=== PATIENT | male | born 1935 ===

== ENCOUNTER 2017-09-03 05:44 | Day surgery (SDC) | payer MEDICARE ==
[2017-09-03 06:53] LABS: CALCIUM 8.3 mg/dl (8.6-10.4)
[2017-09-03 06:55] LABS: POTASSIUM 4.2 mmol/L (3.6-5.2)
[2017-09-03] MEDS ORDERED: ceFAZolin IV 2 gm in Dextrose 0 GM/0 ML BAG IVPB ONE (07:32)
[2017-09-03] MEDS ORDERED: HEPARIN-NS 5,000 UNITS/500 ML 5,000 UNIT/500 ML BAG IV ONE (07:32)
[2017-09-03] MEDS ORDERED: Lidocaine 1% Inj (20ml) ONE (07:46)
[2017-09-03] MEDS ORDERED: Etomidate 20 mg/10ml Inj IV ONE (07:54)
[2017-09-03] MEDS ORDERED: Propofol 10 mg/ml Inj (20 ML) ONE (07:57)
[2017-09-03 08:11] LABS: INR 1.1
[2017-09-03] MEDS ORDERED: ceFAZolin IV 1 gm in Dextrose 1 GM/50 ML BAG IVPB ONE (08:12)
[2017-09-03] MEDS ORDERED: Sodium Chloride 0.9% 500 ML IV ONE ×2 (08:15)
[2017-09-03] MEDS ORDERED: Morphine 4 MG/ML VIAL ONE (09:22)
[2017-09-03] MEDS ORDERED: Sodium Chloride 0.9% 250 ML IV ONE ×2 (10:10→10:21)
--- NOTE | 2017-09-03 10:25 | PCM.SURG1 ---
Surgeon's Initial Post Op Note - Surgeon's Notes Surgeon: Dr. Aleman Management Consulting: Dr. Turner PGY-3, Mary S-III Type of Anesthesia: General LMA Pre-Operative Diagnosis: Renal failure requiring dialysis Operative Findings: see operative report Post-Operative Diagnosis: Renal failure requiring dialysis Operation Performed: Right AV Fistula Specimen/Specimens Removed: none Estimated Blood Loss: EBL {In ML}: 25 Blood Products Given: N/A Drains Used: No Drains Post-Op Condition: Good Date of Surgery/Procedure: 09/03/17 Time of Surgery/Procedure: 08:00
[2017-09-03 13:29] VITALS: PULSE 18; O2SAT 100
[2017-09-03 15:33] VITALS: BP 120/60; RESP 80; TEMP 98.1
--- NOTE | 2017-09-03 20:35 | OP ---
PROCEDURE DATE: 09/03/2017 PREOPERATIVE DIAGNOSIS: Renal failure. POSTOPERATIVE DIAGNOSIS: Renal failure. PROCEDURE CARRIED OUT: Brachiocephalic fistula, elbow. SURGEON: Reji Aleman Jr., MD LACQUERER: Dr. Turner. ANESTHESIA ADMINISTERED BY: Farrah Navarro CRNA. INDICATIONS: The patient is an 82-year-old man with renal insufficiency, who soon will requiring dialysis. OPERATIVE FINDINGS: At the end of the procedure, we had a diminution of the pulse at the wrist, but we had excellent Doppler signals and we had good pulse wave tracings on pulse oximeter. We have probed both of the ulnar and radial arteries. Other findings, of note, were that the vein was relatively small measuring approximately 2 mm, but there was excellent flow through it. The artery was also small. DESCRIPTION OF PROCEDURE: The patient was given general anesthesia and intravenous antibiotics. Using ultrasound, we marked the vein and the adjacent artery on the skin. An end-to-side fistula was then created using a spatulated anastomosis using loupe magnification and heparin anticoagulation. At the end of the procedure, there was excellent flow through the fistula, but there was a diminution of the pulse at the wrist. This appeared to improve as we had good pulse wave tracings and we had good Doppler signals of the wrist. The wounds were then closed with Monocryl and Vicryl sutures. The skin was closed with 5 nylon sutures. Blood loss for the procedure was 25 mL. Operation carried out was brachiocephalic fistula, elbow. Reji Aleman Jr., MD cc: Dr. Park, Aaron Orellana MD
== END 2017-09-03 14:20 | disposition home or self-care (01) ==
LOC: C.SDS 05:44
PROVIDERS: ATTEND Surgery Vascular Surgery
DX: N18.9 Chronic kidney disease, unspecified (principal); Z99.2 Dependence on renal dialysis
CPT/HCPCS: 36415; 36821; 80048; 85610; 85730; J0690; J1644; J2270; J2704; J3010; J7040

== ENCOUNTER 2017-12-11 09:47 | Day surgery (SDC) | payer MEDICARE ==
[2017-12-03 11:22] VITALS: BMI 19.1
[2017-12-11 11:08] LABS: CALCIUM 9.7 mg/dl (8.6-10.4)
[2017-12-11 11:18] LABS: INR 1.1; PROTHROMBIN TIME 12.8 SECONDS (9.7-12.2)
[2017-12-11] MEDS ORDERED: Propofol 10 mg/ml Inj (20 ML) ONE (11:43)
[2017-12-11] MEDS ORDERED: ceFAZolin 1 gm in NS 1 GM/100 ML BAG IVPB ONE (11:47)
[2017-12-11] MEDS ORDERED: HYDROmorphone 0.5 mg/0.5 ml ISec IVP PRN (13:10)
--- NOTE | 2017-12-11 13:11 | PCM.SURG1 ---
Surgeon's Initial Post Op Note - Surgeon's Notes Surgeon: Dr. Aleman Row Boss Hoeing: Dr. Major, PGY-I, Ever Cleveland, OMS-III Type of Anesthesia: General Endo Pre-Operative Diagnosis: End-stage renal disease requiring dialysis Operative Findings: See op report Post-Operative Diagnosis: End-stage renal disease requiring dialysis Operation Performed: Laparoscopic placement of Tenckhoff peritoneal dialysis catheter Specimen/Specimens Removed: none Estimated Blood Loss: EBL {In ML}: 10 Blood Products Given: N/A Drains Used: No Drains Post-Op Condition: Good Date of Surgery/Procedure: 12/11/17 Time of Surgery/Procedure: 13:11
[2017-12-11] MEDS ORDERED: Oxycodone/Acetaminophen 5/325 mg Tab PO PRN (13:12)
[2017-12-11 15:13] VITALS: BP 121/67; PULSE 54; RESP 15; TEMP 97.3; O2SAT 98
--- NOTE | 2017-12-11 19:05 | OP ---
PROCEDURE DATE: 12/11/2017 PREOPERATIVE DIAGNOSIS: Renal failure. POSTOPERATIVE DIAGNOSIS: Renal failure. PROCEDURE CARRIED OUT: Laparoscopic placement of Tenckhoff peritoneal dialysis catheter. SURGEON: Reji Aleman Jr., M.D. MARINE [employer]GO SURVEYOR: Dr. Major. ANESTHESIA ADMINISTERED BY: Mr. Cleveland. INDICATIONS: An 82-year-old man with renal insufficiency, has fistula in his right arm and now opted for placement of Tenckhoff catheter. OPERATIVE FINDINGS: The catheter was inserted uneventfully via the left paramedian area. PROCEDURE: The patient was given general anesthesia and intravenous antibiotics. A pneumoperitoneum was created with a Veress needle in the right upper quadrant. Subsequently, a 5 mm trocar was placed. The abdomen was visualized. There were no hernias. There was a small amount of existing ascites and there were no other significant adhesions. We then made a small incision just at the left of the midline and went in with an 8 mm Trocar through the rectus sheath down into the pelvis. After this was in the proper location, we then released the catheter and then checked this for flow in and out, which was excellent. We then completed the tunnel and secured it to the skin. Blood loss for procedure was 5 mL to 10 mL. Operation carried out was laparoscopic placement of Tenckhoff peritoneal dialysis catheter. Reji Aleman Jr., MD
== END 2017-12-11 15:21 | disposition home or self-care (01) ==
LOC: C.SDS 09:47
PROVIDERS: ATTEND Surgery Vascular Surgery
DX: N18.6 End stage renal disease (principal)
CPT/HCPCS: 36415; 49324; 80048; 85610; J0690; J2704; J3010; J7030

== ENCOUNTER 2017-12-11 22:20 | Emergency (ER) | payer MEDICARE ==
[2017-12-11 22:20] VITALS: BMI 19.1
[2017-12-11] MEDS ORDERED: Potassium Chloride 10 mEq ER Tab PO SCH (23:45)
[2017-12-11] MEDS ORDERED: Multivitamin Vitamin B Complex (Nephro-Vite) Tab PO SCH (23:45)
[2017-12-12] MEDS ORDERED: Potassium Chloride 10 mEq ER Tab PO ONE (00:06)
--- NOTE | 2017-12-12 01:13 | C.PDOC ---
History Of Present Illness <Kailey Alford - Last Filed: 12/12/17 01:37> <Prince Lara - Last Filed: 12/12/17 08:41> 82 year old male has 6-month PMHx of chronic renal failure and underwent AV fistula placement in August 2017. This morning, patient had a peritoneal catheter placed by Dr. Aleman. Patient now presents to the ED with c/o bleeding at exertion site of peritoneal dialysis catheter. Patient reports difficulty passing urine earlier today due to the effects of anesthesia but is now urinating without difficulty. Patient denies fever, chills, and has no other complaints at this time. (Kailey Alford) History Per: Patient History/Exam Limitations: no limitations Onset/Duration Of Symptoms: Hrs Current Symptoms Are (Timing): Still Present Additional History Per: Patient <Kailey Alford - Last Filed: 12/12/17 01:37> <Prince Lara - Last Filed: 12/12/17 08:41> Chief Complaint (Nursing): Abnormal Skin Integrity Past Medical History Reviewed: Historical Data, Nursing Documentation, Vital Signs - Medical History PMH: Cardia Arrhythmia (HX: [id number] DONE ~[id number]), COPD, HTN , Hypercholesterolemia, Peripheral Edema, Chronic Kidney Disease Surgical History: CABG (QUAD-CORNARY BYPASS 2007) Family History: States: Unknown Family Hx - Social History Hx Alcohol Use: No Hx Substance Use: No <AlfordKailey Alex - Last Filed: 12/12/17 01:37> Vital Signs: Last Vital Signs Temp 98.3 F 12/12/17 08:18 Pulse 75 12/12/17 08:18 Resp 16 12/12/17 08:18 BP 121/76 12/12/17 08:18 Pulse Ox 99 12/12/17 08:18 - [facility] Procedures ENDOSCOPIC BRONCHIAL BX (06/12/13) Review Of Systems Constitutional: Negative for: Fever, Chills Skin: Positive for: Other (bleeding at insertion site of peritoneal catheter ) <PrashanthKailey Alex - Last Filed: 12/12/17 01:37> Physical Exam - Physical Exam Appears: Non-toxic, No Acute Distress, Other (frail) Skin: Normal Color, Warm, Dry Head: Atraumatic, Normacephalic Eye(s): bilateral: Normal Inspection Oral Mucosa: Moist Neck: Supple Chest: Symmetrical, No Deformity, No Tenderness Cardiovascular: Rhythm Regular, No Murmur Respiratory: Normal Breath Sounds, No Rales, No Rhonchi, No Wheezing Gastrointestinal/Abdominal: Soft, No Tenderness, No Guarding, No Rebound, Other (peritoneal dialysis catheter to left lower quadrant with serosanguineous draiange at insertion site ) Extremity: Normal ROM, Capillary Refill (less than 2 seconds ), Other (AV fistula to left upper arm with positive thrill ) Neurological/Psych: Oriented x3, Normal Speech, Normal Cognition <Kailey Alford - Last Filed: 12/12/17 01:37> ED Course And Treatment O2 Sat by Pulse Oximetry: 96 (on RA) Pulse Ox Interpretation: Normal <Kailey Alford - Last Filed: 12/12/17 01:37> Medical Decision Making <Kailey Alford - Last Filed: 12/12/17 01:37> <Prince Lara - Last Filed: 12/12/17 08:41> Medical Decision Making: Progress: Patient was evaluated in the ED by Dr. Aleman, who injected Lidocaine with Epinephrine to insertion site and placed some surgiseal skin glue. He then dressed the insertion site and asked to leave the patient for overnight ED observation. He will re-evaluate the patient in the morning. (Kailey Alford) 0730: Dr. Aleman @ bedside, ED 6, bladder scan 770cc, straight cath to empty bladder and Flomax 0.4 mg PO given s/p abd surgery recently but no mccullough manipulation Consider post-op stress urinary retention d/w pt and Dr. Aleman- defer indwelling Mccullough and leg bag and carefully monitor urinary output @ home and opt f/u with Dr. Aleman in 2 days. (Prince Lara) Disposition <Kailey Alford - Last Filed: 12/12/17 01:37> Doctor Will See Patient In The: Office Counseled Patient/Family Regarding: Studies Performed, Diagnosis - Disposition Disposition Time: 08:41 <Prince Lara - Last Filed: 12/12/17 08:41> - Disposition Disposition: HOME/ ROUTINE Condition: GOOD Forms: [facility] (Citizen Of [place]) - Clinical Impression Clinical Impression: Peritoneal dialysis catheter in situ, Urinary retention - Scribe Statement The provider has reviewed the documentation as recorded by the Scribe (Bessy Claudio) <Kailey Alford - Last Filed: 12/12/17 01:37> <Prince Lara - Last Filed: 12/12/17 08:41> - Scribe Statement Provider Attestation: All medical record entries made by the Scribe were at my direction and personally dictated by me. I have reviewed the chart and agree that the record accurately reflects my personal performance of the history, physical exam, medical decision making, and the department course for this patient. I have also personally directed, reviewed, and agree with the discharge instructions and disposition. (Kailey Alford)
[2017-12-12 08:19] VITALS: BP 121/76; PULSE 75; RESP 16; TEMP 98.3; O2SAT 99
== END 2017-12-12 08:51 | disposition home or self-care (01) ==
LOC: C.ER 22:20 → SUPCPDRO 22:20 → C.ER 12-12 08:51
DX: Z49.02 Encounter for fitting and adjustment of peritoneal dialysis catheter (principal); R33.9 Retention of urine, unspecified; N18.6 End stage renal disease

== ENCOUNTER 2017-12-26 23:45 | Inpatient (IN) | payer MEDICARE ==
[2017-12-26 23:45] VITALS: BMI 19.1
--- NOTE | 2017-12-27 00:07 | C.PDOC ---
History Of Present Illness Pt presents with worsening dyspnea on exertion. No chest or palpitations. Pt is due next week to start peritoneal dialysis. Speaking in complete sentences. Time Seen by Provider: 12/27/17 00:06 Chief Complaint (Nursing): Shortness Of Breath History Per: Patient History/Exam Limitations: no limitations Onset/Duration Of Symptoms: Days Current Symptoms Are (Timing): Worse Initiating Event: Other Exacerbating Factor(s): Exertion Current Respiratory Medications: See Home Med List Severity: Severe Pain Scale Rating Of: 6 Associated Symptoms: denies: Fever, Chills, Anxiety Reports Recently: Treated By A Physician, Hospitalized Recent travel outside of the [place]: No Additional History Per: Family Past Medical History Reviewed: Historical Data, Nursing Documentation, Vital Signs Vital Signs: Last Vital Signs Temp 97.4 F L 12/26/17 23:56 Pulse 98 H 12/26/17 23:56 Resp 28 H 12/27/17 00:12 BP 122/65 12/26/17 23:56 Pulse Ox 94 L 12/27/17 00:30 - Medical History PMH: Cardia Arrhythmia (HX: [id number] DONE ~[id number]), COPD, HTN , Hypercholesterolemia, Peripheral Edema, End Stage Renal Disease, Chronic Kidney Disease Surgical History: CABG (QUAD-CORNARY BYPASS 2007) - [facility] Procedures ENDOSCOPIC BRONCHIAL BX (06/12/13) Family History: States: No Known Family Hx - Social History Hx Alcohol Use: No Hx Substance Use: No - Immunization History Hx Tetanus Toxoid Vaccination: Yes Hx Influenza Vaccination: Yes Hx Pneumococcal Vaccination: Yes Review Of Systems Constitutional: Negative for: Fever, Chills Eyes: Negative for: Redness ENT: Negative for: Throat Pain Cardiovascular: Positive for: Paroxysmal Noc. Dyspnea. Negative for: Chest Pain Respiratory: Positive for: Shortness of Breath, SOB with Excertion Gastrointestinal: Negative for: Nausea, Vomiting, Abdominal Pain Genitourinary: Negative for: Hematuria Musculoskeletal: Negative for: Back Pain Skin: Negative for: Rash Neurological: Negative for: Weakness Psych: Negative for: Anxiety Physical Exam - Physical Exam Appears: Non-toxic Skin: Warm, Dry Head: Normacephalic Eye(s): bilateral: Normal Inspection Nose: No Flaring Oral Mucosa: Dry Neck: Trachea Midline, Supple, Other (+JVD) Chest: Symmetrical Cardiovascular: Rhythm Irregular Respiratory: Decreased Breath Sounds, Rales, No Rhonchi, No Wheezing Gastrointestinal/Abdominal: Soft, No Tenderness, No Distention, Other (PD shunt LLQ) Back: No CVA Tenderness Extremity: Normal ROM, Other (Right HD shunt with good thrill and bruit) Pulses: Left Dorsalis Pedis: Normal, Right Dorsalis Pedis: Normal Neurological/Psych: Oriented x3, Normal Speech, Normal Cognition Gait: With Assistance ED Course And Treatment - Laboratory Results Result Diagrams: 12/27/17 00:12 12/27/17 00:12 ECG: Interpreted By Me, Viewed By Me ECG Rhythm: Atrial Flutter (93), Nonspecific Changes O2 Sat by Pulse Oximetry: 94 Pulse Ox Interpretation: Normal - Radiology CXR: Interpreted by Me, Viewed By Me CXR Interpretation: Yes: Cardiomegaly, Other (cabg, b/l pleural effusions.mild chf). No: Infiltrates, Fracture Disposition Discussed With Dr.: Tk Park Comment: accepted the pt on his service and took over the care at 1:30 AM Doctor Will See Patient In The: Hospital Counseled Patient/Family Regarding: Studies Performed, Diagnosis - Disposition Disposition: HOSPITALIZED Disposition Time: 00:06 Condition: GUARDED Forms: [employer] [facility] ([place]) - POA Present On Arrival: Poor Glycemic Control - Clinical Impression Clinical Impression: Chronic congestive heart failure, Peritoneal dialysis catheter in situ, Dyspnea , ESRD needing dialysis Decision To Admit - Pt Status Changed To: Hospital Disposition Of: Inpatient - Admit Certification Admit to Inpatient:: After my assessment, the patient will require hospitalization for at least two midnights. This is because of the severity of symptoms shown, intensity of services needed, and/or the medical risk in this patient being treated as an outpatient. - InPatient: Physician Admission Certification: I certify that this patient requires 2 or more midnights of care for the following reason:: After my assessment, the patient will require hospitalization for at least two midnights. This is because of the severity of symptoms shown, intensity of services needed, and/or the medical risk in this patient being treated as an outpatient. - . Bed Request Type: Telemetry Admitting Physician: Tk Park Patient Diagnosis: Chronic congestive heart failure, Peritoneal dialysis catheter in situ, Dyspnea , ESRD needing dialysis
[2017-12-27 00:18] LABS: BASO # 0.1 K/uL (0.0-0.2); BASO % 0.9 % (0.0-2.0); EOS # 0.2 K/uL (0.0-0.7); EOS % 1.9 % (0.0-4.0); HEMOGLOBIN 9.4 g/dL (12.0-18.0); LYMPH # 0.6 K/uL (1.0-4.3); LYMPH % 6.7 % (20.0-40.0); MEAN CELL VOLUME 100.3 fL (80.0-94.0); MEAN CORPUSCULAR HEMOGLOBIN 33.9 pg (27.0-31.0); MEAN CORPUSCULAR HGB CONC 33.8 g/dL (33.0-37.0); MEAN PLATELET VOLUME 9.3 fL (7.2-11.7); MONO # 0.7 K/uL (0.0-0.8); MONO % 7.6 % (0.0-10.0); NEUT # 7.8 K/uL (1.8-7.0); NEUT % 82.9 % (50.0-75.0); NRBC % 0.1 % (0.0-2.0); PLATELET COUNT 156 K/uL (130-400); RBC 2.77 Mil/uL (4.40-5.90); WHITE BLOOD COUNT 9.5 K/uL (4.8-10.8)
[2017-12-27 00:31] LABS: INR 1.8; PROTHROMBIN TIME 20.5 SECONDS (9.7-12.2)
[2017-12-27 00:43] LABS: ALB/GLOB RATIO 1.1 (1.0-2.1); ALBUMIN 4.4 g/dL (3.5-5.0); ALT/SGPT 18 U/L (21-72); AST/SGOT 21 U/L (17-59); BLOOD UREA NITROGEN 96 mg/dL (9-20); CALCIUM 9.8 mg/dl (8.6-10.4); GFR AFRICAN-AMERICAN 14; GFR NON-AFRICAN AMERICAN 12
[2017-12-27 02:03] LABS: URINE BILIRUBIN NEGATIVE (NEGATIVE); URINE BLOOD NEGATIVE (NEGATIVE); URINE CLARITY Clear (Clear); URINE COLOR Yellow (YELLOW); URINE GLUCOSE (UA) NORMAL (Normal); URINE LEUKOCYTE ESTERASE NEG Leu/uL (Negative); URINE PROTEIN NEGATIVE (NEGATIVE); URINE UROBILINOGEN NORMAL mg/dL (0.2-1.0)
[2017-12-27 02:13] LABS: BANDS 1 % (0-2); EOSINOPHIL 1 % (0-4); LYMPHOCYTE 7 % (20-40); MONOCYTE 6 % (0-10); NEUTROPHIL 85 % (50-75); PLATELET ESTIMATE NORMAL (NORMAL); TOTAL CELLS COUNTED 100
[2017-12-27 07:27] LABS: ALBUMIN 3.5 g/dL (3.5-5.0); CALCIUM 9.2 mg/dl (8.6-10.4)
--- NOTE | 2017-12-27 07:48 | RAD ---
Chest x-ray single frontal view History: Shortness of breath. Comparison: 12/03/2017 Findings: Moderate left pleural effusion. Confluent airspace consolidative changes seen within the left mid to lower lung zone. Addition nodular areas of consolidative changes seen within right midlung zone. Cardiomegaly. Enlarged ectatic aorta. Calcification at the aortic knob and within the aorta. Status post median sternotomy. Degenerative changes in the spine and shoulders. Surgical clips in the upper abdomen. Impression: Moderate left pleural effusion. Confluent airspace consolidative changes seen within the left mid to lower lung zone. Addition nodular areas of consolidative changes seen within right midlung zone. Cardiomegaly. Enlarged ectatic aorta. Calcification at the aortic knob and within the aorta. Status post median sternotomy. Degenerative changes in the spine and shoulders.
--- NOTE | 2017-12-27 12:05 | CP.PCM.CON ---
History of Present Illness - History of Present Illness History of Present Illness: 82 yo male with HTN, CKD stage 5, CAD s/p CABG, DL, COPD and A flutter s/p cardioversion presents to ER with complaints of worsening SOB. As per patient , he was suppose to start PD next week at out pt dialysis unit, but for the past 2 days experiencing more exertional dyspnea No chest pain , no palpitations no fevers no change in UOP occasionally hesitancy PMHX- HTN, CKD stage 5, DL, CAD, BPH, A flutter PSHx- CABG, AV fistula creaiton, PD catheter placement social - no smoking, alcohol or drug use family- no family history of kidney disease Review of Systems - Constitutional Constitutional: Weakness. absent: Chills, Fever - EENT Eyes: absent: Blurred Vision, Diplopia Nose/Mouth/Throat: absent: Nasal Congestion, Bleeding Gums - Cardiovascular Cardiovascular: Dyspnea on Exertion, Edema. absent: Chest Pain, Syncope - Respiratory Respiratory: Dyspnea on Exertion. absent: Cough, Hemoptysis - Gastrointestinal Gastrointestinal: absent: Abdominal Pain, Diarrhea, Vomiting - Genitourinary Genitourinary: Urinary Hesitance. absent: Change in Urinary Stream, Hematuria, Urinary Frequency - Musculoskeletal Musculoskeletal: absent: Arthralgias, Joint Swelling - Integumentary Integumentary: absent: Pruritus, Rash, Unusual Bruising - Neurological Neurological: Convulsions. absent: Dizziness, Numbness, Frequent Falls - Psychiatric Psychiatric: As Per HPI - Endocrine Endocrine: As Per HPI Past Patient History - Infectious Disease Hx of Infectious Diseases: None - Past Medical History & Family History Past Medical History?: Yes - Past Social History Smoking Status: Never Smoked - CARDIAC Hx Cardiac Disorders: Yes Hx Cardia Arrhythmia: Yes (HX: [id number] DONE ~[id number]) Hx Hypercholesterolemia: Yes Hx Hypertension: Yes Hx Peripheral Edema: Yes - PULMONARY Hx Respiratory Disorders: Yes Hx Chronic Obstructive Pulmonary Disease (COPD): Yes - NEUROLOGICAL Hx Neurological Disorder: No - HEENT Hx HEENT Problems: No - RENAL Hx Chronic Kidney Disease: Yes Type of Dialysis Access: AV Fistula; PD cath. Hx Renal Failure: Yes Other/Comment: ESRD needs Dialisys - ENDOCRINE/METABOLIC Hx Endocrine Disorders: No - HEMATOLOGICAL/ONCOLOGICAL Hx Blood Disorders: No - INTEGUMENTARY Hx Dermatological Problems: No - MUSCULOSKELETAL/RHEUMATOLOGICAL Hx Musculoskeletal Disorders: No Hx Falls: No - GASTROINTESTINAL Hx Gastrointestinal Disorders: No - GENITOURINARY/GYNECOLOGICAL Hx Genitourinary Disorders: No - PSYCHIATRIC Hx Psychophysiologic Disorder: No Hx Substance Use: No - SURGICAL HISTORY Hx Surgeries: Yes Hx Arteriovenous Shunt: Yes (AV fistula R arm) 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QUAD-CORNARY BYPASS 2007) - ANESTHESIA Hx Anesthesia: Yes Hx Anesthesia Reactions: No Hx Malignant Hyperthermia: No Meds Allergies/Adverse Reactions: Allergies Allergy/AdvReac Type Severity Reaction Status Date / Time Gadolinium-Containing Allergy Severe "HIVES" Verified 12/26/17 23:59 Contrast Medi Iodinated Contrast- Oral and Allergy Severe URTICARIA Verified 12/26/17 23:59 IV Dye Thiazides Allergy Severe "HIVES" Verified 12/26/17 23:59 - Medications Medications: Current Medications Allopurinol (Zyloprim) 100 mg PO HS EMILY Amlodipine Besylate (Norvasc) 2.5 mg PO HS EMILY Apixaban (Eliquis) 2.5 mg PO BID [facility] Last Admin: 12/27/17 10:20 Dose: 2.5 mg Calcitriol (Rocaltrol) 0.25 mcg PO HS EMILY Clonidine HCl (Catapres) 0.1 mg PO HS EMILY Ferrous Sulfate (Feosol) 325 mg PO HS EMILY Folic Acid (Folic Acid) 1 mg PO HS EMILY Furosemide (Lasix) 40 mg PO HS [facility] Home Med (Atorvastatin [Lipitor]) 10 mg PO HS EMILY Nebivolol (Bystolic) 10 mg PO HS EMILY Vitamin B Complex/Vit C/Folic Acid (Nephro-Miguel Ángel) 1 tab PO HS [facility] Physical Exam - Constitutional Appears: Non-toxic, No Acute Distress - Head Exam Head Exam: ATRAUMATIC, NORMOCEPHALIC - Eye Exam Eye Exam: EOMI, PERRL - ENT Exam ENT Exam: Mucous Membranes Moist, Normal Exam - Neck Exam Neck exam: Negative for: Thyromegaly - Respiratory Exam Respiratory Exam: Clear to Auscultation Bilateral Additional comments: decreased BS at bases L >> R - Cardiovascular Exam Cardiovascular Exam: REGULAR RHYTHM, +S1, +S2 - GI/Abdominal Exam GI & Abdominal Exam: Normal Bowel Sounds, Soft. absent: Tenderness - Extremities Exam Extremities exam: Positive for: pedal edema. Negative for: joint swelling - Neurological Exam Neurological exam: Alert, Oriented x3 - Psychiatric Exam Psychiatric exam: Normal Affect, Normal Mood - Skin Skin Exam: Dry, Normal Color Results - Vital Signs Recent Vital Signs: Last Vital Signs Temp 97.4 F L 12/27/17 10:45 Pulse 72 12/27/17 10:45 Resp 18 12/27/17 10:45 BP 115/58 L 12/27/17 10:45 Pulse Ox 99 12/27/17 10:45 - Labs Result Diagrams: 12/27/17 00:12 12/27/17 06:47 Labs: Laboratory Results - last 24 hr 12/27/17 12/27/17 12/27/17 00:12 00:12 00:12 WBC 9.5 RBC 2.77 L Hgb 9.4 L Hct 27.8 L MCV 100.3 H MCH 33.9 H MCHC 33.8 RDW 18.0 H Plt Count 156 MPV 9.3 Neut % (Auto) 82.9 H Lymph % (Auto) 6.7 L [place] % (Auto) 7.6 Eos % (Auto) 1.9 Baso % (Auto) 0.9 Neut # (Auto) 7.8 H Lymph # (Auto) 0.6 L [place] # (Auto) 0.7 Eos # (Auto) 0.2 Baso # (Auto) 0.1 Neutrophils % (Manual) 85 H Band Neutrophils % 1 Lymphocytes % (Manual) 7 L Monocytes % (Manual) 6 Eosinophils % (Manual) 1 Platelet Estimate Normal PT 20.5 H INR 1.8 APTT 37 H Sodium 144 Potassium 4.8 Chloride 104 Carbon Dioxide 20 L Anion Gap 25 H BUN 96 H Creatinine 4.8 H Est GFR ( Amer) 14 Est GFR (Non-Af Amer) 12 Random Glucose 111 H Calcium 9.8 Magnesium Cancelled Total Bilirubin 1.6 H AST 21 ALT 18 L Alkaline Phosphatase 111 Troponin I < 0.0120 NT-Pro-B Natriuret Pep Cancelled Total Protein 8.5 H Albumin 4.4 Globulin 4.1 H Albumin/Globulin Ratio 1.1 Urine Color Urine Clarity Urine pH Ur Specific [place] Urine Protein Urine Glucose (UA) Urine Ketones Urine Blood Urine Nitrate Urine Bilirubin Urine Urobilinogen Ur Leukocyte Esterase Urine RBC (Auto) 12/27/17 12/27/17 12/27/17 01:13 01:17 01:57 WBC RBC Hgb Hct MCV MCH MCHC RDW Plt Count MPV Neut % (Auto) Lymph % (Auto) [place] % (Auto) Eos % (Auto) Baso % (Auto) Neut # (Auto) Lymph # (Auto) [place] # (Auto) Eos # (Auto) Baso # (Auto) Neutrophils % (Manual) Band Neutrophils % Lymphocytes % (Manual) Monocytes % (Manual) Eosinophils % (Manual) Platelet Estimate PT INR APTT Sodium Potassium Chloride Carbon Dioxide Anion Gap BUN Creatinine Est GFR ( Amer) Est GFR (Non-Af Amer) Random Glucose Calcium Magnesium 2.8 H Total Bilirubin AST ALT Alkaline Phosphatase Troponin I NT-Pro-B Natriuret Pep 82677 H Total Protein Albumin Globulin Albumin/Globulin Ratio Urine Color Yellow Urine Clarity Clear Urine pH 5.0 Ur Specific [place] 1.009 Urine Protein Negative Urine Glucose (UA) Normal Urine Ketones Negative Urine Blood Negative Urine Nitrate Negative Urine Bilirubin Negative Urine Urobilinogen Normal Ur Leukocyte Esterase Neg Urine RBC (Auto) < 1 12/27/17 06:47 WBC RBC Hgb Hct MCV MCH MCHC RDW Plt Count MPV Neut % (Auto) Lymph % (Auto) [place] % (Auto) Eos % (Auto) Baso % (Auto) Neut # (Auto) Lymph # (Auto) [place] # (Auto) Eos # (Auto) Baso # (Auto) Neutrophils % (Manual) Band Neutrophils % Lymphocytes % (Manual) Monocytes % (Manual) Eosinophils % (Manual) Platelet Estimate PT INR APTT Sodium 142 Potassium 4.7 Chloride 105 Carbon Dioxide 21 L Anion Gap 21 H BUN 96 H Creatinine 4.6 H Est GFR ( Amer) 15 Est GFR (Non-Af Amer) 12 Random Glucose 132 H Calcium 9.2 Magnesium Total Bilirubin 1.2 AST 20 ALT 20 L Alkaline Phosphatase 88 Troponin I NT-Pro-B Natriuret Pep Total Protein 6.9 Albumin 3.5 D Globulin 3.5 Albumin/Globulin Ratio 1.0 Urine Color Urine Clarity Urine pH Ur Specific [place] Urine Protein Urine Glucose (UA) Urine Ketones Urine Blood Urine Nitrate Urine Bilirubin Urine Urobilinogen Ur Leukocyte Esterase Urine RBC (Auto) Assessment & Plan (1) Pleural effusion on left Status: Acute (2) Chronic congestive heart failure Status: Acute (3) Dyspnea Status: Acute (4) Peritoneal dialysis catheter in situ Status: Acute (5) Chronic kidney disease, stage 5 Status: Acute (6) Dyslipidemia Status: Acute (7) CAD (coronary artery disease) Status: Acute - Assessment and Plan (Free Text) Plan: no anika uremic symptoms dyspnea likely secondary to worsening effusions pulmonary eval for ? thoracentesis continue iv lasix bladder scan r/o obstruction daily labs
[2017-12-27] MEDS: Multivitamin Vitamin B Complex (Nephro-Vite) Tab PO SCH (21:57)
[2017-12-27] MEDS ORDERED: Home Med 1 UNIT (Atorvastatin [Lipitor] 10 MG) PO SCH (22:00)
--- NOTE | 2017-12-27 23:26 | CP.PCM.HP ---
History of Present Illness - History of Present Illness History of Present Illness: 82 years old male was brought to the ED at [facility] complaining of increasing SOB for the past few days and mild swelling of the ankles. He denies any chest pain, any fever. A CXR revealed cardiomegaly and moderate left pleural effusion. Hgb: 9.4. BUN: 96 creatinine: 4.6 Mg++: 2.8 TNI: normal Pro-BNP: 23,4000. He is known to have a hypertension, a hyperlipidemia, a chronic atrial flutter an ESRD with failed placement of AV shunt in 08/2017 and recent insertion of a PD catheter, a CAD with CAGB x 4 in 2007. He was given Bumex IV in the ED with improvement of symptoms. He also had a normal Persantine MPI in 06/2015 and an echo which showed a normal LV systolic function and abnormal diastolic relaxation. Present on Admission - Present on Admission Any Indicators Present on Admission: No Review of Systems - Cardiovascular Cardiovascular: Dyspnea on Exertion, Edema - Respiratory Respiratory: Dyspnea on Exertion Past Patient History - Infectious Disease Hx of Infectious Diseases: None - Tetanus Immunizations Tetanus Immunization: Unknown - Past Medical History & Family History Past Medical History?: Yes - Past Social History Smoking Status: Never Smoked Alcohol: None Home Situation {Lives}: With Family Domestic Violence: Negative - CARDIAC Hx Cardiac Disorders: Yes Hx Cardia Arrhythmia: Yes (HX: [id number] [id number] ~[id number]) Hx Hypercholesterolemia: Yes Hx Hypertension: Yes Hx Peripheral Edema: Yes - PULMONARY Hx Respiratory Disorders: Yes Hx Chronic Obstructive Pulmonary Disease (COPD): Yes - NEUROLOGICAL Hx Neurological Disorder: No - HEENT Hx HEENT Problems: No - RENAL Hx Chronic Kidney Disease: Yes Type of Dialysis Access: AV Fistula; PD cath. Hx Renal Failure: Yes Other/Comment: ESRD needs Dialisys - ENDOCRINE/METABOLIC Hx Endocrine Disorders: No - HEMATOLOGICAL/ONCOLOGICAL Hx Blood Disorders: No - INTEGUMENTARY Hx Dermatological Problems: No - MUSCULOSKELETAL/RHEUMATOLOGICAL Hx Musculoskeletal Disorders: No Hx Falls: No - GASTROINTESTINAL Hx Gastrointestinal Disorders: No - GENITOURINARY/GYNECOLOGICAL Hx Genitourinary Disorders: No - PSYCHIATRIC Hx Psychophysiologic Disorder: No Hx Substance Use: No - SURGICAL HISTORY Hx Surgeries: Yes Hx Arteriovenous Shunt: Yes (AV fistula R arm) 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[facility] BYPASS 2007) - ANESTHESIA Hx Anesthesia: Yes Hx Anesthesia Reactions: No Hx Malignant Hyperthermia: No Meds Allergies/Adverse Reactions: Allergies Allergy/AdvReac Type Severity Reaction Status Date / Time Gadolinium-Containing Allergy Severe "HIVES" Verified 12/26/17 23:59 Contrast Medi Iodinated Contrast- Oral and Allergy Severe URTICARIA Verified 12/26/17 23:59 IV Dye Thiazides Allergy Severe "HIVES" Verified 12/26/17 23:59 Physical Exam - Constitutional Appears: No Acute Distress, Chronically Ill - Head Exam Head Exam: NORMAL INSPECTION - Eye Exam Eye Exam: Normal appearance - ENT Exam ENT Exam: Normal Exam - Neck Exam Neck exam: Positive for: Normal Inspection - Respiratory Exam Respiratory Exam: Decreased Breath Sounds Additional comments: Decreased breathing sounds at the left base. - Cardiovascular Exam Cardiovascular Exam: Irregular Rhythm - GI/Abdominal Exam GI & Abdominal Exam: Normal Bowel Sounds, Soft - Rectal Exam Rectal Exam: Deferred - Extremities Exam Extremities exam: Positive for: pedal edema Additional comments: Trace pedal edema. - Back Exam Back exam: NORMAL INSPECTION - Neurological Exam Neurological exam: Alert, Normal Gait, Oriented x3 - Psychiatric Exam Psychiatric exam: Anxious - Skin Skin Exam: Dry, Intact, Normal Color Results - Vital Signs Recent Vital Signs: Last Vital Signs Temp 97.8 F 12/27/17 15:30 Pulse 64 12/27/17 15:57 Resp 20 12/27/17 15:30 BP 106/63 12/27/17 15:30 Pulse Ox 98 12/27/17 15:30 - Labs Result Diagrams: 12/27/17 00:12 12/27/17 06:47 Labs: Laboratory Results - last 24 hr 12/27/17 12/27/17 12/27/17 00:12 00:12 00:12 WBC 9.5 RBC 2.77 L Hgb 9.4 L Hct 27.8 L MCV 100.3 H MCH 33.9 H MCHC 33.8 RDW 18.0 H Plt Count 156 MPV 9.3 Neut % (Auto) 82.9 H Lymph % (Auto) 6.7 L [place] % (Auto) 7.6 Eos % (Auto) 1.9 Baso % (Auto) 0.9 Neut # (Auto) 7.8 H Lymph # (Auto) 0.6 L [place] # (Auto) 0.7 Eos # (Auto) 0.2 Baso # (Auto) 0.1 Neutrophils % (Manual) 85 H Band Neutrophils % 1 Lymphocytes % (Manual) 7 L Monocytes % (Manual) 6 Eosinophils % (Manual) 1 Platelet Estimate Normal PT 20.5 H INR 1.8 APTT 37 H Sodium 144 Potassium 4.8 Chloride 104 Carbon Dioxide 20 L Anion Gap 25 H BUN 96 H Creatinine 4.8 H Est GFR ( Amer) 14 Est GFR (Non-Af Amer) 12 Random Glucose 111 H Calcium 9.8 Magnesium Cancelled Total Bilirubin 1.6 H AST 21 ALT 18 L Alkaline Phosphatase 111 Troponin I < 0.0120 NT-Pro-B Natriuret Pep Cancelled Total Protein 8.5 H Albumin 4.4 Globulin 4.1 H Albumin/Globulin Ratio 1.1 Urine Color Urine Clarity Urine pH Ur Specific [place] Urine Protein Urine Glucose (UA) Urine Ketones Urine Blood Urine Nitrate Urine Bilirubin Urine Urobilinogen Ur Leukocyte Esterase Urine RBC (Auto) 12/27/17 12/27/17 12/27/17 01:13 01:17 01:57 WBC RBC Hgb Hct MCV MCH MCHC RDW Plt Count MPV Neut % (Auto) Lymph % (Auto) [place] % (Auto) Eos % (Auto) Baso % (Auto) Neut # (Auto) Lymph # (Auto) [place] # (Auto) Eos # (Auto) Baso # (Auto) Neutrophils % (Manual) Band Neutrophils % Lymphocytes % (Manual) Monocytes % (Manual) Eosinophils % (Manual) Platelet Estimate PT INR APTT Sodium Potassium Chloride Carbon Dioxide Anion Gap BUN Creatinine Est GFR ( Amer) Est GFR (Non-Af Amer) Random Glucose Calcium Magnesium 2.8 H Total Bilirubin AST ALT Alkaline Phosphatase Troponin I NT-Pro-B Natriuret Pep 26231 H Total Protein Albumin Globulin Albumin/Globulin Ratio Urine Color Yellow Urine Clarity Clear Urine pH 5.0 Ur Specific [place] 1.009 Urine Protein Negative Urine Glucose (UA) Normal Urine Ketones Negative Urine Blood Negative Urine Nitrate Negative Urine Bilirubin Negative Urine Urobilinogen Normal Ur Leukocyte Esterase Neg Urine RBC (Auto) < 1 12/27/17 06:47 WBC RBC Hgb Hct MCV MCH MCHC RDW Plt Count MPV Neut % (Auto) Lymph % (Auto) [place] % (Auto) Eos % (Auto) Baso % (Auto) Neut # (Auto) Lymph # (Auto) [place] # (Auto) Eos # (Auto) Baso # (Auto) Neutrophils % (Manual) Band Neutrophils % Lymphocytes % (Manual) Monocytes % (Manual) Eosinophils % (Manual) Platelet Estimate PT INR APTT Sodium 142 Potassium 4.7 Chloride 105 Carbon Dioxide 21 L Anion Gap 21 H BUN 96 H Creatinine 4.6 H Est GFR ( Amer) 15 Est GFR (Non-Af Amer) 12 Random Glucose 132 H Calcium 9.2 Magnesium Total Bilirubin 1.2 AST 20 ALT 20 L Alkaline Phosphatase 88 Troponin I NT-Pro-B Natriuret Pep Total Protein 6.9 Albumin 3.5 D Globulin 3.5 Albumin/Globulin Ratio 1.0 Urine Color Urine Clarity Urine pH Ur Specific [place] Urine Protein Urine Glucose (UA) Urine Ketones Urine Blood Urine Nitrate Urine Bilirubin Urine Urobilinogen Ur Leukocyte Esterase Urine RBC (Auto) Assessment & Plan (1) Acute on chronic diastolic (congestive) heart failure Assessment and Plan: Due to fluid overload secondary to ESRD. To continue IV lasix, but also need PD. Status: Acute (2) Acute on chronic diastolic (congestive) heart failure Status: Acute (3) ESRD needing dialysis Status: Chronic (4) Chronic atrial flutter Assessment and Plan: To continue Eliquis Status: Chronic (5) CAD (coronary artery disease) Assessment and Plan: S/p CABG x 4 in 2007 with normal Persantine MPI in 06/2015. Status: Chronic Decision To Admit - Pt Status Changed To: Hospital Disposition Of: Inpatient - Admit Certification Admit to Inpatient:: After my assessment, the patient will require hospitalization for at least two midnights. This is because of the severity of symptoms shown, intensity of services needed, and/or the medical risk in this patient being treated as an outpatient. - InPatient: Physician Admission Certification:: After my assessments, the patient requires hospitalization for at least 2 midnights. - . Bed Request Type: Telemetry Admitting Physician: Tk Park
[2017-12-28 06:49] LABS: CALCIUM 9.1 mg/dl (8.6-10.4)
--- NOTE | 2017-12-28 14:34 | CP.PCM.PN ---
Subjective - Date & Time of Evaluation Date of Evaluation: 12/28/17 Time of Evaluation: 14:31 - Subjective Subjective: Still moderately SOB, CXR consistent with CHF AV fistula right arm patent, though small. Due for PD training next week Discussed with Vivian Kasper. best to initiate dialysis now Seen by vascular- access should be amenable for cannulation Will send hep studies, start dialysis today and tomorrow Objective - Vital Signs/Intake and Output Vital Signs (last 24 hours): Temp Pulse Resp BP Pulse Ox 97.9 F 74 20 130/59 L 96 12/28/17 08:30 12/28/17 12:48 12/28/17 08:30 12/28/17 09:06 12/28/17 08:30 Intake and Output: 12/28/17 12/28/17 06:59 18:59 Intake Total 0 300 Output Total 350 Balance -350 300 - Medications Medications: Current Medications Allopurinol (Zyloprim) 100 mg PO [facility] Last Admin: 12/27/17 21:58 Dose: 100 mg Apixaban (Eliquis) 2.5 mg PO BID [facility] Last Admin: 12/28/17 09:06 Dose: 2.5 mg Calcitriol (Rocaltrol) 0.25 mcg PO [facility] Last Admin: 12/27/17 21:58 Dose: 0.25 mcg Clonidine HCl (Catapres) 0.1 mg PO [facility] Last Admin: 12/27/17 21:59 Dose: Not Given Ferrous Sulfate (Feosol) 325 mg PO [facility] Last Admin: 12/27/17 21:57 Dose: 325 mg Folic Acid (Folic Acid) 1 mg PO [facility] Last Admin: 12/27/17 21:58 Dose: 1 mg Furosemide (Lasix) 40 mg IVP DAILY [facility] Last Admin: 12/28/17 09:06 Dose: 40 mg Nebivolol (Bystolic) 10 mg PO [facility] Last Admin: 12/27/17 21:59 Dose: 10 mg Rosuvastatin Calcium (Crestor) 5 mg PO [facility] Last Admin: 12/27/17 21:57 Dose: 5 mg Vitamin B Complex/Vit C/Folic Acid (Nephro-Miguel Ángel) 1 tab PO [facility] Last Admin: 12/27/17 21:57 Dose: 1 tab - Labs Labs: 12/27/17 00:12 12/28/17 06:21 PT 20.5 SECONDS (9.7-12.2) H 12/27/17 00:12 INR 1.8 12/27/17 00:12 APTT 37 SECONDS (21-34) H 12/27/17 00:12 - Constitutional Appears: No Acute Distress, Chronically Ill - Head Exam Head Exam: ATRAUMATIC, NORMAL INSPECTION - Eye Exam Eye Exam: EOMI, Normal appearance - Neck Exam Neck Exam: Normal Inspection. absent: Tenderness - Respiratory Exam Respiratory Exam: Decreased Breath Sounds, Rales, NORMAL BREATHING PATTERN - GI/Abdominal Exam GI & Abdominal Exam: Soft. absent: Tenderness - Extremities Exam Extremities Exam: Pedal Edema. absent: Tenderness - Neurological Exam Neurological Exam: Alert, CN II-XII Intact - Skin Skin Exam: Dry, Warm Assessment and Plan (1) Uremia due to inadequate renal perfusion Status: Acute (2) Acute on chronic diastolic (congestive) heart failure Status: Acute (3) Chronic kidney disease, stage 5 Status: Acute (4) Peritoneal dialysis catheter in situ Status: Acute - Assessment and Plan (Free Text) Plan: Dialysis today and in AM' send hep panel
--- NOTE | 2017-12-28 16:05 | CP.PCM.PCO ---
Physician Communication Note - Physician Communication Note Physician Communication Note: Cont Dialysis via AVF tonight. Will place Permacath tomorrow if not optimal
[2017-12-28 16:14] LABS: HEPATITIS B SURFACE AG Negative (NEGATIVE)
[2017-12-28 16:31] LABS: HEPATITIS C ANTIBODY NEGATIVE (NEGATIVE)
--- NOTE | 2017-12-28 20:21 | CP.PCM.PN ---
Subjective - Date & Time of Evaluation Date of Evaluation: 12/28/17 Time of Evaluation: 20:18 - Subjective Subjective: Patient a little less SOB. HD tried unsuccessfully today with the AV shunt. For a permacath placement in AM. Objective - Vital Signs/Intake and Output Vital Signs (last 24 hours): Temp Pulse Resp BP Pulse Ox 97.9 F 85 20 126/49 L 100 12/28/17 16:00 12/28/17 17:15 12/28/17 16:00 12/28/17 16:00 12/28/17 16:00 Intake and Output: 12/28/17 12/29/17 18:59 06:59 Intake Total 300 Balance 300 - Medications Medications: Current Medications Allopurinol (Zyloprim) 100 mg PO [facility] Last Admin: 12/27/17 21:58 Dose: 100 mg Apixaban (Eliquis) 2.5 mg PO BID [facility] Last Admin: 12/28/17 17:59 Dose: 2.5 mg Calcitriol (Rocaltrol) 0.25 mcg PO [facility] Last Admin: 12/27/17 21:58 Dose: 0.25 mcg Clonidine HCl (Catapres) 0.1 mg PO [facility] Last Admin: 12/27/17 21:59 Dose: Not Given Ferrous Sulfate (Feosol) 325 mg PO [facility] Last Admin: 12/27/17 21:57 Dose: 325 mg Folic Acid (Folic Acid) 1 mg PO [facility] Last Admin: 12/27/17 21:58 Dose: 1 mg Furosemide (Lasix) 40 mg IVP DAILY [facility] Last Admin: 12/28/17 09:06 Dose: 40 mg Nebivolol (Bystolic) 10 mg PO [facility] Rosuvastatin Calcium (Crestor) 5 mg PO [facility] Last Admin: 12/27/17 21:57 Dose: 5 mg Vitamin B Complex/Vit C/Folic Acid (Nephro-Miguel Ángel) 1 tab PO [facility] Last Admin: 12/27/17 21:57 Dose: 1 tab - Labs Labs: 12/27/17 00:12 12/28/17 06:21 PT 20.5 SECONDS (9.7-12.2) H 12/27/17 00:12 INR 1.8 12/27/17 00:12 APTT 37 SECONDS (21-34) H 12/27/17 00:12 - Constitutional Appears: No Acute Distress, Chronically Ill - Head Exam Head Exam: NORMAL INSPECTION - Eye Exam Eye Exam: Normal appearance - ENT Exam ENT Exam: Normal Exam - Neck Exam Neck Exam: Normal Inspection - Respiratory Exam Additional comments: Decreased breathing sounds at the left base. - Cardiovascular Exam Cardiovascular Exam: REGULAR RHYTHM, Murmur - GI/Abdominal Exam GI & Abdominal Exam: Soft, Normal Bowel Sounds - Rectal Exam Rectal Exam: Deferred - Extremities Exam Extremities Exam: Pedal Edema Additional comments: Malachi edema of the ankles. - Back Exam Back Exam: NORMAL INSPECTION - Neurological Exam Neurological Exam: Alert, Awake, Normal Gait, Oriented x3 - Psychiatric Exam Psychiatric exam: Anxious - Skin Skin Exam: Dry, Intact, Normal Color, Warm Assessment and Plan (1) Acute on chronic diastolic (congestive) heart failure Assessment & Plan: For HD. To continue IV Lasix. Status: Acute (2) Acute on chronic diastolic (congestive) heart failure Status: Acute (3) ESRD needing dialysis Status: Chronic (4) Chronic atrial flutter Status: Chronic (5) CAD (coronary artery disease) Status: Chronic
[2017-12-28] MEDS: Multivitamin Vitamin B Complex (Nephro-Vite) Tab PO SCH (21:24)
[2017-12-29] MEDS ORDERED: Lidocaine 2% Inj (20ml) ONE (08:16)
[2017-12-29] MEDS ORDERED: Iohexol 240 (50 ml) ONE (08:16)
[2017-12-29] MEDS ORDERED: HEPARIN-NS 5,000 UNITS/500 ML 5,000 UNIT/500 ML BAG IV ONE (08:16)
[2017-12-29] MEDS ORDERED: Vancomycin 1 gm/D5W 200 ml 1 GM/200 ML BAG IVPB ONE (08:19)
[2017-12-29] MEDS ORDERED: Vancomycin 1 gm/D5W 200 ml 0 GM/0 ML BAG IVPB ONE (08:19)
[2017-12-29] MEDS ORDERED: Midazolam 2 MG/2 ML VIAL ONE ×2 (08:23→08:25)
[2017-12-29] MEDS ORDERED: Phenylephrine 10 mg/ml Inj ONE (08:26)
[2017-12-29] MEDS ORDERED: Lidocaine/Epinephrine 1% 1:100000 10 ML IJ ONE ×2 (08:30→08:44)
--- NOTE | 2017-12-29 09:03 | PCM.SURG1 ---
Surgeon's Initial Post Op Note - Surgeon's Notes Surgeon: Dr. Aleman Piano Regulator Inspector: Amber PGY1 Type of Anesthesia: Moderate Sedation{RN}, Local Anesthesia Administered By: Dr. Lockett Pre-Operative Diagnosis: End Stage Renal Disease Operative Findings: see operative report Post-Operative Diagnosis: Same Operation Performed: Right IJ Permacath placement Specimen/Specimens Removed: none Estimated Blood Loss: EBL {In ML}: 10 Blood Products Given: N/A Drains Used: No Drains Post-Op Condition: Good Date of Surgery/Procedure: 12/29/17 Time of Surgery/Procedure: 09:03
[2017-12-29] MEDS ORDERED: HYDROmorphone 0.5 mg/0.5 ml ISec IVP PRN (09:04)
--- NOTE | 2017-12-29 09:15 | CP.PCM.PN ---
Subjective - Date & Time of Evaluation Date of Evaluation: 12/29/17 Time of Evaluation: 09:12 - Subjective Subjective: unable to get HD yesterday due to access to get Permacath today and HD later SOB unchanged no chest pain afebrile ROS- as per HPI, other than that 10 point ROS negative Objective - Vital Signs/Intake and Output Vital Signs (last 24 hours): Temp Pulse Resp BP Pulse Ox 98.1 F 70 20 123/66 100 12/29/17 07:00 12/29/17 07:00 12/29/17 07:00 12/29/17 07:00 12/29/17 07:00 Intake and Output: 12/29/17 12/29/17 06:59 18:59 Intake Total 500 300 Balance 500 300 - Medications Medications: Current Medications Allopurinol (Zyloprim) [address] [facility] Last Admin: 12/28/17 21:24 Dose: 100 mg Apixaban (Eliquis) 2.5 mg PO BID [facility] Last Admin: 12/28/17 17:59 Dose: 2.5 mg Calcitriol (Rocaltrol) 0.[address] [facility] Last Admin: 12/28/17 21:25 Dose: 0.25 mcg Clonidine HCl (Catapres) 0.[address] [facility] Last Admin: 12/28/17 21:25 Dose: Not Given Ferrous Sulfate (Feosol) [address] [facility] Last Admin: 12/28/17 21:25 Dose: 325 mg Folic Acid (Folic Acid) [address] [facility] Last Admin: 12/28/17 21:25 Dose: 1 mg Furosemide (Lasix) 40 mg IVP DAILY [facility] Last Admin: 12/28/17 09:06 Dose: 40 mg Hydromorphone HCl (Dilaudid) 0.5 mg IVP Q15M PRN PRN Reason: Pain, moderate (4-7) Stop: 12/29/17 11:05 Nebivolol (Bystolic) [address] [facility] Last Admin: 12/28/17 21:25 Dose: 10 mg Ondansetron HCl (Zofran Inj) 4 mg IVP ONCE PRN PRN Reason: Nausea/Vomiting Stop: 12/29/17 11:05 Rosuvastatin Calcium (Crestor) [address] [facility] Last Admin: 03/09/18 21:24 Dose: 5 mg Vitamin B Complex/Vit C/Folic Acid (Nephro-Miguel Ángel) 1 tab PO [facility] Last Admin: 12/28/17 21:24 Dose: 1 tab - Labs Labs: 12/27/17 00:12 12/28/17 06:21 PT 20.5 SECONDS (9.7-12.2) H 12/27/17 00:12 INR 1.8 12/27/17 00:12 APTT 37 SECONDS (21-34) H 12/27/17 00:12 - Constitutional Appears: Well, Non-toxic, No Acute Distress - Head Exam Head Exam: ATRAUMATIC, NORMOCEPHALIC - Eye Exam Eye Exam: EOMI, PERRL - ENT Exam ENT Exam: Mucous Membranes Moist - Neck Exam Neck Exam: Full ROM - Respiratory Exam Respiratory Exam: Decreased Breath Sounds, Clear to Ausculation Bilateral. absent: Rhonchi, Wheezes - Cardiovascular Exam Cardiovascular Exam: REGULAR RHYTHM, +S1, +S2 - GI/Abdominal Exam GI & Abdominal Exam: Soft. absent: Distended, Tenderness - Extremities Exam Extremities Exam: Pedal Edema. absent: Tenderness - Neurological Exam Neurological Exam: Alert, Awake, Oriented x3 - Psychiatric Exam Psychiatric exam: Normal Affect, Normal Mood - Skin Skin Exam: Intact, Warm Assessment and Plan (1) Pleural effusion on left Status: Acute (2) Chronic congestive heart failure Status: Acute (3) Dyspnea Status: Acute (4) Peritoneal dialysis catheter in situ Status: Acute (5) Chronic kidney disease, stage 5 Status: Acute (6) Dyslipidemia Status: Acute (7) CAD (coronary artery disease) Status: Chronic - Assessment and Plan (Free Text) Plan: permacath placement today HD later today continue with lasix fluid restriction
--- NOTE | 2017-12-29 09:52 | RAD ---
HISTORY: s/p Right IJ Permacath COMPARISON: Chest x-ray performed 12/27/17 TECHNIQUE: Chest, one view. FINDINGS: Right-sided IJ approach dialysis catheter with distal tips at the cavoatrial junction/ right atrium. LUNGS: Interval improvement in consolidative airspace changes within the right midlung zone. Small left pleural effusion and associated atelectasis/infiltrate. No definite pneumothorax. CARDIOVASCULAR: Median sternotomy wires with evidence of CABG. Cardiomegaly. Atherosclerotic calcifications of an ectatic aorta. OSSEOUS STRUCTURES: Osseous demineralization. Degenerative changes. Acromioclavicular arthropathy. VISUALIZED UPPER ABDOMEN: Unremarkable. OTHER FINDINGS: None. IMPRESSION: Right-sided IJ approach dialysis catheter with distal tips at the cavoatrial junction/ right atrium. Interval improvement in consolidative airspace changes within the right midlung zone. Small left pleural effusion and associated atelectasis/infiltrate. Median sternotomy wires with evidence of CABG. Cardiomegaly. Atherosclerotic calcifications of an ectatic aorta.
--- NOTE | 2017-12-29 11:32 | CARD ---
APPROVED REPORT EKG Measurement Heart [id number] <Conclusion> Atrial flutter with variable AV block Nonspecific ST/T abnormality Abnormal ECG
--- NOTE | 2017-12-29 19:45 | CP.PCM.PN ---
Subjective - Date & Time of Evaluation Date of Evaluation: 12/29/17 Time of Evaluation: 19:42 - Subjective Subjective: Patient had HD this AM. Has no complaint now. CXR: improved CHF and less left pleural effusion. Objective - Vital Signs/Intake and Output Vital Signs (last 24 hours): Temp Pulse Resp BP Pulse Ox 97.4 F L 87 18 110/67 96 12/29/17 16:44 12/29/17 16:44 12/29/17 16:44 12/29/17 16:44 12/29/17 16:44 Intake and Output: 12/29/17 12/30/17 18:59 07:59 Intake Total 750 Balance 750 - Medications Medications: Current Medications Allopurinol (Zyloprim) 100 mg PO [facility] Last Admin: 12/28/17 21:24 Dose: 100 mg Apixaban (Eliquis) 2.5 mg PO BID [facility] Last Admin: 12/28/17 17:59 Dose: 2.5 mg Calcitriol (Rocaltrol) 0.25 mcg PO [facility] Last Admin: 12/28/17 21:25 Dose: 0.25 mcg Clonidine HCl (Catapres) 0.1 mg PO [facility] Last Admin: 12/28/17 21:25 Dose: Not Given Ferrous Sulfate (Feosol) 325 mg PO [facility] Last Admin: 12/28/17 21:25 Dose: 325 mg Folic Acid (Folic Acid) 1 mg PO [facility] Last Admin: 12/28/17 21:25 Dose: 1 mg Furosemide (Lasix) 40 mg IVP DAILY [facility] Last Admin: 12/29/17 13:43 Dose: 40 mg Nebivolol (Bystolic) 10 mg PO [facility] Last Admin: 12/28/17 21:25 Dose: 10 mg Rosuvastatin Calcium (Crestor) 5 mg PO [facility] Last Admin: 12/28/17 21:24 Dose: 5 mg Vitamin B Complex/Vit C/Folic Acid (Nephro-Miguel Ángel) 1 tab PO [facility] Last Admin: 12/28/17 21:24 Dose: 1 tab - Labs Labs: 12/27/17 00:12 12/28/17 06:21 PT 20.5 SECONDS (9.7-12.2) H 12/27/17 00:12 INR 1.8 12/27/17 00:12 APTT 37 SECONDS (21-34) H 12/27/17 00:12 - Constitutional Appears: No Acute Distress, Chronically Ill - Head Exam Head Exam: NORMAL INSPECTION - Eye Exam Eye Exam: Normal appearance - ENT Exam ENT Exam: Normal Exam - Neck Exam Neck Exam: Normal Inspection - Respiratory Exam Additional comments: Rales at the left bases. - Cardiovascular Exam Cardiovascular Exam: REGULAR RHYTHM, Murmur - GI/Abdominal Exam GI & Abdominal Exam: Soft, Normal Bowel Sounds - Rectal Exam Rectal Exam: Deferred - Extremities Exam Additional comments: Decreased ankle edema bilaterally. - Back Exam Back Exam: NORMAL INSPECTION - Neurological Exam Neurological Exam: Alert, Awake, Normal Gait, Oriented x3 - Psychiatric Exam Psychiatric exam: Anxious - Skin Skin Exam: Dry, Intact, Normal Color, Warm Assessment and Plan (1) Acute on chronic diastolic (congestive) heart failure Assessment & Plan: Improving with Lasix IV and HD. Status: Acute (2) Acute on chronic diastolic (congestive) heart failure Status: Acute (3) ESRD needing dialysis Assessment & Plan: To continue HD or PD as per nephrologists. Status: Chronic (4) Chronic atrial flutter Assessment & Plan: To continue Eliquis PO. Status: Chronic (5) CAD (coronary artery disease) Status: Chronic
--- NOTE | 2017-12-29 19:51 | OP ---
PROCEDURE DATE: 12/29/2017 PREOPERATIVE DIAGNOSIS: Renal failure. POSTOPERATIVE DIAGNOSIS: Renal failure. PROCEDURE CARRIED OUT: Placement of Perm-A-Cath in right jugular vein with C-arm fluoroscopy and ultrasound-guided puncture. SURGEON: Reji Aleman MD LICENSED MENTAL HEALTH PROFESSIONAL: Amber ANESTHESIA ADMINISTERED BY: Dr. Lockett An 82-year-old man being planned for peritoneal dialysis. He was admitted to the hospital with shortness of breath. The patient had a fistula in his right arm. Access was attempted, but it is not mature yet. OPERATIVE FINDINGS: Catheter insertion. The procedure was done on [facility]. PROCEDURE: The patient was given local anesthesia using ultrasound guidance. Intravenous antibiotics were also administered and using ultrasound guidance, we were able to puncture the right jugular vein. Under fluoroscopic control, the guidewire was advanced centrally. This was exchanged for an 0.035 wire and then subsequently a catheter in position was then delivered into the appropriate location. After this had been done, the catheter was brought down on the chest wall, so it originated on the right chest wall, went through the jugular vein and terminated in the superior vena cava. There was excellent return in flow. It was flushed with heparinized saline with good flow. It was then secured to the skin. Blood loss for the procedure was 15 mL. Operation carried out is Perm-A-Cath in right jugular vein with C-arm fluoroscopy and ultrasound-guided puncture. Ultrasound images of the neck showed the vein was approximately 13 mm in diameter with normal compressibility and no evidence of intraluminal thrombosis. Images also denote needle entering the vein. Reji Aleman Jr., MD
[2017-12-29] MEDS: Multivitamin Vitamin B Complex (Nephro-Vite) Tab PO SCH (21:23)
[2017-12-30 08:07] LABS: BASO # 0.1 K/uL (0.0-0.2); BASO % 0.9 % (0.0-2.0); EOS # 0.5 K/uL (0.0-0.7); EOS % 6.8 % (0.0-4.0); HEMOGLOBIN 8.6 g/dL (12.0-18.0); LYMPH # 0.7 K/uL (1.0-4.3); LYMPH % 9.5 % (20.0-40.0); MEAN CELL VOLUME 100.8 fL (80.0-94.0); MEAN CORPUSCULAR HEMOGLOBIN 33.1 pg (27.0-31.0); MEAN CORPUSCULAR HGB CONC 32.9 g/dL (33.0-37.0); MEAN PLATELET VOLUME 9.7 fL (7.2-11.7); MONO # 0.6 K/uL (0.0-0.8); MONO % 7.6 % (0.0-10.0); NEUT # 5.9 K/uL (1.8-7.0); NEUT % 75.2 % (50.0-75.0); NRBC % 0.1 % (0.0-2.0); RBC 2.58 Mil/uL (4.40-5.90); RED CELL DISTRIBUTION WIDTH 17.8 % (11.5-14.5); WHITE BLOOD COUNT 7.9 K/uL (4.8-10.8)
[2017-12-30 08:11] LABS: PLATELET COUNT 129 K/uL (130-400)
[2017-12-30 08:18] LABS: ALBUMIN 3.4 g/dL (3.5-5.0); CALCIUM 8.4 mg/dl (8.6-10.4)
--- NOTE | 2017-12-30 08:40 | CP.PCM.PN ---
Subjective - Date & Time of Evaluation Date of Evaluation: 12/30/17 Time of Evaluation: 06:45 - Subjective Subjective: Surgery Progress note. Dr. Aleman Pt seen and examined at bedside. No acute events overnight. Denies any new complaints. Had HD through Permacath yesterday Objective - Vital Signs/Intake and Output Vital Signs (last 24 hours): Temp Pulse Resp BP Pulse Ox 98 F 61 20 108/63 97 12/29/17 23:15 12/30/17 07:45 12/29/17 23:15 12/29/17 23:15 12/29/17 23:15 Intake and Output: 12/30/17 12/30/17 06:59 18:59 Intake Total Balance - Medications Medications: Current Medications Allopurinol (Zyloprim) 100 mg PO [facility] Last Admin: 12/29/17 21:23 Dose: 100 mg Apixaban (Eliquis) 2.5 mg PO BID [facility] Last Admin: 12/28/17 17:59 Dose: 2.5 mg Calcitriol (Rocaltrol) 0.25 mcg PO [facility] Last Admin: 12/29/17 21:23 Dose: 0.25 mcg Clonidine HCl (Catapres) 0.1 mg PO [facility] Last Admin: 12/29/17 21:23 Dose: Not Given Ferrous Sulfate (Feosol) 325 mg PO [facility] Last Admin: 12/29/17 21:23 Dose: 325 mg Folic Acid (Folic Acid) 1 mg PO [facility] Last Admin: 12/29/17 21:23 Dose: 1 mg Furosemide (Lasix) 40 mg IVP DAILY [facility] Last Admin: 12/29/17 13:43 Dose: 40 mg Nebivolol (Bystolic) 10 mg PO [facility] Last Admin: 12/29/17 21:23 Dose: 10 mg Rosuvastatin Calcium (Crestor) 5 mg PO [facility] Last Admin: 12/29/17 21:23 Dose: 5 mg Vitamin B Complex/Vit C/Folic Acid (Nephro-Miguel Ángel) 1 tab PO [facility] Last Admin: 12/29/17 21:23 Dose: 1 tab - Labs Labs: 12/30/17 07:25 12/30/17 07:25 PT 20.5 SECONDS (9.7-12.2) H 12/27/17 00:12 INR 1.8 12/27/17 00:12 APTT 37 SECONDS (21-34) H 12/27/17 00:12 - Constitutional Appears: Non-toxic, No Acute Distress - Head Exam Head Exam: ATRAUMATIC, NORMAL INSPECTION, NORMOCEPHALIC - Eye Exam Eye Exam: EOMI, Normal appearance - ENT Exam ENT Exam: Mucous Membranes Moist - Respiratory Exam Respiratory Exam: NORMAL BREATHING PATTERN. absent: Accessory Muscle Use, Respiratory Distress - Cardiovascular Exam Cardiovascular Exam: absent: JVD Additional comments: Right IJ permacath in place. No signs of bleeding. Dressing clean dry and intact. No tenderness - GI/Abdominal Exam GI & Abdominal Exam: Soft. absent: Distended, Firm, Guarding, Tenderness - Extremities Exam Extremities Exam: Normal Inspection. absent: Calf Tenderness - Neurological Exam Neurological Exam: Alert, Awake, Oriented x3 - Psychiatric Exam Psychiatric exam: Normal Affect, Normal Mood - Skin Skin Exam: Dry, Intact, Normal Color, Warm Assessment and Plan - Assessment and Plan (Free Text) Assessment: 82yo M s/p R IJ permacath. POD1 Plan: - Continue HD via permacath as needed per nephrology - Cleared from surgical standpoint. - f/u with Dr. Aleman in office. Call for appointment Further recs as per Dr. Ash Clark PGY1 surgery pager: [phone]
[2017-12-30 09:07] LABS: BASOPHIL 1 % (0-2); EOSINOPHIL 6 % (0-4); LYMPHOCYTE 8 % (20-40); MONOCYTE 4 % (0-10); NEUTROPHIL 81 % (50-75); PLATELET ESTIMATE NORMAL (NORMAL); TOTAL CELLS COUNTED 100
[2017-12-30 09:08] LABS: ANISOCYTOSIS MODERATE; HYPOCHROMIC SLIGHT; POLYCHROMIC SLIGHT
[2017-12-30 09:09] LABS: TOXIC GRANULATION PRESENT
[2017-12-30] MEDS: Multivitamin Vitamin B Complex (Nephro-Vite) Tab PO SCH (21:19)
--- NOTE | 2017-12-31 09:05 | RAD ---
PROCEDURE: Intraoperative Fluoroscopy. HISTORY: RENAL FAILURE FINDINGS: Fluoroscopic assistance was provided for right-sided PermCath placement. Please refer to the operative report from RUSSELL Sparks.
--- NOTE | 2017-12-31 12:11 | CP.PCM.PN ---
Subjective - Date & Time of Evaluation Date of Evaluation: 12/31/17 Time of Evaluation: 12:09 - Subjective Subjective: Seen on dialysis- tolerating well and feeling better alert and no new complaints CHF controlled now PD cath would need flush Objective - Vital Signs/Intake and Output Vital Signs (last 24 hours): Temp Pulse Resp BP Pulse Ox 97.8 F 66 16 125/66 99 12/31/17 09:40 12/31/17 09:40 12/31/17 09:40 12/31/17 10:40 12/31/17 09:40 Intake and Output: 12/31/17 12/31/17 06:59 18:59 Intake Total 240 Balance 240 - Medications Medications: Current Medications Allopurinol (Zyloprim) 100 mg PO [facility] Last Admin: 12/30/17 21:18 Dose: 100 mg Apixaban (Eliquis) 2.5 mg PO BID [facility] Last Admin: 12/28/17 17:59 Dose: 2.5 mg Calcitriol (Rocaltrol) 0.25 mcg PO [facility] Last Admin: 12/30/17 21:18 Dose: 0.25 mcg Clonidine HCl (Catapres) 0.1 mg PO [facility] Last Admin: 12/30/17 21:20 Dose: Not Given Ferrous Sulfate (Feosol) 325 mg PO [facility] Last Admin: 12/30/17 21:19 Dose: 325 mg Folic Acid (Folic Acid) 1 mg PO [facility] Last Admin: 12/30/17 21:19 Dose: 1 mg Furosemide (Lasix) 40 mg IVP DAILY [facility] Last Admin: 12/30/17 09:35 Dose: 40 mg Lactulose (Enulose) 20 gm PO BID [facility] Last Admin: 12/30/17 17:19 Dose: Not Given Nebivolol (Bystolic) 10 mg PO [facility] Rosuvastatin Calcium (Crestor) 5 mg PO [facility] Last Admin: 12/30/17 21:18 Dose: 5 mg Vitamin B Complex/Vit C/Folic Acid (Nephro-Miguel Ángel) 1 tab PO [facility] Last Admin: 12/30/17 21:19 Dose: 1 tab - Labs Labs: 12/30/17 07:25 12/30/17 07:25 PT 20.5 SECONDS (9.7-12.2) H 12/27/17 00:12 INR 1.8 12/27/17 00:12 APTT 37 SECONDS (21-34) H 12/27/17 00:12 - Constitutional Appears: No Acute Distress, Chronically Ill - Head Exam Head Exam: ATRAUMATIC, NORMAL INSPECTION - Eye Exam Eye Exam: EOMI, Normal appearance - Neck Exam Neck Exam: Normal Inspection. absent: Tenderness - Respiratory Exam Respiratory Exam: Clear to Ausculation Bilateral, NORMAL BREATHING PATTERN - Cardiovascular Exam Cardiovascular Exam: Irregular Rhythm, +S1 - GI/Abdominal Exam GI & Abdominal Exam: Soft. absent: Tenderness - Extremities Exam Extremities Exam: Normal Inspection. absent: Tenderness - Neurological Exam Neurological Exam: Awake, CN II-XII Intact - Skin Skin Exam: Dry, Warm Assessment and Plan (1) Uremia due to inadequate renal perfusion Status: Acute (2) Acute on chronic diastolic (congestive) heart failure Status: Acute (3) Chronic kidney disease, stage 5 Status: Acute (4) Peritoneal dialysis catheter in situ Status: Acute - Assessment and Plan (Free Text) Plan: HD now PD cath flush can change to po lasix upon discharge can remove shiley on discharge
[2017-12-31 15:47] VITALS: BP 138/64; PULSE 70; RESP 20; TEMP 98.2; O2SAT 98
--- NOTE | 2017-12-31 18:22 | PCM.HF ---
Heart Failure Core Measure JUVE Inhibitor Prescribed: No Contraindication/Reason for not providing: esrd Beta-John Prescribed: None Contraindication/Reason for not providing: copd Angiotensin II Receptor John Prescribed: No Contraindication/Reason for not providing: esrd AnticoagulationTherapy for Atrial Fibrillation/Atrialflutter: Yes Aldosterone Antagonist Prescribed: No Hydralazine Nitrate Prescribed: No Implantable Cardioverter Defibrillator Therapy: No Cardiac Resynchronization Therapy Prescribed: No - Follow up Will be discharged to: Home Follow Up Date (must be within 7 days from discharge): 01/03/18 Follow Up Time: 09:00
== END 2017-12-31 16:53 | disposition home or self-care (01) | DRG 291 ==
LOC: C.ER 23:45 → C.9E 12-27 01:34 → C.6T 12-27 01:43
PROVIDERS: ADMIT Internal Medicine Cardiovascular Disease; ATTEND Internal Medicine Cardiovascular Disease
PROC: 02HV33Z Insertion of Infusion Device into Superior Vena Cava, Percutaneous Approach (ICD-10-PCS; principal; 2017-12-29 08:00)
PROC: 5A1D70Z Performance of Urinary Filtration, Intermittent, Less than 6 Hours Per Day (ICD-10-PCS; 2017-12-31)
DX: I13.2 Hypertensive heart and chronic kidney disease with heart failure and with stage 5 chronic kidney disease, or end stage renal disease (principal); N18.6 End stage renal disease; I50.33 Acute on chronic diastolic (congestive) heart failure; I48.92 Unspecified atrial flutter; J44.9 Chronic obstructive pulmonary disease, unspecified; Z99.2 Dependence on renal dialysis; E78.00 Pure hypercholesterolemia, unspecified; Z95.1 Presence of aortocoronary bypass graft; I25.10 Atherosclerotic heart disease of native coronary artery without angina pectoris; Z79.01 Long term (current) use of anticoagulants; N40.0 Benign prostatic hyperplasia without lower urinary tract symptoms

== ENCOUNTER 2018-01-01 04:49 | Observation (INO) | payer MEDICARE ==
[~2018-01-01 04:49] MED LIST: Tranexamic Acid 1,000 MG in Sodium Chloride 0.9% 50 ML IV STA
[2018-01-01 04:50] VITALS: BMI 19.1
--- NOTE | 2018-01-01 05:12 | C.PDOC ---
History Of Present Illness Patient presents to the ER with a complaint of bleeding from his right chest permacath. Patient had the permacath placed [address] Maravilla. Denies any pain at this time. Time Seen by Provider: 01/01/18 05:08 Chief Complaint (Nursing): Medical Clearance History Per: Patient History/Exam Limitations: no limitations Onset/Duration Of Symptoms: Hrs Current Symptoms Are (Timing): Still Present Severity: Mild Pain Scale Rating Of: 3 Recent travel outside of the [place]: No Past Medical History Reviewed: Historical Data, Nursing Documentation, Vital Signs Vital Signs: Last Vital Signs Temp 97.6 F 01/01/18 05:02 Pulse 59 L 01/01/18 06:50 Resp 18 01/01/18 06:50 BP 114/62 01/01/18 06:50 Pulse Ox 100 01/01/18 06:50 - Medical History PMH: Cardia Arrhythmia (HX: [id number] DONE ~[id number]), CHF, COPD , HTN, Hypercholesterolemia, Peripheral Edema, End Stage Renal Disease, Chronic Kidney Disease Surgical History: CABG (QUAD-CORNARY BYPASS 2007) - Apmetrix Procedures ENDOSCOPIC BRONCHIAL BX (06/12/13) Family History: States: No Known Family Hx - Social History Hx Alcohol Use: No Hx Substance Use: No - Immunization History Hx Tetanus Toxoid Vaccination: Yes Hx Influenza Vaccination: Yes Hx Pneumococcal Vaccination: Yes Review Of Systems Constitutional: Negative for: Fever, Chills Cardiovascular: Negative for: Chest Pain Skin: Positive for: Other (Bleeding right chest permacath) Physical Exam - Physical Exam Appears: Non-toxic Skin: Warm, Dry Head: Normacephalic Oral Mucosa: Moist Chest: No Tenderness, Other (Bleeding right chest permacath) Cardiovascular: Rhythm Regular Respiratory: No Rales, No Rhonchi, No Wheezing Gastrointestinal/Abdominal: Soft, No Tenderness, Other (RUQ peritoneal catheter) Neurological/Psych: Oriented x3 ED Course And Treatment O2 Sat by Pulse Oximetry: 97 (Room air) Pulse Ox Interpretation: Normal Disposition Counseled Patient/Family Regarding: Studies Performed, Diagnosis - Disposition Disposition Time: 05:12 Condition: UNKNOWN Forms: [employer] (Finnish) - Clinical Impression Clinical Impression: Bleeding from dialysis shunt - Scribe Statement The provider has reviewed the documentation as recorded by the Scribyane Finch All medical record entries made by the Scribe were at my direction and personally dictated by me. I have reviewed the chart and agree that the record accurately reflects my personal performance of the history, physical exam, medical decision making, and the department course for this patient. I have also personally directed, reviewed, and agree with the discharge instructions and disposition. Physician Patient Turnover Patient Signed Over To: Derrick Lockett Handoff Comments: re-eval and disposition
[2018-01-01] MEDS ORDERED: Absorbable Gelatin Sponge Size 12-7 ONE ×2 (05:21→07:21)
[2018-01-01 07:02] LABS: BASO # 0.1 K/uL (0.0-0.2); EOS # 0.3 K/uL (0.0-0.7); EOS % 4.7 % (0.0-4.0); HEMOGLOBIN 7.8 g/dL (12.0-18.0); LYMPH # 0.6 K/uL (1.0-4.3); LYMPH % 7.8 % (20.0-40.0); MEAN CORPUSCULAR HEMOGLOBIN 33.5 pg (27.0-31.0); MEAN CORPUSCULAR HGB CONC 33.5 g/dL (33.0-37.0); MEAN PLATELET VOLUME 9.2 fL (7.2-11.7); MONO # 0.6 K/uL (0.0-0.8); MONO % 8.1 % (0.0-10.0); NEUT # 5.8 K/uL (1.8-7.0); NEUT % 78.4 % (50.0-75.0); PLATELET COUNT 97 K/uL (130-400); RBC 2.34 Mil/uL (4.40-5.90); RED CELL DISTRIBUTION WIDTH 17.3 % (11.5-14.5); WHITE BLOOD COUNT 7.4 K/uL (4.8-10.8)
[2018-01-01 07:10] LABS: INR 1.5; PROTHROMBIN TIME 17.5 SECONDS (9.7-12.2)
[2018-01-01 07:36] LABS: CALCIUM 8.2 mg/dl (8.6-10.4)
[2018-01-01] MEDS ORDERED: Lidocaine 1%/Epinephrine 1:100000 30 ml vial IJ ONE (08:30)
[2018-01-01 08:51] LABS: EOSINOPHIL 3 % (0-4); LYMPHOCYTE 4 % (20-40); MONOCYTE 4 % (0-10); NEUTROPHIL 89 % (50-75); TOTAL CELLS COUNTED 100
[2018-01-01 08:52] LABS: ANISOCYTOSIS SLIGHT; HYPOCHROMIC SLIGHT; PLATELET ESTIMATE DECREASED (NORMAL); POLYCHROMIC SLIGHT
[2018-01-01 08:53] LABS: OVALOCYTES SLIGHT
--- NOTE | 2018-01-01 10:49 | CP.PCM.HP ---
History of Present Illness - History of Present Illness History of Present Illness: Surgery H&P. Dr. Aleman 82yo M with ESRD on HD, came into ER for Right IJ permacath bleeding. The permacath was placed by Dr. Aleman on 12/29/17. He reports that it was doing fine however, it started oozing from the insertion site last night and has continued. He does report some fatigue and attributes it to not being able to sleep last night. He denies any Fevers or chills. No N/V/D. last meal was 10PM last night. He states that similar episodes of bleeding after procedures have happened in the past. PMHx: HTN, ESRD on HD, COPD, A. Flutter on eliquis PSHx: CABG, AV Fistula, PD catheter, Right IJ permacath 12/29/18 Social Hx: Denies Tobacco, Denies ETOH, Denies illicit drugs Allergy: Gadolinium contrast Present on Admission - Present on Admission Any Indicators Present on Admission: No Review of Systems - Review of Systems All systems: reviewed and no additional remarkable complaints except - Constitutional Constitutional: Fatigue. absent: Chills, Fever - Cardiovascular Cardiovascular: absent: Chest Pain, Dyspnea - Respiratory Respiratory: absent: Cough, Dyspnea - Gastrointestinal Gastrointestinal: absent: Abdominal Pain, Diarrhea, Nausea, Vomiting - Genitourinary Genitourinary: absent: Dysuria - Musculoskeletal Musculoskeletal: absent: Back Pain - Integumentary Integumentary: Bleeding Lesions Additional comments: Right permacath site bleeding Past Patient History - Infectious Disease Hx of Infectious Diseases: None - Tetanus Immunizations Tetanus Immunization: Unknown - Past Medical History & Family History Past Medical History?: Yes - Past Social History Smoking Status: Never Smoked Alcohol: None Drugs: Denies Home Situation {Lives}: With Family - CARDIAC Hx Cardia Arrhythmia: Yes (HX: [id number] DONE ~[id number]) Hx Congestive Heart Failure: Yes Hx Hypercholesterolemia: Yes Hx Hypertension: Yes Hx Peripheral Edema: Yes - PULMONARY Hx Chronic Obstructive Pulmonary Disease (COPD): Yes - NEUROLOGICAL Hx Neurological Disorder: No - HEENT Hx HEENT Problems: No - RENAL Hx Chronic Kidney Disease: Yes - ENDOCRINE/METABOLIC Hx Endocrine Disorders: No - HEMATOLOGICAL/ONCOLOGICAL Hx Blood Disorders: No - INTEGUMENTARY Hx Dermatological Problems: No - MUSCULOSKELETAL/RHEUMATOLOGICAL Hx Musculoskeletal Disorders: No Hx Falls: No - GASTROINTESTINAL Hx Gastrointestinal Disorders: No - GENITOURINARY/GYNECOLOGICAL Hx Genitourinary Disorders: No - PSYCHIATRIC Hx Substance Use: No - SURGICAL HISTORY 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QUAD-CORNARY BYPASS 2007) - ANESTHESIA Hx Anesthesia: Yes Hx Anesthesia Reactions: No Hx Malignant Hyperthermia: No Meds Allergies/Adverse Reactions: Allergies Allergy/AdvReac Type Severity Reaction Status Date / Time Gadolinium-Containing Allergy Severe "HIVES" Verified 12/26/17 23:59 Contrast Medi Iodinated Contrast- Oral and Allergy Severe URTICARIA Verified 12/26/17 23:59 IV Dye Thiazides Allergy Severe "HIVES" Verified 12/26/17 23:59 Physical Exam - Constitutional Appears: Well, Non-toxic, No Acute Distress - Head Exam Head Exam: ATRAUMATIC, NORMAL INSPECTION, NORMOCEPHALIC - Eye Exam Eye Exam: EOMI, Normal appearance - ENT Exam ENT Exam: Mucous Membranes Moist - Respiratory Exam Respiratory Exam: NORMAL BREATHING PATTERN. absent: Accessory Muscle Use, Respiratory Distress - Cardiovascular Exam Cardiovascular Exam: RRR. absent: JVD Additional comments: Right IJ Permacath chest wall insertion site with continuous oozing of bloody drainage noted. - GI/Abdominal Exam GI & Abdominal Exam: Soft. absent: Distended, Firm, Guarding, Rebound, Rigid, Tenderness - Extremities Exam Extremities exam: Positive for: normal inspection. Negative for: calf tenderness - Neurological Exam Neurological exam: Alert, Oriented x3 - Psychiatric Exam Psychiatric exam: Normal Affect, Normal Mood - Skin Skin Exam: Intact, Warm Results - Vital Signs Recent Vital Signs: Last Vital Signs Temp 97.6 F 01/01/18 05:02 Pulse 74 01/01/18 10:20 Resp 16 01/01/18 10:20 BP 106/51 L 01/01/18 10:20 Pulse Ox 100 01/01/18 10:20 - Labs Result Diagrams: 01/01/18 06:59 01/01/18 06:59 Labs: Laboratory Results - last 24 hr 01/01/18 01/01/18 01/01/18 06:59 06:59 06:59 WBC 7.4 RBC 2.34 L Hgb 7.8 L Hct 23.4 L MCV 100.0 H MCH 33.5 H MCHC 33.5 RDW 17.3 H Plt Count 97 L D MPV 9.2 Neut % (Auto) 78.4 H Lymph % (Auto) 7.8 L Sebastian % (Auto) 8.1 Eos % (Auto) 4.7 H Baso % (Auto) 1.0 Neut # (Auto) 5.8 Lymph # (Auto) 0.6 L Sebastian # (Auto) 0.6 Eos # (Auto) 0.3 Baso # (Auto) 0.1 Neutrophils % (Manual) 89 H Lymphocytes % (Manual) 4 L Monocytes % (Manual) 4 Eosinophils % (Manual) 3 Platelet Estimate Decreased L Polychromasia Slight Hypochromasia (manual) Slight Anisocytosis (manual) Slight Macrocytosis (manual) Slight Ovalocytes Slight PT 17.5 H INR 1.5 APTT 34 Sodium 137 Potassium 4.1 Chloride 95 L Carbon Dioxide 29 Anion Gap 17 BUN 24 H Creatinine 2.7 H Est GFR ( Amer) 28 Est GFR (Non-Af Amer) 23 Random Glucose 88 Calcium 8.2 L Blood Type Antibody Screen 01/01/18 06:59 WBC RBC Hgb Hct MCV MCH MCHC RDW Plt Count MPV Neut % (Auto) Lymph % (Auto) Sebastian % (Auto) Eos % (Auto) Baso % (Auto) Neut # (Auto) Lymph # (Auto) Sebastian # (Auto) Eos # (Auto) Baso # (Auto) Neutrophils % (Manual) Lymphocytes % (Manual) Monocytes % (Manual) Eosinophils % (Manual) Platelet Estimate Polychromasia Hypochromasia (manual) Anisocytosis (manual) Macrocytosis (manual) Ovalocytes PT INR APTT Sodium Potassium Chloride Carbon Dioxide Anion Gap BUN Creatinine Est GFR ( Amer) Est GFR (Non-Af Amer) Random Glucose Calcium Blood Type B POSITIVE Antibody Screen Negative Assessment & Plan - Assessment and Plan (Free Text) Assessment: 82yo M with R IJ bleeding permacath Plan: - Attempted to control bleeding with 10cc of lidocaine with epi, unsuccessful - To OR today for control - NPO - Type and screen Further recs as per Dr. Ash Clark PGY1 surgery pager: [phone]
[2018-01-01] MEDS ORDERED: ceFAZolin 1 gm in NS 0 GM/0 ML BAG IVPB ONE (12:10)
[2018-01-01] MEDS ORDERED: Lidocaine 2% Inj (20ml) ONE (12:11)
[2018-01-01] MEDS ORDERED: HEPARIN-NS 5,000 UNITS/500 ML 0 UNIT/0 ML BAG IV ONE (12:11)
[2018-01-01] MEDS ORDERED: Sodium Chloride 0.9% 500 ML IV ONE ×2 (12:40→15:07)
[2018-01-01] MEDS ORDERED: Lidocaine/Epinephrine 1% 1:100000 10 ML IJ ONE (12:51)
--- NOTE | 2018-01-01 13:12 | PCM.SURG1 ---
Surgeon's Initial Post Op Note - Surgeon's Notes Surgeon: Dr. Aleman Teaching Manager: Amber PGY1, Kristian MS3 Type of Anesthesia: None Pre-Operative Diagnosis: Chronic Kidney Disease Operative Findings: Bleeding from permacath tunnelled tract site. Hemostasis acheived with pressure dressing once catheter was removed. See operative report Post-Operative Diagnosis: same Operation Performed: Removal of Right IJ permacath. Specimen/Specimens Removed: Permacath Estimated Blood Loss: EBL {In ML}: 5 Blood Products Given: N/A Drains Used: No Drains Post-Op Condition: Good Date of Surgery/Procedure: 01/01/18 Time of Surgery/Procedure: 13:11
[2018-01-01 18:36] LABS: HEMOGLOBIN 6.7 g/dL (12.0-18.0); MEAN CELL VOLUME 100.8 fL (80.0-94.0); MEAN CORPUSCULAR HEMOGLOBIN 32.8 pg (27.0-31.0); MEAN CORPUSCULAR HGB CONC 32.6 g/dL (33.0-37.0); MEAN PLATELET VOLUME 8.8 fL (7.2-11.7); RBC 2.04 Mil/uL (4.40-5.90); RED CELL DISTRIBUTION WIDTH 17.1 % (11.5-14.5); WHITE BLOOD COUNT 7.5 K/uL (4.8-10.8)
[2018-01-01] MEDS ORDERED: Multivitamin Vitamin B Complex (Nephro-Vite) Tab PO SCH (22:00)
--- NOTE | 2018-01-01 23:20 | OP ---
PROCEDURE DATE: 01/01/2018 PREOPERATIVE DIAGNOSIS: Renal failure, bleeding dialysis catheter. POSTOPERATIVE DIAGNOSIS: Renal failure, bleeding dialysis catheter. PROCEDURE CARRIED OUT: Removal of Perm-A-Cath in jugular vein. SURGEON: Reji Aleman Jr., MD ASSISTANTS: None. ANESTHESIOLOGIST: . INDICATIONS: The patient is an 82-year-old man who three days ago had a dialysis catheter placed. There was no bleeding for the first three days. Today, he began to bleed on the catheter site. He is on Eliquis. We attempted control using local injection of epinephrine, placed in a pressure dressings it continued to bleed. Because of this, the patient's catheter was removed. It appeared to me that the tissue could not be compressed around. After this have been done, we applied pressure. The bleeding appeared to stop. The patient has a peritoneal dialysis catheter that will be used for dialysis. Reji Aleman Jr., MD
[2018-01-02 11:21] LABS: MEAN CORPUSCULAR HEMOGLOBIN 31.5 pg (27.0-31.0); MEAN PLATELET VOLUME 8.4 fL (7.2-11.7); RBC 3.02 Mil/uL (4.40-5.90); RED CELL DISTRIBUTION WIDTH 19.5 % (11.5-14.5); WHITE BLOOD COUNT 9.7 K/uL (4.8-10.8)
[2018-01-02 11:23] LABS: HEMOGLOBIN 9.5 g/dL (12.0-18.0); MEAN CELL VOLUME 92.7 fL (80.0-94.0)
[2018-01-02 11:39] LABS: CALCIUM 8.2 mg/dl (8.6-10.4)
--- NOTE | 2018-01-02 12:09 | CARD ---
APPROVED REPORT EKG Measurement Heart [id number] <Conclusion> Atrial flutter with variable AV block Nonspecific ST and T wave abnormality Abnormal ECG
--- NOTE | 2018-01-02 14:15 | CP.PCM.CON ---
History of Present Illness - History of Present Illness History of Present Illness: 82yo M with ESRD on HD, came into ER for Right IJ permacath bleeding. The permacath was placed by Dr. Aleman on 12/29/17. He reports that it was doing fine however, it started oozing from the insertion site last night and has continued. He does report some fatigue and attributes it to not being able to sleep last night. He denies any Fevers or chills. No N/V/D. last meal was 10PM last night. He states that similar episodes of bleeding after procedures have happened in the past. PMHx: HTN, ESRD on HD, COPD, A. Flutter on eliquis PSHx: CABG, AV Fistula, PD catheter, Right IJ permacath 12/29/18 Social Hx: Denies Tobacco, Denies ETOH, Denies illicit drugs Allergy: Gadolinium contrast pt required 2 units prbcs blood transfusions 01/01 and removal of permcath to stop bleeding no active bleeding now Hg incraesed post transfusion no overt CHF Review of Systems - Constitutional Constitutional: Fatigue, Weakness - EENT Eyes: absent: As Per HPI, Blind Spots, Blurred Vision, Change in Vision, Decreased Night Vision, Diplopia, Discharge, Dry Eye, Exophthalmos, Floaters, Irritation, Itchy Eyes, Loss of Peripheral Vision, Pain, Photophobia, Requires Corrective Lenses, Sees Flashes, Spots in Vision, Tunnel Vision, Other Visual Disturbances, Loss of Vision, Other Ears: absent: As Per HPI, Decreased Hearing, Ear Discharge, Ear Pain, Tinnitus, Abnormal Hearing, Disequilibrium, Dizziness, Other Nose/Mouth/Throat: absent: As Per HPI, Epistaxis, Nasal Congestion, Nasal Discharge, Nasal Obstruction, Nasal Trauma, Nose Pain, Post Nasal Drip, Sinus Pain, Sinus Pressure, Bleeding Gums, Change in Voice, Dental Pain, Dry Mouth, Dysphagia, Halitosis, Hoarsness, Lip Swelling, Mouth Lesions, Mouth Pain, Odynophagia, Sore Throat, Throat Swelling, Tongue Swelling, Facial Pain, Neck Pain, Neck Mass, Other - Cardiovascular Cardiovascular: Dyspnea on Exertion, Pedal Edema - Respiratory Respiratory: Dyspnea on Exertion - Gastrointestinal Gastrointestinal: absent: As Per HPI, Abdominal Pain, Belching, Bloating, Change in Bowel Habits, Change in Stool Character, Coffee Ground Emesis, Constipation, Cramping, Diarrhea, Dyspepsia, Dysphagia, Early Satiety, Excessive Flatus, Fecal Incontinence, Heartburn, Hematemesis, Hematochezia, Loose Stools, Melena, Nausea, Odynophagia, Temesmus, Vomiting, Other - Genitourinary Genitourinary: As Per HPI - Musculoskeletal Musculoskeletal: Muscle Cramps, Myalgias - Integumentary Integumentary: absent: As Per HPI, Acne, Alopecia, Bleeding Lesions, Change in Hair, Change in Nails, Change in Pigmentation, Changing Lesions, Dry Skin, Erythema, Furuncle, Hirsutism, Lesions, New Lesions, Non-Healing Lesions, Photosensitivity, Pruritus, Rash, Skin Pain, Skin Ulcer, Sores, Striae, Swelling , Unusual Bruising, Wounds, Jaundice, Other - Neurological Neurological: Memory Loss, Weakness Past Patient History - Infectious Disease Hx of Infectious Diseases: None - Tetanus Immunizations Tetanus Immunization: Unknown - Past Medical History & Family History Past Medical History?: Yes Past Family History: Reviewed and not pertinent - Past Social History Smoking Status: Never Smoked Chewing Tobacco Use: No Cigar Use: No Alcohol: None Drugs: Denies Home Situation {Lives}: With Family - CARDIAC Hx Cardia Arrhythmia: Yes (HX: [id number] DONE ~[id number]) Hx Congestive Heart Failure: Yes Hx Hypercholesterolemia: Yes Hx Hypertension: Yes Hx Peripheral Edema: Yes - PULMONARY Hx Chronic Obstructive Pulmonary Disease (COPD): Yes - NEUROLOGICAL Hx Neurological Disorder: No - HEENT Hx HEENT Problems: No - RENAL Hx Chronic Kidney Disease: Yes - ENDOCRINE/METABOLIC Hx Endocrine Disorders: No - HEMATOLOGICAL/ONCOLOGICAL Hx Blood Disorders: No - INTEGUMENTARY Hx Dermatological Problems: No - MUSCULOSKELETAL/RHEUMATOLOGICAL Hx Musculoskeletal Disorders: No Hx Falls: No - GASTROINTESTINAL Hx Gastrointestinal Disorders: No - GENITOURINARY/GYNECOLOGICAL Hx Genitourinary Disorders: No - PSYCHIATRIC Hx Substance Use: No - SURGICAL HISTORY 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QUAD-CORNARY BYPASS 2007) - ANESTHESIA Hx Anesthesia: Yes Hx Anesthesia Reactions: No Hx Malignant Hyperthermia: No Meds Allergies/Adverse Reactions: Allergies Allergy/AdvReac Type Severity Reaction Status Date / Time Gadolinium-Containing Allergy Severe "HIVES" Verified 12/26/17 23:59 Contrast Medi Iodinated Contrast- Oral and Allergy Severe URTICARIA Verified 12/26/17 23:59 IV Dye Thiazides Allergy Severe "HIVES" Verified 12/26/17 23:59 - Medications Medications: Current Medications Allopurinol (Zyloprim) 100 mg PO [facility] Last Admin: 01/01/18 22:25 Dose: 100 mg Amlodipine Besylate (Norvasc) 2.5 mg PO [facility] Last Admin: 01/01/18 22:27 Dose: Not Given Calcitriol (Rocaltrol) 0.25 mcg PO [facility] Last Admin: 01/01/18 22:25 Dose: 0.25 mcg Clonidine HCl (Catapres) 0.1 mg PO [facility] Last Admin: 01/01/18 22:28 Dose: Not Given Ferrous Sulfate (Feosol) 325 mg PO [facility] Last Admin: 01/01/18 22:25 Dose: 325 mg Folic Acid (Folic Acid) 1 mg PO [facility] Last Admin: 01/01/18 22:28 Dose: 1 mg Furosemide (Lasix) 40 mg PO [facility] Last Admin: 01/01/18 22:27 Dose: Not Given Nebivolol (Bystolic) 10 mg PO [facility] Last Admin: 01/01/18 22:28 Dose: Not Given Rosuvastatin Calcium (Crestor) 5 mg PO [facility] Last Admin: 01/01/18 22:24 Dose: 5 mg Vitamin B Complex/Vit C/Folic Acid (Nephro-Miguel Ángel) 1 tab PO [facility] Last Admin: 01/01/18 22:25 Dose: 1 tab Physical Exam - Constitutional Appears: No Acute Distress, Chronically Ill - Head Exam Head Exam: ATRAUMATIC, NORMAL INSPECTION - Eye Exam Eye Exam: EOMI, Normal appearance - Neck Exam Neck exam: Positive for: Normal Inspection. Negative for: Tenderness - Respiratory Exam Respiratory Exam: Clear to Auscultation Bilateral, NORMAL BREATHING PATTERN - Cardiovascular Exam Cardiovascular Exam: REGULAR RHYTHM, +S1 - GI/Abdominal Exam GI & Abdominal Exam: Soft. absent: Tenderness - Extremities Exam Extremities exam: Positive for: normal inspection, pedal edema - Neurological Exam Neurological exam: Alert, CN II-XII Intact - Skin Skin Exam: Dry, Warm Results - Vital Signs Recent Vital Signs: Last Vital Signs Temp 97.8 F 01/02/18 08:20 Pulse 64 01/02/18 08:20 Resp 20 01/02/18 08:20 BP 111/65 01/02/18 08:20 Pulse Ox 99 01/02/18 07:00 - Labs Result Diagrams: 01/02/18 11:11 01/02/18 11:11 Labs: Laboratory Results - last 24 hr 01/01/18 01/01/18 01/02/18 18:29 21:04 11:11 WBC 7.5 9.7 RBC 2.04 L 3.02 L Hgb 6.7 L 9.5 L D Hct 20.6 L 28.0 L MCV 100.8 H 92.7 D MCH 32.8 H 31.5 H MCHC 32.6 L 34.0 RDW 17.1 H 19.5 H Plt Count 106 L 101 L MPV 8.8 8.4 Sodium Potassium Chloride Carbon Dioxide Anion Gap BUN Creatinine Est GFR ( Amer) Est GFR (Non-Af Amer) Random Glucose Calcium Blood Type B POSITIVE Antibody Screen Negative 01/02/18 11:11 WBC RBC Hgb Hct MCV MCH MCHC RDW Plt Count MPV Sodium 136 Potassium 3.9 Chloride 100 Carbon Dioxide 28 Anion Gap 13 BUN 37 H Creatinine 3.5 H Est GFR ( Amer) 20 Est GFR (Non-Af Amer) 17 Random Glucose 116 H Calcium 8.2 L Blood Type Antibody Screen Assessment & Plan (1) 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
--- NOTE | 2018-01-02 16:05 | CP.PCM.DIS ---
Provider - Provider Date of Admission: 01/01/18 10:56 Attending physician: Reji Aleman Jr, MD Consults: Nephrology: Dr. Orellana Cardiology: Dr. Park Time Spent in preparation of Discharge (in minutes): 45 Hospital Course - Lab Results Lab Results: Most Recent Lab Values WBC 9.7 K/uL (4.8-10.8) 01/02/18 11:11 RBC 3.02 Mil/uL (4.40-5.90) L 01/02/18 11:11 Hgb 9.5 g/dL (12.0-18.0) L D 01/02/18 11:11 Hct 28.0 % (35.0-51.0) L 01/02/18 11:11 MCV 92.7 fL (80.0-94.0) D 01/02/18 11:11 MCH 31.5 pg (27.0-31.0) H 01/02/18 11:11 MCHC 34.0 g/dL (33.0-37.0) 01/02/18 11:11 RDW 19.5 % (11.5-14.5) H 01/02/18 11:11 Plt Count 101 K/uL (130-400) L 01/02/18 11:11 MPV 8.4 fL (7.2-11.7) 01/02/18 11:11 Neut % (Auto) 78.4 % (50.0-75.0) H 01/01/18 06:59 Lymph % (Auto) 7.8 % (20.0-40.0) L 01/01/18 06:59 [place] % (Auto) 8.1 % (0.0-10.0) 01/01/18 06:59 Eos % (Auto) 4.7 % (0.0-4.0) H 01/01/18 06:59 Baso % (Auto) 1.0 % (0.0-2.0) 01/01/18 06:59 Neut # (Auto) 5.8 K/uL (1.8-7.0) 01/01/18 06:59 Lymph # (Auto) 0.6 K/uL (1.0-4.3) L 01/01/18 06:59 [place] # (Auto) 0.6 K/uL (0.0-0.8) 01/01/18 06:59 Eos # (Auto) 0.3 K/uL (0.0-0.7) 01/01/18 06:59 Baso # (Auto) 0.1 K/uL (0.0-0.2) 01/01/18 06:59 Neutrophils % (Manual) 89 % (50-75) H 01/01/18 06:59 Lymphocytes % (Manual) 4 % (20-40) L 01/01/18 06:59 Monocytes % (Manual) 4 % (0-10) 01/01/18 06:59 Eosinophils % (Manual) 3 % (0-4) 01/01/18 06:59 Platelet Estimate Decreased (NORMAL) L 01/01/18 06:59 Polychromasia Slight 01/01/18 06:59 Hypochromasia (manual) Slight 01/01/18 06:59 Anisocytosis (manual) Slight 01/01/18 06:59 Macrocytosis (manual) Slight 01/01/18 06:59 Ovalocytes Slight 01/01/18 06:59 PT 17.5 SECONDS (9.7-12.2) H 01/01/18 06:59 INR 1.5 01/01/18 06:59 APTT 34 SECONDS (21-34) 01/01/18 06:59 Sodium 136 mmol/L (132-148) 01/02/18 11:11 Potassium 3.9 mmol/L (3.6-5.2) 01/02/18 11:11 Chloride 100 mmol/L (98-107) 01/02/18 11:11 Carbon Dioxide 28 mmol/L (22-30) 01/02/18 11:11 Anion Gap 13 (10-20) 01/02/18 11:11 BUN 37 mg/dL (9-20) H 01/02/18 11:11 Creatinine 3.5 mg/dL (0.8-1.5) H 01/02/18 11:11 Est GFR ( Amer) 20 01/02/18 11:11 Est GFR (Non-Af Amer) 17 01/02/18 11:11 POC Glucose (mg/dL) 96 mg/dL (65-110) 01/01/18 11:42 Random Glucose 116 mg/dL (75-110) H 01/02/18 11:11 Calcium 8.2 mg/dl (8.6-10.4) L 01/02/18 11:11 Blood Type B POSITIVE 01/01/18 21:04 Antibody Screen Negative 01/01/18 21:04 - Hospital Course Hospital Course: 82yo M came into ER for evaluation of Right IJ permacath site bleeding. Bedside lidocaine with epinepherine was injected with no improvement in bleeding. Patient was taken to the OR urgently and Right IJ permacath was removed. Hemostasis was achieved with sutures and digital pressure. Hb low and patient was transfused 2U PRBCs with appropriate response. Nephrology and Cardiology consults were obtained. Out-patient peritoneal dialysis initiation was set up by nephrology. Patient was stable and cleared for discharge home. Discharge Exam - Head Exam Head Exam: ATRAUMATIC, NORMAL INSPECTION, NORMOCEPHALIC - Eye Exam Eye Exam: EOMI, Normal appearance - ENT Exam ENT Exam: Mucous Membranes Moist - Respiratory Exam Respiratory Exam: NORMAL BREATHING PATTERN, UNREMARKABLE. absent: Accessory Muscle Use - Cardiovascular Exam Cardiovascular Exam: RRR. absent: JVD Additional comments: RIght IJ permacath site with dressing clean, dry and intact. No further signs of hemorrhage or bleeding. - GI/Abdominal Exam GI & Abdominal Exam: Soft. absent: Distended, Guarding, Rebound, Rigid, Tenderness Additional comments: PD catheter in place - Extremities Exam Extremities exam: normal inspection - Neurological Exam Neurological exam: Alert, Oriented x3 - Psychiatric Exam Psychiatric exam: Normal Affect, Normal Mood - Skin Skin Exam: Dry, Intact, Normal Color, Warm Discharge Plan - Follow Up Plan Condition: UNKNOWN Disposition: HOME/ ROUTINE Instructions: Dialysis Diet , Heart Failure, Adult (DC), Peritoneal Dialysis ( DC), End Stage Kidney Disease (DC) Additional Instructions: Ok to discharge home. - For Peritoneal Dialysis and Peritoneal Dialysis training tomorrow as set up by Dr. Orellana. - You may resume all your home meds. Eliquis may be resumed starting tomorrow morning (01/03/18) - Keep Right chest dressing in place for 24 hours. You may shower, no bathing or soaking. Replace as needed. - Follow up with Dr. Aleman in office in 10-14 days. Call for appointment Referrals: Aaron Orellana MD [Staff Provider] - Reji Aleman Jr., MD [Staff Provider] - Tk Park MD [Staff Provider] -
[2018-01-02 16:56] VITALS: BP 93/47; PULSE 57; RESP 18; TEMP 98.3; O2SAT 94
== END 2018-01-02 19:00 | disposition home or self-care (01) ==
LOC: C.ER 04:49 → INTOOBSV 10:56 → C.9E 10:56 → C.9S 12:16 → C.6T 14:05
PROVIDERS: ADMIT Surgery Vascular Surgery; ATTEND Surgery Vascular Surgery
DX: T82.838A Hemorrhage due to vascular prosthetic devices, implants and grafts, initial encounter (principal); J44.9 Chronic obstructive pulmonary disease, unspecified; I50.9 Heart failure, unspecified; I48.92 Unspecified atrial flutter; N18.6 End stage renal disease; Z95.1 Presence of aortocoronary bypass graft; Z99.2 Dependence on renal dialysis; I13.2 Hypertensive heart and chronic kidney disease with heart failure and with stage 5 chronic kidney disease, or end stage renal disease
CPT/HCPCS: 36415; 36430; 36590; 80048; 82948; 85025; 85027; 85610; 85730; 86850; 86900; 86920; 88300; 93005; 97116; 97162; 99285; G0378; G8978; G8979; J7040; P9051

== ENCOUNTER 2018-02-23 00:01 | Emergency (ER) | payer MEDICARE ==
[2018-02-23 00:03] VITALS: BMI 19.1
[2018-02-23 01:19] LABS: INR 1.5; PROTHROMBIN TIME 16.2 SECONDS (9.7-12.2)
[2018-02-23 01:21] LABS: VENOUS BLOOD GAS BASE EXCESS -4.9 mmol/L (0.0-2.0); VENOUS BLOOD GAS PCO2 28 mmHg (40-60); VENOUS BLOOD GAS PO2 46 mm/Hg (30-55); VENOUS BLOOD PH 7.42 (7.32-7.43)
[2018-02-23 01:23] LABS: BASO % 0.6 % (0.0-2.0); EOS % 0.3 % (0.0-4.0); HEMOGLOBIN 13.3 g/dL (12.0-18.0); LYMPH # 0.4 K/uL (1.0-4.3); LYMPH % 6.5 % (20.0-40.0); MEAN CORPUSCULAR HGB CONC 34.7 g/dL (33.0-37.0); MEAN PLATELET VOLUME 7.9 fL (7.2-11.7); MONO # 0.6 K/uL (0.0-0.8); MONO % 9.7 % (0.0-10.0); NEUT # 5.1 K/uL (1.8-7.0); NEUT % 82.9 % (50.0-75.0); NRBC % 0.1 % (0.0-2.0); PLATELET COUNT 135 K/uL (130-400); RBC 4.04 Mil/uL (4.40-5.90); RED CELL DISTRIBUTION WIDTH 16.7 % (11.5-14.5); WHITE BLOOD COUNT 6.2 K/uL (4.8-10.8)
[2018-02-23 01:26] LABS: ALB/GLOB RATIO 0.8 (1.0-2.1); ALBUMIN 3.8 g/dL (3.5-5.0); CALCIUM 8.6 mg/dl (8.6-10.4)
--- NOTE | 2018-02-23 01:55 | C.PDOC ---
History Of Present Illness Patient presents to ED c/o fever (T=101) at home with productive cough today ( previously a dry cough for the past 2 days). He admits to exertional dyspnea, states this has been present chronically. Patient denies chest pain, vomiting/ diarrhea, abdominal pain, ear pain, sore throat, body aches. He has a PMhx of ESRD on PD, HTN, CAD s/p CABG, CHF, COPD, A flutter s/p cardioversion. Patient recently had permacath in right upper chest which was removed, currently on PO Keflex for cellulitis at site (Dr. Aleman). Time Seen by Provider: 02/23/18 00:22 Chief Complaint (Nursing): Fever History Per: Patient, Family History/Exam Limitations: no limitations Onset/Duration Of Symptoms: Days Current Symptoms Are (Timing): Still Present Associated Symptoms: Fever, Cough, Sputum. denies: Vomiting, Diarrhea Severity: Mild Past Medical History Reviewed: Historical Data, Nursing Documentation, Vital Signs Vital Signs: Last Vital Signs Temp 99.9 F H 02/23/18 00:09 Pulse 90 02/23/18 00:09 Resp 16 02/23/18 00:09 BP 154/81 H 02/23/18 00:09 Pulse Ox 96 02/23/18 02:05 - Medical History PMH: Cardia Arrhythmia (HX: [id number] DONE ~[id number]), CHF, COPD , HTN, Hypercholesterolemia, Peripheral Edema, End Stage Renal Disease, Chronic Kidney Disease Surgical History: CABG (QUAD-CORNARY BYPASS 2007) - [facility] Procedures (12/27/17) ENDOSCOPIC BRONCHIAL BX (06/12/13) INSERTION OF INFUSION DEV INTO SUP VENA CAVA, PERC APPROACH (12/27/17) Family History: States: No Known Family Hx - Social History Hx Alcohol Use: No Hx Substance Use: No - Immunization History Hx Tetanus Toxoid Vaccination: Yes Hx Influenza Vaccination: Yes Hx Pneumococcal Vaccination: Yes Review Of Systems Constitutional: Positive for: Fever, Chills Cardiovascular: Negative for: Chest Pain, Palpitations Respiratory: Positive for: Cough, SOB with Excertion, Sputum. Negative for: Wheezing Gastrointestinal: Negative for: Vomiting, Abdominal Pain, Diarrhea Skin: Negative for: Rash Physical Exam - Physical Exam Appears: Well, Non-toxic, No Acute Distress Skin: Normal Color, Warm, Dry, No Rash Oral Mucosa: Moist Cardiovascular: Rhythm Regular, Murmur (3/6 holosystolic ) Respiratory: Normal Breath Sounds, No Rales, No Rhonchi, No Wheezing Gastrointestinal/Abdominal: Normal Exam, Bowel Sounds, Soft, No Tenderness, Other (LLQ PD catheter, no surrounding erythema ) Extremity: Normal ROM, No Pedal Edema, No Calf Tenderness Pulses: Left Dorsalis Pedis: Normal, Right Dorsalis Pedis: Normal Neurological/Psych: Oriented x3 ED Course And Treatment - Laboratory Results Result Diagrams: 02/23/18 01:09 02/23/18 01:09 O2 Sat by Pulse Oximetry: 96 Disposition Counseled Patient/Family Regarding: Studies Performed, Diagnosis, Need For Followup, Rx Given - Disposition Referrals: Aaron Orellana MD [Staff Provider] - Reji Aleman Jr., MD [Staff Provider] - Tk Park MD [Staff Provider] - Disposition: HOME/ ROUTINE Disposition Time: 03:00 Condition: STABLE Additional Instructions: CONTINUE YOUR ANTIBIOTICS FOR THE WOUND ON YOUR CHEST USE MOTRIN OR TYLENOL IF YOU HAVE FEVER USE COUGH MEDICATION NEEDED RETURN TO ER IF YOUR SYMPTOMS WORSEN Prescriptions: Benzonatate [Tessalon Perles] 100 mg PO BID PRN #[id number] PRN Reason: Cough Instructions: Viral Upper Respiratory Infection, Adult (DC) Forms: [employer] ([place] African) Print Language: URDU - Clinical Impression Clinical Impression: Upper respiratory infection, Viral URI
[2018-02-23 02:48] LABS: LYMPHOCYTE 6 % (20-40); MONOCYTE 10 % (0-10); NEUTROPHIL 84 % (50-75); TOTAL CELLS COUNTED 100
[2018-02-23 02:49] LABS: PLATELET ESTIMATE NORMAL (NORMAL)
[2018-02-23 03:21] VITALS: BP 115/79; PULSE 89; RESP 20; TEMP 98.8; O2SAT 98
[2018-02-23 03:28] LABS: SQUAMOUS EPITHIAL < 1 /hpf (0-5); URINE BILIRUBIN NEGATIVE (NEGATIVE); URINE BLOOD 1+ (NEGATIVE); URINE CLARITY Hazy (Clear); URINE COLOR Yellow (YELLOW); URINE GLUCOSE (UA) NORMAL (Normal); URINE LEUKOCYTE ESTERASE NEG Leu/uL (Negative); URINE PROTEIN 1+ mg/dL (NEGATIVE); URINE UROBILINOGEN NORMAL mg/dL (0.2-1.0)
--- NOTE | 2018-02-23 12:44 | RAD ---
PROCEDURE: CHEST RADIOGRAPH, 1 VIEW HISTORY: cough, fever COMPARISON: Comparison made with prior chest 01/28/2018 FINDINGS: LUNGS: Re- demonstrated is an opacification in the left lung base that may represent some combination of chronic pleural thickening and small loculated effusion suspect minor right basilar atelectasis PLEURA: As above. No pneumothorax. CARDIOVASCULAR: Sternotomy wires and CABG clips again noted. Heart appears enlarged OSSEOUS STRUCTURES: No significant abnormalities. VISUALIZED UPPER ABDOMEN: Normal. OTHER FINDINGS: None. IMPRESSION: Re- demonstrated is an opacification in the left lung base that may represent some combination of chronic pleural thickening and small effusion. Rule out loculated component.
== END 2018-02-23 03:21 | disposition home or self-care (01) ==
LOC: C.ER 00:01
DX: J06.9 Acute upper respiratory infection, unspecified (principal)

== ENCOUNTER 2018-03-11 18:57 | Inpatient (IN) | payer MEDICARE ==
[2018-03-11 18:57] VITALS: BMI 19.1
[2018-03-11] MEDS ORDERED: Sodium Chloride 0.9% 500 ML IV ONE (19:48)
--- NOTE | 2018-03-11 19:54 | C.PDOC ---
Chief Complaint (Nursing): Fever Past Medical History Vital Signs: Last Vital Signs Temp 98.5 F 03/11/18 19:28 Pulse 120 H 03/11/18 19:28 Resp 16 03/11/18 19:28 BP 91/48 L 03/11/18 19:28 Pulse Ox 95 03/11/18 19:28 - Medical History PMH: Cardia Arrhythmia (HX: [id number] DONE ~[id number]), CHF, COPD , HTN, Hypercholesterolemia, Peripheral Edema, End Stage Renal Disease, Chronic Kidney Disease Surgical History: CABG (QUAD-CORNARY BYPASS 2007) - [facility] Procedures (12/27/17) ENDOSCOPIC BRONCHIAL BX (06/12/13) INSERTION OF INFUSION DEV INTO SUP VENA CAVA, PERC APPROACH (12/27/17) Family History: States: Unknown Family Hx - Social History Hx Alcohol Use: No Hx Substance Use: No - Immunization History Hx Tetanus Toxoid Vaccination: Yes Hx Influenza Vaccination: Yes Hx Pneumococcal Vaccination: Yes ED Course And Treatment O2 Sat by Pulse Oximetry: 95 Disposition - Disposition
[2018-03-11] MEDS ORDERED: Albuterol-Ipratrop 3 mg / 0.5 (3 ml) UD INH STA (19:56)
--- NOTE | 2018-03-11 19:57 | C.PDOC ---
History Of Present Illness 82 year old male with chronic renal failure, currently on peritoneal dialysis, presents to the emergency department with complaints of fever with associated nonproductive cough for the last three days. Patient also reports experiencing a diminished appetite as well as shortness of breath on exertion. Patient reports he is treated with peritoneal dialysis on a daily basis but denies abdominal discomfort or pain, chest pain, or sore throat. Chief Complaint (Nursing): Fever History Per: Patient History/Exam Limitations: no limitations Onset/Duration Of Symptoms: Days (3) Current Symptoms Are (Timing): Still Present Associated Symptoms: Fever, Cough (non-productive), Other (diminished appetite, shortness of breath on exertion) Past Medical History Reviewed: Historical Data, Nursing Documentation, Vital Signs Vital Signs: Last Vital Signs Temp 98.1 F 03/12/18 02:13 Pulse 99 H 03/12/18 02:13 Resp 20 03/12/18 02:13 BP 134/84 03/12/18 02:13 Pulse Ox 100 03/12/18 02:13 - Medical History PMH: CAD, Cardia Arrhythmia (HX: [id number] DONE ~[id number]), CHF, COPD, HTN, Hypercholesterolemia, Peripheral Edema, End Stage Renal Disease, Chronic Kidney Disease Other PMH: Left Pleural Effusion Surgical History: CABG (QUAD-CORNARY BYPASS 2007) - [facility] Procedures (12/27/17) ENDOSCOPIC BRONCHIAL BX (06/12/13) INSERTION OF INFUSION DEV INTO SUP VENA CAVA, PERC APPROACH (12/27/17) Family History: States: No Known Family Hx - Social History Hx Alcohol Use: No Hx Substance Use: No - Immunization History Hx Tetanus Toxoid Vaccination: Yes Hx Influenza Vaccination: Yes Hx Pneumococcal Vaccination: Yes Review Of Systems Constitutional: Positive for: Fever ENT: Negative for: Throat Pain Cardiovascular: Negative for: Chest Pain Respiratory: Positive for: Cough (non-productive), SOB with Excertion Gastrointestinal: Positive for: Other (diminished appetite). Negative for: Abdominal Pain Physical Exam - Physical Exam Appears: Non-toxic, No Acute Distress Skin: Normal Color, Warm, Dry, Other (no irritation or infection near catheter insertion site) Head: Atraumatic, Normacephalic Oral Mucosa: Dry Chest: Symmetrical, No Tenderness Cardiovascular: Rhythm Regular (accelerated rhythm within normal limits) Respiratory: Rhonchi (coarse, bilaterally but worse on right side anteriorly), No Stridor, Other (speaking full sentences) Gastrointestinal/Abdominal: Bowel Sounds (active), Soft, No Tenderness, Other ( peritoneal dialysis catheter in place) Pulses: Left Dorsalis Pedis: Normal, Right Dorsalis Pedis: Normal Neurological/Psych: Oriented x3, Normal Speech, Normal Cognition, Normal Cranial Nerves, Normal Motor, Normal Sensation, Normal Reflexes, Other (GCS at 15) ED Course And Treatment - Laboratory Results Result Diagrams: 03/11/18 20:23 03/11/18 20:23 Lab Interpretation: Abnormal O2 Sat by Pulse Oximetry: 95 (RA) Pulse Ox Interpretation: Normal Medical Decision Making Medical Decision Making: Plan: EKG CMP Lactic Acid Plasma CBC CXR Two Views Duoneb 3ml INH NaCl IV Fluids Blood CUlture O2 via Nasal Cannula Peak Flow Send routine labs and blood culture. Patient was administered a food bolus. Impression: URI vs. Pneumonia Workup is essentially negative.No pneumonia .Will release to home Disposition - Disposition Disposition: HOSPITALIZED Disposition Time: 05:23 Condition: GOOD - Clinical Impression Clinical Impression: Influenza-like illness - Scribe Statement The provider has reviewed the documentation as recorded by the Scribe (Cruz Hernandez) Provider Attestation: All medical record entries made by the Scribe were at my direction and personally dictated by me. I have reviewed the chart and agree that the record accurately reflects my personal performance of the history, physical exam, medical decision making, and the department course for this patient. I have also personally directed, reviewed, and agree with the discharge instructions and disposition.
[2018-03-11 20:36] LABS: BASO % 0.2 % (0.0-2.0); HEMOGLOBIN 12.9 g/dL (12.0-18.0); LYMPH # 0.2 K/uL (1.0-4.3); LYMPH % 1.6 % (20.0-40.0); MEAN CELL VOLUME 94.9 fL (80.0-94.0); MEAN CORPUSCULAR HEMOGLOBIN 32.7 pg (27.0-31.0); MEAN CORPUSCULAR HGB CONC 34.4 g/dL (33.0-37.0); MEAN PLATELET VOLUME 7.5 fL (7.2-11.7); MONO # 0.6 K/uL (0.0-0.8); NEUT # 14.2 K/uL (1.8-7.0); NEUT % 94.2 % (50.0-75.0); PLATELET COUNT 189 K/uL (130-400); RBC 3.94 Mil/uL (4.40-5.90); RED CELL DISTRIBUTION WIDTH 16.9 % (11.5-14.5); WHITE BLOOD COUNT 15.1 K/uL (4.8-10.8)
[2018-03-11 20:36] LABS: VENOUS BLOOD GAS BASE EXCESS -0.6 mmol/L (0.0-2.0); VENOUS BLOOD GAS PCO2 43 mmHg (40-60); VENOUS BLOOD GAS PO2 29 mm/Hg (30-55); VENOUS BLOOD PH 7.37 (7.32-7.43)
[2018-03-11 20:52] LABS: ALB/GLOB RATIO 0.7 (1.0-2.1); ALBUMIN 3.5 g/dL (3.5-5.0); CALCIUM 9.5 mg/dl (8.6-10.4)
[2018-03-11] MEDS ORDERED: Azithromycin 500 MG in Sodium Chloride 0.9% 250 ML IVPB STA (21:41)
[2018-03-11 22:04] LABS: BANDS 4 % (0-2); LYMPHOCYTE 3 % (20-40); MONOCYTE 3 % (0-10); NEUTROPHIL 90 % (50-75); PLATELET ESTIMATE NORMAL (NORMAL); TOTAL CELLS COUNTED 100
[2018-03-11] MEDS: Sodium Chloride 0.9% 1,000 ML IV SCH (22:46)
[2018-03-11] MEDS: Azithromycin 500 MG in Sodium Chloride 0.9% 250 ML IVPB SCH (22:53)
[2018-03-12] MEDS: Albuterol-Ipratrop 3 mg / 0.5 (3 ml) UD INH SCH ×4 (01:13→19:42)
--- NOTE | 2018-03-12 09:13 | CP.PCM.HP ---
History of Present Illness - History of Present Illness History of Present Illness: CC: FEVER History Of Present Illness 82 year old male with chronic renal failure, currently on peritoneal dialysis, presents to the emergency department with complaints of fever with associated nonproductive cough for the last three days. Patient also reports experiencing a diminished appetite as well as shortness of breath on exertion. Patient reports he is treated with peritoneal dialysis on a daily basis but denies abdominal discomfort or pain, chest pain, or sore throat. Present on Admission - Present on Admission Any Indicators Present on Admission: No Past Patient History - Infectious Disease Hx of Infectious Diseases: None - Tetanus Immunizations Tetanus Immunization: Unknown - Past Medical History & Family History Past Medical History?: Yes - Past Social History Smoking Status: Never Smoked - CARDIAC Hx Cardia Arrhythmia: Yes (HX: [id number] DONE ~[id number]) Hx Congestive Heart Failure: Yes Hx Hypercholesterolemia: Yes Hx Hypertension: Yes Hx Peripheral Edema: Yes - PULMONARY Hx Chronic Obstructive Pulmonary Disease (COPD): Yes - NEUROLOGICAL Hx Neurological Disorder: No - HEENT Hx HEENT Problems: No - RENAL Type of Dialysis Access: LLQ, PD - ENDOCRINE/METABOLIC Hx Endocrine Disorders: No - HEMATOLOGICAL/ONCOLOGICAL Hx Blood Disorders: No Hx Blood Transfusions: Yes (12/2017) - INTEGUMENTARY Hx Dermatological Problems: No - MUSCULOSKELETAL/RHEUMATOLOGICAL Hx Falls: No - GASTROINTESTINAL Hx Gastrointestinal Disorders: No - GENITOURINARY/GYNECOLOGICAL Hx Genitourinary Disorders: No - PSYCHIATRIC Hx Substance Use: No - SURGICAL HISTORY 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QUAD-CORNARY BYPASS 2007) - ANESTHESIA Hx Anesthesia: Yes Hx Anesthesia Reactions: No Hx Malignant Hyperthermia: No Has any member of the family had a problem w/ anesthesia?: No Meds Allergies/Adverse Reactions: Allergies Allergy/AdvReac Type Severity Reaction Status Date / Time Gadolinium-Containing Allergy Severe "HIVES" Verified 03/11/18 19:30 Contrast Medi Iodinated Contrast- Oral and Allergy Severe URTICARIA Verified 03/11/18 19:30 IV Dye Thiazides Allergy Severe "HIVES" Verified 03/11/18 19:30 Results - Vital Signs Recent Vital Signs: Last Vital Signs Temp 99.1 F 03/12/18 08:48 Pulse 116 H 03/12/18 08:27 Resp 20 03/12/18 08:27 BP 130/63 03/12/18 08:27 Pulse Ox 93 L 03/12/18 08:27 - Labs Result Diagrams: 03/11/18 20:23 03/11/18 20:23 Labs: Laboratory Results - last 24 hr 03/11/18 03/11/18 03/11/18 20:23 20:23 20:32 WBC 15.1 H D RBC 3.94 L Hgb 12.9 Hct 37.4 MCV 94.9 H MCH 32.7 H MCHC 34.4 RDW 16.9 H Plt Count 189 MPV 7.5 Neut % (Auto) 94.2 H Lymph % (Auto) 1.6 L [place] % (Auto) 4.0 Eos % (Auto) 0.0 Baso % (Auto) 0.2 Neut # (Auto) 14.2 H Lymph # (Auto) 0.2 L [place] # (Auto) 0.6 Eos # (Auto) 0.0 Baso # (Auto) 0.0 Neutrophils % (Manual) 90 H Band Neutrophils % 4 H Lymphocytes % (Manual) 3 L Monocytes % (Manual) 3 Platelet Estimate Normal pO2 29 L VBG pH 7.37 VBG pCO2 43 VBG HCO3 23.2 VBG Total CO2 26.2 VBG O2 Sat (Calc) 58.2 VBG Base Excess -0.6 L VBG Potassium 3.9 Glucose 117 H Lactate 1.9 Sodium 136 135.0 Potassium 4.1 Chloride 97 L 100.0 Carbon Dioxide 24 Anion Gap 19 BUN 55 H Creatinine 3.7 H Est GFR ( Amer) 19 Est GFR (Non-Af Amer) 16 Random Glucose 123 H Lactic Acid Calcium 9.5 Total Bilirubin 1.4 H AST 45 ALT 42 Alkaline Phosphatase 217 H D Total Protein 8.3 Albumin 3.5 Globulin 4.8 H Albumin/Globulin Ratio 0.7 L Venous Blood Potassium 3.9 03/11/18 20:33 WBC RBC Hgb Hct MCV MCH MCHC RDW Plt Count MPV Neut % (Auto) Lymph % (Auto) [place] % (Auto) Eos % (Auto) Baso % (Auto) Neut # (Auto) Lymph # (Auto) [place] # (Auto) Eos # (Auto) Baso # (Auto) Neutrophils % (Manual) Band Neutrophils % Lymphocytes % (Manual) Monocytes % (Manual) Platelet Estimate pO2 VBG pH VBG pCO2 VBG HCO3 VBG Total CO2 VBG O2 Sat (Calc) VBG Base Excess VBG Potassium Glucose Lactate Sodium Potassium Chloride Carbon Dioxide Anion Gap BUN Creatinine Est GFR ( Amer) Est GFR (Non-Af Amer) Random Glucose Lactic Acid 1.7 Calcium Total Bilirubin AST ALT Alkaline Phosphatase Total Protein Albumin Globulin Albumin/Globulin Ratio Venous Blood Potassium
[2018-03-12] MEDS ORDERED: Azithromycin 500 MG in Sodium Chloride 0.9% 250 ML IVPB SCH (10:00)
--- NOTE | 2018-03-12 11:09 | RAD ---
HISTORY: fever,cough COMPARISON: 02/23/2018. FINDINGS: LUNGS: The right lung is well inflated. There is subsegmental atelectasis in the right mid lung and lung base. PLEURA: There is a persistent moderate left pleural effusion, no pneumothorax apparent. CARDIOVASCULAR: The heart remains enlarged. Status post CABG. OSSEOUS STRUCTURES: No significant abnormalities. VISUALIZED UPPER ABDOMEN: Normal. OTHER FINDINGS: None. IMPRESSION: Persistent moderate left pleural effusion, underlying airspace disease cannot be excluded. Follow-up to resolution is advised.
[2018-03-12 11:36] LABS: BASO # 0.1 K/uL (0.0-0.2); BASO % 0.3 % (0.0-2.0); EOS % 0.1 % (0.0-4.0); HEMOGLOBIN 11.2 g/dL (12.0-18.0); LYMPH # 0.3 K/uL (1.0-4.3); LYMPH % 1.9 % (20.0-40.0); MEAN CELL VOLUME 95.5 fL (80.0-94.0); MEAN CORPUSCULAR HEMOGLOBIN 32.8 pg (27.0-31.0); MEAN CORPUSCULAR HGB CONC 34.4 g/dL (33.0-37.0); MEAN PLATELET VOLUME 7.6 fL (7.2-11.7); MONO # 0.7 K/uL (0.0-0.8); MONO % 4.9 % (0.0-10.0); NEUT # 14.2 K/uL (1.8-7.0); NEUT % 92.8 % (50.0-75.0); PLATELET COUNT 174 K/uL (130-400); RBC 3.42 Mil/uL (4.40-5.90); RED CELL DISTRIBUTION WIDTH 16.5 % (11.5-14.5); WHITE BLOOD COUNT 15.3 K/uL (4.8-10.8)
[2018-03-12 11:59] LABS: CALCIUM 8.1 mg/dl (8.6-10.4)
[2018-03-12 12:06] LABS: ANISOCYTOSIS SLIGHT; LYMPHOCYTE 1 % (20-40); MONOCYTE 4 % (0-10); NEUTROPHIL 95 % (50-75); PLATELET ESTIMATE NORMAL (NORMAL); TOTAL CELLS COUNTED 100
[2018-03-12] MEDS: Sodium Chloride 0.9% 1,000 ML IV SCH (13:00)
[2018-03-12] MEDS ORDERED: Potassium Chloride 20 mEq ER Tab PO ONE (13:45)
--- NOTE | 2018-03-12 15:26 | CP.PCM.CON ---
History of Present Illness - History of Present Illness History of Present Illness: Patient is an 82 year old male with a past medical history of HTN, HLD, CAD, CHF , COPD, and ESRD with daily peritoneal dialysis who presented 03/11/2018 with the chief complaint of dry, non-productive cough of 3 days' duration. Patient states he felt subjectively febrile and when his temperature reached 101.1F, his primary care doctor suggested he come to hospital. Patient seen and examined at bedside today and was coughing with mild respiratory distress. Patient saturating at 93% on nasal cannula and was alert, awake and oriented x3. History partially supplemented by , who is very involved in patient's care. Patient has had one episode of non-bloody emesis, which he attributes to coughing. Patient also complaining of cramping of the bilateral feet. Patient denies chest pain, palpitations and shortness of breath. Assessment/Plan 1.pneumonia WBC = 15.1 with positive bandemia CXR on 01/09 shows moderate left pleural effusion Start IV antibiotics and repeat CXR in 1-2 days to assess resolution 2. ESRD Labs from 03/12 show BUN = 47 and Cre = 3.0 with low K+ of 3.1. Continue peritoneal dialysis per Medicine's recommendations. Consider potassium replacement, given bilateral foot cramps. Monitor for signs/symptoms of pulmonary congestion secondary to fluid overload. Past Patient History - Infectious Disease Hx of Infectious Diseases: None - Tetanus Immunizations Tetanus Immunization: Unknown - Past Medical History & Family History Past Medical History?: Yes - Past Social History Smoking Status: Never Smoked - CARDIAC Hx Cardia Arrhythmia: Yes (HX: [id number] DONE ~[id number]) Hx Congestive Heart Failure: Yes Hx Hypercholesterolemia: Yes Hx Hypertension: Yes Hx Peripheral Edema: Yes - PULMONARY Hx Chronic Obstructive Pulmonary Disease (COPD): Yes - NEUROLOGICAL Hx Neurological Disorder: No - HEENT Hx HEENT Problems: No - RENAL Type of Dialysis Access: LLQ, PD - ENDOCRINE/METABOLIC Hx Endocrine Disorders: No - HEMATOLOGICAL/ONCOLOGICAL Hx Blood Disorders: No Hx Blood Transfusions: Yes (12/2017) - INTEGUMENTARY Hx Dermatological Problems: No - MUSCULOSKELETAL/RHEUMATOLOGICAL Hx Falls: No - GASTROINTESTINAL Hx Gastrointestinal Disorders: No - GENITOURINARY/GYNECOLOGICAL Hx Genitourinary Disorders: No - PSYCHIATRIC Hx Substance Use: No - SURGICAL HISTORY 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[facility]ORN[facility] BYPASS 2007) - ANESTHESIA Hx Anesthesia: Yes Hx Anesthesia Reactions: No Hx Malignant Hyperthermia: No Has any member of the family had a problem w/ anesthesia?: No Meds Allergies/Adverse Reactions: Allergies Allergy/AdvReac Type Severity Reaction Status Date / Time Gadolinium-Containing Allergy Severe "HIVES" Verified 03/11/18 19:30 Contrast Medi Iodinated Contrast- Oral and Allergy Severe URTICARIA Verified 03/11/18 19:30 IV Dye Thiazides Allergy Severe "HIVES" Verified 03/11/18 19:30 - Medications Medications: Current Medications Albuterol/Ipratropium (Duoneb 3 Mg/0.5 Mg (3 Ml) Ud) 3 ml INH RQ6 [facility] Last Admin: 03/12/18 13:39 Dose: 3 ml Allopurinol (Zyloprim) 100 mg PO HS [facility] Amlodipine Besylate (Norvasc) 2.5 mg PO DAILY [facility] Apixaban (Eliquis) 2.5 mg PO BID [facility] Last Admin: 03/12/18 09:16 Dose: 2.5 mg Benzonatate (Tessalon Perles) 100 mg PO BID PRN PRN Reason: Cough Ferrous Sulfate (Feosol) 325 mg PO HS EMILY Folic Acid (Folic Acid) 1 mg PO HS [facility] Sodium Chloride (Sodium Chloride 0.9%) 1,000 mls @ 70 mls/hr IV .[id number] [facility] Last Admin: 03/12/18 13:00 Dose: Not Given Ceftriaxone Sodium 1 gm/ (Sodium Chloride) 100 mls @ 100 mls/hr IVPB Q24H [facility] PRN Reason: Protocol Azithromycin 500 mg/ Sodium (Chloride) 250 mls @ 250 mls/hr IVPB Q24H [facility] PRN Reason: Protocol Last Admin: 03/11/18 22:53 Dose: Not Given Nebivolol (Bystolic) 5 mg PO DAILY [facility] Last Admin: 03/12/18 09:21 Dose: Not Given Rosuvastatin Calcium (Crestor) 5 mg PO HS [facility] Vitamin B Complex/Vit C/Folic Acid (Nephro-Miguel Ángel) 1 tab PO HS [facility] Results - Vital Signs Recent Vital Signs: Last Vital Signs Temp 98.5 F 03/12/18 11:33 Pulse 66 03/12/18 09:16 Resp 20 03/12/18 08:27 BP 112/68 03/12/18 09:16 Pulse Ox 93 L 03/12/18 08:27 - Labs Result Diagrams: 03/12/18 11:27 03/12/18 11:27 Labs: Laboratory Results - last 24 hr 03/11/18 03/11/18 03/11/18 20:23 20:23 20:32 WBC 15.1 H D RBC 3.94 L Hgb 12.9 Hct 37.4 MCV 94.9 H MCH 32.7 H MCHC 34.4 RDW 16.9 H Plt Count 189 MPV 7.5 Neut % (Auto) 94.2 H Lymph % (Auto) 1.6 L [place] % (Auto) 4.0 Eos % (Auto) 0.0 Baso % (Auto) 0.2 Neut # (Auto) 14.2 H Lymph # (Auto) 0.2 L [place] # (Auto) 0.6 Eos # (Auto) 0.0 Baso # (Auto) 0.0 Neutrophils % (Manual) 90 H Band Neutrophils % 4 H Lymphocytes % (Manual) 3 L Monocytes % (Manual) 3 Platelet Estimate Normal Anisocytosis (manual) pO2 29 L VBG pH 7.37 VBG pCO2 43 VBG HCO3 23.2 VBG Total CO2 26.2 VBG O2 Sat (Calc) 58.2 VBG Base Excess -0.6 L VBG Potassium 3.9 Glucose 117 H Lactate 1.9 Sodium 136 135.0 Potassium 4.1 Chloride 97 L 100.0 Carbon Dioxide 24 Anion Gap 19 BUN 55 H Creatinine 3.7 H Est GFR ( Amer) 19 Est GFR (Non-Af Amer) 16 Random Glucose 123 H Lactic Acid Calcium 9.5 Total Bilirubin 1.4 H AST 45 ALT 42 Alkaline Phosphatase 217 H D Total Protein 8.3 Albumin 3.5 Globulin 4.8 H Albumin/Globulin Ratio 0.7 L Venous Blood Potassium 3.9 03/11/18 03/12/18 03/12/18 20:33 11:27 11:27 WBC 15.3 H RBC 3.42 L Hgb 11.2 L Hct 32.7 L MCV 95.5 H MCH 32.8 H MCHC 34.4 RDW 16.5 H Plt Count 174 MPV 7.6 Neut % (Auto) 92.8 H Lymph % (Auto) 1.9 L [place] % (Auto) 4.9 Eos % (Auto) 0.1 Baso % (Auto) 0.3 Neut # (Auto) 14.2 H Lymph # (Auto) 0.3 L [place] # (Auto) 0.7 Eos # (Auto) 0.0 Baso # (Auto) 0.1 Neutrophils % (Manual) 95 H Band Neutrophils % Lymphocytes % (Manual) 1 L Monocytes % (Manual) 4 Platelet Estimate Normal Anisocytosis (manual) Slight pO2 VBG pH VBG pCO2 VBG HCO3 VBG Total CO2 VBG O2 Sat (Calc) VBG Base Excess VBG Potassium Glucose Lactate Sodium 142 Potassium 3.1 L Chloride 107 Carbon Dioxide 23 Anion Gap 15 BUN 47 H Creatinine 3.0 H Est GFR ( Amer) 24 Est GFR (Non-Af Amer) 20 Random Glucose 127 H Lactic Acid 1.7 Calcium 8.1 L Total Bilirubin AST ALT Alkaline Phosphatase Total Protein Albumin Globulin Albumin/Globulin Ratio Venous Blood Potassium
[2018-03-12] MEDS ORDERED: Potassium Chloride 20 mEq/15 ml LIQ UD PO ONE (15:45)
[2018-03-12] MEDS: Azithromycin 500 MG in Sodium Chloride 0.9% 250 ML IVPB SCH (21:22)
[2018-03-12] MEDS: Multivitamin Vitamin B Complex (Nephro-Vite) Tab PO SCH (21:23)
--- NOTE | 2018-03-12 23:56 | CP.PCM.PN ---
Subjective - Date & Time of Evaluation Date of Evaluation: 03/12/18 Time of Evaluation: 08:30 - Subjective Subjective: Patient feels better, with no fever, but still with a dry cough. On Rocephin and Zithromax IV. Denies any abdominal pain, any nausea, any diarrhea. Objective - Vital Signs/Intake and Output Vital Signs (last 24 hours): Temp Pulse Resp BP Pulse Ox 98.0 F 106 H 18 131/75 96 03/12/18 22:06 03/12/18 22:06 03/12/18 22:06 03/12/18 22:06 03/12/18 15:13 Intake and Output: 03/12/18 03/13/18 18:59 06:59 Intake Total 860 720 Balance 860 720 - Medications Medications: Current Medications Albuterol/Ipratropium (Duoneb 3 Mg/0.5 Mg (3 Ml) Ud) 3 ml INH RQ6 [facility] Last Admin: 03/12/18 19:42 Dose: 3 ml Allopurinol (Zyloprim) 100 mg PO [facility] Last Admin: 03/12/18 21:23 Dose: 100 mg Amlodipine Besylate (Norvasc) 2.5 mg PO DAILY [facility] Apixaban (Eliquis) 2.5 mg PO BID [facility] Last Admin: 03/12/18 17:00 Dose: 2.5 mg Benzonatate (Tessalon Perles) 100 mg PO BID PRN PRN Reason: Cough Carvedilol (Coreg) 3.125 mg PO BID [facility] Ferrous Sulfate (Feosol) 325 mg PO [facility] Last Admin: 03/12/18 21:23 Dose: 325 mg Folic Acid (Folic Acid) 1 mg PO [facility] Last Admin: 03/12/18 21:23 Dose: 1 mg Furosemide (Lasix) 40 mg PO DAILY [facility] Sodium Chloride (Sodium Chloride 0.9%) 1,000 mls @ 70 mls/hr IV .[id number] [facility] Last Admin: 03/12/18 13:00 Dose: Not Given Ceftriaxone Sodium 1 gm/ (Sodium Chloride) 100 mls @ 100 mls/hr IVPB Q24H [facility] PRN Reason: Protocol Last Admin: 03/12/18 21:21 Dose: 100 mls/hr Azithromycin 500 mg/ Sodium (Chloride) 250 mls @ 250 mls/hr IVPB Q24H [facility] PRN Reason: Protocol Last Admin: 03/12/18 21:22 Dose: 250 mls/hr Rosuvastatin Calcium (Crestor) 5 mg PO [facility] Last Admin: 03/12/18 21:23 Dose: 5 mg Vitamin B Complex/Vit C/Folic Acid (Nephro-Miguel Ángel) 1 tab PO HS [facility] Last Admin: 03/12/18 21:23 Dose: 1 tab - Labs Labs: 03/12/18 11:27 03/12/18 11:27 - Constitutional Appears: No Acute Distress, Chronically Ill - Head Exam Head Exam: NORMAL INSPECTION - Eye Exam Eye Exam: Normal appearance - ENT Exam ENT Exam: Normal Exam - Neck Exam Neck Exam: Normal Inspection - Respiratory Exam Respiratory Exam: Rhonchi, Wheezes Additional comments: Rhonchi heard at both bases. - Cardiovascular Exam Cardiovascular Exam: Irregular Rhythm, Murmur - GI/Abdominal Exam GI & Abdominal Exam: Soft, Normal Bowel Sounds - Rectal Exam Rectal Exam: Deferred - Exam Exam: NORMAL INSPECTION - Extremities Exam Extremities Exam: Normal Inspection - Back Exam Back Exam: NORMAL INSPECTION - Neurological Exam Neurological Exam: Alert, Awake, Oriented x3 - Psychiatric Exam Psychiatric exam: Anxious - Skin Skin Exam: Dry, Intact, Normal Color, Warm Assessment and Plan (1) Pneumonia Assessment & Plan: To continue IV Rocephin and IV Zithromax. Sputum, blood and peritoneal fluid culture. ID evaluation. Status: Acute (2) End-stage renal disease on peritoneal dialysis Status: Chronic (3) Atrial flutter Status: Chronic (4) Coronary artery disease Status: Acute
[2018-03-13] MEDS: Albuterol-Ipratrop 3 mg / 0.5 (3 ml) UD INH SCH ×4 (01:24→20:11)
[2018-03-13] MEDS: Sodium Chloride 0.9% 1,000 ML IV SCH ×3 (04:06→22:02)
[2018-03-13 09:11] VITALS: RESP 20
--- NOTE | 2018-03-13 10:16 | CT ---
PROCEDURE: CT Chest without contrast HISTORY: non resolving pneumonia/effusion COMPARISON: Prior CT scan chest without contrast from 05/29/2013 and 01/04/2015 TECHNIQUE: Contiguous axial images were obtained through the chest without intravenous contrast enhancement. Sagittal and coronal reconstructions were performed. Radiation dose (DLP): 171.51 mGy-cm. This CT exam was performed using one or more of the following dose reduction techniques: Automated exposure control, adjustment of the mA and/or kV according to patient size, and/or use of iterative reconstruction technique. FINDINGS: LUNGS: There is multifocal patchy ground-glass attenuation in the left upper lobe. There is linear atelectasis/scarring in the lingula and subsegmental atelectasis in the right lower lobe. There is nodular airspace disease in the lateral segment of the right middle lobe. MEDIASTINUM: There is aneurysmal dilatation of the ascending aorta measuring 4.1 cm there is also decreased density in the aorta and pulmonary arteries suggestive of anemia. There are advanced coronary artery calcifications. The heart is enlarged. . Normal sized heart. Main pulmonary artery unremarkable. No vascular congestion. No lymphadenopathy. PLEURA: There is redemonstration of loculated left pleural effusion with interval development of pleural thickening with pleural calcification and increased density in the loculated fluid. No pneumothorax. BONES: No fracture. No destructive lesion. Multilevel degenerative changes in the spine. UPPER ABDOMEN: There is small abdominal ascites. There are stable cysts in the hepatic dome. There are also stable bilateral renal cysts. OTHER FINDINGS: None. IMPRESSION: 1. Persistent loculated left pleural effusion with interval development of pleural thickening and calcifications and increased density of the pleural fluid which may represent complex/proteinaceous content. 2. Patchy multifocal ground-glass attenuation in the left upper lobe and nodule or airspace disease in the lateral segment of the right middle lobe may represent nonspecific infection/inflammation. Follow-up after medical management is recommended to ensure resolution. 3. Aneurysmal dilatation of the ascending aorta and anemia. 4. Abdominal ascites.
[2018-03-13 11:54] LABS: ALB/GLOB RATIO 0.7 (1.0-2.1); ALBUMIN 2.7 g/dL (3.5-5.0); CALCIUM 8.7 mg/dl (8.6-10.4)
--- NOTE | 2018-03-13 12:43 | CP.PCM.CON ---
History of Present Illness - History of Present Illness History of Present Illness: 82 yo [place] male, history of ESRD on PD, HTN, DL, CAD, CHF, COPD, pesents with fever and cough. Cxray with left pleural effusion. S/p chest CT today. No recent travel. No cloudy PD fluid. On dialysis since 01/06. Continues to urinate. Noted to have wbc of 15. No cloudy fluid. Review of Systems - Constitutional Constitutional: Fatigue, Fever - EENT Eyes: absent: Blurred Vision, Change in Vision Nose/Mouth/Throat: absent: Nasal Congestion, Nasal Discharge - Cardiovascular Cardiovascular: absent: Chest Pain, Leg Ulcers - Respiratory Respiratory: Cough. absent: Dyspnea - Gastrointestinal Gastrointestinal: absent: Abdominal Pain, Belching - Genitourinary Genitourinary: absent: Change in Urinary Stream, Difficulty Urinating - Neurological Neurological: absent: Abnormal Gait, Tingling Past Patient History - Infectious Disease Hx of Infectious Diseases: None - Tetanus Immunizations Tetanus Immunization: Unknown - Past Medical History & Family History Past Medical History?: Yes - Past Social History Smoking Status: Never Smoked - CARDIAC Hx Cardia Arrhythmia: Yes (HX: [id number] DONE ~[id number]) Hx Congestive Heart Failure: Yes Hx Hypercholesterolemia: Yes Hx Hypertension: Yes Hx Peripheral Edema: Yes - PULMONARY Hx Chronic Obstructive Pulmonary Disease (COPD): Yes - NEUROLOGICAL Hx Neurological Disorder: No - HEENT Hx HEENT Problems: No - RENAL Type of Dialysis Access: LLQ,PD - ENDOCRINE/METABOLIC Hx Endocrine Disorders: No - HEMATOLOGICAL/ONCOLOGICAL Hx Blood Disorders: No Hx Blood Transfusions: Yes (12/2017) - INTEGUMENTARY Hx Dermatological Problems: No - MUSCULOSKELETAL/RHEUMATOLOGICAL Hx Falls: No - GASTROINTESTINAL Hx Gastrointestinal Disorders: No - GENITOURINARY/GYNECOLOGICAL Hx Genitourinary Disorders: No - PSYCHIATRIC Hx Substance Use: No - SURGICAL HISTORY 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QUAD-CORNARY BYPASS 2007) - ANESTHESIA Hx Anesthesia: Yes Hx Anesthesia Reactions: No Hx Malignant Hyperthermia: No Has any member of the family had a problem w/ anesthesia?: No Meds Allergies/Adverse Reactions: Allergies Allergy/AdvReac Type Severity Reaction Status Date / Time Gadolinium-Containing Allergy Severe "HIVES" Verified 03/11/18 19:30 Contrast Medi Iodinated Contrast- Oral and Allergy Severe URTICARIA Verified 03/11/18 19:30 IV Dye Thiazides Allergy Severe "HIVES" Verified 03/11/18 19:30 - Medications Medications: Current Medications Albuterol/Ipratropium (Duoneb 3 Mg/0.5 Mg (3 Ml) Ud) 3 ml INH RQ6 [facility] Last Admin: 03/13/18 07:24 Dose: 3 ml Allopurinol (Zyloprim) 100 mg PO [facility] Last Admin: 03/12/18 21:23 Dose: 100 mg Amlodipine Besylate (Norvasc) 2.5 mg PO DAILY [facility] Last Admin: 03/13/18 09:39 Dose: 2.5 mg Apixaban (Eliquis) 2.5 mg PO BID [facility] Last Admin: 03/13/18 09:39 Dose: 2.5 mg Benzonatate (Tessalon Perles) 100 mg PO BID PRN PRN Reason: Cough Last Admin: 03/13/18 11:20 Dose: 100 mg Carvedilol (Coreg) 3.125 mg PO BID [facility] Last Admin: 03/13/18 09:40 Dose: 3.125 mg Ferrous Sulfate (Feosol) 325 mg PO [facility] Last Admin: 03/12/18 21:23 Dose: 325 mg Folic Acid (Folic Acid) 1 mg PO [facility] Last Admin: 03/12/18 21:23 Dose: 1 mg Furosemide (Lasix) 40 mg PO DAILY [facility] Last Admin: 03/13/18 09:39 Dose: 40 mg Sodium Chloride (Sodium Chloride 0.9%) 1,000 mls @ 70 mls/hr IV .[id number] [facility] Last Admin: 03/13/18 04:06 Dose: 70 mls/hr Ceftriaxone Sodium 1 gm/ (Sodium Chloride) 100 mls @ 100 mls/hr IVPB Q24H [facility] PRN Reason: Protocol Last Admin: 03/12/18 21:21 Dose: 100 mls/hr Azithromycin 500 mg/ Sodium (Chloride) 250 mls @ 250 mls/hr IVPB Q24H [facility] PRN Reason: Protocol Last Admin: 03/12/18 21:22 Dose: 250 mls/hr Rosuvastatin Calcium (Crestor) 5 mg PO [facility] Last Admin: 03/12/18 21:23 Dose: 5 mg Vitamin B Complex/Vit C/Folic Acid (Nephro-Miguel Ángel) 1 tab PO [facility] Last Admin: 03/12/18 21:23 Dose: 1 tab Physical Exam - Constitutional Appears: Non-toxic, Chronically Ill - Head Exam Head Exam: ATRAUMATIC, NORMAL INSPECTION - Eye Exam Eye Exam: EOMI, Normal appearance - ENT Exam ENT Exam: Mucous Membranes Moist - Neck Exam Neck exam: Positive for: Full Rom. Negative for: Lymphadenopathy - Respiratory Exam Respiratory Exam: Decreased Breath Sounds, Wheezes. absent: Accessory Muscle Use - Cardiovascular Exam Cardiovascular Exam: REGULAR RHYTHM. absent: Rubs - GI/Abdominal Exam GI & Abdominal Exam: Distended, Soft. absent: Tenderness - Extremities Exam Extremities exam: Negative for: pedal edema - Neurological Exam Neurological exam: Alert, Oriented x3 - Psychiatric Exam Psychiatric exam: Normal Affect, Normal Mood Results - Vital Signs Recent Vital Signs: Last Vital Signs Temp 98.2 F 03/13/18 09:10 Pulse 99 H 03/13/18 09:10 Resp 20 03/13/18 09:10 BP 118/67 03/13/18 09:39 Pulse Ox 96 03/13/18 09:10 - Labs Result Diagrams: 03/12/18 11:27 03/13/18 11:30 Labs: Laboratory Results - last 24 hr 03/13/18 11:30 Sodium 143 Potassium 3.9 Chloride 107 Carbon Dioxide 25 Anion Gap 14 BUN 33 H Creatinine 2.5 H Est GFR ( Amer) 30 Est GFR (Non-Af Amer) 25 Random Glucose 133 H Calcium 8.7 Total Bilirubin 0.4 AST 45 ALT 40 Alkaline Phosphatase 153 H D Total Protein 6.8 Albumin 2.7 L D Globulin 4.1 H Albumin/Globulin Ratio 0.7 L Assessment & Plan - Assessment and Plan (Free Text) Assessment: esrd with fever, leukocytosis, pleural effusion f/u chest ct consider diagnostic thoracentesis, assess if dialysate involved in effusion monitor K pt may use his cycler and home prescription
--- NOTE | 2018-03-13 14:34 | CARD ---
APPROVED REPORT EKG Measurement Heart [id number] <Conclusion> Sinus tachycardia Nonspecific ST and T wave abnormality [id number] Abnormal ECG
--- NOTE | 2018-03-13 16:06 | CP.PCM.CON ---
History of Present Illness - History of Present Illness History of Present Illness: 82 year old male with presented 03/11/2018 with the chief complaint of dry, non- productive cough of 3 days' duration. Patient states he felt subjectively febrile and when his temperature reached 101.1F, his primary care doctor suggested he come to hospital. past medical history of HTN, HLD, CAD, CHF, COPD, and ESRD with daily peritoneal dialysis Review of Systems - Review of Systems All systems: reviewed and no additional remarkable complaints except - Constitutional Constitutional: absent: As Per HPI, Anorexia, Chills, Daytime Sleepiness, Excessive Sweating, Fatigue, Fever, Frequent Falls, Headache, Increased Appetite , Lethargy, Malaise, Night Sweats, Snoring, Sleep Apnea, Weight Gain, Weight Loss, Weakness, Other - EENT Eyes: absent: As Per HPI, Blind Spots, Blurred Vision, Change in Vision, Decreased Night Vision, Diplopia, Discharge, Dry Eye, Exophthalmos, Floaters, Irritation, Itchy Eyes, Loss of Peripheral Vision, Pain, Photophobia, Requires Corrective Lenses, Sees Flashes, Spots in Vision, Tunnel Vision, Other Visual Disturbances, Loss of Vision, Other Ears: absent: As Per HPI, Decreased Hearing, Ear Discharge, Ear Pain, Tinnitus, Abnormal Hearing, Disequilibrium, Dizziness, Other Nose/Mouth/Throat: absent: As Per HPI, Epistaxis, Nasal Congestion, Nasal Discharge, Nasal Obstruction, Nasal Trauma, Nose Pain, Post Nasal Drip, Sinus Pain, Sinus Pressure, Bleeding Gums, Change in Voice, Dental Pain, Dry Mouth, Dysphagia, Halitosis, Hoarsness, Lip Swelling, Mouth Lesions, Mouth Pain, Odynophagia, Sore Throat, Throat Swelling, Tongue Swelling, Facial Pain, Neck Pain, Neck Mass, Other - Cardiovascular Cardiovascular: As Per HPI - Respiratory Respiratory: As Per HPI, Cough, Dyspnea. absent: Hemoptysis - Gastrointestinal Gastrointestinal: absent: As Per HPI, Abdominal Pain, Belching, Bloating, Change in Bowel Habits, Change in Stool Character, Coffee Ground Emesis, Constipation, Cramping, Diarrhea, Dyspepsia, Dysphagia, Early Satiety, Excessive Flatus, Fecal Incontinence, Heartburn, Hematemesis, Hematochezia, Loose Stools, Melena, Nausea, Odynophagia, Temesmus, Vomiting, Other - Genitourinary Genitourinary: absent: As Per HPI, Change in Urinary Stream, Difficulty Urinating, Dysuria, Flank Pain, Hematuria, Pyuria, Nocturia, Urinary Incontinence, Urinary Frequency, Urinary Hesitance, Urinary Urgency, Voiding Freq/Small Amts, Freq UTI, Hx Renal/Bladder Calculi, Hx /Renal Surgery, Bladder Distension, Other - Musculoskeletal Musculoskeletal: absent: As Per HPI, Abnormal Gait, Arthralgias, Atrophy, Back Pain, Deformity, Joint Swelling, Limited Range of Motion, Loss of Height, Muscle Cramps, Muscle Weakness, Myalgias, Neck Pain, Numbness, Radiating Pain into Limb, Stiffness, Tingling, Other - Integumentary Integumentary: absent: As Per HPI, Acne, Alopecia, Bleeding Lesions, Change in Hair, Change in Nails, Change in Pigmentation, Changing Lesions, Dry Skin, Erythema, Furuncle, Hirsutism, Lesions, New Lesions, Non-Healing Lesions, Photosensitivity, Pruritus, Rash, Skin Pain, Skin Ulcer, Sores, Striae, Swelling , Unusual Bruising, Wounds, Jaundice, Other - Neurological Neurological: absent: As Per HPI, Abnormal Gait, Abnormal Hearing, Abnormal Movements, Abnormal Speech, Behavioral Changes, Burning Sensations, Confusion, Convulsions, Disequilibrium, Dizziness, Numbness, Focal Weakness, Frequent Falls , Headaches, Lack of Coordination, Loss of Vision, Memory Loss, Paresthesias, Radicular Pain, Restless Legs, Sensory Deficit, Syncope, Tingling, Tremor, Vertigo, Weakness, Other Visual Disturbances, Other - Psychiatric Psychiatric: absent: As Per HPI, Abnormal Sleep Pattern, Anhedonia, Anxiety, Auditory Hallucinations, Behavioral Changes, Change in Appetite, Change in Libido, Confusion, Depression, Difficulty Concentrating, Hallucinations, Homicidal Ideation, Hopelessness, Irritability, Memory Loss, Mood Swings, Panic Attacks, Paranoia, Suicidal Ideation, Visual Hallucinations, Tactile Hallucinations, Other - Endocrine Endocrine: absent: As Per HPI, Change in Body Appearance, Change in Libido, Cold Intolorance, Deepening of Voice, Excessive Sweating, Fatigue, Flushing, Heat Intolorance, Increase in Ring/Shoe/Hat Size, Palpitations, Polydipsia, Polyphagia, Polyuria, Other - Hematologic/Lymphatic Hematologic: absent: As Per HPI, Easy Bleeding, Easy Bruising, Lymphadenopathy, Other Past Patient History - Infectious Disease Hx of Infectious Diseases: None - Tetanus Immunizations Tetanus Immunization: Unknown - Past Medical History & Family History Past Medical History?: Yes - Past Social History Smoking Status: Never Smoked - CARDIAC Hx Congestive Heart Failure: Yes Hx Hypercholesterolemia: Yes Hx Hypertension: Yes - PULMONARY Hx Chronic Obstructive Pulmonary Disease (COPD): Yes - NEUROLOGICAL Hx Neurological Disorder: No - HEENT Hx HEENT Problems: No - RENAL Type of Dialysis Access: LLQ,PD - ENDOCRINE/METABOLIC Hx Endocrine Disorders: No - HEMATOLOGICAL/ONCOLOGICAL Hx Blood Disorders: No Hx Blood Transfusions: Yes (12/2017) - INTEGUMENTARY Hx Dermatological Problems: No - MUSCULOSKELETAL/RHEUMATOLOGICAL Hx Falls: No - GASTROINTESTINAL Hx Gastrointestinal Disorders: No - GENITOURINARY/GYNECOLOGICAL Hx Genitourinary Disorders: No - PSYCHIATRIC Hx Substance Use: No - SURGICAL HISTORY 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[facility] BYPASS 2007) - ANESTHESIA Hx Anesthesia: Yes Hx Anesthesia Reactions: No Hx Malignant Hyperthermia: No Has any member of the family had a problem w/ anesthesia?: No Meds Allergies/Adverse Reactions: Allergies Allergy/AdvReac Type Severity Reaction Status Date / Time Gadolinium-Containing Allergy Severe "HIVES" Verified 03/11/18 19:30 Contrast Medi Iodinated Contrast- Oral and Allergy Severe URTICARIA Verified 03/11/18 19:30 IV Dye Thiazides Allergy Severe "HIVES" Verified 03/11/18 19:30 - Medications Medications: Current Medications Albuterol/Ipratropium (Duoneb 3 Mg/0.5 Mg (3 Ml) Ud) 3 ml INH RQ6 [facility] Last Admin: 03/13/18 13:22 Dose: 3 ml Allopurinol (Zyloprim) 100 mg PO HS [facility] Last Admin: 03/12/18 21:23 Dose: 100 mg Amlodipine Besylate (Norvasc) 2.5 mg PO DAILY [facility] Last Admin: 03/13/18 09:39 Dose: 2.5 mg Apixaban (Eliquis) 2.5 mg PO BID [facility] Last Admin: 03/13/18 09:39 Dose: 2.5 mg Benzonatate (Tessalon Perles) 100 mg PO BID PRN PRN Reason: Cough Last Admin: 03/13/18 11:20 Dose: 100 mg Carvedilol (Coreg) 3.125 mg PO BID [facility] Last Admin: 03/13/18 09:40 Dose: 3.125 mg Ferrous Sulfate (Feosol) 325 mg PO [facility] Last Admin: 03/12/18 21:23 Dose: 325 mg Folic Acid (Folic Acid) 1 mg PO [facility] Last Admin: 03/12/18 21:23 Dose: 1 mg Furosemide (Lasix) 40 mg PO DAILY [facility] Last Admin: 03/13/18 09:39 Dose: 40 mg Sodium Chloride (Sodium Chloride 0.9%) 1,000 mls @ 70 mls/hr IV .[id number] [facility] Last Admin: 03/13/18 04:06 Dose: 70 mls/hr Ceftriaxone Sodium 1 gm/ (Sodium Chloride) 100 mls @ 100 mls/hr IVPB Q24H [facility] PRN Reason: Protocol Last Admin: 03/12/18 21:21 Dose: 100 mls/hr Azithromycin 500 mg/ Sodium (Chloride) 250 mls @ 250 mls/hr IVPB Q24H [facility] PRN Reason: Protocol Last Admin: 03/12/18 21:22 Dose: 250 mls/hr Rosuvastatin Calcium (Crestor) 5 mg PO [facility] Last Admin: 03/12/18 21:23 Dose: 5 mg Vitamin B Complex/Vit C/Folic Acid (Nephro-Miguel Ángel) 1 tab PO [facility] Last Admin: 03/12/18 21:23 Dose: 1 tab Physical Exam - Constitutional Appears: Non-toxic, Chronically Ill - Head Exam Head Exam: NORMOCEPHALIC - Eye Exam Eye Exam: PERRL. absent: Scleral icterus - ENT Exam ENT Exam: Mucous Membranes Dry, Normal External Ear Exam - Neck Exam Neck exam: Negative for: Lymphadenopathy - Respiratory Exam Respiratory Exam: Decreased Breath Sounds - Cardiovascular Exam Cardiovascular Exam: REGULAR RHYTHM, +S1, +S2 - GI/Abdominal Exam GI & Abdominal Exam: Diminished Bowel Sounds, Soft. absent: Tenderness - Rectal Exam Rectal Exam: Deferred - Exam Exam: NORMAL INSPECTION - Extremities Exam Extremities exam: Positive for: pedal pulses present. Negative for: calf tenderness, pedal edema, tenderness - Back Exam Back exam: absent: CVA tenderness (L), CVA tenderness (R) - Neurological Exam Neurological exam: Alert, CN II-XII Intact, Oriented x3, Reflexes Normal - Psychiatric Exam Psychiatric exam: Depressed - Skin Skin Exam: Dry, Intact Results - Vital Signs Recent Vital Signs: Last Vital Signs Temp 97.7 F 03/13/18 15:01 Pulse 84 03/13/18 15:01 Resp 20 03/13/18 15:01 BP 114/66 03/13/18 15:01 Pulse Ox 98 03/13/18 15:01 - Labs Result Diagrams: 03/12/18 11:27 03/13/18 11:30 Labs: Laboratory Results - last 24 hr 03/13/18 11:30 Sodium 143 Potassium 3.9 Chloride 107 Carbon Dioxide 25 Anion Gap 14 BUN 33 H Creatinine 2.5 H Est GFR ( Amer) 30 Est GFR (Non-Af Amer) 25 Random Glucose 133 H Calcium 8.7 Total Bilirubin 0.4 AST 45 ALT 40 Alkaline Phosphatase 153 H D Total Protein 6.8 Albumin 2.7 L D Globulin 4.1 H Albumin/Globulin Ratio 0.7 L Assessment & Plan (1) Coronary artery disease Status: Acute (2) Influenza-like illness Status: Acute (3) Pneumonia Status: Acute (4) Atrial flutter Status: Chronic (5) End-stage renal disease on peritoneal dialysis Status: Chronic (6) Acute on chronic diastolic (congestive) heart failure Status: Acute - Assessment and Plan (Free Text) Assessment: cont rx for CAP await pulm eval consider thoracentesis await cultures no evidence of peritonitis
--- NOTE | 2018-03-13 16:48 | CP.PCM.PN ---
Subjective - Date & Time of Evaluation Date of Evaluation: 03/13/18 Time of Evaluation: 10:45 - Subjective Subjective: Reason for consult: Pneumonia Patient seen today and appears ill, yet improved. Patient states his cough has become productive of yellow-tinged sputum. Chest CT reveals loculated left pleural effusion and nodule vs. airspace disease in the right middle lobe. Patient denies fevers, chest pain and palpitations. Assessment/Plan 1. Pneumonia Patient afebrile, but leukocytosis persists today with WBC = 15.3. Continue Azithromycin IV/Rocephin And follow up culture and sensitivity, 2. Pleural Effusion Chest CT shows loculated left pleural effusion, likely amenable to drainage; Obtain IR consult for possible thoracentesis. 3. ESRD Continue peritoneal dialysis, daily as scheduled. Objective - Vital Signs/Intake and Output Vital Signs (last 24 hours): Temp Pulse Resp BP Pulse Ox 97.7 F 84 20 114/66 98 03/13/18 15:01 03/13/18 15:01 03/13/18 15:01 03/13/18 15:01 03/13/18 15:01 Intake and Output: 03/13/18 03/13/18 06:59 18:59 Intake Total 720 Balance 720 - Medications Medications: Current Medications Albuterol/Ipratropium (Duoneb 3 Mg/0.5 Mg (3 Ml) Ud) 3 ml INH RQ6 [facility] Last Admin: 03/13/18 13:22 Dose: 3 ml Allopurinol (Zyloprim) 100 mg PO HS [facility] Last Admin: 03/12/18 21:23 Dose: 100 mg Amlodipine Besylate (Norvasc) 2.5 mg PO DAILY [facility] Last Admin: 03/13/18 09:39 Dose: 2.5 mg Apixaban (Eliquis) 2.5 mg PO BID [facility] Last Admin: 03/13/18 09:39 Dose: 2.5 mg Benzonatate (Tessalon Perles) 100 mg PO BID PRN PRN Reason: Cough Last Admin: 03/13/18 11:20 Dose: 100 mg Carvedilol (Coreg) 3.125 mg PO BID [facility] Last Admin: 03/13/18 09:40 Dose: 3.125 mg Ferrous Sulfate (Feosol) 325 mg PO HS [facility] Last Admin: 03/12/18 21:23 Dose: 325 mg Folic Acid (Folic Acid) 1 mg PO [facility] Last Admin: 03/12/18 21:23 Dose: 1 mg Furosemide (Lasix) 40 mg PO DAILY [facility] Last Admin: 03/13/18 09:39 Dose: 40 mg Sodium Chloride (Sodium Chloride 0.9%) 1,000 mls @ 70 mls/hr IV .[id number] [facility] Last Admin: 03/13/18 04:06 Dose: 70 mls/hr Ceftriaxone Sodium 1 gm/ (Sodium Chloride) 100 mls @ 100 mls/hr IVPB Q24H [facility] PRN Reason: Protocol Last Admin: 03/12/18 21:21 Dose: 100 mls/hr Azithromycin 500 mg/ Sodium (Chloride) 250 mls @ 250 mls/hr IVPB Q24H [facility] PRN Reason: Protocol Last Admin: 03/12/18 21:22 Dose: 250 mls/hr Rosuvastatin Calcium (Crestor) 5 mg PO [facility] Last Admin: 03/12/18 21:23 Dose: 5 mg Vitamin B Complex/Vit C/Folic Acid (Nephro-Miguel Ángel) 1 tab PO [facility] Last Admin: 03/12/18 21:23 Dose: 1 tab - Labs Labs: 03/12/18 11:27 03/13/18 11:30
[2018-03-13 17:27] LABS: INR 1.4; PROTHROMBIN TIME 15.4 SECONDS (9.7-12.2)
[2018-03-13] MEDS: Multivitamin Vitamin B Complex (Nephro-Vite) Tab PO SCH (22:19)
[2018-03-13] MEDS: Azithromycin 500 MG in Sodium Chloride 0.9% 250 ML IVPB SCH (22:20)
--- NOTE | 2018-03-13 22:42 | CP.PCM.PN ---
Subjective - Date & Time of Evaluation Date of Evaluation: 03/13/18 Time of Evaluation: 20:45 - Subjective Subjective: Patient feels better, with less cough, and afebrile. CT scan of the lungs: loculated left pleural effusion, and bilateral infiltrates. Objective - Vital Signs/Intake and Output Vital Signs (last 24 hours): Temp Pulse Resp BP Pulse Ox 97.7 F 84 20 114/66 98 03/13/18 15:01 03/13/18 15:01 03/13/18 15:01 03/13/18 15:01 03/13/18 15:01 - Medications Medications: Current Medications Albuterol/Ipratropium (Duoneb 3 Mg/0.5 Mg (3 Ml) Ud) 3 ml INH RQ6 [facility] Last Admin: 03/13/18 20:11 Dose: Not Given Allopurinol (Zyloprim) 100 mg PO [facility] Last Admin: 03/13/18 22:04 Dose: 100 mg Amlodipine Besylate (Norvasc) 2.5 mg PO DAILY [facility] Last Admin: 03/13/18 09:39 Dose: 2.5 mg Apixaban (Eliquis) 2.5 mg PO BID [facility] Last Admin: 03/13/18 09:39 Dose: 2.5 mg Benzonatate (Tessalon Perles) 100 mg PO BID PRN PRN Reason: Cough Last Admin: 03/13/18 22:04 Dose: 100 mg Carvedilol (Coreg) 3.125 mg PO BID [facility] Last Admin: 03/13/18 21:56 Dose: 3.125 mg Ferrous Sulfate (Feosol) 325 mg PO [facility] Last Admin: 03/13/18 21:57 Dose: 325 mg Folic Acid (Folic Acid) 1 mg PO [facility] Last Admin: 03/13/18 22:00 Dose: 1 mg Sodium Chloride (Sodium Chloride 0.9%) 1,000 mls @ 70 mls/hr IV .[id number] [facility] Last Admin: 03/13/18 22:02 Dose: 70 mls/hr Ceftriaxone Sodium 1 gm/ (Sodium Chloride) 100 mls @ 100 mls/hr IVPB Q24H [facility] PRN Reason: Protocol Last Admin: 03/13/18 22:01 Dose: 100 mls/hr Azithromycin 500 mg/ Sodium (Chloride) 250 mls @ 250 mls/hr IVPB Q24H [facility] PRN Reason: Protocol Last Admin: 03/13/18 22:20 Dose: 250 mls/hr Rosuvastatin Calcium (Crestor) 5 mg PO [facility] Last Admin: 03/13/18 21:57 Dose: 5 mg Vitamin B Complex/Vit C/Folic Acid (Nephro-Miguel Ángel) 1 tab PO HS [facility] Last Admin: 03/13/18 22:19 Dose: 1 tab - Labs Labs: 03/12/18 11:27 03/13/18 11:30 PT 15.4 SECONDS (9.7-12.2) H 03/13/18 17:12 INR 1.4 03/13/18 17:12 APTT 35 SECONDS (21-34) H 03/13/18 17:12 - Constitutional Appears: No Acute Distress, Chronically Ill - Head Exam Head Exam: NORMAL INSPECTION - Eye Exam Eye Exam: Normal appearance - ENT Exam ENT Exam: Normal Exam - Neck Exam Neck Exam: Normal Inspection - Respiratory Exam Respiratory Exam: Rales, Rhonchi Additional comments: Rales and rhonchi at both bases. - Cardiovascular Exam Cardiovascular Exam: Irregular Rhythm, Murmur - GI/Abdominal Exam GI & Abdominal Exam: Soft - Rectal Exam Rectal Exam: Deferred - Exam Exam: NORMAL INSPECTION - Extremities Exam Extremities Exam: Normal Inspection - Back Exam Back Exam: NORMAL INSPECTION - Neurological Exam Neurological Exam: Alert, Awake, Oriented x3 - Psychiatric Exam Psychiatric exam: Anxious - Skin Skin Exam: Dry, Intact, Normal Color, Warm Assessment and Plan (1) Pneumonia Assessment & Plan: To continue IV antibiotics. Status: Acute (2) End-stage renal disease on peritoneal dialysis Status: Chronic (3) Atrial flutter Status: Chronic (4) Coronary artery disease Status: Acute
[2018-03-14] MEDS: Albuterol-Ipratrop 3 mg / 0.5 (3 ml) UD INH SCH ×3 (07:47→20:41)
[2018-03-14] MEDS: Sodium Chloride 0.9% 1,000 ML IV SCH ×2 (08:05→22:26)
--- NOTE | 2018-03-14 10:09 | CP.PCM.PN ---
Subjective - Date & Time of Evaluation Date of Evaluation: 03/14/18 Time of Evaluation: 10:07 - Subjective Subjective: Feels better Being treated for pneumonia PD being done On IV ABs Eating better No n, v, fevers, chills now. Less dyspneic Objective - Vital Signs/Intake and Output Vital Signs (last 24 hours): Temp Pulse Resp BP Pulse Ox 98.1 F 89 20 124/65 99 03/14/18 08:32 03/14/18 08:32 03/14/18 08:32 03/14/18 08:32 03/14/18 08:32 Intake and Output: 03/14/18 03/14/18 06:59 18:59 Intake Total 700 Output Total 300 Balance 400 - Medications Medications: Current Medications Albuterol/Ipratropium (Duoneb 3 Mg/0.5 Mg (3 Ml) Ud) 3 ml INH RQ6 [facility] Last Admin: 03/14/18 07:47 Dose: 3 ml Allopurinol (Zyloprim) 100 mg PO [facility] Last Admin: 03/13/18 22:04 Dose: 100 mg Amlodipine Besylate (Norvasc) 2.5 mg PO DAILY [facility] Last Admin: 03/13/18 09:39 Dose: 2.5 mg Apixaban (Eliquis) 2.5 mg PO BID [facility] Last Admin: 03/13/18 09:39 Dose: 2.5 mg Benzonatate (Tessalon Perles) 100 mg PO BID PRN PRN Reason: Cough Last Admin: 03/13/18 22:04 Dose: 100 mg Carvedilol (Coreg) 3.125 mg PO BID [facility] Last Admin: 03/13/18 21:56 Dose: 3.125 mg Ferrous Sulfate (Feosol) 325 mg PO [facility] Last Admin: 03/13/18 21:57 Dose: 325 mg Folic Acid (Folic Acid) 1 mg PO [facility] Last Admin: 03/13/18 22:00 Dose: 1 mg Sodium Chloride (Sodium Chloride 0.9%) 1,000 mls @ 70 mls/hr IV .[id number] [facility] Last Admin: 03/13/18 22:02 Dose: 70 mls/hr Ceftriaxone Sodium 1 gm/ (Sodium Chloride) 100 mls @ 100 mls/hr IVPB Q24H [facility] PRN Reason: Protocol Last Admin: 03/13/18 22:01 Dose: 100 mls/hr Azithromycin 500 mg/ Sodium (Chloride) 250 mls @ 250 mls/hr IVPB Q24H [facility] PRN Reason: Protocol Last Admin: 03/13/18 22:20 Dose: 250 mls/hr Rosuvastatin Calcium (Crestor) 5 mg PO HS [facility] Last Admin: 03/13/18 21:57 Dose: 5 mg Vitamin B Complex/Vit C/Folic Acid (Nephro-Miguel Ángel) 1 tab PO HS [facility] Last Admin: 03/13/18 22:19 Dose: 1 tab - Labs Labs: 03/12/18 11:27 03/13/18 11:30 PT 15.4 SECONDS (9.7-12.2) H 03/13/18 17:12 INR 1.4 03/13/18 17:12 APTT 35 SECONDS (21-34) H 03/13/18 17:12 - Constitutional Appears: No Acute Distress, Chronically Ill - Head Exam Head Exam: ATRAUMATIC, NORMAL INSPECTION - Eye Exam Eye Exam: EOMI, Normal appearance - Neck Exam Neck Exam: Normal Inspection. absent: Tenderness - Respiratory Exam Respiratory Exam: Rhonchi, NORMAL BREATHING PATTERN - Cardiovascular Exam Cardiovascular Exam: Irregular Rhythm, +S1 - GI/Abdominal Exam GI & Abdominal Exam: Soft. absent: Tenderness - Extremities Exam Extremities Exam: Normal Inspection. absent: Tenderness - Neurological Exam Neurological Exam: Alert, CN II-XII Intact - Skin Skin Exam: Dry, Warm Assessment and Plan (1) Coronary artery disease Status: Acute (2) Influenza-like illness Status: Acute (3) Pneumonia Status: Acute (4) Atrial flutter Status: Chronic (5) End-stage renal disease on peritoneal dialysis Status: Chronic (6) Acute on chronic diastolic (congestive) heart failure Status: Acute (7) Pleural effusion on left Status: Acute - Assessment and Plan (Free Text) Plan: Same PD IV ABs monitor labs pulmonary follow up
--- NOTE | 2018-03-14 13:25 | CP.PCM.PN ---
Subjective - Date & Time of Evaluation Date of Evaluation: 03/14/18 Time of Evaluation: 11:00 - Subjective Subjective: Patient still with a cough. No fever, on PD. Objective - Vital Signs/Intake and Output Vital Signs (last 24 hours): Temp Pulse Resp BP Pulse Ox 98.1 F 89 20 124/65 99 03/14/18 08:32 03/14/18 08:32 03/14/18 08:32 03/14/18 08:32 03/14/18 08:32 Intake and Output: 03/14/18 03/14/18 06:59 18:59 Intake Total 700 Output Total 300 Balance 400 - Medications Medications: Current Medications Albuterol/Ipratropium (Duoneb 3 Mg/0.5 Mg (3 Ml) Ud) 3 ml INH RQ6 [facility] Last Admin: 03/14/18 07:47 Dose: 3 ml Allopurinol (Zyloprim) 100 mg PO [facility] Last Admin: 03/13/18 22:04 Dose: 100 mg Amlodipine Besylate (Norvasc) 2.5 mg PO DAILY [facility] Last Admin: 03/14/18 10:07 Dose: 2.5 mg Apixaban (Eliquis) 2.5 mg PO BID [facility] Last Admin: 03/13/18 09:39 Dose: 2.5 mg Benzonatate (Tessalon Perles) 100 mg PO BID PRN PRN Reason: Cough Last Admin: 03/13/18 22:04 Dose: 100 mg Carvedilol (Coreg) 3.125 mg PO BID [facility] Last Admin: 03/14/18 10:07 Dose: 3.125 mg Ferrous Sulfate (Feosol) 325 mg PO [facility] Last Admin: 03/13/18 21:57 Dose: 325 mg Folic Acid (Folic Acid) 1 mg PO [facility] Last Admin: 03/13/18 22:00 Dose: 1 mg Sodium Chloride (Sodium Chloride 0.9%) 1,000 mls @ 70 mls/hr IV .[id number] [facility] Last Admin: 03/14/18 08:05 Dose: 70 mls/hr Ceftriaxone Sodium 1 gm/ (Sodium Chloride) 100 mls @ 100 mls/hr IVPB Q24H [facility] PRN Reason: Protocol Last Admin: 03/13/18 22:01 Dose: 100 mls/hr Azithromycin 500 mg/ Sodium (Chloride) 250 mls @ 250 mls/hr IVPB Q24H [facility] PRN Reason: Protocol Last Admin: 03/13/18 22:20 Dose: 250 mls/hr Rosuvastatin Calcium (Crestor) 5 mg PO HS [facility] Last Admin: 03/13/18 21:57 Dose: 5 mg Vitamin B Complex/Vit C/Folic Acid (Nephro-Miguel Ángel) 1 tab PO HS [facility] Last Admin: 03/13/18 22:19 Dose: 1 tab - Labs Labs: 03/12/18 11:27 03/13/18 11:30 PT 15.4 SECONDS (9.7-12.2) H 03/13/18 17:12 INR 1.4 03/13/18 17:12 APTT 35 SECONDS (21-34) H 03/13/18 17:12 - Constitutional Appears: No Acute Distress, Chronically Ill - Head Exam Head Exam: NORMAL INSPECTION - Eye Exam Eye Exam: Normal appearance - ENT Exam ENT Exam: Normal Exam - Neck Exam Neck Exam: Normal Inspection - Respiratory Exam Respiratory Exam: Rhonchi Additional comments: Rhonchi heard at both bases. - Cardiovascular Exam Cardiovascular Exam: Irregular Rhythm, Murmur - GI/Abdominal Exam GI & Abdominal Exam: Soft, Normal Bowel Sounds - Rectal Exam Rectal Exam: Deferred - Extremities Exam Extremities Exam: Normal Inspection - Back Exam Back Exam: NORMAL INSPECTION - Neurological Exam Neurological Exam: Alert, Awake, Oriented x3 - Psychiatric Exam Psychiatric exam: Anxious - Skin Skin Exam: Dry, Intact, Normal Color, Warm Assessment and Plan (1) Pneumonia Assessment & Plan: To continue IV antibiotics. Status: Acute (2) End-stage renal disease on peritoneal dialysis Assessment & Plan: To continue PD. Status: Chronic (3) Atrial flutter Assessment & Plan: To continue Eliquis. Status: Chronic (4) Coronary artery disease Status: Acute
--- NOTE | 2018-03-14 17:26 | CP.PCM.PN ---
Subjective - Date & Time of Evaluation Date of Evaluation: 03/14/18 Time of Evaluation: 10:00 - Subjective Subjective: Reason for Consult: Pleural effusion Patient seen and examined today. Patient pleasant, conversational and sitting up in bed. Patient is still complaining of a moderate, dry cough. Patient advised that loculated left lung effusion is amenable to IR drainage, which will likely happen tomorrow. Labs still show leukocytosis, but patient is afebrile. 1. Pneumonia Leukocytosis with WBC = 15.3, but patient is afebrile and appears clinically improved. Continue antibiotics. Order new CXR tomorrow, to monitor for improvement. 2. Pleural effusion Chest CT done 03/13 shows loculated pleural effusion of the left lung. for thoracentesis, anticoagulation on hold Objective - Vital Signs/Intake and Output Vital Signs (last 24 hours): Temp Pulse Resp BP Pulse Ox 97.5 F L 85 20 124/71 96 03/14/18 17:14 03/14/18 17:14 03/14/18 17:14 03/14/18 17:14 03/14/18 17:14 Intake and Output: 03/14/18 03/14/18 06:59 18:59 Intake Total 700 Output Total 300 Balance 400 - Medications Medications: Current Medications Albuterol/Ipratropium (Duoneb 3 Mg/0.5 Mg (3 Ml) Ud) 3 ml INH RQ6 [facility] Last Admin: 03/14/18 07:47 Dose: 3 ml Allopurinol (Zyloprim) 100 mg PO [facility] Last Admin: 03/13/18 22:04 Dose: 100 mg Amlodipine Besylate (Norvasc) 2.5 mg PO DAILY [facility] Last Admin: 03/14/18 10:07 Dose: 2.5 mg Apixaban (Eliquis) 2.5 mg PO BID [facility] Last Admin: 03/13/18 09:39 Dose: 2.5 mg Benzonatate (Tessalon Perles) 100 mg PO BID PRN PRN Reason: Cough Last Admin: 03/13/18 22:04 Dose: 100 mg Carvedilol (Coreg) 3.125 mg PO BID [facility] Last Admin: 03/14/18 10:07 Dose: 3.125 mg Ferrous Sulfate (Feosol) 325 mg PO [facility] Last Admin: 03/13/18 21:57 Dose: 325 mg Folic Acid (Folic Acid) 1 mg PO [facility] Last Admin: 03/13/18 22:00 Dose: 1 mg Sodium Chloride (Sodium Chloride 0.9%) 1,000 mls @ 70 mls/hr IV .[id number] [facility] Last Admin: 03/14/18 08:05 Dose: 70 mls/hr Ceftriaxone Sodium 1 gm/ (Sodium Chloride) 100 mls @ 100 mls/hr IVPB Q24H [facility] PRN Reason: Protocol Last Admin: 03/13/18 22:01 Dose: 100 mls/hr Azithromycin 500 mg/ Sodium (Chloride) 250 mls @ 250 mls/hr IVPB Q24H [facility] PRN Reason: Protocol Last Admin: 03/13/18 22:20 Dose: 250 mls/hr Rosuvastatin Calcium (Crestor) 5 mg PO [facility] Last Admin: 03/13/18 21:57 Dose: 5 mg Vitamin B Complex/Vit C/Folic Acid (Nephro-Miguel Ángel) 1 tab PO [facility] Last Admin: 03/13/18 22:19 Dose: 1 tab - Labs Labs: 03/12/18 11:27 03/13/18 11:30 PT 15.4 SECONDS (9.7-12.2) H 03/13/18 17:12 INR 1.4 03/13/18 17:12 APTT 35 SECONDS (21-34) H 03/13/18 17:12
--- NOTE | 2018-03-14 19:30 | CP.PCM.PN ---
Subjective - Date & Time of Evaluation Date of Evaluation: 03/14/18 Time of Evaluation: 08:00 - Subjective Subjective: seen on rounds appears well denies fever or SOB Has loculated effusion- for IR drainage Objective - Vital Signs/Intake and Output Vital Signs (last 24 hours): Temp Pulse Resp BP Pulse Ox 97.5 F L 85 20 124/71 96 03/14/18 17:14 03/14/18 17:14 03/14/18 17:14 03/14/18 17:14 03/14/18 17:14 - Medications Medications: Current Medications Albuterol/Ipratropium (Duoneb 3 Mg/0.5 Mg (3 Ml) Ud) 3 ml INH RQ6 [facility] Last Admin: 03/14/18 07:47 Dose: 3 ml Allopurinol (Zyloprim) 100 mg PO [facility] Last Admin: 03/13/18 22:04 Dose: 100 mg Amlodipine Besylate (Norvasc) 2.5 mg PO DAILY [facility] Last Admin: 03/14/18 10:07 Dose: 2.5 mg Apixaban (Eliquis) 2.5 mg PO BID [facility] Last Admin: 03/13/18 09:39 Dose: 2.5 mg Benzonatate (Tessalon Perles) 100 mg PO BID PRN PRN Reason: Cough Last Admin: 03/13/18 22:04 Dose: 100 mg Carvedilol (Coreg) 3.125 mg PO BID [facility] Last Admin: 03/14/18 10:07 Dose: 3.125 mg Ferrous Sulfate (Feosol) 325 mg PO [facility] Last Admin: 03/13/18 21:57 Dose: 325 mg Folic Acid (Folic Acid) 1 mg PO [facility] Last Admin: 03/13/18 22:00 Dose: 1 mg Sodium Chloride (Sodium Chloride 0.9%) 1,000 mls @ 70 mls/hr IV .[id number] [facility] Last Admin: 03/14/18 08:05 Dose: 70 mls/hr Ceftriaxone Sodium 1 gm/ (Sodium Chloride) 100 mls @ 100 mls/hr IVPB Q24H [facility] PRN Reason: Protocol Last Admin: 03/13/18 22:01 Dose: 100 mls/hr Azithromycin 500 mg/ Sodium (Chloride) 250 mls @ 250 mls/hr IVPB Q24H [facility] PRN Reason: Protocol Last Admin: 03/13/18 22:20 Dose: 250 mls/hr Rosuvastatin Calcium (Crestor) 5 mg PO HS [facility] Last Admin: 03/13/18 21:57 Dose: 5 mg Vitamin B Complex/Vit C/Folic Acid (Nephro-Miguel Ángel) 1 tab PO HS [facility] Last Admin: 03/13/18 22:19 Dose: 1 tab - Labs Labs: 03/12/18 11:27 03/13/18 11:30 PT 15.4 SECONDS (9.7-12.2) H 03/13/18 17:12 INR 1.4 03/13/18 17:12 APTT 35 SECONDS (21-34) H 03/13/18 17:12 - Constitutional Appears: Well - Head Exam Head Exam: ATRAUMATIC, NORMAL INSPECTION, NORMOCEPHALIC - Eye Exam Eye Exam: EOMI, Normal appearance, PERRL Pupil Exam: NORMAL ACCOMODATION, PERRL - ENT Exam ENT Exam: Mucous Membranes Moist, Normal Exam - Neck Exam Neck Exam: Full ROM, Normal Inspection. absent: Lymphadenopathy - Respiratory Exam Respiratory Exam: Clear to Ausculation Bilateral, NORMAL BREATHING PATTERN - Cardiovascular Exam Cardiovascular Exam: REGULAR RHYTHM, +S1, +S2. absent: Murmur - GI/Abdominal Exam GI & Abdominal Exam: Soft, Normal Bowel Sounds. absent: Tenderness - Rectal Exam Rectal Exam: NORMAL INSPECTION - Exam Exam: Circumcision, NORMAL INSPECTION External exam: NORMAL EXTERNAL EXAM Speculum exam: NORMAL SPECULUM EXAM Bimanual exam: NORMAL BIMANUAL EXAM - Extremities Exam Extremities Exam: Full ROM, Normal Capillary Refill, Normal Inspection. absent : Joint Swelling, Pedal Edema - Back Exam Back Exam: NORMAL INSPECTION - Neurological Exam Neurological Exam: Alert, Awake, CN II-XII Intact, Normal Gait, Oriented x3 - Psychiatric Exam Psychiatric exam: Normal Affect, Normal Mood - Skin Skin Exam: Dry, Intact, Normal Color, Warm Assessment and Plan (1) Coronary artery disease Status: Acute (2) Influenza-like illness Status: Acute (3) Pneumonia Status: Acute (4) Atrial flutter Status: Chronic (5) End-stage renal disease on peritoneal dialysis Status: Chronic (6) Acute on chronic diastolic (congestive) heart failure Status: Acute - Assessment and Plan (Free Text) Assessment: appears well denies fever or SOB Has loculated effusion- for IR drainage
[2018-03-14] MEDS: Multivitamin Vitamin B Complex (Nephro-Vite) Tab PO SCH (22:25)
[2018-03-14] MEDS: Azithromycin 500 MG in Sodium Chloride 0.9% 250 ML IVPB SCH (22:28)
[2018-03-15] MEDS: Albuterol-Ipratrop 3 mg / 0.5 (3 ml) UD INH SCH ×3 (02:02→13:12)
[2018-03-15 09:00] VITALS: TEMP 97.7; O2SAT 97
[2018-03-15 09:06] LABS: HEMOGLOBIN 11.7 g/dL (12.0-18.0); MEAN CELL VOLUME 96.3 fL (80.0-94.0); MEAN CORPUSCULAR HEMOGLOBIN 32.9 pg (27.0-31.0); MEAN CORPUSCULAR HGB CONC 34.2 g/dL (33.0-37.0); MEAN PLATELET VOLUME 7.2 fL (7.2-11.7); RBC 3.55 Mil/uL (4.40-5.90); RED CELL DISTRIBUTION WIDTH 16.7 % (11.5-14.5)
[2018-03-15 09:15] LABS: WHITE BLOOD COUNT 6.7 K/uL (4.8-10.8)
[2018-03-15 09:26] LABS: ALB/GLOB RATIO 0.8 (1.0-2.1); ALBUMIN 3.4 g/dL (3.5-5.0); CALCIUM 8.4 mg/dl (8.6-10.4)
--- NOTE | 2018-03-15 10:53 | RAD ---
HISTORY: Follow up pneumonia. COMPARISON: Portable chest 03/11/2018 TECHNIQUE: Chest PA and lateral FINDINGS: Post CABG changes are again reiterated with diminishing left-sided pleural effusion evident. Trace right pleural effusion now blunts the right costophrenic sulcus however as an interval finding. No right-sided infiltrate. Underlying infiltrate or atelectasis is not excluded at the left base. Linear atelectasis is seen at the mid to inferior left lung in the periphery. CARDIOVASCULAR: Normal cardiac size. No pulmonary vascular derangement appreciable grossly. OSSEOUS STRUCTURES: No significant abnormalities. VISUALIZED UPPER ABDOMEN: Normal. OTHER FINDINGS: None. IMPRESSION: Limited interval improvement in left pleural effusion with underlying atelectasis or infiltrate remaining difficult to exclude at the left base. Trace right pleural effusion now present. No right-sided infiltrate.
[2018-03-15 12:05] VITALS: BP 117/72; PULSE 106
--- NOTE | 2018-03-15 13:06 | CP.PCM.PN ---
Subjective - Date & Time of Evaluation Date of Evaluation: 03/15/18 - Subjective Subjective: Patient seen and examined at bedside today. Patient was awake and sitting up in bed. Patient states his cough has improved. He states he is feeling better today. Patient remains afebrile. Lung sounds diminished on the left. Assessment/Plan: 1. Pneumonia - Procalcitonin 03/14: 0.5 - Leukocytosis resolved, WBC 03/15 6.7 - Continue Azithromycin - Continue Ceftriaxone - Continue Tessalon Perles for cough 2. Pleural Effusion - CXR 03/15: limited interval improvement in left pleural effusion with underlying atelectasis or infiltrate remaining difficult to exclude at left base. Trace right pleural effusion now present. No right-sided infiltrate. - Chest CT 03/13: Loculated pleural effusion of left lung - Unable to complete thoracentesis, not enough fluid Objective - Vital Signs/Intake and Output Vital Signs (last 24 hours): Temp Pulse Resp BP Pulse Ox 97.7 F 106 H 20 117/72 97 03/15/18 08:56 03/15/18 09:35 03/15/18 08:56 03/15/18 09:35 03/15/18 08:56 - Medications Medications: Current Medications Albuterol/Ipratropium (Duoneb 3 Mg/0.5 Mg (3 Ml) Ud) 3 ml INH RQ6 [facility] Last Admin: 03/15/18 08:40 Dose: 3 ml Allopurinol (Zyloprim) 100 mg PO HS [facility] Last Admin: 03/14/18 22:25 Dose: 100 mg Amlodipine Besylate (Norvasc) 2.5 mg PO DAILY [facility] Last Admin: 03/15/18 09:36 Dose: Not Given Apixaban (Eliquis) 2.5 mg PO BID [facility] Last Admin: 03/15/18 09:36 Dose: 2.5 mg Benzonatate (Tessalon Perles) 100 mg PO BID PRN PRN Reason: Cough Last Admin: 03/14/18 22:25 Dose: 100 mg Carvedilol (Coreg) 3.125 mg PO BID [facility] Last Admin: 03/15/18 09:35 Dose: 3.125 mg Ferrous Sulfate (Feosol) 325 mg PO HS [facility] Last Admin: 03/14/18 22:24 Dose: 325 mg Folic Acid (Folic Acid) 1 mg PO [facility] Last Admin: 03/14/18 22:24 Dose: 1 mg Ceftriaxone Sodium 1 gm/ (Sodium Chloride) 100 mls @ 100 mls/hr IVPB Q24H [facility] PRN Reason: Protocol Last Admin: 03/14/18 22:27 Dose: 100 mls/hr Azithromycin 500 mg/ Sodium (Chloride) 250 mls @ 250 mls/hr IVPB Q24H [facility] PRN Reason: Protocol Last Admin: 03/14/18 22:28 Dose: 250 mls/hr Rosuvastatin Calcium (Crestor) 5 mg PO HS [facility] Last Admin: 03/14/18 22:24 Dose: 5 mg Vitamin B Complex/Vit C/Folic Acid (Nephro-Miguel Ángel) 1 tab PO HS [facility] Last Admin: 03/14/18 22:25 Dose: 1 tab - Labs Labs: 03/15/18 08:57 03/15/18 08:57 PT 15.4 SECONDS (9.7-12.2) H 03/13/18 17:12 INR 1.4 03/13/18 17:12 APTT 35 SECONDS (21-34) H 03/13/18 17:12
--- NOTE | 2018-03-15 13:21 | CP.PCM.PN ---
Subjective - Date & Time of Evaluation Date of Evaluation: 03/15/18 Time of Evaluation: 13:19 - Subjective Subjective: Patient feels much better, with less cough and good appetite, and afebrile. Throracentesis cancelled because the left pleural loculated effusion is too small. Discussed with Dr June. Will discharge the patient home on Levaquin 250 mg PO qd for 10 days. Objective - Vital Signs/Intake and Output Vital Signs (last 24 hours): Temp Pulse Resp BP Pulse Ox 97.7 F 106 H 20 117/72 97 03/15/18 08:56 03/15/18 09:35 03/15/18 08:56 03/15/18 09:35 03/15/18 08:56 - Medications Medications: Current Medications Albuterol/Ipratropium (Duoneb 3 Mg/0.5 Mg (3 Ml) Ud) 3 ml INH RQ6 [facility] Last Admin: 03/15/18 13:12 Dose: 3 ml Allopurinol (Zyloprim) 100 mg PO [facility] Last Admin: 03/14/18 22:25 Dose: 100 mg Amlodipine Besylate (Norvasc) 2.5 mg PO DAILY [facility] Last Admin: 03/15/18 09:36 Dose: Not Given Apixaban (Eliquis) 2.5 mg PO BID [facility] Last Admin: 03/15/18 09:36 Dose: 2.5 mg Benzonatate (Tessalon Perles) 100 mg PO BID PRN PRN Reason: Cough Last Admin: 03/14/18 22:25 Dose: 100 mg Carvedilol (Coreg) 3.125 mg PO BID [facility] Last Admin: 03/15/18 09:35 Dose: 3.125 mg Ferrous Sulfate (Feosol) 325 mg PO [facility] Last Admin: 03/14/18 22:24 Dose: 325 mg Folic Acid (Folic Acid) 1 mg PO [facility] Last Admin: 03/14/18 22:24 Dose: 1 mg Ceftriaxone Sodium 1 gm/ (Sodium Chloride) 100 mls @ 100 mls/hr IVPB Q24H [facility] PRN Reason: Protocol Last Admin: 03/14/18 22:27 Dose: 100 mls/hr Azithromycin 500 mg/ Sodium (Chloride) 250 mls @ 250 mls/hr IVPB Q24H [facility] PRN Reason: Protocol Last Admin: 03/14/18 22:28 Dose: 250 mls/hr Rosuvastatin Calcium (Crestor) 5 mg PO HS [facility] Last Admin: 03/14/18 22:24 Dose: 5 mg Vitamin B Complex/Vit C/Folic Acid (Nephro-Miguel Ángel) 1 tab PO HS [facility] Last Admin: 03/14/18 22:25 Dose: 1 tab - Labs Labs: 03/15/18 08:57 03/15/18 08:57 PT 15.4 SECONDS (9.7-12.2) H 03/13/18 17:12 INR 1.4 03/13/18 17:12 APTT 35 SECONDS (21-34) H 03/13/18 17:12 - Constitutional Appears: No Acute Distress, Chronically Ill - Head Exam Head Exam: NORMAL INSPECTION - Eye Exam Eye Exam: Normal appearance - ENT Exam ENT Exam: Normal Exam - Neck Exam Neck Exam: Normal Inspection - Respiratory Exam Additional comments: Few rhonchi bibasilar. - Cardiovascular Exam Cardiovascular Exam: Irregular Rhythm - GI/Abdominal Exam GI & Abdominal Exam: Soft, Normal Bowel Sounds - Rectal Exam Rectal Exam: Deferred - Exam Exam: NORMAL INSPECTION - Back Exam Back Exam: NORMAL INSPECTION - Neurological Exam Neurological Exam: Alert, Awake, Normal Gait, Oriented x3 - Psychiatric Exam Psychiatric exam: Anxious - Skin Skin Exam: Dry, Intact, Normal Color, Warm Assessment and Plan (1) Pneumonia Assessment & Plan: Improving. Will discharge home on Levaquin 250 mg PO qd for 10 days. Home PT ordered. Status: Acute (2) End-stage renal disease on peritoneal dialysis Assessment & Plan: To continue home PD as before. Status: Chronic (3) Atrial flutter Assessment & Plan: To continue Carvediliol and Eliquis. Status: Chronic (4) Coronary artery disease Assessment & Plan: Stable. Status: Acute
--- NOTE | 2018-03-15 14:38 | CP.PCM.PN ---
Subjective - Date & Time of Evaluation Date of Evaluation: 03/15/18 Time of Evaluation: 14:35 - Subjective Subjective: more alert feels much better afebrile still with dry cough PD going well labs acceptable Objective - Vital Signs/Intake and Output Vital Signs (last 24 hours): Temp Pulse Resp BP Pulse Ox 97.7 F 106 H 20 117/72 97 03/15/18 08:56 03/15/18 09:35 03/15/18 08:56 03/15/18 09:35 03/15/18 08:56 - Medications Medications: Current Medications Albuterol/Ipratropium (Duoneb 3 Mg/0.5 Mg (3 Ml) Ud) 3 ml INH RQ6 [facility] Last Admin: 03/15/18 13:12 Dose: 3 ml Allopurinol (Zyloprim) 100 mg PO [facility] Last Admin: 03/14/18 22:25 Dose: 100 mg Amlodipine Besylate (Norvasc) 2.5 mg PO DAILY [facility] Last Admin: 03/15/18 09:36 Dose: Not Given Apixaban (Eliquis) 2.5 mg PO BID [facility] Last Admin: 03/15/18 09:36 Dose: 2.5 mg Benzonatate (Tessalon Perles) 100 mg PO BID PRN PRN Reason: Cough Last Admin: 03/14/18 22:25 Dose: 100 mg Carvedilol (Coreg) 3.125 mg PO BID [facility] Last Admin: 03/15/18 09:35 Dose: 3.125 mg Ferrous Sulfate (Feosol) 325 mg PO [facility] Last Admin: 03/14/18 22:24 Dose: 325 mg Folic Acid (Folic Acid) 1 mg PO [facility] Last Admin: 03/14/18 22:24 Dose: 1 mg Ceftriaxone Sodium 1 gm/ (Sodium Chloride) 100 mls @ 100 mls/hr IVPB Q24H [facility] PRN Reason: Protocol Last Admin: 03/14/18 22:27 Dose: 100 mls/hr Azithromycin 500 mg/ Sodium (Chloride) 250 mls @ 250 mls/hr IVPB Q24H [facility] PRN Reason: Protocol Last Admin: 03/14/18 22:28 Dose: 250 mls/hr Rosuvastatin Calcium (Crestor) 5 mg PO [facility] Last Admin: 03/14/18 22:24 Dose: 5 mg Vitamin B Complex/Vit C/Folic Acid (Nephro-Miguel Ángel) 1 tab PO HS [facility] Last Admin: 03/14/18 22:25 Dose: 1 tab - Labs Labs: 03/15/18 08:57 03/15/18 08:57 PT 15.4 SECONDS (9.7-12.2) H 03/13/18 17:12 INR 1.4 03/13/18 17:12 APTT 35 SECONDS (21-34) H 03/13/18 17:12 - Constitutional Appears: No Acute Distress, Chronically Ill - Head Exam Head Exam: ATRAUMATIC, NORMAL INSPECTION - Eye Exam Eye Exam: EOMI, Normal appearance - Neck Exam Neck Exam: Normal Inspection. absent: Tenderness - Respiratory Exam Respiratory Exam: Wheezes, NORMAL BREATHING PATTERN - Cardiovascular Exam Cardiovascular Exam: REGULAR RHYTHM, +S1 - GI/Abdominal Exam GI & Abdominal Exam: Soft. absent: Tenderness - Extremities Exam Extremities Exam: Normal Inspection. absent: Tenderness - Neurological Exam Neurological Exam: Alert, CN II-XII Intact - Skin Skin Exam: Dry, Warm Assessment and Plan (1) Coronary artery disease Status: Acute (2) Influenza-like illness Status: Acute (3) Pneumonia Status: Acute (4) Atrial flutter Status: Chronic (5) End-stage renal disease on peritoneal dialysis Status: Chronic (6) Acute on chronic diastolic (congestive) heart failure Status: Acute (7) Pleural effusion on left Status: Acute - Assessment and Plan (Free Text) Plan: same PD to change to oral ABs if discharged can follow up at outpt dialysis unit
--- NOTE | 2018-03-17 10:15 | CP.PCM.DIS ---
Provider - Provider Date of Admission: 03/11/18 21:40 Attending physician: Tk Park MD Primary care physician: Tk Park M.D. Consults: James Hargrove( Pulmonary) Dr June( Infectious disease) Dr Orellana( Nephrology). Time Spent in preparation of Discharge (in minutes): 45 Diagnosis - Discharge Diagnosis (1) Pneumonia Status: Acute (2) End-stage renal disease on peritoneal dialysis Status: Chronic (3) Atrial flutter Status: Chronic (4) Coronary artery disease Status: Acute Hospital Course - Lab Results Lab Results: Micro Results 03/11/18 08:19 Blood Blood Culture - Final NO GROWTH AFTER 5 DAYS 03/11/18 08:19 Blood Gram Stain - Final TEST NOT PERFORMED 03/11/18 08:19 Blood Blood Culture - Final NO GROWTH AFTER 5 DAYS 03/11/18 08:19 Blood Gram Stain - Final TEST NOT PERFORMED Most Recent Lab Values WBC 6.7 K/uL (4.8-10.8) D 03/15/18 08:57 RBC 3.55 Mil/uL (4.40-5.90) L 03/15/18 08:57 Hgb 11.7 g/dL (12.0-18.0) L 03/15/18 08:57 Hct 34.2 % (35.0-51.0) L 03/15/18 08:57 MCV 96.3 fL (80.0-94.0) H 03/15/18 08:57 MCH 32.9 pg (27.0-31.0) H 03/15/18 08:57 MCHC 34.2 g/dL (33.0-37.0) 03/15/18 08:57 RDW 16.7 % (11.5-14.5) H 03/15/18 08:57 Plt Count 215 K/uL (130-400) 03/15/18 08:57 MPV 7.2 fL (7.2-11.7) 03/15/18 08:57 Neut % (Auto) 92.8 % (50.0-75.0) H 03/12/18 11:27 Lymph % (Auto) 1.9 % (20.0-40.0) L 03/12/18 11:27 O[place]e % (Auto) 4.9 % (0.0-10.0) 03/12/18 11: Eos % (Auto) 0.1 % (0.0-4.0) 03/12/18 11: Baso % (Auto) 0.3 % (0.0-2.0) 03/12/18 11: Neut # (Auto) 14.2 K/uL (1.8-7.0) H 03/12/18 11: Lymph # (Auto) 0.3 K/uL (1.0-4.3) L 03/12/18 11:27 [place]e # (Auto) 0.7 K/uL (0.0-0.8) 03/12/18 11: Eos # (Auto) 0.0 K/uL (0.0-0.7) 03/12/18 11: Baso # (Auto) 0.1 K/uL (0.0-0.2) 03/12/18 11: Neutrophils % (Manual) 95 % (50-75) H 03/12/18 11: Band Neutrophils % 4 % (0-2) H 03/11/18 20: Lymphocytes % (Manual) 1 % (20-40) L 03/12/18 11: Monocytes % (Manual) 4 % (0-10) 03/12/18 11: Platelet Estimate Normal (NORMAL) 03/12/18 11: Anisocytosis (manual) Slight 03/12/18 11: PT 15.4 SECONDS (9.7-12.2) H 03/13/18 17:12 INR 1.4 03/13/18 17:12 APTT 35 SECONDS (21-34) H 03/13/18 17:12 pO2 29 mm/Hg (30-55) L 03/11/18 20:32 VBG pH 7.37 (7.32-7.43) 03/11/18 20:32 VBG pCO2 43 mmHg (40-60) 03/11/18 20:32 VBG HCO3 23.2 mmol/L 03/11/18 20:32 VBG Total CO2 26.2 mmol/L (22-28) 03/11/18 20:32 VBG O2 Sat (Calc) 58.2 % (40-65) 03/11/18 20:32 VBG Base Excess -0.6 mmol/L (0.0-2.0) L 03/11/18 20:32 VBG Potassium 3.9 mmol/L (3.6-5.2) 03/11/18 20:32 Sodium 135.0 mmol/l (132-148) 03/11/18 20:32 Chloride 100.0 mmol/L (98-107) 03/11/18 20:32 Glucose 117 mg/dl (75-110) H 03/11/18 20:32 Lactate 1.9 mmol/L (0.7-2.1) 03/11/18 20:32 Sodium 142 mmol/L (132-148) 03/15/18 08:57 Potassium 3.9 mmol/L (3.6-5.2) 03/15/18 08:57 Chloride 105 mmol/L (98-107) 03/15/18 08:57 Carbon Dioxide 28 mmol/L (22-30) 03/15/18 08:57 Anion Gap 13 (10-20) 03/15/18 08:57 BUN 23 mg/dL (9-20) H 03/15/18 08:57 Creatinine 2.2 mg/dL (0.8-1.5) H 03/15/18 08:57 Est GFR ( Amer) 35 03/15/18 08:57 Est GFR (Non-Af Amer) 29 03/15/18 08:57 POC Glucose (mg/dL) 200 mg/dL (65-110) H 03/13/18 21:23 Random Glucose 88 mg/dL (75-110) 03/15/18 08:57 Lactic Acid 1.7 mmol/L (0.7-2.1) 03/11/18 20:33 Calcium 8.4 mg/dl (8.6-10.4) L 03/15/18 08:57 Phosphorus 3.0 mg/dL (2.5-4.5) 03/15/18 08:57 Magnesium 1.8 mg/dL (1.6-2.3) 03/15/18 08:57 Total Bilirubin 0.4 mg/dL (0.2-1.3) 03/15/18 08:57 AST 51 U/L (17-59) 03/15/18 08:57 ALT 46 U/L (21-72) 03/15/18 08:57 Alkaline Phosphatase 172 U/L (38-126) H 03/15/18 08:57 Total Protein 7.5 g/dL (6.3-8.3) 03/15/18 08:57 Albumin 3.4 g/dL (3.5-5.0) L D 03/15/18 08:57 Globulin 4.1 gm/dL (2.2-3.9) H 03/15/18 08:57 Albumin/Globulin Ratio 0.8 (1.0-2.1) L 03/15/18 08:57 Procalcitonin 0.50 NG/ML (0.19-0.49) H 03/14/18 17:06 Venous Blood Potassium 3.9 mmol/L (3.6-5.2) 03/11/18 20:32 - Hospital Course Hospital Course: 82 years old [place] male was brought by the family to the ED at [facility] complaining of a fever of 101 and vomiting once. He hads been having a productive cough for the last 2 weeks, and and a course of Zithromax Z-Pack. A CXR in the ED revealed small bilateral pleural effusion, WBC: 15.1 with bandemia BUN: 45 creatinine: 3.0 and K+: 3.1. He is known to have a Hypertension, a CAD, s/p CABG, an ESRD on peritoneal dialysis, a COPD. He was started on IV Rocephin and Zithromax. Dr Ramirez ( pulmonary), Dr June( Infectious disease) and Dr Arana (nephrology) were called to evaluate the patient. A CT scan of the chest revealed Infiltrates of the CHERELLE and the RML and a small loculated LLL effusion. Interventional radiologist decided not to drain the LLL loculated pleural effusion, because of the small size and chronic nature. The patient did well with the IV antibiotics. His apppetite improved, his cough gradually resolved. He was discharged home on 03/15/2018 in a stable condition. He will receive home Physical examination, and will take Levaquin 250 mg PO qd for [address] Heidi Park in a week in her office. - Date & Time of H&P Date of H&P: 03/11/18 Discharge Exam - Head Exam Head Exam: ATRAUMATIC, NORMAL INSPECTION - Eye Exam Eye Exam: Normal appearance Pupil Exam: NORMAL ACCOMODATION - ENT Exam ENT Exam: Normal Exam - Neck Exam Neck exam: Normal Inspection - Respiratory Exam Additional comments: Few rhonchi heard at both bases. - Cardiovascular Exam Cardiovascular Exam: REGULAR RHYTHM, Systolic Murmur - GI/Abdominal Exam GI & Abdominal Exam: Normal Bowel Sounds, Soft - Rectal Exam Rectal Exam: Deferred - Exam Exam: NORMAL INSPECTION - Extremities Exam Extremities exam: normal inspection - Back Exam Back exam: NORMAL INSPECTION - Neurological Exam Neurological exam: Alert, CN II-XII Intact, Oriented x3 - Psychiatric Exam Psychiatric exam: Anxious - Skin Skin Exam: Dry, Intact, Warm Discharge Plan - Discharge Medications Prescriptions: levoFLOXacin [Levaquin] 250 mg PO DAILY 10 Days #10 tab - Follow Up Plan Condition: GOOD Disposition: HOME/ ROUTINE Instructions: Levofloxacin (Systemic), Pneumonia, Adult (DC), Peritoneal Dialysis Diet, Community-Acquired Pneumonia, Adult (DC), End Stage Kidney Disease (DC) Additional Instructions: Follow up with Dr Park in 1 week. Referrals: Tk Park MD [Staff Provider] - Clinical Quality Measures - Date & Time of Discharge Summary Date of Discharge Summary: 03/17/18 Time of Discharge Summary: 10:17
== END 2018-03-15 14:51 | disposition home or self-care (01) | DRG 193 ==
LOC: C.ER 18:57 → C.9E 21:40 → C.6T 21:40
PROVIDERS: ADMIT Internal Medicine Cardiovascular Disease; ATTEND Internal Medicine Cardiovascular Disease
PROC: 3E1M39Z Irrigation of Peritoneal Cavity using Dialysate, Percutaneous Approach (ICD-10-PCS; principal; 2018-03-11)
DX: J11.00 Influenza due to unidentified influenza virus with unspecified type of pneumonia (principal); I50.33 Acute on chronic diastolic (congestive) heart failure; N18.6 End stage renal disease; J44.0 Chronic obstructive pulmonary disease with (acute) lower respiratory infection; I13.2 Hypertensive heart and chronic kidney disease with heart failure and with stage 5 chronic kidney disease, or end stage renal disease; I25.10 Atherosclerotic heart disease of native coronary artery without angina pectoris; E78.00 Pure hypercholesterolemia, unspecified; E78.5 Hyperlipidemia, unspecified; Z95.1 Presence of aortocoronary bypass graft; Z99.2 Dependence on renal dialysis

== ENCOUNTER 2018-08-01 13:07 | Emergency (ER) | payer MEDICARE ==
[2018-08-01 13:08] VITALS: BMI 19.1
[2018-08-01 15:01] VITALS: TEMP 98.1
[2018-08-01 15:30] VITALS: BP 110/62; PULSE 89; RESP 18
--- NOTE | 2018-08-01 15:30 | C.PDOC ---
History Of Present Illness 82-year-old male, on peritoneal dialysis, presents to the ED for evaluation of low blood pressure noted earlier today. Patient is instructed by his PMD to check his blood pressure every day, and noted it was low today and presents for further evaluation. Upon ED arrival, patient was found to have a stable blood pressure. He denies fever, chills, chest pain, shortness of breath, lightheadedness, abdominal pain and has no complaints at this time. Time Seen by Provider: 08/01/18 14:47 Chief Complaint (Nursing): Medical Clearance History Per: Patient History/Exam Limitations: no limitations Onset/Duration Of Symptoms: Hrs Current Symptoms Are (Timing): Gone Additional History Per: Patient Past Medical History Reviewed: Historical Data, Nursing Documentation, Vital Signs Vital Signs: Last Vital Signs Temp 98.1 F 08/01/18 15:00 Pulse 92 H 08/01/18 15:00 Resp 24 08/01/18 15:00 BP 103/63 08/01/18 15:00 Pulse Ox 99 08/01/18 15:00 - Medical History PMH: CAD, Cardia Arrhythmia (HX: [id number] DONE ~[id number]), CHF, COPD, HTN, Hypercholesterolemia, Peripheral Edema, End Stage Renal Disease, Chronic Kidney Disease Surgical History: CABG (QUAD-CORNARY BYPASS 2007) - [facility] Procedures (12/27/17) ENDOSCOPIC BRONCHIAL BX (06/12/13) INSERTION OF INFUSION DEV INTO SUP VENA CAVA, PERC APPROACH (12/27/17) IRRIGATION OF PERITON CAV USING DIALYSATE, PERC APPROACH (03/11/18) Family History: States: Unknown Family Hx - Social History Hx Alcohol Use: No Hx Substance Use: No - Immunization History Hx Tetanus Toxoid Vaccination: Yes Hx Influenza Vaccination: Yes (2 weeks ago) Hx Pneumococcal Vaccination: Yes (2016) Review Of Systems Constitutional: Positive for: Other (low blood pressure ). Negative for: Fever, Chills Cardiovascular: Negative for: Chest Pain Respiratory: Negative for: Shortness of Breath Gastrointestinal: Negative for: Abdominal Pain Neurological: Negative for: Other (lightheadedness ) Physical Exam - Physical Exam Appears: Non-toxic, No Acute Distress Skin: Normal Color, Warm, Dry Head: Atraumatic, Normacephalic Eye(s): bilateral: Normal Inspection Oral Mucosa: Moist Neck: Supple Chest: Symmetrical, No Deformity, No Tenderness Cardiovascular: Rhythm Regular, No Murmur, Other (irregularly irregular) Respiratory: Normal Breath Sounds, No Rales, No Rhonchi, No Wheezing Gastrointestinal/Abdominal: Soft, No Tenderness, No Guarding, No Rebound, Other (catheter noted ) Extremity: Normal ROM, Capillary Refill (less than 2 seconds ) Neurological/Psych: Oriented x3, Normal Speech, Normal Cognition ED Course And Treatment O2 Sat by Pulse Oximetry: 99 (on RA) Pulse Ox Interpretation: Normal Medical Decision Making Medical Decision Making: Impression: 82 year old male with low blood pressure reading at home. He remained normotensive and asymptomatic in ED. He reports that his dialysis nurse recommended starting midodrine and he was instructed to follow-up with PMD for prescription. Patient is advised to follow up with her PMD within 1-2 days for further evaluation. Advised to return to the ED if symptoms persist or worsen. Disposition - Disposition Disposition: HOME/ ROUTINE Disposition Time: 15:40 Condition: GOOD Additional Instructions: Follow-up with PMD within 2 days. Return to ED if condition worsens. Forms: [email or web address] (Tunisian) - Clinical Impression Clinical Impression: Medical assessment, Blood pressure check - Scribe Statement The provider has reviewed the documentation as recorded by the Scribe (Bessy Claudio) Provider Attestation: All medical record entries made by the Scribe were at my direction and personally dictated by me. I have reviewed the chart and agree that the record accurately reflects my personal performance of the history, physical exam, medical decision making, and the department course for this patient. I have also personally directed, reviewed, and agree with the discharge instructions and disposition.
[2018-08-01 15:34] VITALS: O2SAT 99
== END 2018-08-01 16:00 | disposition home or self-care (01) ==
LOC: C.ER 13:07
DX: Z00.00 Encounter for general adult medical examination without abnormal findings (principal)

== ENCOUNTER 2018-10-27 22:57 | Inpatient (IN) | payer MEDICARE ==
[2018-10-27 22:57] VITALS: BMI 19.1
--- NOTE | 2018-10-28 | C.PDOC ---
History Of Present Illness 83 y/o male presents to the ED complaining of abdominal pain on and off since this morning. Associated with watery, non-bloody diarrhea. At present time, patient denies having any pain. Otherwise patient has no fevers, chills, vomiti ng, or dark/bloody stool. Patient has a PMHx of HTN, COPD, CAD, and ESRD (on dialysis). Time Seen by Provider: 10/27/18 23:48 Chief Complaint (Nursing): GI Problem History Per: Patient History/Exam Limitations: no limitations Onset/Duration Of Symptoms: Intermittent Episodes Current Symptoms Are (Timing): Gone Location Of Pain/Discomfort: Diffuse Associated Symptoms: Diarrhea Alleviating Factors: None Recent travel outside of the [place]: No Past Medical History Reviewed: Historical Data, Nursing Documentation, Vital Signs Vital Signs: Last Vital Signs Temp 97.6 F 10/27/18 23:03 Pulse 96 H 10/27/18 23:03 Resp 14 10/27/18 23:03 BP 93/57 L 10/27/18 23:03 Pulse Ox 100 10/27/18 23:03 - Medical History PMH: CAD, Cardia Arrhythmia (HX: [id number] DONE ~[id number]), CHF, COPD, HTN, Hypercholesterolemia, Peripheral Edema, End Stage Renal Disease, Chronic Kidney Disease Surgical History: CABG (QUAD-CORNARY BYPASS 2007) - [facility] Procedures (12/27/17) ENDOSCOPIC BRONCHIAL BX (06/12/13) INSERTION OF INFUSION DEV INTO SUP VENA CAVA, PERC APPROACH (12/27/17) IRRIGATION OF PERITON CAV USING DIALYSATE, PERC APPROACH (03/11/18) Family History: States: Unknown Family Hx - Social History Hx Tobacco Use: No Hx Alcohol Use: No Hx Substance Use: No - Immunization History Hx Tetanus Toxoid Vaccination: Yes Hx Influenza Vaccination: Yes Hx Pneumococcal Vaccination: Yes Review Of Systems Constitutional: Negative for: Fever, Chills Cardiovascular: Negative for: Chest Pain Respiratory: Negative for: Shortness of Breath Gastrointestinal: Positive for: Abdominal Pain. Negative for: Vomiting, Di arrhea, Hematochezia Genitourinary: Negative for: Hematuria Skin: Negative for: Rash Neurological: Negative for: Weakness, Numbness Physical Exam - Physical Exam Appears: Non-toxic, No Acute Distress Skin: Warm, Dry Head: Atraumatic, Normacephalic Eye(s): bilateral: Normal Inspection, PERRL, EOMI Oral Mucosa: Moist Neck: Normal ROM Chest: Symmetrical Cardiovascular: Rhythm Regular, No Murmur Respiratory: Normal Breath Sounds, No Accessory Muscle Use Gastrointestinal/Abdominal: Soft, No Tenderness, Distention (abdomen mildly dist ended), No Rebound, Other (Peritoneal catheter intact) Back: Normal Inspection Extremity: Bilateral: Atraumatic, Normal Color And Temperature Pulses: Left Dorsalis Pedis: Normal, Right Dorsalis Pedis: Normal Neurological/Psych: Oriented x3, Normal Speech ED Course And Treatment - Laboratory Results Result Diagrams: 10/28/18 00:18 10/28/18 00:18 O2 Sat by Pulse Oximetry: 100 (RA) Pulse Ox Interpretation: Normal - CT Scan/US CT Abd/Pelvis Other Rad Studies (CT/US): Read By Radiologist, Radiology Report Reviewed CT/US Interpretation: Name:CLAUDIA JUNE Exam Date:Oct 28, 2018 12:19:29 AM EST. Modality Type:CT. Description:CT - ABDOMEN AND PELVIS. Gender:M Laterality:Not applicable. :36 Referring Physician:RIVKA STERLING. CT SCAN OF THE ABDOMEN AND PELVIS WITHOUT ORAL OR IV CONTRAST. CLINICAL INDICATION: Generalized abdominal pain. TECHNIQUE: Axial and reformatted sagittal and coronal images of the abdomen pelvis obtained without IV contrast administration. COMPARISON: None. FINDINGS: Moderate left pleural effusion. Passive atelectatic airspace disease in the left lower lobe. Diffuse left pleural thickening. Mild cardiomegaly. Colonic diverticulosis. Diffuse thickening of the wall of the colon. Mild prostatomegaly. Prostatic calcifications. Mild ascites. Peritoneal dialysis catheter is noted. Cholelithiasis without acute cholecystitis. Bilateral renal cysts are noted. Anterolisthesis of L4 on L5. Mild diffuse spondylosis. Normal unenhanced liver. Non dilated extrahepatic biliary system. Normal unenhanced spleen. Normal pancreas. . Normal bilateral adrenal glands. Normal size of the right kidney. There is no right renal mass. There are no right renal calculi. There is no right hydronephrosis. Normal visualized right ureter. Normal size of the left kidney. There is no left renal mass. There are no left renal calculi. There is no left hydronephrosis. Normal visualized left ureter. Normal visualized stomach. Normal small intestine. Normal abdominal aorta. Normal inferior vena cava. Normal retroperitoneum. . Normal urinary bladder. There is no pelvic mass lesion or lymphadenopathy. Normal abdominal wall. IMPRESSION: Moderate left pleural effusion. Passive atelectatic airspace disease in the left lower lobe. Diffuse left pleural thickening. Mild cardiomegaly. Colonic diverticulosis. Diffuse thickening of the wall of the colon. Mild prostatomegaly. Prostatic calcifications. Mild ascites. Peritoneal dialysis catheter is noted. Cholelithiasis without acute cholec ystitis. Bilateral renal cysts are noted. Anterolisthesis of L4 on L5. Mild diffuse spondylosis. Progress Note: Blood work sent to the lab for analysis. Dialysate cultures sent. CT Abdomen/Pelvis ordered without contrast. Disposition Discussed With Dr.: [facility] [place] Doctor Will See Patient In The: Hospital Counseled Patient/Family Regarding: Diagnosis - Disposition Disposition: HOSPITALIZED Disposition Time: 02:11 Condition: STABLE Forms: [facility] (Lithuanian) - POA Present On Arrival: None - Clinical Impression Clinical Impression: ESRD on peritoneal dialysis, Colitis - Scribe Statement The provider has reviewed the documentation as recorded by the Kelly Yang Provider Attestation: All medical record entries made by the Kelly were at my direction and personally dictated by me. I have reviewed the chart and agree that the record accurately reflects my personal performance of the history, physical exam, medical decision making, and the department course for this patient. I have also personally directed, reviewed, and agree with the discharge instructions and disposition.
[2018-10-28 00:21] LABS: BASO % 0.2 % (0.0-2.0); EOS % 0.1 % (0.0-4.0); HEMOGLOBIN 9.7 g/dL (12.0-18.0); LYMPH # 0.2 K/uL (1.0-4.3); LYMPH % 2.3 % (20.0-40.0); MEAN CELL VOLUME 103.1 fL (80.0-94.0); MEAN CORPUSCULAR HEMOGLOBIN 34.5 pg (27.0-31.0); MEAN CORPUSCULAR HGB CONC 33.4 g/dL (33.0-37.0); MEAN PLATELET VOLUME 6.6 fL (7.2-11.7); MONO # 0.4 K/uL (0.0-0.8); MONO % 5.3 % (0.0-10.0); NEUT # 7.1 K/uL (1.8-7.0); NEUT % 92.1 % (50.0-75.0); PLATELET COUNT 254 K/uL (130-400); RBC 2.82 Mil/uL (4.40-5.90); WHITE BLOOD COUNT 7.7 K/uL (4.8-10.8)
[2018-10-28 00:44] LABS: ALB/GLOB RATIO 0.8 (1.0-2.1); ALBUMIN 2.6 g/dL (3.5-5.0); CALCIUM 7.3 mg/dl (8.6-10.4)
[2018-10-28 01:03] LABS: LYMPHOCYTE 2 % (20-40); MONOCYTE 1 % (0-10); NEUTROPHIL 97 % (50-75); PLATELET ESTIMATE NORMAL (NORMAL); TOTAL CELLS COUNTED 100
[2018-10-28] MEDS ORDERED: Dextrose 5%-0.225% NS 1,000 ML IV ONE (02:22)
[2018-10-28] MEDS: Dextrose 5%/0.45% NS 1,000 ML IV SCH ×2 (02:32→17:00)
--- NOTE | 2018-10-28 11:33 | CT ---
Date of service: 10/28/2018 PROCEDURE: CT Abdomen and Pelvis without intravenous contrast HISTORY: abd pain COMPARISON: Chest CT without contrast 03/13/2018. TECHNIQUE: Helical CT of the abdomen and pelvis was performed without oral or intravenous contrast as per referring physician request. Coronal and sagittal reformats were generated. Contrast dose: None Radiation dose: Total exam DLP = 256.34 mGy-cm. This CT exam was performed using one or more of the following dose reduction techniques: Automated exposure control, adjustment of the mA and/or kV according to patient size, and/or use of iterative reconstruction technique. FINDINGS: LOWER THORAX: Mild chronic left pleural effusion/thickening persists with limited compressive atelectasis affecting the left lower lobe once again. Cardiomegaly appears stable. LIVER: A small lucency is stable at the hepatic dome posteriorly with relatively small liver appreciated. No focal peripheral nodularity to suggest cirrhosis on a macroscopic basis however. Perihepatic and perisplenic ascites persists though slightly diminished in the interval. GALLBLADDER AND BILE DUCTS: Cholelithiasis is identified within a contracted gallbladder with the CBD grossly normal caliber. PANCREAS: Unremarkable. No gross lesion or ductal dilatation. SPLEEN: Unremarkable. ADRENALS: Unremarkable. No mass. KIDNEYS AND URETERS: Bilateral renal cystic changes are again seen scattered though in greater detail in this abdomen CT with infrequent hyperdensities under 1 cm at both kidneys suggestive of probable hyperdense cysts though nodules are not excluded. Dominant lesion at the left kidney is a cyst measuring 5.2 x 7.1 cm and 11 Hounsfield units with a minimally complex cyst immediately posterior to it at the midpole measuring 2.9 x 2.5 cm with peripheral mural calcification. Dominant right renal cyst is seen at the upper pole exophytic anteriorly measuring 5.2 x 4.2 cm and 6 Hounsfield units. VASCULATURE: Nonaneurysmal abdominal aortic calcific atherosclerotic changes are identified. BOWEL: Reactive changes are identified in the anterior Mesentery extending toward the left lower quadrant suspicious for potential mesenteric metastasis is seen to be a peripheral finding rather than deep mesenteric change and segmental colitis is not felt to be the etiology of this pattern but clinical correlation is advised. No bowel obstruction identified throughout. The majority of the colon is collapsed limiting evaluation of its wall thickness. Pancolitis, though not favored, is difficult to completely exclude. A catheter is identified terminating at the left lower quadrant peritoneum and in the left hemipelvis entering from a left parasagittal upper pelvic site anteriorly, suggestive of possible peritoneal drainage catheter. APPENDIX: Not identified. LYMPH NODES: Unremarkable. No enlarged lymph nodes. BLADDER: Unremarkable. REPRODUCTIVE: Mildly enlarged prostate gland. BONES: No acute fracture. OTHER FINDINGS: None. IMPRESSION: Findings suspicious for potential mid mesenteric metastasis though edema from potential colitis is not excluded though not favored. Clinically correlate further. Lack of contrast enhancement limits interpretation. No obstructive uropathy bilaterally. Numerous bilateral renal cysts are identified as well as stable right hepatic lobe lucency near the dome. Persistent mild a abdominal ascites identified. Peritoneal drainage catheter suspected left lower quadrant or other catheter purpose.
--- NOTE | 2018-10-28 13:29 | CP.PCM.CON ---
History of Present Illness - History of Present Illness History of Present Illness: 83 y/o male presents to the ED complaining of abdominal pain on and off since this morning. Associated with watery, non-bloody diarrhea. At present time, patient denies having any pain. Otherwise patient has no fevers, chills, vomiting, or dark/bloody stool. Patient has a PMHx of HTN, COPD, CAD, and ESRD (on dialysis). Initially PD fluid cloudy; now fluid clear. Has been afebrile Past Medical History Reviewed: Historical Data, Nursing Documentation, Vital Signs Vital Signs: Last Vital Signs Temp 97.6 F 10/27/18 23:03 Pulse 96 H 10/27/18 23:03 Resp 14 10/27/18 23:03 BP 93/57 L 10/27/18 23:03 Pulse Ox 100 10/27/18 23:03 - Medical History PMH: CAD, Cardia Arrhythmia (HX: [id number] DONE ~[id number]), CHF, COPD, HTN, Hypercholesterolemia, Peripheral Edema, End Stage Renal Disease, Chronic Kidney Disease Surgical History: CABG (QUAD-CORNARY BYPASS 2007); PD catheter insertion On PD x 10 mos FH- no CKD Review of Systems - Constitutional Constitutional: Fatigue, Weakness - EENT Eyes: absent: As Per HPI, Blind Spots, Blurred Vision, Change in Vision, Decreased Night Vision, Diplopia, Discharge, Dry Eye, Exophthalmos, Floaters, Irritation, Itchy Eyes, Loss of Peripheral Vision, Pain, Photophobia, Requires Corrective Lenses, Sees Flashes, Spots in Vision, Tunnel Vision, Other Visual Disturbances, Loss of Vision, Other Ears: absent: As Per HPI, Decreased Hearing, Ear Discharge, Ear Pain, Tinnitus, Abnormal Hearing, Disequilibrium, Dizziness, Other Nose/Mouth/Throat: absent: As Per HPI, Epistaxis, Nasal Congestion, Nasal Discharge, Nasal Obstruction, Nasal Trauma, Nose Pain, Post Nasal Drip, Sinus Pain, Sinus Pressure, Bleeding Gums, Change in Voice, Dental Pain, Dry Mouth, Dysphagia, Halitosis, Hoarsness, Lip Swelling, Mouth Lesions, Mouth Pain, Odynophagia, Sore Throat, Throat Swelling, Tongue Swelling, Facial Pain, Neck Pain, Neck Mass, Other - Cardiovascular Cardiovascular: Dyspnea on Exertion, Leg Edema - Respiratory Respiratory: Cough - Gastrointestinal Gastrointestinal: As Per HPI - Genitourinary Genitourinary: As Per HPI - Musculoskeletal Musculoskeletal: Muscle Cramps, Muscle Weakness, Myalgias Past Patient History - Infectious Disease Hx of Infectious Diseases: None - Tetanus Immunizations Tetanus Immunization: Unknown - Past Medical History & Family History Past Medical History?: Yes Past Family History: Reviewed and not pertinent - Past Social History Smoking Status: Never Smoked Chewing Tobacco Use: No Cigar Use: No Alcohol: None Drugs: Denies Home Situation {Lives}: With Family - CARDIAC Hx Cardiac Disorders: Yes Hx Cardia Arrhythmia: Yes (HX: [id number] DONE ~[id number]) Hx Congestive Heart Failure: Yes Hx Hypercholesterolemia: Yes Hx Hypertension: Yes Hx Peripheral Edema: Yes - PULMONARY Hx Respiratory Disorders: Yes Hx Chronic Obstructive Pulmonary Disease (COPD): Yes - NEUROLOGICAL Hx Neurological Disorder: No - HEENT Hx HEENT Problems: No - RENAL Hx Chronic Kidney Disease: Yes Hx Dialysis: Yes Type of Dialysis Access: peritoneal catheter Date of Last Dialysis Treatment: 10/27/18 - ENDOCRINE/METABOLIC Hx Endocrine Disorders: No - HEMATOLOGICAL/ONCOLOGICAL Hx Blood Disorders: Yes Hx Blood Transfusions: Yes (12/2017) - INTEGUMENTARY Hx Dermatological Problems: No - MUSCULOSKELETAL/RHEUMATOLOGICAL Hx Musculoskeletal Disorders: No Hx Falls: No - GASTROINTESTINAL Hx Gastrointestinal Disorders: No - GENITOURINARY/GYNECOLOGICAL Hx Genitourinary Disorders: No - PSYCHIATRIC Hx Psychophysiologic Disorder: No Hx Substance Use: No - SURGICAL HISTORY Hx Surgeries: Yes 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QUAD-CORNARY BYPASS 2007) - ANESTHESIA Hx Anesthesia: Yes Hx Anesthesia Reactions: No Hx Malignant Hyperthermia: No Meds Allergies/Adverse Reactions: Allergies Allergy/AdvReac Type Severity Reaction Status Date / Time Gadolinium-Containing Allergy Severe "HIVES" Verified 10/27/18 23:05 Contrast Medi Iodinated Contrast- Oral and Allergy Severe URTICARIA Verified 10/27/18 23:05 IV Dye Thiazides Allergy Severe "HIVES" Verified 10/27/18 23:05 - Medications Medications: Current Medications Apixaban (Eliquis) 2.5 mg PO BID [facility] Last Admin: 10/28/18 11:30 Dose: 2.5 mg Benzonatate (Tessalon Perles) 100 mg PO BID PRN PRN Reason: Cough Calcitriol (Rocaltrol) 0.25 mcg PO HS [facility] Ferrous Sulfate (Feosol) 325 mg PO HS [facility] Folic Acid (Folic Acid) 1 mg PO HS [facility] Dextrose/Sodium Chloride (Dextrose 5%/0.45% Ns 1000 Ml) 1,000 mls @ 80 mls/hr IV .[id number] [facility] Last Admin: 10/28/18 02:32 Dose: 80 mls/hr Rosuvastatin Calcium (Crestor) 5 mg PO HS [facility] Physical Exam - Constitutional Appears: No Acute Distress, Chronically Ill - Head Exam Head Exam: ATRAUMATIC, NORMAL INSPECTION - Eye Exam Eye Exam: EOMI, Normal appearance - Neck Exam Neck exam: Positive for: Normal Inspection. Negative for: Tenderness - Respiratory Exam Respiratory Exam: Clear to Auscultation Bilateral, NORMAL BREATHING PATTERN - Cardiovascular Exam Cardiovascular Exam: Irregular Rhythm, +S1 - GI/Abdominal Exam GI & Abdominal Exam: Soft, Tenderness - Extremities Exam Extremities exam: Positive for: pedal edema. Negative for: tenderness - Neurological Exam Neurological exam: Alert, CN II-XII Intact - Skin Skin Exam: Dry, Warm Results - Vital Signs Recent Vital Signs: Last Vital Signs Temp 98.6 F 10/28/18 07:30 Pulse 96 H 10/28/18 07:30 Resp 20 10/28/18 07:30 BP 105/60 10/28/18 07:30 Pulse Ox 98 10/28/18 07:30 - Labs Result Diagrams: 10/28/18 00:18 10/28/18 00:18 Labs: Laboratory Results - last 24 hr 10/28/18 10/28/18 00:18 00:18 WBC 7.7 RBC 2.82 L Hgb 9.7 L D Hct 29.0 L MCV 103.1 H D MCH 34.5 H MCHC 33.4 RDW 15.0 H Plt Count 254 MPV 6.6 L Neut % (Auto) 92.1 H Lymph % (Auto) 2.3 L [place] % (Auto) 5.3 Eos % (Auto) 0.1 Baso % (Auto) 0.2 Neut # (Auto) 7.1 H Lymph # (Auto) 0.2 L [place] # (Auto) 0.4 Eos # (Auto) 0.0 Baso # (Auto) 0.0 Neutrophils % (Manual) 97 H Lymphocytes % (Manual) 2 L Monocytes % (Manual) 1 Platelet Estimate Normal Sodium 129 L Potassium 3.3 L Chloride 91 L Carbon Dioxide 30 Anion Gap 11 BUN 31 H Creatinine 7.7 H* D Est GFR ( Amer) 8 Est GFR (Non-Af Amer) 7 Random Glucose 100 Calcium 7.3 L Total Bilirubin 0.5 AST 17 D ALT 18 L D Alkaline Phosphatase 103 Total Protein 5.9 L Albumin 2.6 L D Globulin 3.3 Albumin/Globulin Ratio 0.8 L Lipase 214 Assessment & Plan (1) Hypertensive chronic kidney disease with stage 5 chronic kidney disease or end stage renal disease Status: Acute (2) Gastroenteritis Status: Acute (3) Atrial flutter Status: Acute (4) CAD (coronary artery disease) Status: Acute (5) Dehydration Status: Acute (6) End-stage renal disease on peritoneal dialysis Status: Chronic (7) Atrial flutter Status: Chronic - Assessment and Plan (Free Text) Assessment: Evaluate for peritonitis Mild IV fluids Resmume CAPD
[2018-10-28 19:29] LABS: HEMOGLOBIN 8.9 g/dL (12.0-18.0); MEAN CELL VOLUME 103.3 fL (80.0-94.0); MEAN CORPUSCULAR HEMOGLOBIN 33.3 pg (27.0-31.0); MEAN CORPUSCULAR HGB CONC 32.2 g/dL (33.0-37.0); MEAN PLATELET VOLUME 6.5 fL (7.2-11.7); RBC 2.66 Mil/uL (4.40-5.90); RED CELL DISTRIBUTION WIDTH 14.9 % (11.5-14.5); WHITE BLOOD COUNT 6.1 K/uL (4.8-10.8)
[2018-10-28 19:47] LABS: ALB/GLOB RATIO 0.8 (1.0-2.1); ALBUMIN 2.3 g/dL (3.5-5.0); CALCIUM 7.4 mg/dl (8.6-10.4)
[2018-10-28] MEDS: Potassium Chloride 20 mEq ER Tab PO SCH (21:28)
[2018-10-28 21:58] VITALS: RESP 20
--- NOTE | 2018-10-29 01:09 | CP.PCM.HP ---
History of Present Illness - History of Present Illness History of Present Illness: 83 years old male was brought to the ED at [facility] complaining of diffuse abdominal pain on and off and diarrhea twice today. Denies any fever, nausea, vomiting, cough, but notices trouble peritoneal fluid for the past 2 days. Patient is known to have a COPD, HPTN, Hyperlipidemia, CAD, s/p atial flutter ( s/p cardioversion in 2015), s/p CABG x 4 in 2007, ESRD on peritoneal dialysis for the past 10 months. Present on Admission - Present on Admission Any Indicators Present on Admission: No Review of Systems - Gastrointestinal Gastrointestinal: Abdominal Pain, Loose Stools Past Patient History - Infectious Disease Hx of Infectious Diseases: None - Tetanus Immunizations Tetanus Immunization: Unknown - Past Medical History & Family History Past Medical History?: Yes Past Family History: Reviewed and not pertinent - Past Social History Smoking Status: Never Smoked Drugs: Denies Home Situation {Lives}: With Family Domestic Violence: Negative - CARDIAC Hx Cardiac Disorders: Yes Hx Cardia Arrhythmia: Yes (HX: [id number] [id number] ~[id number]) Hx Congestive Heart Failure: Yes Hx Hypercholesterolemia: Yes Hx Hypertension: Yes Hx Peripheral Edema: Yes - PULMONARY Hx Respiratory Disorders: Yes Hx Chronic Obstructive Pulmonary Disease (COPD): Yes - NEUROLOGICAL Hx Neurological Disorder: No - HEENT Hx HEENT Problems: No - RENAL Hx Chronic Kidney Disease: Yes Hx Dialysis: Yes Type of Dialysis Access: peritoneal catheter Date of Last Dialysis Treatment: 10/27/18 - ENDOCRINE/METABOLIC Hx Endocrine Disorders: No - HEMATOLOGICAL/ONCOLOGICAL Hx Blood Disorders: Yes Hx Blood Transfusions: Yes (12/2017) - INTEGUMENTARY Hx Dermatological Problems: No - MUSCULOSKELETAL/RHEUMATOLOGICAL Hx Musculoskeletal Disorders: No Hx Falls: No - GASTROINTESTINAL Hx Gastrointestinal Disorders: No - GENITOURINARY/GYNECOLOGICAL Hx Genitourinary Disorders: No - PSYCHIATRIC Hx Substance Use: No - SURGICAL HISTORY Hx Surgeries: Yes 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QU[facility]-CORN[facility] BYPASS 2007) - ANESTHESIA Hx Anesthesia: Yes Hx Anesthesia Reactions: No Hx Malignant Hyperthermia: No Meds Allergies/Adverse Reactions: Allergies Allergy/AdvReac Type Severity Reaction Status Date / Time Gadolinium-Containing Allergy Severe "HIVES" Verified 10/27/18 23:05 Contrast Medi Iodinated Contrast- Oral and Allergy Severe URTICARIA Verified 10/27/18 23:05 IV Dye Thiazides Allergy Severe "HIVES" Verified 10/27/18 23:05 Physical Exam - Constitutional Appears: No Acute Distress, Chronically Ill - Head Exam Head Exam: NORMOCEPHALIC - Eye Exam Eye Exam: Normal appearance Pupil Exam: NORMAL ACCOMODATION - ENT Exam ENT Exam: Normal Exam - Neck Exam Neck exam: Positive for: Normal Inspection - Respiratory Exam Respiratory Exam: Clear to Auscultation Bilateral, NORMAL BREATHING PATTERN - Cardiovascular Exam Cardiovascular Exam: REGULAR RHYTHM - GI/Abdominal Exam GI & Abdominal Exam: Hyperactive Bowel Sounds, Soft - Rectal Exam Rectal Exam: Deferred - Extremities Exam Extremities exam: Positive for: pedal edema - Back Exam Back exam: NORMAL INSPECTION - Neurological Exam Neurological exam: Alert, Normal Gait, Oriented x3 - Psychiatric Exam Psychiatric exam: Anxious - Skin Skin Exam: Dry, Intact Results - Vital Signs Recent Vital Signs: Last Vital Signs Temp 97.4 F L 10/28/18 21:57 Pulse 80 10/28/18 21:57 Resp 20 10/28/18 21:57 BP 107/65 10/28/18 21:57 Pulse Ox 99 10/28/18 21:57 - Labs Result Diagrams: 10/28/18 19:25 10/28/18 19:25 Labs: Laboratory Results - last 24 hr 10/28/18 10/28/18 10/28/18 00:18 19:25 19:25 WBC 6.1 RBC 2.66 L Hgb 8.9 L Hct 27.5 L MCV 103.3 H MCH 33.3 H MCHC 32.2 L RDW 14.9 H Plt Count 241 MPV 6.5 L Neutrophils % (Manual) 97 H Lymphocytes % (Manual) 2 L Monocytes % (Manual) 1 Platelet Estimate Normal Sodium 127 L Potassium 3.3 L Chloride 92 L Carbon Dioxide 29 Anion Gap 9 L BUN 36 H Creatinine 9.1 H* Est GFR ( Amer) 7 Est GFR (Non-Af Amer) 6 Random Glucose 105 Calcium 7.4 L Phosphorus 4.2 Total Bilirubin 0.6 AST 18 ALT 21 Alkaline Phosphatase 87 Total Protein 5.2 L Albumin 2.3 L Globulin 2.9 Albumin/Globulin Ratio 0.8 L Assessment & Plan (1) End-stage renal disease on peritoneal dialysis Assessment and Plan: To continue PD as per Nephrologists. Peritoneal culture . Status: Chronic (2) Acute colitis Assessment and Plan: Stools for culture. Status: Acute Decision To Admit - Pt Status Changed To: Hospital Disposition Of: Inpatient - Admit Certification Admit to Inpatient:: After my assessment, the patient will require hospitalization for at least two midnights. This is because of the severity of symptoms shown, intensity of services needed, and/or the medical risk in this patient being treated as an outpatient. - InPatient: Physician Admission Certification:: After my assessments, the patient requires hospitalization for at least two midnights. - . Bed Request Type: Regular
[2018-10-29] MEDS: Dextrose 5%/0.45% NS 1,000 ML IV SCH ×2 (04:25→16:45)
[2018-10-29] MEDS: Multivitamin Vitamin B Complex (Nephro-Vite) Tab PO SCH ×2 (08:05→09:30)
--- NOTE | 2018-10-29 12:49 | CP.PCM.PN ---
Subjective - Date & Time of Evaluation Date of Evaluation: 10/29/18 Time of Evaluation: 12:47 - Subjective Subjective: seen and examined CT scan noted, bowel findings non specific PD fluid cx negative. afebrile. improved nausea and abdominal pain. no diarrhea. feels bloated pd fluid remains cloudy Objective - Vital Signs/Intake and Output Vital Signs (last 24 hours): Temp Pulse Resp BP Pulse Ox 98.9 F 79 20 101/61 100 10/29/18 08:04 10/29/18 08:04 10/29/18 08:04 10/29/18 08:04 10/29/18 08:04 Intake and Output: 10/29/18 10/29/18 06:59 18:59 Intake Total 640 Balance 640 - Medications Medications: Current Medications Allopurinol (Zyloprim) 100 mg PO [facility] Last Admin: 10/28/18 21:28 Dose: 100 mg Apixaban (Eliquis) 2.5 mg PO Q48H [facility] Benzonatate (Tessalon Perles) 100 mg PO BID PRN PRN Reason: Cough Calcitriol (Rocaltrol) 0.25 mcg PO [facility] Last Admin: 10/28/18 21:28 Dose: 0.25 mcg Ferrous Sulfate (Feosol) 325 mg PO [facility] Last Admin: 10/28/18 21:28 Dose: 325 mg Folic Acid (Folic Acid) 1 mg PO [facility] Last Admin: 10/28/18 21:28 Dose: 1 mg Dextrose/Sodium Chloride (Dextrose 5%/0.45% Ns 1000 Ml) 1,000 mls @ 80 mls/hr IV .[id number] [facility] Last Admin: 10/29/18 04:25 Dose: 80 mls/hr Potassium Chloride (K-Dur 20 Meq Er Tab) 20 meq PO [facility] Last Admin: 10/28/18 21:28 Dose: 20 meq Rosuvastatin Calcium (Crestor) 5 mg PO [facility] Last Admin: 10/28/18 21:28 Dose: 5 mg Sevelamer Carbonate (Renvela) 800 mg PO BIDCC [facility] Last Admin: 10/29/18 09:30 Dose: 800 mg Vitamin B Complex/Vit C/Folic Acid (Nephro-Miguel Ángel) 1 tab PO 0800 [facility] Last Admin: 10/29/18 09:30 Dose: 1 tab - Labs Labs: 10/28/18 19:25 10/28/18 19:25 - Constitutional Appears: No Acute Distress, Chronically Ill - Head Exam Head Exam: NORMAL INSPECTION, NORMOCEPHALIC - Eye Exam Eye Exam: Normal appearance, PERRL - ENT Exam ENT Exam: Mucous Membranes Moist, Normal Exam - Neck Exam Neck Exam: Full ROM, Normal Inspection - Respiratory Exam Respiratory Exam: Clear to Ausculation Bilateral, NORMAL BREATHING PATTERN - Cardiovascular Exam Cardiovascular Exam: REGULAR RHYTHM, RRR - GI/Abdominal Exam GI & Abdominal Exam: Distended, Soft, Diminished Bowel Sounds - Extremities Exam Extremities Exam: Normal Inspection - Neurological Exam Neurological Exam: Alert, Awake, Oriented x3 - Psychiatric Exam Psychiatric exam: Normal Affect, Normal Mood - Skin Skin Exam: Intact, Warm Assessment and Plan (1) Acute colitis Status: Acute (2) Atrial flutter Status: Acute (3) CAD (coronary artery disease) Status: Acute (4) End-stage renal disease on peritoneal dialysis Status: Chronic - Assessment and Plan (Free Text) Assessment: afebrile, peritoneal fluid cx neg consider GI eval for colitis iv fluids maintain capd, stat PD fluid cell counts and repeat cultures ordered-?cuture negative peritoni tis. send fluid for fungal cultures as well.
[2018-10-29] MEDS: Potassium Chloride 20 mEq ER Tab PO SCH (21:31)
[2018-10-30 07:27] LABS: BASO % 0.1 % (0.0-2.0); EOS % 0.7 % (0.0-4.0); HEMOGLOBIN 9.8 g/dL (12.0-18.0); LYMPH # 0.1 K/uL (1.0-4.3); LYMPH % 2.1 % (20.0-40.0); MEAN CELL VOLUME 101.5 fL (80.0-94.0); MEAN CORPUSCULAR HEMOGLOBIN 34.3 pg (27.0-31.0); MEAN CORPUSCULAR HGB CONC 33.8 g/dL (33.0-37.0); MEAN PLATELET VOLUME 6.8 fL (7.2-11.7); MONO # 0.3 K/uL (0.0-0.8); NEUT # 6.4 K/uL (1.8-7.0); NEUT % 92.1 % (50.0-75.0); NRBC % 0.1 % (0.0-2.0); PLATELET COUNT 313 K/uL (130-400); RBC 2.84 Mil/uL (4.40-5.90); RED CELL DISTRIBUTION WIDTH 14.5 % (11.5-14.5); WHITE BLOOD COUNT 6.9 K/uL (4.8-10.8)
[2018-10-30 07:45] LABS: ALB/GLOB RATIO 0.8 (1.0-2.1); ALBUMIN 2.4 g/dL (3.5-5.0); CALCIUM 7.3 mg/dl (8.6-10.4)
[2018-10-30] MEDS: Multivitamin Vitamin B Complex (Nephro-Vite) Tab PO SCH (08:15)
[2018-10-30 08:38] LABS: LYMPHOCYTE 2 % (20-40); MONOCYTE 2 % (0-10); NEUTROPHIL 96 % (50-75); TOTAL CELLS COUNTED 100
[2018-10-30 08:40] LABS: PLATELET ESTIMATE NORMAL (NORMAL)
[2018-10-30 08:43] LABS: POLYCHROMIC SLIGHT
[2018-10-30] MEDS ORDERED: Potassium Chloride 20 mEq ER Tab PO ONE (10:00)
[2018-10-30 10:03] LABS: BODY FLUID TYPE PERITONEAL
[2018-10-30 10:03] LABS: BODY FLUID TYPE PERITONEAL
[2018-10-30 11:42] LABS: BF GROSS APPEARANCE CLOUDY (CLEAR); BODY FLUID MONO/MACROPHAGE 8 % (0-0); BODY FLUID TOTAL COUNT 100 (0-0)
[2018-10-30 11:44] LABS: BF GROSS APPEARANCE CLOUDY (CLEAR); BODY FLUID MONO/MACROPHAGE 8 % (0-0); BODY FLUID TOTAL COUNT 100 (0-0)
--- NOTE | 2018-10-30 13:27 | CP.PCM.PN ---
Subjective - Date & Time of Evaluation Date of Evaluation: 10/30/18 Time of Evaluation: 13:24 - Subjective Subjective: alert; has moderate intermittent abdominal pains CCPD done diligently by PD cultures negative to date PD fluid remains cloudy PD fluid has been cloudy in past PD cell count- [id number] CT scan nonspecific- potential mesenteric mets described Replete K Objective - Vital Signs/Intake and Output Vital Signs (last 24 hours): Temp Pulse Resp BP Pulse Ox 97.8 F 60 20 99/57 L 98 10/30/18 07:00 10/30/18 07:00 10/30/18 07:00 10/30/18 07:00 10/30/18 07:00 Intake and Output: 10/30/18 10/30/18 06:59 18:59 Intake Total 120 Balance 120 - Medications Medications: Current Medications Acetaminophen (Tylenol 325mg Tab) 650 mg PO Q6 PRN PRN Reason: Pain, moderate (4-7) Last Admin: 10/30/18 09:24 Dose: 650 mg Allopurinol (Zyloprim) 100 mg PO [facility] Last Admin: 10/29/18 21:31 Dose: 100 mg Apixaban (Eliquis) 2.5 mg PO Q48H [facility] Last Admin: 10/30/18 09:12 Dose: 2.5 mg Benzonatate (Tessalon Perles) 100 mg PO BID PRN PRN Reason: Cough Calcitriol (Rocaltrol) 0.25 mcg PO [facility] Last Admin: 10/29/18 21:33 Dose: 0.25 mcg Dicyclomine HCl (Bentyl) 10 mg PO QID PRN PRN Reason: Irritable bowel symptoms Last Admin: 10/30/18 00:19 Dose: 10 mg Ferrous Sulfate (Feosol) 325 mg PO [facility] Last Admin: 10/29/18 21:31 Dose: 325 mg Folic Acid (Folic Acid) 1 mg PO [facility] Last Admin: 10/29/18 21:31 Dose: 1 mg Potassium Chloride (K-Dur 20 Meq Er Tab) 20 meq PO [facility] Last Admin: 10/29/18 21:31 Dose: 20 meq Rosuvastatin Calcium (Crestor) 5 mg PO [facility] Last Admin: 10/29/18 21:31 Dose: 5 mg Sevelamer Carbonate (Renvela) [facility] Last Admin: 10/30/18 08:15 Dose: 800 mg Vitamin B Complex/Vit C/Folic Acid (Nephro-Miguel Ángel) 1 tab PO 0800 [facility] Last Admin: 10/30/18 08:15 Dose: 1 tab - Labs Labs: 10/30/18 07:02 10/30/18 07:02 - Constitutional Appears: No Acute Distress, Cachectic, Chronically Ill - Head Exam Head Exam: ATRAUMATIC, NORMAL INSPECTION - Eye Exam Eye Exam: EOMI, Normal appearance - Neck Exam Neck Exam: Normal Inspection. absent: Tenderness - Respiratory Exam Respiratory Exam: Clear to Ausculation Bilateral, NORMAL BREATHING PATTERN - Cardiovascular Exam Cardiovascular Exam: Irregular Rhythm, +S1 - GI/Abdominal Exam GI & Abdominal Exam: Distended, Soft - Extremities Exam Extremities Exam: Normal Inspection. absent: Tenderness - Neurological Exam Neurological Exam: Awake, CN II-XII Intact - Skin Skin Exam: Dry, Warm Assessment and Plan (1) Hypertensive chronic kidney disease with stage 5 chronic kidney disease or end stage renal disease Status: Acute (2) Gastroenteritis Status: Acute (3) Atrial flutter Status: Acute (4) CAD (coronary artery disease) Status: Acute (5) Dehydration Status: Acute (6) End-stage renal disease on peritoneal dialysis Status: Chronic (7) Atrial flutter Status: Chronic - Assessment and Plan (Free Text) Plan: Same PD Await further culture reports Might need to repeat CT scan with IV contrast to clarify results repeat PD cell count in AM
[2018-10-30] MEDS: Potassium Chloride 20 mEq ER Tab PO SCH (22:32)
--- NOTE | 2018-10-31 00:45 | CP.PCM.PN ---
Subjective - Date & Time of Evaluation Date of Evaluation: 10/30/18 Time of Evaluation: 21:30 - Subjective Subjective: Patient had abdominal pain, and loose BM yesterday. Vomitted once this morning. No more abdominal pain, no diarrhea today. Afebrile. Peritoneal fluid cloudy. Will repeat stools culture, peritoneal fluid culture. Patient is afebrile. Objective - Vital Signs/Intake and Output Vital Signs (last 24 hours): Temp Pulse Resp BP Pulse Ox 97.9 F 100 H 20 106/67 98 10/30/18 16:00 10/30/18 16:00 10/30/18 16:00 10/30/18 16:00 10/30/18 16:00 Intake and Output: 10/30/18 10/31/18 18:59 06:59 Intake Total 940 840 Balance 940 840 - Medications Medications: Current Medications Acetaminophen (Tylenol 325mg Tab) 650 mg PO Q6 PRN PRN Reason: Pain, moderate (4-7) Last Admin: 10/30/18 09:24 Dose: 650 mg Allopurinol (Zyloprim) 100 mg PO [facility] Last Admin: 10/30/18 22:32 Dose: 100 mg Apixaban (Eliquis) 2.5 mg PO Q48H [facility] Last Admin: 10/30/18 09:12 Dose: 2.5 mg Benzonatate (Tessalon Perles) 100 mg PO BID PRN PRN Reason: Cough Calcitriol (Rocaltrol) 0.25 mcg PO [facility] Last Admin: 10/30/18 22:31 Dose: 0.25 mcg Dicyclomine HCl (Bentyl) 10 mg PO QID PRN PRN Reason: Irritable bowel symptoms Last Admin: 10/30/18 00:19 Dose: 10 mg Ferrous Sulfate (Feosol) 325 mg PO [facility] Last Admin: 10/30/18 22:32 Dose: 325 mg Folic Acid (Folic Acid) 1 mg PO [facility] Last Admin: 10/30/18 22:32 Dose: 1 mg Potassium Chloride (K-Dur 20 Meq Er Tab) 20 meq PO [facility] Last Admin: 10/30/18 22:32 Dose: 20 meq Rosuvastatin Calcium (Crestor) 5 mg PO [facility] Last Admin: 10/30/18 22:31 Dose: 5 mg Sevelamer Carbonate (Renvela) 800 mg PO BIDCC [facility] Last Admin: 10/30/18 16:50 Dose: 800 mg Vitamin B Complex/Vit C/Folic Acid (Nephro-Miguel Ángel) 1 tab PO 0800 [facility] Last Admin: 10/30/18 08:15 Dose: 1 tab - Labs Labs: 10/30/18 07:02 10/30/18 07:02 - Constitutional Appears: No Acute Distress, Chronically Ill - Head Exam Head Exam: NORMOCEPHALIC - Eye Exam Eye Exam: Normal appearance - ENT Exam ENT Exam: Normal Exam - Neck Exam Neck Exam: Normal Inspection - Respiratory Exam Respiratory Exam: Clear to Ausculation Bilateral, NORMAL BREATHING PATTERN - Cardiovascular Exam Cardiovascular Exam: REGULAR RHYTHM - GI/Abdominal Exam GI & Abdominal Exam: Soft, Normal Bowel Sounds - Rectal Exam Rectal Exam: Deferred - Extremities Exam Extremities Exam: Normal Inspection - Back Exam Back Exam: NORMAL INSPECTION - Neurological Exam Neurological Exam: Alert, Awake, Oriented x3 - Psychiatric Exam Psychiatric exam: Anxious - Skin Skin Exam: Dry, Intact, Warm Assessment and Plan (1) End-stage renal disease on peritoneal dialysis Status: Chronic (2) Acute colitis Assessment & Plan: Improving. Stools culture pending Status: Acute
[2018-10-31 06:51] LABS: BASO % 0.4 % (0.0-2.0); EOS # 0.1 K/uL (0.0-0.7); EOS % 1.2 % (0.0-4.0); HEMOGLOBIN 9.4 g/dL (12.0-18.0); LYMPH # 0.1 K/uL (1.0-4.3); LYMPH % 2.1 % (20.0-40.0); MEAN CELL VOLUME 102.2 fL (80.0-94.0); MEAN CORPUSCULAR HEMOGLOBIN 33.9 pg (27.0-31.0); MEAN CORPUSCULAR HGB CONC 33.1 g/dL (33.0-37.0); MEAN PLATELET VOLUME 6.7 fL (7.2-11.7); MONO # 0.4 K/uL (0.0-0.8); MONO % 5.3 % (0.0-10.0); NEUT # 6.6 K/uL (1.8-7.0); PLATELET COUNT 283 K/uL (130-400); RBC 2.79 Mil/uL (4.40-5.90); RED CELL DISTRIBUTION WIDTH 14.7 % (11.5-14.5); WHITE BLOOD COUNT 7.3 K/uL (4.8-10.8)
[2018-10-31 07:05] LABS: ALB/GLOB RATIO 0.7 (1.0-2.1); ALBUMIN 2.3 g/dL (3.5-5.0); CALCIUM 7.4 mg/dl (8.6-10.4)
[2018-10-31 07:19] LABS: BODY FLUID TYPE PERITONEAL
[2018-10-31] MEDS: Multivitamin Vitamin B Complex (Nephro-Vite) Tab PO SCH (08:31)
[2018-10-31 08:53] LABS: BASOPHIL 1 % (0-2); EOSINOPHIL 1 % (0-4); LYMPHOCYTE 4 % (20-40); MONOCYTE 5 % (0-10); NEUTROPHIL 89 % (50-75); PLATELET ESTIMATE NORMAL (NORMAL); TOTAL CELLS COUNTED 100
[2018-10-31 08:54] LABS: ANISOCYTOSIS SLIGHT; BURR CELLS SLIGHT; HYPOCHROMIC SLIGHT; OVALOCYTES SLIGHT; POIKILOCYTOSIS SLIGHT; TARGET CELLS SLIGHT
--- NOTE | 2018-10-31 09:39 | CP.PCM.PN ---
Subjective - Date & Time of Evaluation Date of Evaluation: 10/31/18 Time of Evaluation: 09:35 - Subjective Subjective: Feels better PD fluid clearer doing PD well all PD fluid cultures negative to date stools more solid K, mag low Na low Objective - Vital Signs/Intake and Output Vital Signs (last 24 hours): Temp Pulse Resp BP Pulse Ox 97.9 F 102 H 20 96/59 L 97 10/31/18 00:00 10/31/18 00:00 10/31/18 00:00 10/31/18 00:00 10/31/18 00:00 Intake and Output: 10/31/18 10/31/18 06:59 18:59 Intake Total 840 Balance 840 - Medications Medications: Current Medications Acetaminophen (Tylenol 325mg Tab) 650 mg PO Q6 PRN PRN Reason: Pain, moderate (4-7) Last Admin: 10/30/18 09:24 Dose: 650 mg Allopurinol (Zyloprim) 100 mg PO [facility] Last Admin: 10/30/18 22:32 Dose: 100 mg Apixaban (Eliquis) 2.5 mg PO Q48H [facility] Last Admin: 10/30/18 09:12 Dose: 2.5 mg Benzonatate (Tessalon Perles) 100 mg PO BID PRN PRN Reason: Cough Calcitriol (Rocaltrol) 0.25 mcg PO [facility] Last Admin: 10/30/18 22:31 Dose: 0.25 mcg Dicyclomine HCl (Bentyl) 10 mg PO QID PRN PRN Reason: Irritable bowel symptoms Last Admin: 10/30/18 00:19 Dose: 10 mg Ferrous Sulfate (Feosol) 325 mg PO [facility] Last Admin: 10/30/18 22:32 Dose: 325 mg Folic Acid (Folic Acid) 1 mg PO [facility] Last Admin: 10/30/18 22:32 Dose: 1 mg Potassium Chloride (K-Dur 20 Meq Er Tab) 20 meq PO [facility] Last Admin: 10/30/18 22:32 Dose: 20 meq Rosuvastatin Calcium (Crestor) 5 mg PO [facility] Last Admin: 10/30/18 22:31 Dose: 5 mg [facility]amer [facility]ate ([facility]a) [facility] Last Admin: 10/31/18 08:31 Dose: 800 mg Vitamin B Complex/Vit C/Folic Acid (Nephro-Miguel Ángel) 1 tab PO 0800 [facility] Last Admin: 10/31/18 08:31 Dose: 1 tab - Labs Labs: 10/31/18 06:32 10/31/18 06:32 - Constitutional Appears: No Acute Distress, Chronically Ill - Head Exam Head Exam: ATRAUMATIC, NORMAL INSPECTION - Eye Exam Eye Exam: EOMI, Normal appearance - Neck Exam Neck Exam: Normal Inspection. absent: Tenderness - Respiratory Exam Respiratory Exam: Clear to Ausculation Bilateral, NORMAL BREATHING PATTERN - Cardiovascular Exam Cardiovascular Exam: REGULAR RHYTHM, +S1 - GI/Abdominal Exam GI & Abdominal Exam: Distended, Soft. absent: Tenderness - Extremities Exam Extremities Exam: Normal Inspection. absent: Tenderness - Neurological Exam Neurological Exam: Awake, CN II-XII Intact - Skin Skin Exam: Dry, Warm Assessment and Plan (1) Hypertensive chronic kidney disease with stage 5 chronic kidney disease or end stage renal disease Status: Acute (2) Gastroenteritis Status: Acute (3) Atrial flutter Status: Acute (4) CAD (coronary artery disease) Status: Acute (5) Dehydration Status: Acute (6) End-stage renal disease on peritoneal dialysis Status: Chronic (7) Atrial flutter Status: Chronic - Assessment and Plan (Free Text) Plan: replete K further replete mag increase UF attempts with PD as na low same PD otherwise Monitor for peritonitis
[2018-10-31] MEDS: Magnesium Sulfate 1 gm in D5W 1 GM/100 ML BAG IVPB SCH ×2 (10:21→10:30)
[2018-10-31 10:24] LABS: BF GROSS APPEARANCE CLOUDY (CLEAR)
[2018-10-31 10:25] LABS: BODY FLUID MONO/MACROPHAGE 8 % (0-0); BODY FLUID TOTAL COUNT 100 (0-0)
[2018-10-31] MEDS: Potassium Chloride 20 mEq ER Tab PO SCH ×2 (10:33→17:29)
--- NOTE | 2018-10-31 22:31 | CP.PCM.PN ---
Subjective - Date & Time of Evaluation Date of Evaluation: 10/31/18 Time of Evaluation: 12:00 - Subjective Subjective: Patient still with abdominal pain, but no more diarrhea, no nausea, vomiting. Stools culture and leukocytes negative. Objective - Vital Signs/Intake and Output Vital Signs (last 24 hours): Temp Pulse Resp BP Pulse Ox 97.9 F 89 20 94/56 L 97 10/31/18 16:00 10/31/18 16:00 10/31/18 16:00 10/31/18 16:00 10/31/18 16:00 - Medications Medications: Current Medications Acetaminophen (Tylenol 325mg Tab) 650 mg PO Q6 PRN PRN Reason: Pain, moderate (4-7) Last Admin: 10/31/18 10:20 Dose: 650 mg Allopurinol (Zyloprim) 100 mg PO [facility] Last Admin: 10/31/18 21:52 Dose: 100 mg Apixaban (Eliquis) 2.5 mg PO Q48H [facility] Last Admin: 10/30/18 09:12 Dose: 2.5 mg Benzonatate (Tessalon Perles) 100 mg PO BID PRN PRN Reason: Cough Calcitriol (Rocaltrol) 0.25 mcg PO [facility] Last Admin: 10/31/18 21:52 Dose: 0.25 mcg Dicyclomine HCl (Bentyl) 10 mg PO QID PRN PRN Reason: Irritable bowel symptoms Last Admin: 10/30/18 00:19 Dose: 10 mg Ferrous Sulfate (Feosol) 325 mg PO [facility] Last Admin: 10/31/18 21:59 Dose: 325 mg Folic Acid (Folic Acid) 1 mg PO [facility] Last Admin: 10/31/18 21:53 Dose: 1 mg Potassium Chloride (K-Dur 20 Meq Er Tab) 20 meq PO BID [facility] Last Admin: 10/31/18 17:29 Dose: 20 meq Rosuvastatin Calcium (Crestor) 5 mg PO [facility] Last Admin: 10/31/18 21:53 Dose: 5 mg Sevelamer Carbonate (Renvela) [facility] Last Admin: 10/31/18 17:28 Dose: 800 mg Vitamin B Complex/Vit C/Folic Acid (Nephro-Miguel Ángel) 1 tab PO 0800 [facility] Last Admin: 10/31/18 08:31 Dose: 1 tab - Labs Labs: 01/10/19 06:32 10/31/18 06:32 - Constitutional Appears: No Acute Distress, Chronically Ill - Head Exam Head Exam: NORMOCEPHALIC - Eye Exam Eye Exam: Normal appearance - ENT Exam ENT Exam: Normal Exam - Neck Exam Neck Exam: Normal Inspection - Respiratory Exam Respiratory Exam: Clear to Ausculation Bilateral, NORMAL BREATHING PATTERN - Cardiovascular Exam Cardiovascular Exam: REGULAR RHYTHM, Murmur - GI/Abdominal Exam GI & Abdominal Exam: Soft, Hyperactive Bowel Sounds - Extremities Exam Extremities Exam: Normal Capillary Refill, Normal Inspection - Back Exam Back Exam: NORMAL INSPECTION - Neurological Exam Neurological Exam: Alert, Awake, Oriented x3 - Psychiatric Exam Psychiatric exam: Anxious - Skin Skin Exam: Dry, Intact, Warm Assessment and Plan (1) End-stage renal disease on peritoneal dialysis Status: Chronic (2) Acute colitis Assessment & Plan: probably viral in origin. Status: Acute
[2018-11-01] MEDS: Multivitamin Vitamin B Complex (Nephro-Vite) Tab PO SCH (08:00)
[2018-11-01] MEDS: Potassium Chloride 20 mEq ER Tab PO SCH (11:56)
--- NOTE | 2018-11-01 13:30 | CP.PCM.PN ---
Subjective - Date & Time of Evaluation Date of Evaluation: 11/01/18 Time of Evaluation: 13:26 - Subjective Subjective: PD going well all PD fluid cultures neg PD fluid less cloudy- better after heparin given no more n, v, diarrhea; eating better BP stable K repleted, no repeat Objective - Vital Signs/Intake and Output Vital Signs (last 24 hours): Temp Pulse Resp BP Pulse Ox 98.2 F 108 H 20 121/77 97 11/01/18 09:15 11/01/18 09:15 11/01/18 09:15 11/01/18 09:15 11/01/18 09:15 Intake and Output: 11/01/18 11/01/18 06:59 18:59 Intake Total 630 Balance 630 - Medications Medications: Current Medications Acetaminophen (Tylenol 325mg Tab) 650 mg PO Q6 PRN PRN Reason: Pain, moderate (4-7) Last Admin: 11/01/18 11:00 Dose: 650 mg Allopurinol (Zyloprim) 100 mg PO [facility] Last Admin: 10/31/18 21:52 Dose: 100 mg Apixaban (Eliquis) 2.5 mg PO Q48H [facility] Last Admin: 11/01/18 11:57 Dose: 2.5 mg Benzonatate (Tessalon Perles) 100 mg PO BID PRN PRN Reason: Cough Calcitriol (Rocaltrol) 0.25 mcg PO [facility] Last Admin: 10/31/18 21:52 Dose: 0.25 mcg Dicyclomine HCl (Bentyl) 10 mg PO QID PRN PRN Reason: Irritable bowel symptoms Last Admin: 10/30/18 00:19 Dose: 10 mg Ferrous Sulfate (Feosol) 325 mg PO [facility] Last Admin: 10/31/18 21:59 Dose: 325 mg Folic Acid (Folic Acid) 1 mg PO [facility] Last Admin: 10/31/18 21:53 Dose: 1 mg Potassium Chloride (K-Dur 20 Meq Er Tab) 20 meq PO BID [facility] Last Admin: 11/01/18 11:56 Dose: 20 meq Rosuvastatin Calcium (Crestor) 5 mg PO [facility] Last Admin: 10/31/18 21:53 Dose: 5 mg Sevelamer Carbonate (Renvela) [facility] Last Admin: 11/01/18 08:00 Dose: 800 mg Vitamin B Complex/Vit C/Folic Acid (Nephro-Miguel Ángel) 1 tab PO 0800 [facility] Last Admin: 11/01/18 08:00 Dose: 1 tab - Labs Labs: 10/31/18 06:32 10/31/18 06:32 - Constitutional Appears: No Acute Distress, Chronically Ill - Head Exam Head Exam: ATRAUMATIC, NORMAL INSPECTION - Eye Exam Eye Exam: EOMI, Normal appearance - Neck Exam Neck Exam: Normal Inspection. absent: Tenderness - Respiratory Exam Respiratory Exam: Clear to Ausculation Bilateral, NORMAL BREATHING PATTERN - Cardiovascular Exam Cardiovascular Exam: REGULAR RHYTHM, +S1 - GI/Abdominal Exam GI & Abdominal Exam: Soft. absent: Tenderness - Extremities Exam Extremities Exam: Normal Inspection. absent: Tenderness - Neurological Exam Neurological Exam: Awake, CN II-XII Intact - Skin Skin Exam: Warm Assessment and Plan (1) Hypertensive chronic kidney disease with stage 5 chronic kidney disease or end stage renal disease Status: Acute (2) Gastroenteritis Status: Acute (3) Atrial flutter Status: Acute (4) CAD (coronary artery disease) Status: Acute (5) Dehydration Status: Acute (6) End-stage renal disease on peritoneal dialysis Status: Chronic (7) Atrial flutter Status: Chronic - Assessment and Plan (Free Text) Plan: Same PD Same K repletion If stable can be followed up at outpt PD unit Discussed with family
--- NOTE | 2018-11-01 15:00 | CP.PCM.PN ---
Subjective - Date & Time of Evaluation Date of Evaluation: 11/01/18 Time of Evaluation: 15:00 - Subjective Subjective: PATIENT SEEN AND EXAMINED AT THE BEDSIDE Objective - Vital Signs/Intake and Output Vital Signs (last 24 hours): Temp Pulse Resp BP Pulse Ox 98.2 F 108 H 20 121/77 97 11/01/18 09:15 11/01/18 09:15 11/01/18 09:15 11/01/18 09:15 11/01/18 09:15 Intake and Output: 11/01/18 11/01/18 06:59 18:59 Intake Total 630 Balance 630 - Medications Medications: Current Medications Acetaminophen (Tylenol 325mg Tab) 650 mg PO Q6 PRN PRN Reason: Pain, moderate (4-7) Last Admin: 11/01/18 11:00 Dose: 650 mg Allopurinol (Zyloprim) 100 mg PO [facility] Last Admin: 10/31/18 21:52 Dose: 100 mg Apixaban (Eliquis) 2.5 mg PO Q48H [facility] Last Admin: 11/01/18 11:57 Dose: 2.5 mg Benzonatate (Tessalon Perles) 100 mg PO BID PRN PRN Reason: Cough Calcitriol (Rocaltrol) 0.25 mcg PO [facility] Last Admin: 10/31/18 21:52 Dose: 0.25 mcg Dicyclomine HCl (Bentyl) 10 mg PO QID PRN PRN Reason: Irritable bowel symptoms Last Admin: 10/30/18 00:19 Dose: 10 mg Ferrous Sulfate (Feosol) 325 mg PO [facility] Last Admin: 10/31/18 21:59 Dose: 325 mg Folic Acid (Folic Acid) 1 mg PO [facility] Last Admin: 10/31/18 21:53 Dose: 1 mg Potassium Chloride (K-Dur 20 Meq Er Tab) 20 meq PO BID [facility] Last Admin: 11/01/18 11:56 Dose: 20 meq Rosuvastatin Calcium (Crestor) 5 mg PO [facility] Last Admin: 10/31/18 21:53 Dose: 5 mg [facility]velamer [facility]) [facility] Last Admin: 11/01/18 08:00 Dose: 800 mg Vitamin B Complex/Vit C/Folic Acid (Nephro-Miguel Ángel) 1 tab PO 0800 [facility] Last Admin: 11/01/18 08:00 Dose: 1 tab - Labs Labs: 10/31/18 06:32 10/31/18 06:32 Assessment and Plan - Assessment and Plan (Free Text) Assessment: FOLLOW UP WITH DR HOPKINS IN HIS OFFICE -----CALL FOR APPOINTMENT FOLOW UP WITH DR KIM IN HIS OFFICE ------CALL FOR APPOINMENT CONTINUE HOME MEDICATION NEW PRESCRIPTION GIVEN ELIQUIS 2.5 MG PO EVERY 48 HOUR ALLOPURINOL, REVELA AND NEPHRORVITE ACTIVITY TOLERATED CALL DR HOPKINS OR TO THE EMERGENCY ROOM IF SYMPTOM RETURN OR WORSENING
[2018-11-01 16:26] VITALS: BP 102/60; PULSE 69; TEMP 98.1; O2SAT 96
--- NOTE | 2018-11-04 21:09 | PQF ---
PROVIDER RESPONSE TEXT: Hyponatremia REVIEWER QUERY TEXT: Clarification of Clinical Diagnostic Findings Please clarify documentation or clinical relevance for the clinical / diagnostic findings or whether those are insignificant or unable to be further specified. The patient's Clinical Indicators include: History Of Present Illness : 83 y/o male presents to the ED complaining of abdominal pain on and off. Associated with watery, non-bloody diarrhea. PMH: CAD, Cardia Arrhythmia (HX: [id number] DONE [id number]), CHF, COPD, HTN, Hypercholesterolemia, Peripheral Edema, End Stage Renal Disease, Chronic Kidney Disease Admitted with Acute colitis End-stage renal disease on peritoneal dialysis, DHN, Gastroenteritis. Labs:10/28/18; Na- 128 Rpt Na- 127 Tx: Repeat Chem monitoring, D5 1/2 NS at 80 ml/hr. Query created by: Frances Martinez on 10/30/2018 10:46 AM Electronically signed by: Tk Park MD 11/04/2018 9:05 PM
--- NOTE | 2018-11-07 11:06 | CP.PCM.DIS ---
Provider - Provider Date of Admission: 10/28/18 02:12 Attending physician: Tk Park MD Primary care physician: Tk Park M.D. Consults: 10/28/18 09:00 Nephrology Consult Routine Comment: Consulting Provider: Aaron Kim Consulting Physician: Aaron Kim Reason for Consult: dialysis patient Time Spent in preparation of Discharge (in minutes): 45 Diagnosis - Discharge Diagnosis (1) End-stage renal disease on peritoneal dialysis Status: Chronic (2) Acute colitis Status: Acute (3) Hyponatremia Status: Acute (4) Hypokalemia Status: Acute (5) Anemia in chronic kidney disease Status: Acute Hospital Course - Lab Results Lab Results: Micro Results 10/31/18 22:20 Stool Stool Culture - Final NO SALMONELLA, SHIGELLA OR CAMPYLOBACTER ISOLATED. 10/30/18 07:05 Peritoneal Fluid Gram Stain - Final 10/30/18 07:05 Peritoneal Fluid Body Fluid Culture - Final No growth. 10/28/18 09:16 Peritoneal Fluid Gram Stain - Final 10/28/18 09:16 Peritoneal Fluid Body Fluid Culture - Final No growth. 10/28/18 21:53 Stool Stool Culture - Final NO SALMONELLA, SHIGELLA OR CAMPYLOBACTER ISOLATED. 10/30/18 07:05 Peritoneal Fluid Fungal Culture - Preliminary Most Recent Lab Values WBC 7.3 K/uL (4.8-10.8) 10/31/18 06:32 RBC 2.79 Mil/uL (4.40-5.90) L 10/31/18 06:32 Hgb 9.4 g/dL (12.0-18.0) L 10/31/18 06:32 Hct 28.5 % (35.0-51.0) L 10/31/18 06:32 MCV 102.2 fL (80.0-94.0) H 10/31/18 06:32 MCH 33.9 pg (27.0-31.0) H 10/31/18 06:32 MCHC 33.1 g/dL (33.0-37.0) 10/31/18 06:32 RDW 14.7 % (11.5-14.5) H 10/31/18 06:32 Plt Count 283 K/uL (130-400) 10/31/18 06:32 MPV 6.7 fL (7.2-11.7) L 10/31/18 06:32 Neut % (Auto) 91.0 % (50.0-75.0) H 10/31/18 06:32 Lymph % (Auto) 2.1 % (20.0-40.0) L 10/31/18 06:32 [place] % (Auto) 5.3 % (0.0-10.0) 10/31/18 06:32 Eos % (Auto) 1.2 % (0.0-4.0) 10/31/18 06:32 Baso % (Auto) 0.4 % (0.0-2.0) 10/31/18 06:32 Neut # (Auto) 6.6 K/uL (1.8-7.0) 10/31/18 06:32 Lymph # (Auto) 0.1 K/uL (1.0-4.3) L 10/31/18 06:32 [place] # (Auto) 0.4 K/uL (0.0-0.8) 10/31/18 06:32 Eos # (Auto) 0.1 K/uL (0.0-0.7) 10/31/18 06:32 Baso # (Auto) 0.0 K/uL (0.0-0.2) 10/31/18 06:32 Neutrophils % (Manual) 89 % (50-75) H 10/31/18 06:32 Lymphocytes % (Manual) 4 % (20-40) L 10/31/18 06:32 Monocytes % (Manual) 5 % (0-10) 10/31/18 06:32 Eosinophils % (Manual) 1 % (0-4) 10/31/18 06:32 Basophils % (Manual) 1 % (0-2) 10/31/18 06:32 Platelet Estimate Normal (NORMAL) 10/31/18 06:32 Polychromasia Slight 10/30/18 07:02 Hypochromasia (manual) Slight 10/31/18 06:32 Poikilocytosis (manual Slight 10/31/18 06:32 Anisocytosis (manual) Slight 10/31/18 06:32 Macrocytosis (manual) Slight 10/30/18 07:02 Target Cells Slight 10/31/18 06:32 Ovalocytes Slight 10/31/18 06:32 Comfort Cells Slight 10/31/18 06:32 Sodium 128 mmol/L (132-148) L 10/31/18 06:32 Potassium 3.3 mmol/L (3.6-5.2) L 10/31/18 06:32 Chloride 90 mmol/L (98-107) L 10/31/18 06:32 Carbon Dioxide 30 mmol/L (22-30) 10/31/18 06:32 Anion Gap 12 (10-20) 10/31/18 06:32 BUN 24 mg/dL (9-20) H 10/31/18 06:32 Creatinine 6.3 mg/dL (0.8-1.5) H 10/31/18 06:32 Est GFR ( Amer) 10 10/31/18 06:32 Est GFR (Non-Af Amer) 9 10/31/18 06:32 Random Glucose 145 mg/dL (75-110) H D 10/31/18 06:32 Calcium 7.4 mg/dl (8.6-10.4) L 10/31/18 06:32 Phosphorus 3.0 mg/dL (2.5-4.5) 10/31/18 06:32 Magnesium 1.3 mg/dL (1.6-2.3) L 10/31/18 06:32 Total Bilirubin 0.5 mg/dL (0.2-1.3) 10/31/18 06:32 AST 16 U/L (17-59) L 10/31/18 06:32 ALT 22 U/L (21-72) 10/31/18 06:32 Alkaline Phosphatase 95 U/L (38-126) 10/31/18 06:32 Total Protein 5.6 g/dL (6.3-8.3) L 10/31/18 06:32 Albumin 2.3 g/dL (3.5-5.0) L 10/31/18 06:32 Globulin 3.3 gm/dL (2.2-3.9) 10/31/18 06:32 Albumin/Globulin Ratio 0.7 (1.0-2.1) L 10/31/18 06:32 Lipase 214 U/L (23-300) 10/28/18 00:18 PTH Intact Whole Molec 144 pg/mL (14-64) H 10/28/18 19:25 Fluid Source Peritoneal 10/30/18 07:17 Fluid Appearance Cloudy (CLEAR) 10/30/18 07:17 Fluid WBC 6375.0 /mm3 (0.0-300.0) H 10/30/18 07:17 Fluid RBC 1622.0 /mm3 (0.0-0.0) H 10/30/18 07:17 Fluid Tot Cell Count 100 (0-0) H 10/30/18 07:17 Fluid Neutrophils 91.0 % (0-0) H 10/30/18 07:17 Fluid Lymphocytes 1.0 % (0-0) H 10/30/18 07:17 Fld Monocyte/Macrophag 8 % (0-0) H 10/30/18 07:17 Fluid Comment 10/30/18 07:17 Stool Leukocytes, Qual Negative (NEGATIVE) 10/31/18 22:20 C. difficile Ag & Toxin Negative (NEGATIVE) 10/31/18 22:20 - Hospital Course Hospital Course: 83 years old [place] male was brought to the ED at [facility] complaining of diffuse abdominal pain, loose stools on and off on 10/28/2018 and cloudy peritoneal dialysate on and off for the past few days. He denies any fever, any nausea, vomiting. A Ct scan of the abdomen revealed diffuse thickening of the colonic mucosa, colonic diverticulosis, mild ascites, moderate pleural effusion with mild cardiomegaly, gallstones without cholecystitis, mild hypertrophy of the prostate, bilateral renal cysts. WBC: 6.1 Hgb: 8.9 Na+: 129 K+: 3.3 BUN: 36 Creatinine: 7.7 serum lipase: 214. He is known to have a Hypertension, s/p atrial flutter ( cardioversion in 2015 ), a CAD ( s/p CABG x 4 in 2007) an ESRD on PD since 02/2018, a COPD. His medications include Apixaban 2.5 mg PO BID, Rocaltrol 0.25 mg PO qd, Folic acid 1mg PO qd, Crestor 5 mg PO qd, Ferrous sulfate 325 mg PO qd, Amlodipine 2.5 mg PO qd, Bystolic 10 mg PO qd, Atorvastatin 10 mg PO qd, Allopurinol 100 mg PO qd, Clonidine 0.1 mg PO TID, Renovite qd, Lasix 40 mg PO qd, KCl 20 mEQ PO qd. The patient was evaluated by Dr Kim, PD was resumed by the patient's , K+ was replaced, and stools for leukocytes and culture, peritoneal dialysate for cell count, fugal smear and gram stain, for culture were sent. Patient was aslo given IV D51/2 NS. The abdominal pain, diarrhea gradually improved. Blood cultures were negative. Peritoneal dialysate was negative for gram stain, fungal stain, and culture showed no bacterial growth. Stools for leukocytes was negative. Stools for C. difficile A & B were negative. Stools cutures were negative. Peritoneal cell count revealed 16,000 WBC with 89% PMN, 3% Lymphocytes and 2,878 RBC. Abdominal pain, diarrhea, vomiting finally resolved. The peritoneal dialysate became clearer. The patient was discharged home on 11/01/2017 in a stable condition and was afebrile. He will resume PD at home at previously, and all his home medications. He will have a follow up with Dr Kim and with Dr Park in about a week. - Date & Time of H&P Date of H&P: 11/01/18 Discharge Exam - Head Exam Head Exam: ATRAUMATIC, NORMAL INSPECTION - Eye Exam Eye Exam: Normal appearance Pupil Exam: NORMAL ACCOMODATION - ENT Exam ENT Exam: Normal Exam - Respiratory Exam Respiratory Exam: Clear to PA & Lateral, NORMAL BREATHING PATTERN - Cardiovascular Exam Cardiovascular Exam: REGULAR RHYTHM - GI/Abdominal Exam GI & Abdominal Exam: Normal Bowel Sounds, Soft, Unremarkable - Rectal Exam Rectal Exam: Deferred - Neurological Exam Neurological exam: Alert, Normal Gait, Oriented x3 - Psychiatric Exam Psychiatric exam: Anxious - Skin Skin Exam: Dry, Normal Color, Warm Discharge Plan - Discharge Medications Prescriptions: Apixaban [Eliquis] 2.5 mg PO Q48H 30 Days tab Vitamin B Complex/Vit C/Folic [Nephro-Miguel Ángel] 1 tab PO 0800 30 Days tab Sevelamer Carbonate [Renvela] 800 mg PO BIDCC 30 Days tab Allopurinol [Zyloprim] 100 mg PO HS 30 Days tab - Follow Up Plan Condition: STABLE Disposition: HOME/ ROUTINE Instructions: Heart Failure, Adult (DC), Peritoneal Dialysis Diet, Apixaban, Allopurinol, Sevelamer, Colitis (DC) Additional Instructions: FOLLOW UP WITH DR PARK IN HIS OFFICE -----CALL FOR APPOINTMENT FOLOW UP WITH DR KIM IN HIS OFFICE ------CALL FOR APPOINMENT CONTINUE HOME MEDICATION NEW PRESCRIPTION GIVEN ELIQUIS 2.5 MG PO EVERY 48 HOUR ALLOPURINOL, REVELA AND NEPHRORVITE ACTIVITY TOLERATED CALL DR PARK OR TO THE EMERGENCY ROOM IF SYMPTOM RETURN OR WORSENING Referrals: Tk Park MD [Staff Provider] - Clinical Quality Measures - Date & Time of Discharge Summary Date of Discharge Summary: 11/07/18 Time of Discharge Summary: 12:00
== END 2018-11-01 17:40 | disposition home or self-care (01) | DRG 391 ==
LOC: C.ER 22:57 → C.9E 10-28 02:12 → C.3T 10-28 17:21
PROVIDERS: ADMIT Internal Medicine Cardiovascular Disease; ATTEND Internal Medicine Cardiovascular Disease
DX: K52.9 Noninfective gastroenteritis and colitis, unspecified (principal); N18.6 End stage renal disease; I48.92 Unspecified atrial flutter; I13.2 Hypertensive heart and chronic kidney disease with heart failure and with stage 5 chronic kidney disease, or end stage renal disease; E87.1 Hypo-osmolality and hyponatremia; E86.0 Dehydration; Z95.1 Presence of aortocoronary bypass graft; J44.9 Chronic obstructive pulmonary disease, unspecified; E78.00 Pure hypercholesterolemia, unspecified; I25.10 Atherosclerotic heart disease of native coronary artery without angina pectoris; I50.9 Heart failure, unspecified; E78.5 Hyperlipidemia, unspecified; Z99.2 Dependence on renal dialysis; D63.1 Anemia in chronic kidney disease; E87.6 Hypokalemia

== ENCOUNTER 2018-11-13 11:33 | Inpatient (IN) | payer MEDICARE ==
[2018-11-13 11:33] VITALS: BMI 19.1
[2018-11-13 12:33] LABS: BASO % 0.1 % (0.0-2.0); EOS % 0.1 % (0.0-4.0); HEMOGLOBIN 10.3 g/dL (12.0-18.0); LYMPH # 0.1 K/uL (1.0-4.3); LYMPH % 0.9 % (20.0-40.0); MEAN CELL VOLUME 103.1 fL (80.0-94.0); MEAN PLATELET VOLUME 6.8 fL (7.2-11.7); MONO # 0.5 K/uL (0.0-0.8); MONO % 3.5 % (0.0-10.0); NEUT # 14.4 K/uL (1.8-7.0); NEUT % 95.4 % (50.0-75.0); PLATELET COUNT 366 K/uL (130-400); RBC 3.12 Mil/uL (4.40-5.90); RED CELL DISTRIBUTION WIDTH 14.4 % (11.5-14.5)
[2018-11-13 12:34] LABS: WHITE BLOOD COUNT 15.1 K/uL (4.8-10.8)
--- NOTE | 2018-11-13 12:34 | C.PDOC ---
History Of Present Illness 83 y/o male,w/PMhx of CAD, CHF, HTN, and hypercholesterolemia, presents to the ER for evaluation of abdominal pain. Patient states that the pain feels like gas. Patient reports that he is currently on peritoneal dialysis. He notes that he is going to have a permcath placement by Dr. Aleman and he will start hemodialysis. Currently, patient denies having abdominal pain, nausea, vomiting, fever and chills. Time Seen by Provider: 11/13/18 11:53 Chief Complaint (Nursing): Abdominal Pain History Per: Patient History/Exam Limitations: no limitations Onset/Duration Of Symptoms: Days Current Symptoms Are (Timing): Still Present Severity: Moderate Quality Of Discomfort: Burning Past Medical History Reviewed: Historical Data, Nursing Documentation, Vital Signs Vital Signs: Last Vital Signs Temp 98.3 F 11/13/18 11:36 Pulse 115 H 11/13/18 11:36 Resp 18 11/13/18 11:36 BP 102/66 11/13/18 11:36 Pulse Ox 99 11/13/18 11:36 - Medical History PMH: CAD, Cardia Arrhythmia (HX: [id number] DONE ~7225-9510), CHF, COPD, HTN, Hypercholesterolemia, Peripheral Edema, End Stage Renal Disease, Chronic Kidney Disease Surgical History: CABG (QUAD-CORNARY BYPASS 2007) - [facility] Procedures (12/27/17) ENDOSCOPIC BRONCHIAL BX (06/12/13) INSERTION OF INFUSION DEV INTO SUP VENA CAVA, PERC APPROACH (12/27/17) IRRIGATION OF PERITON CAV USING DIALYSATE, PERC APPROACH (03/11/18) Family History: States: No Known Family Hx - Social History Hx Tobacco Use: No Hx Alcohol Use: No Hx Substance Use: No - Immunization History Hx Tetanus Toxoid Vaccination: Yes Hx Influenza Vaccination: Yes Hx Pneumococcal Vaccination: Yes Review Of Systems Except As Marked, All Systems Reviewed And Found Negative. Constitutional: Negative for: Fever, Chills Gastrointestinal: Positive for: Abdominal Pain (currently resolved). Negative for: Nausea, Vomiting Genitourinary: Negative for: Dysuria, Hematuria Physical Exam - Physical Exam Appears: Non-toxic, No Acute Distress Skin: Normal Color, Warm, Dry Head: Atraumatic, Normacephalic Eye(s): bilateral: Normal Inspection Nose: Normal Oral Mucosa: Moist Neck: Supple Chest: Symmetrical Cardiovascular: Rhythm Regular Respiratory: Normal Breath Sounds Gastrointestinal/Abdominal: Soft, No Tenderness Extremity: Normal ROM Neurological/Psych: Oriented x3, Normal Speech Gait: Unable To Assess ED Course And Treatment - Laboratory Results Result Diagrams: 11/13/18 12:28 11/13/18 13:13 Lab Interpretation: Abnormal O2 Sat by Pulse Oximetry: 99 (RA) Pulse Ox Interpretation: Normal - Radiology CXR: Viewed By Me, Read By Radiologist (FINDINGS:) Progress Note: Case discussed with Dr Aleman who will take to OR tomorrow Reassessment Condition: Unchanged Medical Decision Making Medical Decision Making: Plan: --Labs --UA Disposition Discussed With Dr.: Tk Park Doctor Will See Patient In The: Hospital - Disposition Disposition: HOSPITALIZED Disposition Time: 15:00 Condition: STABLE - POA Present On Arrival: None - Clinical Impression Clinical Impression: Peritoneal dialysis catheter in situ, ESRD needing dialysis - PA / CAP BLOCKER / Resident Statement MD/DO has reviewed & agrees with the documentation as recorded. - Scribe Statement The provider has reviewed the documentation as recorded by the Avae Meena Hinds Provider Attestation All medical record entries made by the Scribe were at my direction and personally dictated by me. I have reviewed the chart and agree that the record accurately reflects my personal performance of the history, physical exam, medical decision making, and the department course for this patient. I have also personally directed, reviewed, and agree with the discharge instructions and disposition. Decision To Admit - Pt Status Changed To: Hospital Disposition Of: Inpatient - Admit Certification Admit to Inpatient:: After my assessment, the patient will require hospitalization for at least two midnights. This is because of the severity of symptoms shown, intensity of services needed, and/or the medical risk in this patient being treated as an outpatient. - InPatient: Physician Admission Certification:: ESRD - . Bed Request Type: Regular Admitting Physician: Tk Park Patient Diagnosis: Peritoneal dialysis catheter in situ, ESRD needing dialysis
[2018-11-13 12:50] LABS: BANDS 2 % (0-2); LYMPHOCYTE 1 % (20-40); MONOCYTE 2 % (0-10); NEUTROPHIL 95 % (50-75); PLATELET ESTIMATE NORMAL (NORMAL); TOTAL CELLS COUNTED 100
[2018-11-13 13:53] LABS: ALB/GLOB RATIO 0.7 (1.0-2.1); ALBUMIN 2.2 g/dL (3.5-5.0); CALCIUM 7.2 mg/dl (8.6-10.4)
--- NOTE | 2018-11-13 14:21 | CP.PCM.CON ---
History of Present Illness - History of Present Illness History of Present Illness: History Of Present Illness 83 y/o male,w/PMhx of CAD, CHF, HTN, and hypercholesterolemia,ESRD presents to the ER for evaluation of abdominal pain. Patient states that the pain has been worsening associated with continued cloudy PD fluid- has been on maintenance peritoneal dialysis for 1 year. Patient reports that though he is currently on peritoneal dialysis it has been working poorly last 2 weeks, not draining well and he has accumulated increased peripheral edema. He is to undergo PD cath removal and then have a permcath placement by Dr. Aleman and he will start hemodialysis. Currently, patient does have abdominal pain, intermittent nausea, but denies fever or chills. ate Last Vital Signs Temp 98.3 F 11/13/18 11:36 Pulse 115 H 11/13/18 11:36 Resp 18 11/13/18 11:36 BP 102/66 11/13/18 11:36 Pulse Ox 99 11/13/18 11:36 - Medical History PMH: CAD, Cardiac Arrhythmia (HX: [id number] DONE ~4145-0507), CHF, COPD, HTN, Hypercholesterolemia, End Stage Renal Disease, Ischemic cardiomyopathy. Surgical History: CABG (QUAD-CORNARY BYPASS 2007); failed AV fistula, PD cath placement - [facility] Procedures (12/27/17) ENDOSCOPIC BRONCHIAL BX (06/12/13) INSERTION OF INFUSION DEV INTO SUP VENA CAVA, PERC APPROACH (12/27/17) IRRIGATION OF PERITON CAV USING DIALYSATE, PERC APPROACH (03/11/18) Family History: States: No Known Family Hx; no CKD - Social History Hx Tobacco Use: No Hx Alcohol Use: No Hx Substance Use: No - Immunization History Hx Tetanus Toxoid Vaccination: Yes Hx Influenza Vaccination: Yes Hx Pneumococcal Vaccination: Yes Review of Systems - Constitutional Constitutional: Fatigue, Lethargy, Weakness - EENT Eyes: absent: As Per HPI, Blind Spots, Blurred Vision, Change in Vision, Decreased Night Vision, Diplopia, Discharge, Dry Eye, Exophthalmos, Floaters, Irritation, Itchy Eyes, Loss of Peripheral Vision, Pain, Photophobia, Requires Corrective Lenses, Sees Flashes, Spots in Vision, Tunnel Vision, Other Visual Disturbances, Loss of Vision, Other Ears: absent: As Per HPI, Decreased Hearing, Ear Discharge, Ear Pain, Tinnitus, Abnormal Hearing, Disequilibrium, Dizziness, Other Nose/Mouth/Throat: absent: As Per HPI, Epistaxis, Nasal Congestion, Nasal Discharge, Nasal Obstruction, Nasal Trauma, Nose Pain, Post Nasal Drip, Sinus Pain, Sinus Pressure, Bleeding Gums, Change in Voice, Dental Pain, Dry Mouth, Dysphagia, Halitosis, Hoarsness, Lip Swelling, Mouth Lesions, Mouth Pain, Odynophagia, Sore Throat, Throat Swelling, Tongue Swelling, Facial Pain, Neck Pain, Neck Mass, Other - Cardiovascular Cardiovascular: Dyspnea on Exertion, Edema - Respiratory Respiratory: Cough, Dyspnea on Exertion - Gastrointestinal Gastrointestinal: Abdominal Pain, Nausea - Genitourinary Genitourinary: As Per HPI - Musculoskeletal Musculoskeletal: Muscle Cramps, Muscle Weakness, Myalgias - Neurological Neurological: Weakness Past Patient History - Infectious Disease Hx of Infectious Diseases: None - Tetanus Immunizations Tetanus Immunization: Unknown - Past Medical History & Family History Past Medical History?: Yes Past Family History: Reviewed and not pertinent - Past Social History Smoking Status: Never Smoked Chewing Tobacco Use: No Cigar Use: No Alcohol: None Drugs: Denies Home Situation {Lives}: Alone - CARDIAC Hx Cardia Arrhythmia: Yes (HX: [id number] DONE ~[id number]) Hx Congestive Heart Failure: Yes Hx Hypercholesterolemia: Yes Hx Hypertension: Yes Hx Peripheral Edema: Yes - PULMONARY Hx Chronic Obstructive Pulmonary Disease (COPD): Yes - NEUROLOGICAL Hx Neurological Disorder: No - HEENT Hx HEENT Problems: No - RENAL Hx Chronic Kidney Disease: Yes - ENDOCRINE/METABOLIC Hx Endocrine Disorders: No - HEMATOLOGICAL/ONCOLOGICAL Hx Blood Disorders: Yes Hx Blood Transfusions: Yes (12/2017) - INTEGUMENTARY Hx Dermatological Problems: No - MUSCULOSKELETAL/RHEUMATOLOGICAL Hx Musculoskeletal Disorders: No Hx Falls: No - GASTROINTESTINAL Hx Gastrointestinal Disorders: No - GENITOURINARY/GYNECOLOGICAL Hx Genitourinary Disorders: No - PSYCHIATRIC Hx Substance Use: No - SURGICAL HISTORY 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QUAD-CORNARY BYPASS 2007) - ANESTHESIA Hx Anesthesia: Yes Hx Anesthesia Reactions: No Hx Malignant Hyperthermia: No Meds Allergies/Adverse Reactions: Allergies Allergy/AdvReac Type Severity Reaction Status Date / Time Gadolinium-Containing Allergy Severe "HIVES" Verified 10/27/18 23:05 Contrast Medi Iodinated Contrast- Oral and Allergy Severe URTICARIA Verified 10/27/18 23:05 IV Dye Thiazides Allergy Severe "HIVES" Verified 10/27/18 23:05 Physical Exam - Constitutional Appears: No Acute Distress, Chronically Ill - Head Exam Head Exam: ATRAUMATIC, NORMAL INSPECTION - Eye Exam Eye Exam: EOMI, Normal appearance - Neck Exam Neck exam: Positive for: Normal Inspection. Negative for: Tenderness - Respiratory Exam Respiratory Exam: Decreased Breath Sounds, Clear to Auscultation Bilateral, NORMAL BREATHING PATTERN - Cardiovascular Exam Cardiovascular Exam: REGULAR RHYTHM, +S1 - GI/Abdominal Exam GI & Abdominal Exam: Soft, Tenderness - Extremities Exam Extremities exam: Positive for: pedal edema. Negative for: tenderness - Neurological Exam Neurological exam: Alert, CN II-XII Intact - Skin Skin Exam: Dry, Warm Results - Vital Signs Recent Vital Signs: Last Vital Signs Temp 99.1 F 11/13/18 13:21 Pulse 106 H 11/13/18 13:21 Resp 22 11/13/18 13:21 BP 93/55 L 11/13/18 13:21 Pulse Ox 96 11/13/18 13:21 - Labs Result Diagrams: 11/13/18 12:28 11/13/18 13:13 Labs: Laboratory Results - last 24 hr 11/13/18 11/13/18 11/13/18 12:28 12:28 13:13 WBC 15.1 H D RBC 3.12 L Hgb 10.3 L Hct 32.2 L MCV 103.1 H MCH 33.0 H MCHC 32.0 L RDW 14.4 Plt Count 366 MPV 6.8 L Neut % (Auto) 95.4 H Lymph % (Auto) 0.9 L [place] % (Auto) 3.5 Eos % (Auto) 0.1 Baso % (Auto) 0.1 Neut # (Auto) 14.4 H Lymph # (Auto) 0.1 L [place] # (Auto) 0.5 Eos # (Auto) 0.0 Baso # (Auto) 0.0 Neutrophils % (Manual) 95 H Band Neutrophils % 2 Lymphocytes % (Manual) 1 L Monocytes % (Manual) 2 Platelet Estimate Normal Macrocytosis (manual) Slight Sodium 130 L Potassium 3.4 L Chloride 94 L Carbon Dioxide 30 Anion Gap 9 L BUN 29 H Creatinine 6.9 H Est GFR ( Amer) 9 Est GFR (Non-Af Amer) 8 Random Glucose 102 D Calcium 7.2 L Total Bilirubin 0.5 AST 27 ALT 22 Alkaline Phosphatase 148 H D Total Protein 5.5 L Albumin 2.2 L Globulin 3.2 Albumin/Globulin Ratio 0.7 L Lipase 137 Blood Type B POSITIVE Antibody Screen Negative Assessment & Plan (1) CAD (coronary artery disease) Status: Acute (2) ESRD (end stage renal disease) Status: Acute (3) Atrial flutter Status: Acute (4) Ultrafiltration failure of peritoneal dialysis Status: Acute - Assessment and Plan (Free Text) Plan: repeat PD fluid cultures, cell count surgical removal PD cath in AM permcath placement then hemodialysis
[2018-11-13] MEDS ORDERED: Potassium Chloride 20 mEq ER Tab PO SCH (14:45)
--- NOTE | 2018-11-13 14:58 | RAD ---
Date of service: 11/13/2018 PROCEDURE: Radiographs of the chest and abdomen (obstructive series) HISTORY: Abd Pain COMPARISON: No prior. TECHNIQUE: AP radiograph of the chest, with upright and supine radiographs of the abdomen. FINDINGS: CHEST: Lungs: Clear. Cardiovascular: Normal size heart. No pulmonary vascular congestion. No aortic atherosclerotic calcification present Pleura: Small left pleural effusion versus pleural thickening. Postoperative changes at left base an along left heart border. No right pleural effusion. No pneumothorax. Other findings: None. ABDOMEN AND PELVIS: Bowel: Unremarkable bowel gas pattern. No evidence of bowel obstruction. Percutaneous drainage catheter extending from left lower abdomen to pelvis. Free air: None. Bones: Unremarkable. Other findings: None. IMPRESSION: No acute infiltrate. Left pleural effusion versus chronic pleural thickening. Normal bowel gas pattern.
--- NOTE | 2018-11-13 15:35 | CP.PCM.CON ---
History of Present Illness - History of Present Illness History of Present Illness: Vascular Surgery Consult note. Dr. Aleman 83yo M with PMHx of COPD, HTN, HLD, CAD, A Flutter s/p Cardioversion 2016, CABG 4vessel, ESRD on PD here for evaluation of intermittent abdominal pain and malfunctioning PD catheter. Patient reports abdominal pain off and on for the past 10 days. Not associated with nausea, vomiting, no diarrhea. Does report normal regular BMs and flatus. Last PD done last night, with some problems with drainage. Denies any fevers or chills. No CP/SOB. No other complaints. Eliquis last taken on Sunday night. PMHx: COPD, HTN, HLD, CAD, A.Flutter on Eliquis, ESRD PSHx: Peritoneal Dialysis catheter placements. Right Arm AVF (non-functional), R IJ permacath (removed) Family Hx: non-contributory Social Hx: Denies Tobacco use, denies ETOH use, Denies illicit drugs NKDA (Denies Gadolinium Contrast Allergy, incorrect on Chart) Review of Systems - Review of Systems All systems: reviewed and no additional remarkable complaints except - Constitutional Constitutional: As Per HPI. absent: Chills, Fever - Cardiovascular Cardiovascular: absent: Chest Pain, Dyspnea - Respiratory Respiratory: absent: Cough, Dyspnea - Gastrointestinal Gastrointestinal: Abdominal Pain. absent: Diarrhea, Dyspepsia, Nausea, Vomiting - Integumentary Integumentary: absent: Jaundice Past Patient History - Infectious Disease Hx of Infectious Diseases: None - Tetanus Immunizations Tetanus Immunization: Unknown - Past Medical History & Family History Past Medical History?: Yes Past Family History: Reviewed and not pertinent - Past Social History Smoking Status: Never Smoked Chewing Tobacco Use: No Cigar Use: No Alcohol: None Drugs: Denies Home Situation {Lives}: With Family - CARDIAC Hx Cardia Arrhythmia: Yes (HX: [id number] DONE ~[id number]) Hx Congestive Heart Failure: Yes Hx Hypercholesterolemia: Yes Hx Hypertension: Yes Hx Peripheral Edema: Yes - PULMONARY Hx Chronic Obstructive Pulmonary Disease (COPD): Yes - NEUROLOGICAL Hx Neurological Disorder: No - HEENT Hx HEENT Problems: No - RENAL Hx Chronic Kidney Disease: Yes - ENDOCRINE/METABOLIC Hx Endocrine Disorders: No - HEMATOLOGICAL/ONCOLOGICAL Hx Blood Disorders: Yes Hx Blood Transfusions: Yes (12/2017) - INTEGUMENTARY Hx Dermatological Problems: No - MUSCULOSKELETAL/RHEUMATOLOGICAL Hx Musculoskeletal Disorders: No Hx Falls: No - GASTROINTESTINAL Hx Gastrointestinal Disorders: No - GENITOURINARY/GYNECOLOGICAL Hx Genitourinary Disorders: No - PSYCHIATRIC Hx Substance Use: No - SURGICAL HISTORY 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QUAD-CORNARY BYPASS 2007) - ANESTHESIA Hx Anesthesia: Yes Hx Anesthesia Reactions: No Hx Malignant Hyperthermia: No Meds Allergies/Adverse Reactions: Allergies Allergy/AdvReac Type Severity Reaction Status Date / Time Gadolinium-Containing Allergy Severe "HIVES" Verified 10/27/18 23:05 Contrast Medi Iodinated Contrast- Oral and Allergy Severe URTICARIA Verified 10/27/18 23:05 IV Dye Thiazides Allergy Severe "HIVES" Verified 10/27/18 23:05 - Medications Medications: Current Medications Allopurinol (Zyloprim) 100 mg PO HS EMILY Folic Acid (Folic Acid) 1 mg PO HS EMILY Furosemide (Lasix) 40 mg PO DAILY [facility]ILY Potassium Chloride (K-Dur 20 Meq Er Tab) 40 meq PO ONCE ONE Stop: 11/13/18 16:01 Rosuvastatin Calcium (Crestor) 10 mg PO HS EMILY Sevelamer Carbonate (Renvela) 800 mg PO BIDCC [facility]ILY Physical Exam - Constitutional Appears: Non-toxic, No Acute Distress - Head Exam Head Exam: ATRAUMATIC, NORMAL INSPECTION, NORMOCEPHALIC - Eye Exam Eye Exam: EOMI, Normal appearance. absent: Scleral icterus - ENT Exam ENT Exam: Mucous Membranes Moist - Respiratory Exam Respiratory Exam: NORMAL BREATHING PATTERN. absent: Accessory Muscle Use, Respiratory Distress - Cardiovascular Exam Cardiovascular Exam: absent: JVD - GI/Abdominal Exam GI & Abdominal Exam: Soft. absent: Distended, Guarding, Rebound, Rigid, Tenderness Additional comments: Peritoneal dialysis catheter in place, no skin changes noted. Abdomen soft, non-tender. non-distended - Extremities Exam Extremities exam: Positive for: normal inspection. Negative for: calf tenderness - Neurological Exam Neurological exam: Alert, Oriented x3 - Psychiatric Exam Psychiatric exam: Normal Affect, Normal Mood - Skin Skin Exam: Dry, Intact, Normal Color, Warm Results - Vital Signs Recent Vital Signs: Last Vital Signs Temp 98.2 F 11/13/18 13:50 Pulse 96 H 11/13/18 13:50 Resp 20 11/13/18 13:50 BP 88/55 L 11/13/18 13:50 Pulse Ox 97 11/13/18 13:50 - Labs Result Diagrams: 11/13/18 12:28 11/13/18 13:13 Labs: Laboratory Results - last 24 hr 11/13/18 11/13/18 11/13/18 12:28 12:28 13:13 WBC 15.1 H D RBC 3.12 L Hgb 10.3 L Hct 32.2 L MCV 103.1 H MCH 33.0 H MCHC 32.0 L RDW 14.4 Plt Count 366 MPV 6.8 L Neut % (Auto) 95.4 H Lymph % (Auto) 0.9 L [place] % (Auto) 3.5 Eos % (Auto) 0.1 Baso % (Auto) 0.1 Neut # (Auto) 14.4 H Lymph # (Auto) 0.1 L [place] # (Auto) 0.5 Eos # (Auto) 0.0 Baso # (Auto) 0.0 Neutrophils % (Manual) 95 H Band Neutrophils % 2 Lymphocytes % (Manual) 1 L Monocytes % (Manual) 2 Platelet Estimate Normal Macrocytosis (manual) Slight Sodium 130 L Potassium 3.4 L Chloride 94 L Carbon Dioxide 30 Anion Gap 9 L BUN 29 H Creatinine 6.9 H Est GFR ( Amer) 9 Est GFR (Non-Af Amer) 8 Random Glucose 102 D Calcium 7.2 L Total Bilirubin 0.5 AST 27 ALT 22 Alkaline Phosphatase 148 H D Total Protein 5.5 L Albumin 2.2 L Globulin 3.2 Albumin/Globulin Ratio 0.7 L Lipase 137 Blood Type B POSITIVE Antibody Screen Negative Assessment & Plan - Assessment and Plan (Free Text) Assessment: 83yo M with ESRD on Peritoneal Dialysis (now malfunctioning catheter). Plan: - Will plan for OR tomorrow, 11/14/18 for PD cath removal and Permacath placement - f/u labs - NPO past mn Further recs as per Dr. Ash Clark PGY2 surgery
[2018-11-13] MEDS ORDERED: Potassium Chloride 20 mEq ER Tab PO ONE (16:00)
[2018-11-13 17:19] LABS: INR 1.3; PROTHROMBIN TIME 13.9 SECONDS (9.7-12.2)
--- NOTE | 2018-11-13 17:19 | CP.PCM.PCO ---
Assessment & Plan - Assessment and Plan (Free Text) Assessment: pt is a 83 yo m ho cad sp cabg, chf, copd, htn, and esrd scheduled for permacath and pd catheter removal. Please document medical optimization prior to elective procedure.
[2018-11-13 18:02] LABS: HEPATITIS B SURFACE AG Negative (NEGATIVE)
[2018-11-13 18:07] LABS: HEPATITIS B CORE AB NEGATIVE (NEGATIVE)
[2018-11-13 18:19] LABS: HEPATITIS C ANTIBODY NEGATIVE (NEGATIVE)
[2018-11-13 21:52] LABS: SQUAMOUS EPITHIAL < 1 /hpf (0-5); URINE BACTERIA RARE (<OCC); URINE BILIRUBIN NEGATIVE (NEGATIVE); URINE BLOOD NEGATIVE (NEGATIVE); URINE CLARITY Hazy (Clear); URINE COLOR Amber (YELLOW); URINE GLUCOSE (UA) NORMAL (Normal); URINE LEUKOCYTE ESTERASE 3+ Leu/uL (Negative); URINE PROTEIN 1+ mg/dL (NEGATIVE); URINE UROBILINOGEN NORMAL mg/dL (0.2-1.0); WBC CLUMPS MOD /hpf
[2018-11-14 07:32] LABS: BASO % 0.4 % (0.0-2.0); EOS % 0.3 % (0.0-4.0); HEMOGLOBIN 8.9 g/dL (12.0-18.0); LYMPH # 0.2 K/uL (1.0-4.3); LYMPH % 2.4 % (20.0-40.0); MEAN CELL VOLUME 103.2 fL (80.0-94.0); MEAN CORPUSCULAR HEMOGLOBIN 32.6 pg (27.0-31.0); MEAN CORPUSCULAR HGB CONC 31.6 g/dL (33.0-37.0); MEAN PLATELET VOLUME 6.5 fL (7.2-11.7); MONO # 0.5 K/uL (0.0-0.8); MONO % 6.2 % (0.0-10.0); NEUT % 90.7 % (50.0-75.0); PLATELET COUNT 281 K/uL (130-400); RBC 2.74 Mil/uL (4.40-5.90); RED CELL DISTRIBUTION WIDTH 14.6 % (11.5-14.5); WHITE BLOOD COUNT 7.7 K/uL (4.8-10.8)
[2018-11-14 08:11] LABS: ALB/GLOB RATIO 0.6 (1.0-2.1); CALCIUM 6.9 mg/dl (8.6-10.4)
[2018-11-14 09:20] LABS: ANISOCYTOSIS SLIGHT; HYPOCHROMIC SLIGHT; LYMPHOCYTE 3 % (20-40); MONOCYTE 2 % (0-10); NEUTROPHIL 95 % (50-75); PLATELET ESTIMATE NORMAL (NORMAL); POIKILOCYTOSIS SLIGHT; TOTAL CELLS COUNTED 100
[2018-11-14] MEDS ORDERED: HEPARIN-NS 5,000 UNITS/500 ML 5,000 UNIT/500 ML BAG IV ONE (09:48)
[2018-11-14] MEDS ORDERED: Lidocaine 2% MPF (5 ml) Inj ONE (09:49)
--- NOTE | 2018-11-14 09:54 | CP.PCM.PN ---
Subjective - Date & Time of Evaluation Date of Evaluation: 11/14/18 Time of Evaluation: 09:51 - Subjective Subjective: PD fluid sent for culture awaiting removal PD cath, permcath insertion feels same no dyspnea, n, v, CPs. Still very edematous Objective - Vital Signs/Intake and Output Vital Signs (last 24 hours): Temp Pulse Resp BP Pulse Ox 99.2 F 102 H 20 102/62 98 11/14/18 07:00 11/14/18 07:15 11/14/18 07:00 11/14/18 07:00 11/14/18 07:00 Intake and Output: 11/14/18 11/14/18 06:59 18:59 Intake Total 0 Balance 0 - Medications Medications: Current Medications Allopurinol (Zyloprim) 100 mg PO HS [facility] Last Admin: 11/13/18 22:15 Dose: 100 mg Folic Acid (Folic Acid) 1 mg PO HS [facility] Last Admin: 11/13/18 22:15 Dose: 1 mg Furosemide (Lasix) 40 mg PO DAILY [facility] Rosuvastatin Calcium (Crestor) 10 mg PO [facility] Last Admin: 11/13/18 22:15 Dose: 10 mg Sevelamer Carbonate (Renvela) 800 mg PO BIDCC [facility] Last Admin: 11/14/18 07:41 Dose: Not Given - Labs Labs: 11/14/18 06:30 11/14/18 06:30 PT 13.9 SECONDS (9.7-12.2) H 11/13/18 17:05 INR 1.3 11/13/18 17:05 APTT 28 SECONDS (21-34) 11/13/18 17:05 - Constitutional Appears: No Acute Distress, Chronically Ill - Head Exam Head Exam: ATRAUMATIC, NORMAL INSPECTION - Eye Exam Eye Exam: EOMI, Normal appearance - Neck Exam Neck Exam: Normal Inspection. absent: Tenderness - Respiratory Exam Respiratory Exam: Clear to Ausculation Bilateral, NORMAL BREATHING PATTERN - Cardiovascular Exam Cardiovascular Exam: REGULAR RHYTHM, +S1 - GI/Abdominal Exam GI & Abdominal Exam: Soft. absent: Tenderness - Extremities Exam Extremities Exam: Pedal Edema. absent: Tenderness - Neurological Exam Neurological Exam: Awake, CN II-XII Intact - Skin Skin Exam: Dry, Warm Assessment and Plan (1) CAD (coronary artery disease) Status: Acute (2) ESRD (end stage renal disease) Status: Acute (3) Atrial flutter Status: Acute (4) Ultrafiltration failure of peritoneal dialysis Status: Acute - Assessment and Plan (Free Text) Plan: PD cath removal Percath insertion Dialysis later today Monitor low BP check UC+S as well as PD fluid culture
--- NOTE | 2018-11-14 09:54 | CP.PCM.HP ---
History of Present Illness - History of Present Illness History of Present Illness: 83 years old male brought to the ED at [facility] complaining of abdominal pain, malfunctioning PD. He is scheduled for a removal of the PD catheter and insertion of permacath for HD. The patient was recently hospitalized for a colitis, and his peritoneal dialysate has been cloudy on and off. He is known to have a CAD, s/p CABG x4 in 2007, a HPTN, an ESRD currently on PD, a hypercholesterolemia, a s/p cardioversion for an atrial flutter in 2015, Present on Admission - Present on Admission Any Indicators Present on Admission: No Review of Systems - Gastrointestinal Gastrointestinal: Abdominal Pain Past Patient History - Infectious Disease Hx of Infectious Diseases: None - Tetanus Immunizations Tetanus Immunization: Unknown - Past Medical History & Family History Past Medical History?: Yes Past Family History: Reviewed and not pertinent - Past Social History Smoking Status: Never Smoked Chewing Tobacco Use: No Cigar Use: No Alcohol: None Drugs: Denies Home Situation {Lives}: With Family - CARDIAC Hx Cardia Arrhythmia: Yes (HX: [id number] DONE ~[id number]) Hx Congestive Heart Failure: Yes Hx Hypercholesterolemia: Yes Hx Hypertension: Yes Hx Peripheral Edema: Yes - PULMONARY Hx Chronic Obstructive Pulmonary Disease (COPD): Yes - NEUROLOGICAL Hx Neurological Disorder: No - HEENT Hx HEENT Problems: No - RENAL Hx Chronic Kidney Disease: Yes - ENDOCRINE/METABOLIC Hx Endocrine Disorders: No - HEMATOLOGICAL/ONCOLOGICAL Hx Blood Disorders: Yes Hx Blood Transfusions: Yes (12/2017) - INTEGUMENTARY Hx Dermatological Problems: No - MUSCULOSKELETAL/RHEUMATOLOGICAL Hx Musculoskeletal Disorders: No Hx Falls: No - GASTROINTESTINAL Hx Gastrointestinal Disorders: No - GENITOURINARY/GYNECOLOGICAL Hx Genitourinary Disorders: No - PSYCHIATRIC Hx Substance Use: No - SURGICAL HISTORY 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QUAD-CORNARY BYPASS 2007) - ANESTHESIA Hx Anesthesia: Yes Hx Anesthesia Reactions: No Hx Malignant Hyperthermia: No Meds Allergies/Adverse Reactions: Allergies Allergy/AdvReac Type Severity Reaction Status Date / Time Gadolinium-Containing Allergy Severe "HIVES" Verified 10/27/18 23:05 Contrast Medi Iodinated Contrast- Oral and Allergy Severe URTICARIA Verified 10/27/18 23:05 IV Dye Thiazides Allergy Severe "HIVES" Verified 10/27/18 23:05 Physical Exam - Constitutional Appears: No Acute Distress, Chronically Ill - Head Exam Head Exam: NORMOCEPHALIC - Eye Exam Eye Exam: Normal appearance Pupil Exam: NORMAL ACCOMODATION - ENT Exam ENT Exam: Normal Exam - Neck Exam Neck exam: Positive for: Normal Inspection - Respiratory Exam Respiratory Exam: Clear to Auscultation Bilateral, NORMAL BREATHING PATTERN - Cardiovascular Exam Cardiovascular Exam: Irregular Rhythm - GI/Abdominal Exam GI & Abdominal Exam: Normal Bowel Sounds, Soft - Rectal Exam Rectal Exam: Deferred - Exam Exam: NORMAL INSPECTION - Extremities Exam Extremities exam: Positive for: normal inspection Results - Vital Signs Recent Vital Signs: Last Vital Signs Temp 99.2 F 11/14/18 07:00 Pulse 102 H 11/14/18 07:15 Resp 20 11/14/18 07:00 BP 102/62 11/14/18 07:00 Pulse Ox 98 11/14/18 07:00 - Labs Result Diagrams: 11/14/18 06:30 11/14/18 06:30 Labs: Laboratory Results - last 24 hr 11/13/18 11/13/18 11/13/18 12:28 12:28 13:13 WBC 15.1 H D RBC 3.12 L Hgb 10.3 L Hct 32.2 L MCV 103.1 H MCH 33.0 H MCHC 32.0 L RDW 14.4 Plt Count 366 MPV 6.8 L Neut % (Auto) 95.4 H Lymph % (Auto) 0.9 L [place] % (Auto) 3.5 Eos % (Auto) 0.1 Baso % (Auto) 0.1 Neut # (Auto) 14.4 H Lymph # (Auto) 0.1 L [place] # (Auto) 0.5 Eos # (Auto) 0.0 Baso # (Auto) 0.0 Neutrophils % (Manual) 95 H Band Neutrophils % 2 Lymphocytes % (Manual) 1 L Monocytes % (Manual) 2 Platelet Estimate Normal Hypochromasia (manual) Poikilocytosis (manual Anisocytosis (manual) Macrocytosis (manual) Slight PT INR APTT Sodium 130 L Potassium 3.4 L Chloride 94 L Carbon Dioxide 30 Anion Gap 9 L BUN 29 H Creatinine 6.9 H Est GFR ( Amer) 9 Est GFR (Non-Af Amer) 8 Random Glucose 102 D Calcium 7.2 L Phosphorus Magnesium % Saturation Ferritin Total Bilirubin 0.5 AST 27 ALT 22 Alkaline Phosphatase 148 H D Total Protein 5.5 L Albumin 2.2 L Globulin 3.2 Albumin/Globulin Ratio 0.7 L Lipase 137 Urine Color Urine Clarity Urine pH Ur Specific [place] Urine Protein Urine Glucose (UA) Urine Ketones Urine Blood Urine Nitrate Urine Bilirubin Urine Urobilinogen Ur Leukocyte Esterase Urine WBC (Auto) Urine RBC (Auto) Urine WBC Clumps (Auto) Ur Squamous Epith Cells Urine Bacteria Hep Bs Antigen Hep Bs Antibody Hep B Core IgM Ab Hepatitis C Antibody Blood Type B POSITIVE Antibody Screen Negative 11/13/18 11/13/18 11/13/18 17:05 17:05 17:05 WBC RBC Hgb Hct MCV MCH MCHC RDW Plt Count MPV Neut % (Auto) Lymph % (Auto) [place] % (Auto) Eos % (Auto) Baso % (Auto) Neut # (Auto) Lymph # (Auto) [place] # (Auto) Eos # (Auto) Baso # (Auto) Neutrophils % (Manual) Band Neutrophils % Lymphocytes % (Manual) Monocytes % (Manual) Platelet Estimate Hypochromasia (manual) Poikilocytosis (manual Anisocytosis (manual) Macrocytosis (manual) PT INR APTT Sodium Potassium Chloride Carbon Dioxide Anion Gap BUN Creatinine Est GFR ( Amer) Est GFR (Non-Af Amer) Random Glucose Calcium Phosphorus Magnesium % Saturation 10 L Ferritin 472.0 Total Bilirubin AST ALT Alkaline Phosphatase Total Protein Albumin Globulin Albumin/Globulin Ratio Lipase Urine Color Urine Clarity Urine pH Ur Specific [place] Urine Protein Urine Glucose (UA) Urine Ketones Urine Blood Urine Nitrate Urine Bilirubin Urine Urobilinogen Ur Leukocyte Esterase Urine WBC (Auto) Urine RBC (Auto) Urine WBC Clumps (Auto) Ur Squamous Epith Cells Urine Bacteria Hep Bs Antigen Negative Hep Bs Antibody Negative Hep B Core IgM Ab Negative Hepatitis C Antibody Negative Blood Type Antibody Screen 11/13/18 11/13/18 11/14/18 17:05 21:34 06:30 WBC 7.7 RBC 2.74 L Hgb 8.9 L Hct 28.3 L MCV 103.2 H MCH 32.6 H MCHC 31.6 L RDW 14.6 H Plt Count 281 MPV 6.5 L Neut % (Auto) 90.7 H Lymph % (Auto) 2.4 L [place] % (Auto) 6.2 Eos % (Auto) 0.3 Baso % (Auto) 0.4 Neut # (Auto) 7.0 Lymph # (Auto) 0.2 L [place] # (Auto) 0.5 Eos # (Auto) 0.0 Baso # (Auto) 0.0 Neutrophils % (Manual) 95 H Band Neutrophils % Lymphocytes % (Manual) 3 L Monocytes % (Manual) 2 Platelet Estimate Normal Hypochromasia (manual) Slight Poikilocytosis (manual Slight Anisocytosis (manual) Slight Macrocytosis (manual) PT 13.9 H INR 1.3 APTT 28 Sodium Potassium Chloride Carbon Dioxide Anion Gap BUN Creatinine Est GFR ( Amer) Est GFR (Non-Af Amer) Random Glucose Calcium Phosphorus Magnesium % Saturation Ferritin Total Bilirubin AST ALT Alkaline Phosphatase Total Protein Albumin Globulin Albumin/Globulin Ratio Lipase Urine Color [place] Urine Clarity Hazy Urine pH 5.0 Ur Specific [place] 1.017 Urine Protein 1+ H Urine Glucose (UA) Normal Urine Ketones Negative Urine Blood Negative Urine Nitrate Negative Urine Bilirubin Negative Urine Urobilinogen Normal Ur Leukocyte Esterase 3+ H Urine WBC (Auto) 466 H Urine RBC (Auto) 4 H Urine WBC Clumps (Auto) Mod H Ur Squamous Epith Cells < 1 Urine Bacteria Rare Hep Bs Antigen Hep Bs Antibody Hep B Core IgM Ab Hepatitis C Antibody Blood Type Antibody Screen 11/14/18 06:30 WBC RBC Hgb Hct MCV MCH MCHC RDW Plt Count MPV Neut % (Auto) Lymph % (Auto) [place] % (Auto) Eos % (Auto) Baso % (Auto) Neut # (Auto) Lymph # (Auto) [place] # (Auto) Eos # (Auto) Baso # (Auto) Neutrophils % (Manual) Band Neutrophils % Lymphocytes % (Manual) Monocytes % (Manual) Platelet Estimate Hypochromasia (manual) Poikilocytosis (manual Anisocytosis (manual) Macrocytosis (manual) PT INR APTT Sodium 133 Potassium 4.2 Chloride 96 L Carbon Dioxide 29 Anion Gap 12 BUN 35 H Creatinine 7.4 H* Est GFR ( Amer) 9 Est GFR (Non-Af Amer) 7 Random Glucose 81 D Calcium 6.9 L Phosphorus 3.7 Magnesium 1.4 L % Saturation Ferritin Total Bilirubin 0.5 AST 18 ALT 23 Alkaline Phosphatase 135 H Total Protein 5.2 L Albumin 2.0 L Globulin 3.2 Albumin/Globulin Ratio 0.6 L Lipase Urine Color Urine Clarity Urine pH Ur Specific [place] Urine Protein Urine Glucose (UA) Urine Ketones Urine Blood Urine Nitrate Urine Bilirubin Urine Urobilinogen Ur Leukocyte Esterase Urine WBC (Auto) Urine RBC (Auto) Urine WBC Clumps (Auto) Ur Squamous Epith Cells Urine Bacteria Hep Bs Antigen Hep Bs Antibody Hep B Core IgM Ab Hepatitis C Antibody Blood Type Antibody Screen Assessment & Plan (1) CAD (coronary artery disease) Assessment and Plan: Stable. Status: Chronic (2) Ultrafiltration failure of peritoneal dialysis Status: Acute (3) History of atrial flutter Assessment and Plan: Hold Eliquis for surgery. Status: Chronic Decision To Admit - Pt Status Changed To: Hospital Disposition Of: Inpatient - Admit Certification Admit to Inpatient:: After my assessment, the patient will require hospitalization for at least two midnights. This is because of the severity of symptoms shown, intensity of services needed, and/or the medical risk in this patient being treated as an outpatient. - InPatient: Physician Admission Certification:: After my assessments, the patient requires hospitalization for at least 2 midnights. - . Bed Request Type: Regular Admitting Physician: Tk Park
[2018-11-14] MEDS ORDERED: ceFAZolin 1 gm in NS 1 GM/100 ML BAG IVPB ONE (10:04)
[2018-11-14] MEDS ORDERED: Midazolam 2 MG/2 ML VIAL ONE (10:40)
[2018-11-14] MEDS ORDERED: Propofol 10 mg/ml Inj (20 ML) ONE (10:40)
[2018-11-14] MEDS ORDERED: HYDROmorphone 0.5 mg/0.5 ml ISec IVP PRN (11:38)
--- NOTE | 2018-11-14 12:50 | RAD ---
Chest x-ray single frontal view History PermCath placement. Comparison: 03/15/2018 Findings: Right-sided PermCath tip extending into the right atrium. No evidence of postprocedure pneumothorax. Persistent small left sided pleural effusion. Diffuse increased interstitial lung markings. Consolidative changes at the left lung base. Status post median sternotomy and CABG. Surgical clips in the right upper abdomen. Degenerative changes in the spine. Atherosclerotic calcification within the aorta. Calcification within the left proximal humerus. Impression: Right-sided PermCath tip extending into the right atrium. No evidence of postprocedure pneumothorax.
--- NOTE | 2018-11-14 12:53 | RAD ---
Date of service: 11/14/2018 PROCEDURE: Intraoperative Fluoroscopy. HISTORY: End-stage renal disease FINDINGS: Fluoroscopic assistance was provided for right-sided PermCath placement. Please refer to the operative report from RUSSELL Sparks.
--- NOTE | 2018-11-14 18:32 | OP ---
PROCEDURE DATE: 11/14/2018 PREOPERATIVE DIAGNOSIS: Renal failure. POSTOPERATIVE DIAGNOSIS: Renal failure. PROCEDURE CARRIED OUT: 1. Removal of Tenckhoff peritoneal dialysis catheter. 2. Placement of right jugular PermCath. SURGEON: Reji Aleman Jr., MD LEARN TO SWIM INSTRUCTOR: Rodri Heath DO ANESTHESIOLOGIST: Janet Sharma CRNA INDICATION: The patient is an 83-year-old male with renal failure, presently dialyzed with use of PD catheter, prior to discharge felt that wants to make a switch back to hemodialysis. OPERATIVE FINDINGS: Catheter was inserted uneventfully via the jugular vein on the right side. The vein was smaller than normal; only about 6 mm in diameter and initially we had difficulty accessing it. We never punctured the carotid. We did, there was some difficulty getting in. Eventually we were able to get in appropriately. We then advanced the catheter down to the superior vena cava. Right atrium was flushed with heparinized saline with excellent return. It originated on the right chest wall, went through the jugular vein, and terminated in superior vena cava. Subsequent to this, we made incision over the ports in the abdominal peritoneal dialysis catheter and were able to extract this in toto without any breakage. We cut it as it was being removed. Reji Aleman Jr., MD cc: MD Aaron Ferrera MD
--- NOTE | 2018-11-15 10:10 | CP.PCM.PN ---
Subjective - Date & Time of Evaluation Date of Evaluation: 11/15/18 Time of Evaluation: 06:45 - Subjective Subjective: Vascular Surgery Pt seen and examined. No issues overnight. Had HD yesterday. No current complaints. Objective - Vital Signs/Intake and Output Vital Signs (last 24 hours): Temp Pulse Resp BP Pulse Ox 98.2 F 101 H 18 98/52 L 97 11/15/18 08:00 11/15/18 09:13 11/15/18 08:00 11/15/18 09:13 11/15/18 08:00 Intake and Output: 11/15/18 11/15/18 06:59 18:59 Intake Total 120 Balance 120 - Medications Medications: Current Medications Acetaminophen (Tylenol 325mg Tab) 975 mg PO Q8 [facility] Last Admin: 11/14/18 21:37 Dose: 975 mg Allopurinol (Zyloprim) 100 mg PO HS [facility] Last Admin: 11/14/18 21:36 Dose: 100 mg Folic Acid (Folic Acid) 1 mg PO [facility] Last Admin: 11/14/18 21:36 Dose: 1 mg Furosemide (Lasix) 40 mg PO DAILY [facility] Last Admin: 11/15/18 09:13 Dose: Not Given Rosuvastatin Calcium (Crestor) 10 mg PO HS [facility] Last Admin: 11/14/18 21:36 Dose: 10 mg Sevelamer Carbonate (Renvela) 800 mg PO BIDCC [facility] Last Admin: 11/15/18 08:18 Dose: 800 mg - Labs Labs: 11/14/18 06:30 11/14/18 06:30 PT 13.9 SECONDS (9.7-12.2) H 11/13/18 17:05 INR 1.3 11/13/18 17:05 APTT 28 SECONDS (21-34) 11/13/18 17:05 - Constitutional Appears: Non-toxic, No Acute Distress - Head Exam Head Exam: ATRAUMATIC, NORMOCEPHALIC - Eye Exam Eye Exam: EOMI. absent: Scleral icterus - Respiratory Exam Respiratory Exam: NORMAL BREATHING PATTERN. absent: Respiratory Distress Additional comments: Minimal serosanguinous staining of R IJ permacath dressing. no swelling or hematoma - Cardiovascular Exam Cardiovascular Exam: +S1, +S2 - GI/Abdominal Exam GI & Abdominal Exam: Soft. absent: Distended, Tenderness - Neurological Exam Neurological Exam: Alert, Awake, Oriented x3 - Skin Skin Exam: Dry, Warm Assessment and Plan - Assessment and Plan (Free Text) Assessment: 83M POD#1 s/p R IJ permacath placement. Plan: Permacath functioning. Will discuss future plans for possibly placing new AVF D/W Dr. Ash Heath PGY4
--- NOTE | 2018-11-15 13:44 | CP.PCM.PN ---
Subjective - Date & Time of Evaluation Date of Evaluation: 11/15/18 Time of Evaluation: 13:41 - Subjective Subjective: s/p PD cath removal, placement of permcath 11/14 Tolerated first dialysis ok but has been hypotensive So far no culture reports feels better Objective - Vital Signs/Intake and Output Vital Signs (last 24 hours): Temp Pulse Resp BP Pulse Ox 98.2 F 101 H 18 98/52 L 97 11/15/18 08:00 11/15/18 09:13 11/15/18 08:00 11/15/18 09:13 11/15/18 08:00 Intake and Output: 11/15/18 11/15/18 06:59 18:59 Intake Total 120 Balance 120 - Medications Medications: Current Medications Acetaminophen (Tylenol 325mg Tab) 975 mg PO Q8 [facility] Last Admin: 11/14/18 21:37 Dose: 975 mg Allopurinol (Zyloprim) 100 mg PO [facility] Last Admin: 11/14/18 21:36 Dose: 100 mg Folic Acid (Folic Acid) 1 mg PO [facility] Last Admin: 11/14/18 21:36 Dose: 1 mg Rosuvastatin Calcium (Crestor) 10 mg PO [facility] Last Admin: 11/14/18 21:36 Dose: 10 mg Sevelamer Carbonate (Renvela) 800 mg PO TID [facility] - Labs Labs: 11/14/18 06:30 11/14/18 06:30 PT 13.9 SECONDS (9.7-12.2) H 11/13/18 17:05 INR 1.3 11/13/18 17:05 APTT 28 SECONDS (21-34) 11/13/18 17:05 - Constitutional Appears: No Acute Distress, Chronically Ill - Head Exam Head Exam: ATRAUMATIC, NORMAL INSPECTION - Eye Exam Eye Exam: EOMI, Normal appearance - Neck Exam Neck Exam: Normal Inspection. absent: Tenderness - Respiratory Exam Respiratory Exam: Clear to Ausculation Bilateral, NORMAL BREATHING PATTERN - Cardiovascular Exam Cardiovascular Exam: REGULAR RHYTHM, +S1 - GI/Abdominal Exam GI & Abdominal Exam: Distended, Soft - Extremities Exam Extremities Exam: Pedal Edema. 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
[2018-11-15] MEDS ORDERED: Ferric Sodium Gluconat Complex 62.5 mg/5 ml Vial IVPB SCH (13:45)
[2018-11-15] MEDS ORDERED: Magnesium Sulfate 1 gm in D5W 1 GM/100 ML BAG IVPB ONE (13:46)
[2018-11-15] MEDS: Ferric Sodium Gluconat Complex 125 MG in Sodium Chloride 0.9% 100 ML IVPB SCH (18:09)
--- NOTE | 2018-11-15 23:11 | CP.PCM.PN ---
Subjective - Date & Time of Evaluation Date of Evaluation: 11/15/18 Time of Evaluation: 19:00 - Subjective Subjective: Patient developed hypotension after the first HD yesterday. Has no SOB, no abdominal pain now. Leg edema improving. For a HD in AM, and may be discharged home in AM. Objective - Vital Signs/Intake and Output Vital Signs (last 24 hours): Temp Pulse Resp BP Pulse Ox 98.8 F 90 20 102/62 98 11/15/18 15:15 11/15/18 16:00 11/15/18 15:15 11/15/18 15:15 11/15/18 15:15 Intake and Output: 11/15/18 11/16/18 18:59 06:59 Intake Total 450 Balance 450 - Medications Medications: Current Medications Acetaminophen (Tylenol 325mg Tab) 975 mg PO Q8 [facility] Last Admin: 11/15/18 21:26 Dose: Not Given Allopurinol (Zyloprim) 100 mg PO [facility] Last Admin: 11/15/18 21:25 Dose: 100 mg Calcium Acetate (Phoslo) 667 mg PO TID [facility] Last Admin: 11/15/18 17:53 Dose: 667 mg Folic Acid (Folic Acid) 1 mg PO [facility] Last Admin: 11/15/18 21:25 Dose: 1 mg Ferric Sodium Gluconate Complex 125 mg/ Sodium Chloride 110 mls @ 110 mls/hr IVPB Q24H [facility] Stop: 11/19/18 16:01 Last Admin: 11/15/18 18:09 Dose: 110 mls/hr Rosuvastatin Calcium (Crestor) 10 mg PO [facility] Last Admin: 11/15/18 21:25 Dose: 10 mg - Labs Labs: 11/14/18 06:30 11/14/18 06:30 PT 13.9 SECONDS (9.7-12.2) H 11/13/18 17:05 INR 1.3 11/13/18 17:05 APTT 28 SECONDS (21-34) 11/13/18 17:05 - Constitutional Appears: Well, Chronically Ill - Head Exam Head Exam: NORMOCEPHALIC - Eye Exam Eye Exam: Normal appearance - ENT Exam ENT Exam: Normal Exam - Neck Exam Neck Exam: Normal Inspection - Respiratory Exam Respiratory Exam: Clear to Ausculation Bilateral - Cardiovascular Exam Cardiovascular Exam: REGULAR RHYTHM - GI/Abdominal Exam GI & Abdominal Exam: Soft, Normal Bowel Sounds - Rectal Exam Rectal Exam: Deferred - Exam Exam: NORMAL INSPECTION - Extremities Exam Extremities Exam: Pedal Edema - Back Exam Back Exam: NORMAL INSPECTION - Neurological Exam Neurological Exam: Alert, Awake, Oriented x3 - Psychiatric Exam Psychiatric exam: Anxious - Skin Skin Exam: Dry, Intact Assessment and Plan (1) CAD (coronary artery disease) Status: Chronic (2) Ultrafiltration failure of peritoneal dialysis Assessment & Plan: PD catheter was removed yesterday, a Permacath was inserted through the right IJV and Hemodialysis started yesterday. Status: Acute (3) History of atrial flutter Status: Chronic
[2018-11-16 07:26] LABS: BASO % 0.6 % (0.0-2.0); EOS # 0.1 K/uL (0.0-0.7); EOS % 1.3 % (0.0-4.0); HEMOGLOBIN 8.8 g/dL (12.0-18.0); LYMPH # 0.2 K/uL (1.0-4.3); LYMPH % 2.5 % (20.0-40.0); MEAN CELL VOLUME 103.5 fL (80.0-94.0); MEAN CORPUSCULAR HEMOGLOBIN 33.5 pg (27.0-31.0); MEAN CORPUSCULAR HGB CONC 32.3 g/dL (33.0-37.0); MEAN PLATELET VOLUME 6.9 fL (7.2-11.7); MONO # 0.4 K/uL (0.0-0.8); MONO % 6.2 % (0.0-10.0); NEUT # 5.8 K/uL (1.8-7.0); NEUT % 89.4 % (50.0-75.0); PLATELET COUNT 317 K/uL (130-400); RBC 2.63 Mil/uL (4.40-5.90); RED CELL DISTRIBUTION WIDTH 14.4 % (11.5-14.5); WHITE BLOOD COUNT 6.5 K/uL (4.8-10.8)
[2018-11-16 08:17] LABS: ALB/GLOB RATIO 0.7 (1.0-2.1); ALBUMIN 2.2 g/dL (3.5-5.0); CALCIUM 7.2 mg/dl (8.6-10.4)
[2018-11-16 09:12] LABS: LYMPHOCYTE 2 % (20-40); MONOCYTE 6 % (0-10); NEUTROPHIL 92 % (50-75); PLATELET ESTIMATE NORMAL (NORMAL); TOTAL CELLS COUNTED 100
[2018-11-16 09:13] LABS: ANISOCYTOSIS SLIGHT; HYPOCHROMIC SLIGHT; POLYCHROMIC SLIGHT; TOXIC GRANULATION PRESENT
[2018-11-16 09:14] LABS: LARGE PLATELETS PRESENT
--- NOTE | 2018-11-16 09:45 | CP.PCM.PN ---
Subjective - Date & Time of Evaluation Date of Evaluation: 11/16/18 Time of Evaluation: 09:42 - Subjective Subjective: Alert feels better; increased appetite for dialysis now BP better- stable now no fevers Objective - Vital Signs/Intake and Output Vital Signs (last 24 hours): Temp Pulse Resp BP Pulse Ox 97.8 F 84 20 110/63 98 11/15/18 23:40 11/15/18 23:40 11/15/18 23:40 11/15/18 23:40 11/15/18 23:40 - Medications Medications: Current Medications Acetaminophen (Tylenol 325mg Tab) 975 mg PO Q8 [facility] Last Admin: 11/16/18 06:00 Dose: Not Given Allopurinol (Zyloprim) 100 mg PO [facility] Last Admin: 11/15/18 21:25 Dose: 100 mg Calcium Acetate (Phoslo) 667 mg PO TID [facility] Last Admin: 11/15/18 17:53 Dose: 667 mg Folic Acid (Folic Acid) 1 mg PO [facility] Last Admin: 11/15/18 21:25 Dose: 1 mg Ferric Sodium Gluconate Complex 125 mg/ Sodium Chloride 110 mls @ 110 mls/hr IVPB Q24H [facility] Stop: 11/19/18 16:01 Last Admin: 11/15/18 18:09 Dose: 110 mls/hr Rosuvastatin Calcium (Crestor) 10 mg PO [facility] Last Admin: 11/15/18 21:25 Dose: 10 mg - Labs Labs: 11/16/18 07:06 11/16/18 07:06 PT 13.9 SECONDS (9.7-12.2) H 11/13/18 17:05 INR 1.3 11/13/18 17:05 APTT 28 SECONDS (21-34) 11/13/18 17:05 - Constitutional Appears: No Acute Distress, Chronically Ill - Head Exam Head Exam: ATRAUMATIC, NORMAL INSPECTION - Eye Exam Eye Exam: EOMI, Normal appearance - Neck Exam Neck Exam: Normal Inspection. absent: Tenderness - Respiratory Exam Respiratory Exam: Clear to Ausculation Bilateral - Cardiovascular Exam Cardiovascular Exam: Tachycardia - GI/Abdominal Exam GI & Abdominal Exam: Soft. absent: Tenderness - Extremities Exam Extremities Exam: Pedal Edema. 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
[2018-11-16 16:38] VITALS: RESP 20
[2018-11-16] MEDS: Ferric Sodium Gluconat Complex 125 MG in Sodium Chloride 0.9% 100 ML IVPB SCH (17:56)
--- NOTE | 2018-11-16 23:20 | CP.PCM.PN ---
Subjective - Date & Time of Evaluation Date of Evaluation: 11/16/18 Time of Evaluation: 20:00 - Subjective Subjective: Patient tolerated HD today. No abdominal pain, no nausea, no diarrhea, no fever. Objective - Vital Signs/Intake and Output Vital Signs (last 24 hours): Temp Pulse Resp BP Pulse Ox 98 F 106 H 20 98/58 L 98 11/16/18 15:00 11/16/18 16:00 11/16/18 15:00 11/16/18 15:00 11/16/18 15:00 Intake and Output: 11/16/18 11/17/18 18:59 06:59 Intake Total 250 Balance 250 - Medications Medications: Current Medications Acetaminophen (Tylenol 325mg Tab) 975 mg PO Q8 [facility] Last Admin: 11/16/18 21:19 Dose: Not Given Allopurinol (Zyloprim) 100 mg PO [facility] Last Admin: 11/16/18 21:46 Dose: 100 mg Calcium Acetate (Phoslo) 667 mg PO TID [facility] Last Admin: 11/16/18 17:56 Dose: 667 mg Folic Acid (Folic Acid) 1 mg PO [facility] Last Admin: 11/16/18 21:46 Dose: 1 mg Ferric Sodium Gluconate Complex 125 mg/ Sodium Chloride 110 mls @ 110 mls/hr IVPB Q24H [facility] Stop: 11/19/18 16:01 Last Admin: 11/16/18 17:56 Dose: 110 mls/hr Rosuvastatin Calcium (Crestor) 10 mg PO [facility] Last Admin: 11/16/18 21:46 Dose: 10 mg - Labs Labs: 11/16/18 07:06 11/16/18 07:06 PT 13.9 SECONDS (9.7-12.2) H 11/13/18 17:05 INR 1.3 11/13/18 17:05 APTT 28 SECONDS (21-34) 11/13/18 17:05 - Constitutional Appears: No Acute Distress, Chronically Ill - Head Exam Head Exam: NORMOCEPHALIC - Eye Exam Eye Exam: Normal appearance - ENT Exam ENT Exam: Normal Exam - Neck Exam Neck Exam: Normal Inspection - Respiratory Exam Respiratory Exam: Clear to Ausculation Bilateral, NORMAL BREATHING PATTERN - Cardiovascular Exam Cardiovascular Exam: REGULAR RHYTHM, Murmur - GI/Abdominal Exam GI & Abdominal Exam: Soft, Normal Bowel Sounds - Rectal Exam Rectal Exam: Deferred - Exam Exam: NORMAL INSPECTION - Extremities Exam Extremities Exam: Normal Inspection - Back Exam Back Exam: NORMAL INSPECTION - Neurological Exam Neurological Exam: Alert, Awake, Normal Gait, Oriented x3 - Psychiatric Exam Psychiatric exam: Anxious - Skin Skin Exam: Dry, Intact, Normal Color, Warm Assessment and Plan (1) CAD (coronary artery disease) Status: Chronic (2) Ultrafiltration failure of peritoneal dialysis Assessment & Plan: Now on HD as per Nephrologists. Status: Acute (3) History of atrial flutter Status: Chronic
[2018-11-17] MEDS: Ferric Sodium Gluconat Complex 125 MG in Sodium Chloride 0.9% 100 ML IVPB SCH (17:36)
--- NOTE | 2018-11-17 22:58 | CP.PCM.PN ---
Subjective - Date & Time of Evaluation Date of Evaluation: 11/17/18 Time of Evaluation: 17:30 - Subjective Subjective: Patient feels better, Afebrile. No more abdominal pain, diarrhea. For HD to- [facility]. Objective - Vital Signs/Intake and Output Vital Signs (last 24 hours): Temp Pulse Resp BP Pulse Ox 97.9 F 92 H 20 109/65 98 11/17/18 16:00 11/17/18 16:00 11/17/18 16:00 11/17/18 16:00 11/17/18 16:00 Intake and Output: 11/17/18 11/18/18 18:59 06:59 Intake Total 300 Output Total 0 Balance 300 - Medications Medications: Current Medications Acetaminophen (Tylenol 325mg Tab) 975 mg PO Q8 [facility] Last Admin: 11/17/18 21:30 Dose: Not Given Allopurinol (Zyloprim) 100 mg PO [facility] Last Admin: 11/17/18 21:30 Dose: 100 mg Calcium Acetate (Phoslo) 667 mg PO TID [facility] Last Admin: 11/17/18 17:35 Dose: 667 mg Folic Acid (Folic Acid) 1 mg PO [facility] Last Admin: 11/17/18 21:30 Dose: 1 mg Ferric Sodium Gluconate Complex 125 mg/ Sodium Chloride 110 mls @ 110 mls/hr IVPB Q24H [facility] Stop: 11/19/18 16:01 Last Admin: 11/17/18 17:36 Dose: 110 mls/hr Rosuvastatin Calcium (Crestor) 10 mg PO [facility] Last Admin: 11/17/18 21:30 Dose: 10 mg - Labs Labs: 11/16/18 07:06 11/16/18 07:06 PT 13.9 SECONDS (9.7-12.2) H 11/13/18 17:05 INR 1.3 11/13/18 17:05 APTT 28 SECONDS (21-34) 11/13/18 17:05 - Constitutional Appears: No Acute Distress, Chronically Ill - Head Exam Head Exam: NORMAL INSPECTION - Eye Exam Eye Exam: Normal appearance - ENT Exam ENT Exam: Normal Exam - Neck Exam Neck Exam: Normal Inspection - Respiratory Exam Respiratory Exam: Clear to Ausculation Bilateral - Cardiovascular Exam Cardiovascular Exam: REGULAR RHYTHM - GI/Abdominal Exam GI & Abdominal Exam: Soft, Normal Bowel Sounds - Rectal Exam Rectal Exam: Deferred - Extremities Exam Extremities Exam: Normal Inspection - Back Exam Back Exam: NORMAL INSPECTION - Neurological Exam Neurological Exam: Alert, Awake, Oriented x3 - Psychiatric Exam Psychiatric exam: Anxious - Skin Skin Exam: Dry, Intact Assessment and Plan (1) CAD (coronary artery disease) Status: Chronic (2) Ultrafiltration failure of peritoneal dialysis Assessment & Plan: To continue HD. Status: Acute (3) History of atrial flutter Status: Chronic
--- NOTE | 2018-11-18 12:19 | CP.PCM.PN ---
Subjective - Date & Time of Evaluation Date of Evaluation: 11/18/18 Time of Evaluation: 12:14 - Subjective Subjective: Feels better stable dialysis 11/16 labs acceptable outpatient dialysis arranged starting 11/19 ok for discharge from renal viewpoint Objective - Vital Signs/Intake and Output Vital Signs (last 24 hours): Temp Pulse Resp BP Pulse Ox 98.1 F 98 H 20 112/67 98 11/18/18 07:00 11/18/18 07:03 11/18/18 07:00 11/18/18 07:00 11/18/18 07:00 Intake and Output: 11/18/18 11/18/18 06:59 18:59 Intake Total 200 Balance 200 - Medications Medications: Current Medications Acetaminophen (Tylenol 325mg Tab) 975 mg PO Q8 [facility] Last Admin: 11/18/18 05:23 Dose: Not Given Allopurinol (Zyloprim) 100 mg PO [facility] Last Admin: 11/17/18 21:30 Dose: 100 mg Calcium Acetate (Phoslo) 667 mg PO TID [facility] Last Admin: 11/18/18 09:40 Dose: 667 mg Folic Acid (Folic Acid) 1 mg PO [facility] Last Admin: 11/17/18 21:30 Dose: 1 mg Ferric Sodium Gluconate Complex 125 mg/ Sodium Chloride 110 mls @ 110 mls/hr IVPB Q24H [facility] Stop: 11/19/18 16:01 Last Admin: 11/17/18 17:36 Dose: 110 mls/hr Rosuvastatin Calcium (Crestor) 10 mg PO [facility] Last Admin: 11/17/18 21:30 Dose: 10 mg - Labs Labs: 11/16/18 07:06 11/16/18 07:06 PT 13.9 SECONDS (9.7-12.2) H 11/13/18 17:05 INR 1.3 11/13/18 17:05 APTT 28 SECONDS (21-34) 11/13/18 17:05 - Constitutional Appears: No Acute Distress, Chronically Ill - Head Exam Head Exam: ATRAUMATIC, NORMAL INSPECTION - Eye Exam Eye Exam: EOMI, Normal appearance - Neck Exam Neck Exam: Normal Inspection. absent: Tenderness - Respiratory Exam Respiratory Exam: Clear to Ausculation Bilateral, NORMAL BREATHING PATTERN - Cardiovascular Exam Cardiovascular Exam: REGULAR RHYTHM, +S1 - GI/Abdominal Exam GI & Abdominal Exam: Soft. absent: Tenderness - Extremities Exam Extremities Exam: Pedal Edema. 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
[2018-11-18 16:12] VITALS: BP 113/69; PULSE 96; TEMP 98.4; O2SAT 96
--- NOTE | 2018-11-18 21:43 | CP.PCM.DIS ---
Provider - Provider Date of Admission: 11/13/18 12:50 Attending physician: Tk Park MD Primary care physician: Tk Park M.D. Consults: Dr Orellana ([place]) Dr Wily Jr ( Vascular surgeon). 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 (3) History of atrial flutter Status: Chronic Hospital Course - Lab Results Lab Results: Most Recent Lab Values WBC 6.5 K/uL (4.8-10.8) 11/16/18 07:06 RBC 2.63 Mil/uL (4.40-5.90) L 11/16/18 07:06 Hgb 8.8 g/dL (12.0-18.0) L 11/16/18 07:06 Hct 27.2 % (35.0-51.0) L 11/16/18 07:06 MCV 103.5 fL (80.0-94.0) H 11/16/18 07:06 MCH 33.5 pg (27.0-31.0) H 11/16/18 07:06 MCHC 32.3 g/dL (33.0-37.0) L 11/16/18 07:06 RDW 14.4 % (11.5-14.5) 11/16/18 07:06 Plt Count 317 K/uL (130-400) 11/16/18 07:06 MPV 6.9 fL (7.2-11.7) L 11/16/18 07:06 Neut % (Auto) 89.4 % (50.0-75.0) H 11/16/18 07:06 Lymph % (Auto) 2.5 % (20.0-40.0) L 11/16/18 07:06 [place] % (Auto) 6.2 % (0.0-10.0) 11/16/18 07:06 Eos % (Auto) 1.3 % (0.0-4.0) 11/16/18 07:06 Baso % (Auto) 0.6 % (0.0-2.0) 11/16/18 07:06 Neut # (Auto) 5.8 K/uL (1.8-7.0) 11/16/18 07:06 Lymph # (Auto) 0.2 K/uL (1.0-4.3) L 11/16/18 07:06 [place] # (Auto) 0.4 K/uL (0.0-0.8) 11/16/18 07:06 Eos # (Auto) 0.1 K/uL (0.0-0.7) 11/16/18 07:06 Baso # (Auto) 0.0 K/uL (0.0-0.2) 11/16/18 07:06 Neutrophils % (Manual) 92 % (50-75) H 11/16/18 07:06 Band Neutrophils % 2 % (0-2) 11/13/18 12:28 Lymphocytes % (Manual) 2 % (20-40) L 11/16/18 07:06 Monocytes % (Manual) 6 % (0-10) 11/16/18 07:06 Toxic Granulation Present 11/16/18 07:06 Platelet Estimate Normal (NORMAL) 11/16/18 07:06 Large Platelets Present 11/16/18 07:06 Polychromasia Slight 11/16/18 07:06 Hypochromasia (manual) Slight 11/16/18 07:06 Poikilocytosis (manual Slight 11/14/18 06:30 Anisocytosis (manual) Slight 11/16/18 07:06 Macrocytosis (manual) Moderate 11/16/18 07:06 PT 13.9 SECONDS (9.7-12.2) H 11/13/18 17:05 INR 1.3 11/13/18 17:05 APTT 28 SECONDS (21-34) 11/13/18 17:05 Sodium 135 mmol/L (132-148) 11/16/18 07:06 Potassium 4.3 mmol/L (3.6-5.2) 11/16/18 07:06 Chloride 100 mmol/L (98-107) 11/16/18 07:06 Carbon Dioxide 32 mmol/L (22-30) H 11/16/18 07:06 Anion Gap 7 (10-20) L 11/16/18 07:06 BUN 34 mg/dL (9-20) H 11/16/18 07:06 Creatinine 7.6 mg/dL (0.8-1.5) H* 11/16/18 07:06 Est GFR ( Amer) 8 11/16/18 07:06 Est GFR (Non-Af Amer) 7 11/16/18 07:06 Random Glucose 106 mg/dL (75-110) D 11/16/18 07:06 Calcium 7.2 mg/dl (8.6-10.4) L 11/16/18 07:06 Phosphorus 3.7 mg/dL (2.5-4.5) 11/14/18 06:30 Magnesium 1.4 mg/dL (1.6-2.3) L 11/14/18 06:30 % Saturation 10 (20-55) L 11/13/18 17:05 Ferritin 472.0 ng/mL 11/13/18 17:05 Total Bilirubin 0.3 mg/dL (0.2-1.3) 11/16/18 07:06 AST 38 U/L (17-59) 11/16/18 07:06 ALT 23 U/L (21-72) 11/16/18 07:06 Alkaline Phosphatase 184 U/L (38-126) H D 11/16/18 07:06 Total Protein 5.2 g/dL (6.3-8.3) L 11/16/18 07:06 Albumin 2.2 g/dL (3.5-5.0) L 11/16/18 07:06 Globulin 3.1 gm/dL (2.2-3.9) 11/16/18 07:06 Albumin/Globulin Ratio 0.7 (1.0-2.1) L 11/16/18 07:06 Lipase 137 U/L (23-300) 11/13/18 13:13 PTH Intact Whole Molec 108 pg/mL (14-64) H 11/13/18 17:05 Urine Color [place] (YELLOW) 11/13/18 21:34 Urine Clarity Hazy (Clear) 11/13/18 21:34 Urine pH 5.0 (5.0-8.0) 11/13/18 21:34 Ur Specific [place] 1.017 (1.003-1.030) 11/13/18 21:34 Urine Protein 1+ mg/dL (NEGATIVE) H 11/13/18 21:34 Urine Glucose (UA) Normal mg/dL (Normal) 11/13/18 21:34 Urine Ketones Negative mg/dL (NEGATIVE) 11/13/18 21:34 Urine Blood Negative (NEGATIVE) 11/13/18 21:34 Urine Nitrate Negative (NEGATIVE) 11/13/18 21:34 Urine Bilirubin Negative (NEGATIVE) 11/13/18 21:34 Urine Urobilinogen Normal mg/dL (0.2-1.0) 11/13/18 21:34 Ur Leukocyte Esterase 3+ Cade/uL (Negative) H 11/13/18 21:34 Urine WBC (Auto) 466 /hpf (0-5) H 11/13/18 21:34 Urine RBC (Auto) 4 /hpf (0-3) H 11/13/18 21:34 Urine WBC Clumps (Auto) Mod /hpf (NONE) H 11/13/18 21:34 Ur Squamous Epith Cells < 1 /hpf (0-5) 11/13/18 21:34 Urine Bacteria Rare (<OCC) 11/13/18 21:34 Hep Bs Antigen Negative (NEGATIVE) 11/13/18 17:05 Hep Bs Antibody Negative (NEGATIVE) 11/13/18 17:05 Hep B Core IgM Ab Negative (NEGATIVE) 11/13/18 17:05 Hepatitis C Antibody Negative (NEGATIVE) 11/13/18 17:05 Blood Type B POSITIVE 11/13/18 12:28 Antibody Screen Negative 11/13/18 12:28 - Hospital Course Hospital Course: This is an 83 years old male who is complaining of a diffuse abdominal pain, generalized weakness, for the past few days with a malfunction peritoneal dialysis catheter and cloudy peritoneal dialysate on and off. So far dialysate cultures were negative. It was decided that the PD catheter should be removed and a permacath should be inserted to begin hemodialysis. The patient had a Pemacath inserted through the right IJV on 11/14/2018 and HD started the same day. The patient feels better. His abdominal pain resolved. His appetite came back. The patient remained afebrile. On 11/16/2018, he received Ferrelicit 125 mg IV for a low hemoglobin. The patient was discharged home in a stable condition on 11/19/2018. He is scheduled to have HD three times a week as an outpatient. He will resume all his home medications. - Date & Time of H&P Date of H&P: 11/14/18 Discharge Exam - Head Exam Head Exam: ATRAUMATIC, NORMAL INSPECTION - Eye Exam Eye Exam: Normal appearance Pupil Exam: NORMAL ACCOMODATION - ENT Exam ENT Exam: Normal Exam - Neck Exam Neck exam: Normal Inspection - Respiratory Exam Respiratory Exam: Clear to PA & Lateral, NORMAL BREATHING PATTERN - Cardiovascular Exam Cardiovascular Exam: REGULAR RHYTHM, Systolic Murmur - GI/Abdominal Exam GI & Abdominal Exam: Normal Bowel Sounds, Soft - Rectal Exam Rectal Exam: Deferred - Extremities Exam Extremities exam: normal inspection - Back Exam Back exam: NORMAL INSPECTION - Neurological Exam Neurological exam: Alert, Normal Gait, Oriented x3 - Psychiatric Exam Psychiatric exam: Anxious - Skin Skin Exam: Dry, Intact, Normal Color, Warm Discharge Plan - Discharge Medications Prescriptions: Calcium Acetate [Phoslo] 667 mg PO TID #100 tab - Follow Up Plan Condition: STABLE Disposition: HOME/ ROUTINE Instructions: Heart Failure, Adult (DC), Coronary Heart Disease (DC), Calcium Acetate, End Stage Kidney Disease (DC), Dialysis Catheter (DC) Additional Instructions: Follow up with Dr Orellana in on week. Resume all home meds, including Eliquis 2.5 mg PO BID. Referrals: Aaron Orellana MD [Staff Provider] - Tk Park MD [Staff Provider] - Clinical Quality Measures - CQM - Heart Failure Will be discharged to: Home Follow Up Date (must be within 7 days from discharge): 11/25/18 Follow Up Time: 14:00 - Date & Time of Discharge Summary Date of Discharge Summary: 11/18/18 Time of Discharge Summary: 21:45
--- NOTE | 2018-11-19 11:38 | VASCLAB ---
Date of service: 11/18/2018 PROCEDURE: Upper Extremity Venous Mapping HISTORY: Renal failure PRIORS: None. TECHNIQUE: Bilateral upper extremity, internal jugular, subclavian, axillary, brachial, ulnar, radial, basilic and upper cephalic veins were evaluated. Flow was assessed with color Doppler, compressibility, assessment of phasic flow and augmentation response. Report prepared by CALDERON Braun FINDINGS: RIGHT: 1. Internal Jugular Vein: Compressibility - Fully compressible: Thrombus - None : Flow - Phasic 2. Subclavian Vein:Compressibility - Fully compressible: Thrombus - None : Flow - Phasic 3. Axillary Vein: Compressibility - Fully compressible: Thrombus - None 4. Brachial Vein: Compressibility - Fully compressible: Thrombus - None 5. Ulnar Vein:Compressibility - Fully compressible: Thrombus - None 6. Radial Vein:Compressibility - Fully compressible: Thrombus - None 7. Cephalic Vein: NOT VISUALIZED. 8. Basilic Vein:Compressibility - Fully compressible: thrombus - None 8.1. Upper Arm:Proximal Diameter: 0.14cm. Mid Diameter: 0.18cm. Distal Diameter: 0.13cm. 8.2. Forearm: Proximal Diameter:NOT VISUALIZED. LEFT: 1. Internal Jugular Vein: Compressibility - Fully compressible: Thrombus - None : Flow - Phasic 2. Subclavian Vein:Compressibility - Fully compressible: Thrombus - None : Flow - Phasic 3. Axillary Vein: Compressibility - Fully compressible: Thrombus - None 4. Brachial Vein: Compressibility - Fully compressible: Thrombus - None 5. Ulnar Vein:Compressibility - Fully compressible: Thrombus - None 6. Radial Vein:Compressibility - Fully compressible: Thrombus - None 7. Cephalic Vein: NOT VISUALIZED. 8. Basilic Vein:Compressibility - Fully compressible: thrombus - None 8.1. Upper Arm:Proximal Diameter: 0.27cm. Mid Diameter: 0.17cm. Distal Diameter: 0.14cm. 8.2. Forearm: Proximal Diameter: NOT VISUALIZED. OTHER FINDINGS: No evidence of venous thrombosis in bilateral upper extremities. IMPRESSION: Refer to the above listed measurements for vein size.
== END 2018-11-18 17:31 | disposition home or self-care (01) | DRG 981 ==
LOC: C.ER 11:33 → C.3T 12:50 → C.6T 15:52
PROVIDERS: ADMIT Internal Medicine Cardiovascular Disease; ATTEND Internal Medicine Cardiovascular Disease
PROC: 02HV33Z Insertion of Infusion Device into Superior Vena Cava, Percutaneous Approach (ICD-10-PCS; 2018-11-14)
PROC: 5A1D70Z Performance of Urinary Filtration, Intermittent, Less than 6 Hours Per Day (ICD-10-PCS; 2018-11-14)
PROC: 0WPG03Z Removal of Infusion Device from Peritoneal Cavity, Open Approach (ICD-10-PCS; principal; 2018-11-14 15:15)
DX: T85.611A Breakdown (mechanical) of intraperitoneal dialysis catheter, initial encounter (principal); N18.6 End stage renal disease; I13.2 Hypertensive heart and chronic kidney disease with heart failure and with stage 5 chronic kidney disease, or end stage renal disease; I48.92 Unspecified atrial flutter; Z99.2 Dependence on renal dialysis; I25.10 Atherosclerotic heart disease of native coronary artery without angina pectoris; I25.5 Ischemic cardiomyopathy; I50.9 Heart failure, unspecified; J44.9 Chronic obstructive pulmonary disease, unspecified; Z95.1 Presence of aortocoronary bypass graft; E78.00 Pure hypercholesterolemia, unspecified; Y81.2 Prosthetic and other implants, materials and accessory general- and plastic-surgery devices associated with adverse incidents; E78.5 Hyperlipidemia, unspecified

== ENCOUNTER 2018-11-23 11:01 | Inpatient (IN) | payer MEDICARE ==
[2018-11-23 11:12] VITALS: BMI 17.7
[2018-11-23] MEDS ORDERED: Sodium Chloride 0.9% 500 ML IV ONE (11:17)
--- NOTE | 2018-11-23 11:33 | C.PDOC ---
History Of Present Illness 83 year old male with a medical history of end stage renal disease presents to the ED for evaluation of cough, shortness of breath, chills, and low grade fevers for 3 days. The patient states he was started on zithromax for 2 days w ith no improvement. Today the patient notes he was in dialysis who sent the patient to the ED for evaluation. He admits to recent hospital admission for peritoneal dialysis. He denies nausea, vomiting, and any other associated symptoms. Time Seen by Provider: 11/23/18 11:09 Chief Complaint (Nursing): Shortness Of Breath History Per: Patient History/Exam Limitations: no limitations Onset/Duration Of Symptoms: Days (x3) Current Symptoms Are (Timing): Still Present Associated Symptoms: Fever, Chills Recent travel outside of the [place]: No Past Medical History Reviewed: Historical Data, Nursing Documentation, Vital Signs Vital Signs: Last Vital Signs Temp Pulse 111 H 11/23/18 11:12 Resp 28 H 11/23/18 11:12 BP 154/84 H 11/23/18 11:12 Pulse Ox 100 11/23/18 11:12 - Medical History PMH: CAD, Cardia Arrhythmia (HX: [id number] DONE ~[id number]), CHF, COPD, HTN, Hypercholesterolemia, Peripheral Edema, End Stage Renal Disease, Chronic Kidney Disease Surgical History: CABG (QUAD-CORNARY BYPASS 2007) - [facility] Procedures (11/13/18) ENDOSCOPIC BRONCHIAL BX (06/12/13) INSERTION OF INFUSION DEV INTO SUP VENA CAVA, PERC APPROACH (11/13/18) IRRIGATION OF PERITON CAV USING DIALYSATE, PERC APPROACH (03/11/18) REMOVAL OF INFUSION DEVICE FROM PERITON CAV, OPEN APPROACH (11/13/18) Family History: States: Unknown Family Hx - Social History Hx Tobacco Use: No Hx Alcohol Use: No Hx Substance Use: No - Immunization History Hx Tetanus Toxoid Vaccination: Yes Hx Influenza Vaccination: Yes Hx Pneumococcal Vaccination: Yes Review Of Systems Except As Marked, All Systems Reviewed And Found Negative. Constitutional: Positive for: Fever (low grade. ), Chills Respiratory: Positive for: Cough, Shortness of Breath Gastrointestinal: Negative for: Nausea, Vomiting Physical Exam - Physical Exam Appears: No Acute Distress Skin: Warm, Dry Head: Atraumatic, Normacephalic Eye(s): bilateral: Normal Inspection Oral Mucosa: Moist Neck: Normal ROM Chest: Symmetrical Cardiovascular: Rhythm Regular, No Murmur Respiratory: Normal Breath Sounds, No Rales, No Rhonchi, No Wheezing, Other ((+) mild dyspnea. (+) tachycardia.) Gastrointestinal/Abdominal: Normal Exam, Soft, No Tenderness Extremity: Normal ROM (x4) Neurological/Psych: Oriented x3, Normal Speech, Normal Cognition ED Course And Treatment - Laboratory Results Result Diagrams: 11/23/18 12:16 11/23/18 12:16 ECG: Interpreted By Me, Viewed By Me ECG Rhythm: Sinus Tachycardia Interpretation Of ECG: Non specific ST abnormalities. No ST elevation. Rate From EC O2 Sat by Pulse Oximetry: 100 (RA) Pulse Ox Interpretation: Normal - Radiology CXR: Interpreted by Me, Viewed By Me CXR Interpretation: Yes: Infiltrates (possible), Heart Size (normal), Other (left side pleural effusion ) Medical Decision Making Medical Decision Making: Initial plan: -Blood sent. -EKG -CXR -Blood culture. -Urine culture. -Urinalysis -O2 via nasal cannula Progress/Update: 2:03pm : Spoke with Dr. Park regarding the patients case. Disposition Counseled Patient/Family Regarding: Studies Performed, Diagnosis - Disposition Disposition: HOSPITALIZED Disposition Time: 14:30 Condition: STABLE - Clinical Impression Clinical Impression: Sepsis, ESRD (end stage renal disease), Pneumonia - Scribe Statement The provider has reviewed the documentation as recorded by the Scribe (Maureen Styles) Provider Attestation: All medical record entries made by the Scribe were at my direction and personally dictated by me. I have reviewed the chart and agree that the record accurately reflects my personal performance of the history, physical exam, medical decision making, and the department course for this patient. I have also personally directed, reviewed, and agree with the discharge instructions and disposition.
[2018-11-23 12:06] LABS: VENOUS BLOOD GAS BASE EXCESS 6.8 mmol/L (0.0-2.0); VENOUS BLOOD GAS PCO2 57 mmHg (40-60); VENOUS BLOOD GAS PO2 16 mm/Hg (30-55); VENOUS BLOOD PH 7.38 (7.32-7.43)
[2018-11-23] MEDS ORDERED: Piperacillin/Tazobact 3.375 GM in Sodium Chloride 100 ML IVPB STA (12:13)
[2018-11-23] MEDS ORDERED: Piperacillin/Tazobact 3.375 gm 100 ML IVPB ONE (12:21)
[2018-11-23] MEDS ORDERED: Vancomycin 1 GM 1 GM/250 ML BAG IVPB ONE (12:21)
[2018-11-23 12:26] LABS: BASO # 0.1 K/uL (0.0-0.2); BASO % 0.8 % (0.0-2.0); EOS % 0.3 % (0.0-4.0); LYMPH # 0.3 K/uL (1.0-4.3); MEAN CORPUSCULAR HEMOGLOBIN 33.8 pg (27.0-31.0); MEAN PLATELET VOLUME 6.8 fL (7.2-11.7); MONO # 0.6 K/uL (0.0-0.8); MONO % 8.2 % (0.0-10.0); NEUT # 6.8 K/uL (1.8-7.0); NEUT % 86.7 % (50.0-75.0); NRBC % 0.1 % (0.0-2.0); PLATELET COUNT 327 K/uL (130-400); RBC 3.55 Mil/uL (4.40-5.90); RED CELL DISTRIBUTION WIDTH 16.7 % (11.5-14.5); WHITE BLOOD COUNT 7.9 K/uL (4.8-10.8)
[2018-11-23 12:29] LABS: INR 1.1; PROTHROMBIN TIME 11.8 SECONDS (9.7-12.2)
[2018-11-23 12:31] LABS: MEAN CELL VOLUME 105.6 fL (80.0-94.0)
[2018-11-23 13:11] LABS: URINE BACTERIA RARE (<OCC); URINE BILIRUBIN NEGATIVE (NEGATIVE); URINE BLOOD 1+ (NEGATIVE); URINE CLARITY Clear (Clear); URINE COLOR Yellow (YELLOW); URINE GLUCOSE (UA) 1+ mg/dL (Normal); URINE HYALINE CAST 0-2 /lpf (0-2); URINE LEUKOCYTE ESTERASE NEG Leu/uL (Negative); URINE PROTEIN 2+ mg/dL (NEGATIVE); URINE UROBILINOGEN NORMAL mg/dL (0.2-1.0)
[2018-11-23 13:14] LABS: ALB/GLOB RATIO 0.8 (1.0-2.1); ALBUMIN 3.6 g/dL (3.5-5.0); CALCIUM 8.7 mg/dl (8.6-10.4)
[2018-11-23 13:37] LABS: LYMPHOCYTE 5 % (20-40); MONOCYTE 10 % (0-10); NEUTROPHIL 85 % (50-75); TOTAL CELLS COUNTED 100
[2018-11-23 13:38] LABS: ANISOCYTOSIS SLIGHT; HYPOCHROMIC SLIGHT; OVALOCYTES SLIGHT; PLATELET ESTIMATE NORMAL (NORMAL); POLYCHROMIC SLIGHT
[2018-11-23 13:39] LABS: TEARDROP CELLS SLIGHT
--- NOTE | 2018-11-23 14:05 | RAD ---
Date of service: 11/23/2018 HISTORY: Sepsis Patient COMPARISON: Portable chest 11/14/2018 FINDINGS: LUNGS: Right central venous dialysis catheter unchanged in position. No definitive airspace disease demonstrated bilaterally. PLEURA: Small loculated left pleural effusion unchanged. No right pleural effusion. No pneumothorax bilaterally. CARDIOVASCULAR: No aortic atherosclerotic calcification present. Cardiac silhouette stable. No pulmonary vascular congestion. OSSEOUS STRUCTURES: Post CABG changes reiterated. VISUALIZED UPPER ABDOMEN: Normal. OTHER FINDINGS: None. IMPRESSION: Small locule left pleural effusion unchanged with no interval infiltrates bilaterally.
[2018-11-23 14:06] LABS: VENOUS BLOOD GAS BASE EXCESS 4.4 mmol/L (0.0-2.0); VENOUS BLOOD GAS PCO2 52 mmHg (40-60); VENOUS BLOOD GAS PO2 16 mm/Hg (30-55); VENOUS BLOOD PH 7.38 (7.32-7.43)
[2018-11-23] MEDS ORDERED: Potassium Chloride 20 mEq ER Tab PO SCH (19:30)
[2018-11-23] MEDS: cefTRIAXone 2 GM in Sodium Chloride 0.9% 100 ML IVPB SCH (22:40)
--- NOTE | 2018-11-24 00:04 | CP.PCM.HP ---
History of Present Illness - History of Present Illness History of Present Illness: 83 yo male complaining of low grade fever, productive cough, progressive SOB for the past few days. In the ED, his serum lactic acid is slightly elevated. A CXR reveals a left pleural effusion. He was recently discharged from the Hospital foe an abdominal pain, and PD was switched to Hemodialysis. In the ED, he was given IV Vancomycin and IV Zosyn. Present on Admission - Present on Admission Any Indicators Present on Admission: No Review of Systems - Constitutional Constitutional: Fever, Weakness - Respiratory Respiratory: Cough, Dyspnea Past Patient History - Infectious Disease Hx of Infectious Diseases: None - Tetanus Immunizations Tetanus Immunization: Unknown - Past Medical History & Family History Past Medical History?: Yes - Past Social History Smoking Status: Never Smoked Alcohol: None Drugs: Denies Home Situation {Lives}: With Family Domestic Violence: Negative - CARDIAC Hx Cardia Arrhythmia: Yes (HX: [id number] DONE ~[id number]) Hx Congestive Heart Failure: Yes Hx Hypercholesterolemia: Yes Hx Hypertension: Yes Hx Peripheral Edema: Yes - PULMONARY Hx Respiratory Disorders: Yes Hx Chronic Obstructive Pulmonary Disease (COPD): Yes - NEUROLOGICAL Hx Neurological Disorder: No - HEENT Hx HEENT Problems: No - RENAL Hx Chronic Kidney Disease: Yes - ENDOCRINE/METABOLIC Hx Endocrine Disorders: No - HEMATOLOGICAL/ONCOLOGICAL Hx Blood Disorders: Yes Hx Blood Transfusions: Yes (12/2017) - INTEGUMENTARY Hx Dermatological Problems: No - MUSCULOSKELETAL/RHEUMATOLOGICAL Hx Musculoskeletal Disorders: No Hx Falls: No - GASTROINTESTINAL Hx Gastrointestinal Disorders: No - GENITOURINARY/GYNECOLOGICAL Hx Genitourinary Disorders: No - PSYCHIATRIC Hx Substance Use: No - SURGICAL HISTORY 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QUAD-CORNARY BYPASS 2007) - ANESTHESIA Hx Anesthesia: Yes Hx Anesthesia Reactions: No Hx Malignant Hyperthermia: No Meds Allergies/Adverse Reactions: Allergies Allergy/AdvReac Type Severity Reaction Status Date / Time Gadolinium-Containing Allergy Severe "HIVES" Verified 11/23/18 11:10 Contrast Medi Iodinated Contrast- Oral and Allergy Severe URTICARIA Verified 11/23/18 11:10 IV Dye Thiazides Allergy Severe "HIVES" Verified 11/23/18 11:10 Physical Exam - Constitutional Appears: Chronically Ill - Head Exam Head Exam: NORMAL INSPECTION - Eye Exam Eye Exam: Normal appearance Pupil Exam: NORMAL ACCOMODATION - ENT Exam ENT Exam: Normal Exam - Neck Exam Neck exam: Positive for: Normal Inspection - Respiratory Exam Respiratory Exam: Rhonchi Additional comments: Rhonchi both bases. - Cardiovascular Exam Cardiovascular Exam: REGULAR RHYTHM - GI/Abdominal Exam GI & Abdominal Exam: Normal Bowel Sounds, Soft - Rectal Exam Rectal Exam: Deferred - Extremities Exam Extremities exam: Positive for: normal inspection - Back Exam Back exam: NORMAL INSPECTION - Neurological Exam Neurological exam: Alert, Oriented x3 - Psychiatric Exam Psychiatric exam: Anxious - Skin Skin Exam: Dry, Intact, Normal Color, Warm Results - Vital Signs Recent Vital Signs: Last Vital Signs Temp 98.1 F 11/23/18 17:30 Pulse 83 11/23/18 19:34 Resp 18 11/23/18 18:19 BP 146/75 11/23/18 17:30 Pulse Ox 98 11/23/18 18:19 - Labs Result Diagrams: 11/23/18 12:16 11/23/18 12:16 Labs: Laboratory Results - last 24 hr 11/23/18 11/23/18 11/23/18 11:59 12:16 12:16 WBC 7.9 RBC 3.55 L Hgb 12.0 D Hct 37.5 MCV 105.6 H D MCH 33.8 H MCHC 32.0 L RDW 16.7 H Plt Count 327 MPV 6.8 L Neut % (Auto) 86.7 H Lymph % (Auto) 4.0 L [place] % (Auto) 8.2 Eos % (Auto) 0.3 Baso % (Auto) 0.8 Neut # (Auto) 6.8 Lymph # (Auto) 0.3 L [place] # (Auto) 0.6 Eos # (Auto) 0.0 Baso # (Auto) 0.1 Neutrophils % (Manual) 85 H Lymphocytes % (Manual) 5 L Monocytes % (Manual) 10 Platelet Estimate Normal Polychromasia Slight Hypochromasia (manual) Slight Anisocytosis (manual) Slight Macrocytosis (manual) Slight Tear Drop Cells Slight Ovalocytes Slight PT 11.8 INR 1.1 APTT 35 H pO2 16 L VBG pH 7.38 VBG pCO2 57 VBG HCO3 28.1 VBG Total CO2 35.4 H VBG O2 Sat (Calc) 28.3 L VBG Base Excess 6.8 H VBG Potassium 4.1 Sodium 139.0 Chloride 102.0 Glucose Lactate 2.7 H Potassium Carbon Dioxide Anion Gap BUN Creatinine Est GFR ( Amer) Est GFR (Non-Af Amer) Random Glucose Calcium Phosphorus Magnesium Total Bilirubin AST ALT Alkaline Phosphatase Total Protein Albumin Globulin Albumin/Globulin Ratio Venous Blood Potassium 4.1 Urine Color Urine Clarity Urine pH Ur Specific [place] Urine Protein Urine Glucose (UA) Urine Ketones Urine Blood Urine Nitrate Urine Bilirubin Urine Urobilinogen Ur Leukocyte Esterase Urine WBC (Auto) Urine RBC (Auto) Urine Bacteria Hyaline Casts Influenza Typ A,B (EIA) 11/23/18 11/23/18 11/23/18 12:16 12:16 12:50 WBC RBC Hgb Hct MCV MCH MCHC RDW Plt Count MPV Neut % (Auto) Lymph % (Auto) [place] % (Auto) Eos % (Auto) Baso % (Auto) Neut # (Auto) Lymph # (Auto) [place] # (Auto) Eos # (Auto) Baso # (Auto) Neutrophils % (Manual) Lymphocytes % (Manual) Monocytes % (Manual) Platelet Estimate Polychromasia Hypochromasia (manual) Anisocytosis (manual) Macrocytosis (manual) Tear Drop Cells Ovalocytes PT INR APTT pO2 VBG pH VBG pCO2 VBG HCO3 VBG Total CO2 VBG O2 Sat (Calc) VBG Base Excess VBG Potassium Sodium 137 Chloride 98 Glucose Lactate Potassium 4.6 Carbon Dioxide 31 H Anion Gap 12 BUN 7 L Creatinine 3.3 H Est GFR ( Amer) 22 Est GFR (Non-Af Amer) 18 Random Glucose 104 Calcium 8.7 Phosphorus 2.7 Magnesium 1.8 Total Bilirubin 0.9 AST 68 H D ALT 23 Alkaline Phosphatase 211 H Total Protein 7.9 Albumin 3.6 Globulin 4.3 H Albumin/Globulin Ratio 0.8 L Venous Blood Potassium Urine Color Yellow Urine Clarity Clear Urine pH 7.0 Ur Specific [place] 1.009 Urine Protein 2+ H Urine Glucose (UA) 1+ H Urine Ketones Negative Urine Blood 1+ H Urine Nitrate Negative Urine Bilirubin Negative Urine Urobilinogen Normal Ur Leukocyte Esterase Neg Urine WBC (Auto) 6 H Urine RBC (Auto) 3 Urine Bacteria Rare Hyaline Casts 0-2 Influenza Typ A,B (EIA) Negative for flu a/b 11/23/18 14:00 WBC RBC Hgb Hct MCV MCH MCHC RDW Plt Count MPV Neut % (Auto) Lymph % (Auto) [place] % (Auto) Eos % (Auto) Baso % (Auto) Neut # (Auto) Lymph # (Auto) [place] # (Auto) Eos # (Auto) Baso # (Auto) Neutrophils % (Manual) Lymphocytes % (Manual) Monocytes % (Manual) Platelet Estimate Polychromasia Hypochromasia (manual) Anisocytosis (manual) Macrocytosis (manual) Tear Drop Cells Ovalocytes PT INR APTT pO2 16 L VBG pH 7.38 VBG pCO2 52 VBG HCO3 26.3 VBG Total CO2 32.4 H VBG O2 Sat (Calc) 32.5 L VBG Base Excess 4.4 H VBG Potassium 3.9 Sodium 141.0 Chloride 108.0 H Glucose 86 Lactate 0.9 Potassium Carbon Dioxide Anion Gap BUN Creatinine Est GFR ( Amer) Est GFR (Non-Af Amer) Random Glucose Calcium Phosphorus Magnesium Total Bilirubin AST ALT Alkaline Phosphatase Total Protein Albumin Globulin Albumin/Globulin Ratio Venous Blood Potassium 3.9 Urine Color Urine Clarity Urine pH Ur Specific [place] Urine Protein Urine Glucose (UA) Urine Ketones Urine Blood Urine Nitrate Urine Bilirubin Urine Urobilinogen Ur Leukocyte Esterase Urine WBC (Auto) Urine RBC (Auto) Urine Bacteria Hyaline Casts Influenza Typ A,B (EIA) Assessment & Plan (1) Pneumonia Assessment and Plan: IV antibiotics after blood, sputum and urine cultures. Status: Acute (2) ESRD (end stage renal disease) Status: Acute Decision To Admit - Pt Status Changed To: Hospital Disposition Of: Inpatient - Admit Certification Admit to Inpatient:: After my assessment, the patient will require hospitalization for at least two midnights. This is because of the severity of symptoms shown, intensity of services needed, and/or the medical risk in this patient being treated as an outpatient. - InPatient: Physician Admission Certification:: After my assessments, the patient requires hospitalization for at least 2 midnights. - . Bed Request Type: Telemetry Admitting Physician: Tk Park
[2018-11-24] MEDS: Multivitamin Vitamin B Complex (Nephro-Vite) Tab PO SCH (08:17)
[2018-11-24 08:34] LABS: BASO # 0.1 K/uL (0.0-0.2); BASO % 0.9 % (0.0-2.0); EOS % 0.7 % (0.0-4.0); HEMOGLOBIN 10.4 g/dL (12.0-18.0); LYMPH # 0.3 K/uL (1.0-4.3); MEAN CELL VOLUME 105.6 fL (80.0-94.0); MEAN CORPUSCULAR HEMOGLOBIN 33.8 pg (27.0-31.0); MEAN PLATELET VOLUME 7.4 fL (7.2-11.7); MONO # 0.5 K/uL (0.0-0.8); MONO % 6.8 % (0.0-10.0); NEUT # 5.8 K/uL (1.8-7.0); NEUT % 86.6 % (50.0-75.0); PLATELET COUNT 280 K/uL (130-400); RBC 3.07 Mil/uL (4.40-5.90); RED CELL DISTRIBUTION WIDTH 16.9 % (11.5-14.5); WHITE BLOOD COUNT 6.7 K/uL (4.8-10.8)
[2018-11-24 09:26] LABS: BANDS 3 % (0-2); EOSINOPHIL 1 % (0-4); TOTAL CELLS COUNTED 100
[2018-11-24 09:27] LABS: ANISOCYTOSIS SLIGHT; HYPOCHROMIC SLIGHT; LYMPHOCYTE 5 % (20-40); MONOCYTE 7 % (0-10); NEUTROPHIL 84 % (50-75); PLATELET ESTIMATE NORMAL (NORMAL); POIKILOCYTOSIS SLIGHT; POLYCHROMIC SLIGHT
[2018-11-24 09:28] LABS: LARGE PLATELETS PRESENT; OVALOCYTES SLIGHT; TEARDROP CELLS SLIGHT
--- NOTE | 2018-11-24 17:04 | CP.PCM.CON ---
History of Present Illness - History of Present Illness History of Present Illness: 83 year old male with a medical history of end stage renal disease presents to the ED for evaluation of cough, shortness of breath, chills, and low grade fevers for 3 days. The patient states he was started on zithromax for 2 days wit h no improvement. Patient was cultured up and started on IV antibiotics ID consult was requested - Medical History PMH: CAD, Cardia Arrhythmia (HX: [id number] DONE ~[id number]), CHF, COPD, HTN, Hypercholesterolemia, Peripheral Edema, End Stage Renal Disease, Chronic Kidney Disease Surgical History: CABG (QUAD-CORNARY BYPASS 2007) - [facility] Procedures (11/13/18) ENDOSCOPIC BRONCHIAL BX (06/12/13) INSERTION OF INFUSION DEV INTO SUP VENA CAVA, PERC APPROACH (11/13/18) IRRIGATION OF PERITON CAV USING DIALYSATE, PERC APPROACH (03/11/18) REMOVAL OF INFUSION DEVICE FROM PERITON CAV, OPEN APPROACH (11/13/18) Review of Systems - Review of Systems All systems: reviewed and no additional remarkable complaints except - Constitutional Constitutional: As Per HPI - EENT Eyes: absent: As Per HPI, Blind Spots, Blurred Vision, Change in Vision, Decreased Night Vision, Diplopia, Discharge, Dry Eye, Exophthalmos, Floaters, Irritation, Itchy Eyes, Loss of Peripheral Vision, Pain, Photophobia, Requires Corrective Lenses, Sees Flashes, Spots in Vision, Tunnel Vision, Other Visual Disturbances, Loss of Vision, Other Ears: absent: As Per HPI, Decreased Hearing, Ear Discharge, Ear Pain, Tinnitus, Abnormal Hearing, Disequilibrium, Dizziness, Other Nose/Mouth/Throat: absent: As Per HPI, Epistaxis, Nasal Congestion, Nasal Discharge, Nasal Obstruction, Nasal Trauma, Nose Pain, Post Nasal Drip, Sinus Pain, Sinus Pressure, Bleeding Gums, Change in Voice, Dental Pain, Dry Mouth, Dysphagia, Halitosis, Hoarsness, Lip Swelling, Mouth Lesions, Mouth Pain, Odynophagia, Sore Throat, Throat Swelling, Tongue Swelling, Facial Pain, Neck Pain, Neck Mass, Other - Cardiovascular Cardiovascular: As Per HPI - Respiratory Respiratory: As Per HPI, Cough, Dyspnea. absent: Hemoptysis - Gastrointestinal Gastrointestinal: absent: As Per HPI, Abdominal Pain, Belching, Bloating, Change in Bowel Habits, Change in Stool Character, Coffee Ground Emesis, Constipation, Cramping, Diarrhea, Dyspepsia, Dysphagia, Early Satiety, Excessive Flatus, Fecal Incontinence, Heartburn, Hematemesis, Hematochezia, Loose Stools, Melena, Nausea, Odynophagia, Temesmus, Vomiting, Other - Genitourinary Genitourinary: absent: As Per HPI, Change in Urinary Stream, Difficulty Urinating, Dysuria, Flank Pain, Hematuria, Pyuria, Nocturia, Urinary Incontinence, Urinary Frequency, Urinary Hesitance, Urinary Urgency, Voiding Freq/Small Amts, Freq UTI, Hx Renal/Bladder Calculi, Hx /Renal Surgery, Bladder Distension, Other - Musculoskeletal Musculoskeletal: absent: As Per HPI, Abnormal Gait, Arthralgias, Atrophy, Back Pain, Deformity, Joint Swelling, Limited Range of Motion, Loss of Height, Muscle Cramps, Muscle Weakness, Myalgias, Neck Pain, Numbness, Radiating Pain into Limb, Stiffness, Tingling, Other - Integumentary Integumentary: absent: As Per HPI, Acne, Alopecia, Bleeding Lesions, Change in Hair, Change in Nails, Change in Pigmentation, Changing Lesions, Dry Skin, Erythema, Furuncle, Hirsutism, Lesions, New Lesions, Non-Healing Lesions, Photosensitivity, Pruritus, Rash, Skin Pain, Skin Ulcer, Sores, Striae, Swelling, Unusual Bruising, Wounds, Jaundice, Other - Neurological Neurological: absent: As Per HPI, Abnormal Gait, Abnormal Hearing, Abnormal Movements, Abnormal Speech, Behavioral Changes, Burning Sensations, Confusion, Convulsions, Disequilibrium, Dizziness, Numbness, Focal Weakness, Frequent Falls, Headaches, Lack of Coordination, Loss of Vision, Memory Loss, Paresthesias, Radicular Pain, Restless Legs, Sensory Deficit, Syncope, Tingling, Tremor, Vertigo, Weakness, Other Visual Disturbances, Other - Psychiatric Psychiatric: absent: As Per HPI, Abnormal Sleep Pattern, Anhedonia, Anxiety, Auditory Hallucinations, Behavioral Changes, Change in Appetite, Change in Libido, Confusion, Depression, Difficulty Concentrating, Hallucinations, Homicidal Ideation, Hopelessness, Irritability, Memory Loss, Mood Swings, Panic Attacks, Paranoia, Suicidal Ideation, Visual Hallucinations, Tactile Hallucinations, Other - Endocrine Endocrine: absent: As Per HPI, Change in Body Appearance, Change in Libido, Cold Intolorance, Deepening of Voice, Excessive Sweating, Fatigue, Flushing, Heat Intolorance, Increase in Ring/Shoe/Hat Size, Palpitations, Polydipsia, Polyphagia, Polyuria, Other - Hematologic/Lymphatic Hematologic: absent: As Per HPI, Easy Bleeding, Easy Bruising, Lymphadenopathy, Other Past Patient History - Infectious Disease Hx of Infectious Diseases: None - Tetanus Immunizations Tetanus Immunization: Unknown - Past Medical History & Family History Past Medical History?: Yes - Past Social History Smoking Status: Never Smoked Alcohol: None Drugs: Denies Home Situation {Lives}: With Family Domestic Violence: Negative - CARDIAC Hx Cardia Arrhythmia: Yes (HX: [id number] DONE ~[id number]) Hx Congestive Heart Failure: Yes Hx Hypercholesterolemia: Yes Hx Hypertension: Yes Hx Peripheral Edema: Yes - PULMONARY Hx Respiratory Disorders: Yes Hx Chronic Obstructive Pulmonary Disease (COPD): Yes - NEUROLOGICAL Hx Neurological Disorder: No - HEENT Hx HEENT Problems: No - RENAL Hx Chronic Kidney Disease: Yes - ENDOCRINE/METABOLIC Hx Endocrine Disorders: No - HEMATOLOGICAL/ONCOLOGICAL Hx Blood Disorders: Yes Hx Blood Transfusions: Yes (12/2017) - INTEGUMENTARY Hx Dermatological Problems: No - MUSCULOSKELETAL/RHEUMATOLOGICAL Hx Musculoskeletal Disorders: No Hx Falls: No - GASTROINTESTINAL Hx Gastrointestinal Disorders: No - GENITOURINARY/GYNECOLOGICAL Hx Genitourinary Disorders: No - PSYCHIATRIC Hx Substance Use: No - SURGICAL HISTORY 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QUAD-CORNARY BYPASS 2007) - ANESTHESIA Hx Anesthesia: Yes Hx Anesthesia Reactions: No Hx Malignant Hyperthermia: No Meds Allergies/Adverse Reactions: Allergies Allergy/AdvReac Type Severity Reaction Status Date / Time Gadolinium-Containing Allergy Severe "HIVES" Verified 11/23/18 11:10 Contrast Medi Iodinated Contrast- Oral and Allergy Severe URTICARIA Verified 11/23/18 11:10 IV Dye Thiazides Allergy Severe "HIVES" Verified 11/23/18 11:10 - Medications Medications: Current Medications Acetaminophen (Tylenol 325mg Tab) 650 mg PO Q6 PRN PRN Reason: Fever >100.4 F Allopurinol (Zyloprim) 100 mg PO HS EMILY Last Admin: 11/23/18 22:20 Dose: 100 mg Apixaban (Eliquis) 2.5 mg PO Q48H [facility] Last Admin: 11/23/18 22:20 Dose: 2.5 mg Benzonatate (Tessalon Perles) 100 mg PO BID PRN PRN Reason: Cough Last Admin: 11/24/18 10:04 Dose: 100 mg Calcitriol (Rocaltrol) 0.25 mcg PO [facility] Last Admin: 11/23/18 22:20 Dose: 0.25 mcg Calcium Acetate (Phoslo) 667 mg PO TID [facility] Last Admin: 11/24/18 13:12 Dose: 667 mg Ferrous Sulfate (Feosol) 325 mg PO [facility] Last Admin: 11/23/18 22:20 Dose: 325 mg Folic Acid (Folic Acid) 1 mg PO HS [facility] Last Admin: 11/23/18 22:20 Dose: 1 mg Furosemide (Lasix) 40 mg PO DAILY [facility] Last Admin: 11/24/18 10:04 Dose: 40 mg Vancomycin/Sodium Chloride (Vancomycin 1 Gm/Ns 200 Ml) 1 gm in 200 mls @ 133.333 mls/hr IVPB TTS [facility]; Protocol Ceftriaxone Sodium 2 gm/ (Sodium Chloride) 100 mls @ 100 mls/hr IVPB Q24H [facility]ILY; Protocol Last Admin: 11/23/18 22:40 Dose: 100 mls/hr Rosuvastatin Calcium (Crestor) 5 mg PO [facility] Last Admin: 11/23/18 22:20 Dose: 5 mg Vitamin B Complex/Vit C/Folic Acid (Nephro-Miguel Ángel) 1 tab PO 0800 [facility] Last Admin: 11/24/18 08:17 Dose: 1 tab Physical Exam - Constitutional Appears: Non-toxic, Chronically Ill - Head Exam Head Exam: ATRAUMATIC, NORMOCEPHALIC - Eye Exam Eye Exam: absent: Scleral icterus - ENT Exam ENT Exam: Mucous Membranes Dry, Normal External Ear Exam, Normal Oropharynx - Neck Exam Neck exam: Negative for: Lymphadenopathy - Respiratory Exam Respiratory Exam: Decreased Breath Sounds, Prolonged Expiratory Phase, Rhonchi - Cardiovascular Exam Cardiovascular Exam: REGULAR RHYTHM - GI/Abdominal Exam GI & Abdominal Exam: Diminished Bowel Sounds, Soft. absent: Tenderness - Rectal Exam Rectal Exam: Deferred - Exam Exam: NORMAL INSPECTION - Extremities Exam Extremities exam: Negative for: pedal edema - Back Exam Back exam: absent: CVA tenderness (L), CVA tenderness (R), paraspinal tenderness - Neurological Exam Neurological exam: Alert, CN II-XII Intact, Oriented x3, Reflexes Normal - Psychiatric Exam Psychiatric exam: Depressed - Skin Skin Exam: Dry Results - Vital Signs Recent Vital Signs: Last Vital Signs Temp 98.1 F 11/24/18 07:00 Pulse 96 H 11/24/18 16:23 Resp 20 11/24/18 07:00 BP 128/74 11/24/18 13:33 Pulse Ox 96 11/24/18 13:33 - Labs Result Diagrams: 11/24/18 08:10 11/23/18 12:16 Labs: Laboratory Results - last 24 hr 11/24/18 08:10 WBC 6.7 RBC 3.07 L Hgb 10.4 L Hct 32.4 L MCV 105.6 H MCH 33.8 H MCHC 32.0 L RDW 16.9 H Plt Count 280 MPV 7.4 Neut % (Auto) 86.6 H Lymph % (Auto) 5.0 L [place] % (Auto) 6.8 Eos % (Auto) 0.7 Baso % (Auto) 0.9 Neut # (Auto) 5.8 Lymph # (Auto) 0.3 L [place] # (Auto) 0.5 Eos # (Auto) 0.0 Baso # (Auto) 0.1 Neutrophils % (Manual) 84 H Band Neutrophils % 3 H Lymphocytes % (Manual) 5 L Monocytes % (Manual) 7 Eosinophils % (Manual) 1 Platelet Estimate Normal Large Platelets Present Polychromasia Slight Hypochromasia (manual) Slight Poikilocytosis (manual Slight Anisocytosis (manual) Slight Macrocytosis (manual) Moderate Tear Drop Cells Slight Ovalocytes Slight Assessment & Plan (1) ESRD (end stage renal disease) Status: Acute (2) Pneumonia Status: Acute (3) Sepsis Status: Acute - Assessment and Plan (Free Text) Assessment: 83 year old male with a medical history of end stage renal disease presents to the ED for evaluation of cough, shortness of breath, chills, and low grade fevers for 3 days. The patient states he was started on zithromax for 2 days with no improvement. empiRic iv RX ORDERED AWAIT CULTURES ORDERS SIGNED
[2018-11-24] MEDS: cefTRIAXone 2 GM in Sodium Chloride 0.9% 100 ML IVPB SCH (21:50)
--- NOTE | 2018-11-24 22:54 | CP.PCM.PN ---
Subjective - Date & Time of Evaluation Date of Evaluation: 11/24/18 Time of Evaluation: 17:45 - Subjective Subjective: Patient has less cough, is afebrile, but still has loose BMs. Denies nausea, vomiting. Objective - Vital Signs/Intake and Output Vital Signs (last 24 hours): Temp Pulse Resp BP Pulse Ox 98.5 F 96 H 20 149/80 96 11/24/18 15:00 11/24/18 16:23 11/24/18 15:00 11/24/18 15:00 11/24/18 15:00 Intake and Output: 11/24/18 11/25/18 18:59 06:59 Intake Total 500 Balance 500 - Medications Medications: Current Medications Acetaminophen (Tylenol 325mg Tab) 650 mg PO Q6 PRN PRN Reason: Fever >100.4 F Allopurinol (Zyloprim) [address] [facility] Last Admin: 11/24/18 22:03 Dose: 100 mg Apixaban (Eliquis) 2.5 mg PO Q48H [facility] Last Admin: 11/23/18 22:20 Dose: 2.5 mg Benzonatate (Tessalon Perles) 100 mg PO BID PRN PRN Reason: Cough Last Admin: 11/24/18 10:04 Dose: 100 mg Calcitriol (Rocaltrol) 0.[address] [facility] Last Admin: 11/24/18 22:03 Dose: 0.25 mcg Calcium Acetate (Phoslo) 667 mg PO TID [facility] Last Admin: 11/24/18 18:48 Dose: 667 mg Ferrous Sulfate (Feosol) [address] [facility] Last Admin: 11/24/18 22:02 Dose: 325 mg Folic Acid (Folic Acid) [address] [facility] Last Admin: 11/24/18 22:02 Dose: 1 mg Furosemide (Lasix) 40 mg PO DAILY [facility] Last Admin: 11/24/18 10:04 Dose: 40 mg Vancomycin/Sodium Chloride (Vancomycin 1 Gm/Ns 200 Ml) 1 gm in 200 mls @ 13 3.333 mls/hr IVPB TTS [facility]; Protocol Ceftriaxone Sodium 2 gm/ (Sodium Chloride) 100 mls @ 100 mls/hr IVPB Q24H [facility]; Protocol Last Admin: 11/24/18 21:50 Dose: 100 mls/hr Rosuvastatin Calcium (Crestor) [address] [facility] Last Admin: 11/24/18 22:02 Dose: 5 mg Vitamin B Complex/Vit C/Folic Acid (Nephro-Miguel Ángel) 1 tab PO 0800 [facility] Last Admin: 11/24/18 08:17 Dose: 1 tab - Labs Labs: 11/24/18 08:10 11/23/18 12:16 PT 11.8 SECONDS (9.7-12.2) 11/23/18 12:16 INR 1.1 11/23/18 12:16 APTT 35 SECONDS (21-34) H 11/23/18 12:16 - Constitutional Appears: No Acute Distress, Chronically Ill - Head Exam Head Exam: NORMAL INSPECTION - Eye Exam Eye Exam: Normal appearance - ENT Exam ENT Exam: Normal Exam - Neck Exam Neck Exam: Normal Inspection - Respiratory Exam Respiratory Exam: Rhonchi - Cardiovascular Exam Cardiovascular Exam: REGULAR RHYTHM - GI/Abdominal Exam GI & Abdominal Exam: Soft - Rectal Exam Rectal Exam: Deferred - Exam Exam: NORMAL INSPECTION - Extremities Exam Extremities Exam: Normal Inspection - Back Exam Back Exam: NORMAL INSPECTION - Neurological Exam Neurological Exam: Alert, Awake, Oriented x3 - Psychiatric Exam Psychiatric exam: Anxious - Skin Skin Exam: Dry, Intact, Warm Assessment and Plan (1) Pneumonia Status: Acute (2) ESRD (end stage renal disease) Status: Acute
[2018-11-25] MEDS: Multivitamin Vitamin B Complex (Nephro-Vite) Tab PO SCH (08:55)
--- NOTE | 2018-11-25 09:22 | CARD ---
APPROVED REPORT Date of service: 11/23/2018 EKG Measurement Heart [id number] <Conclusion> Sinus tachycardia Nonspecific ST and T wave abnormality Abnormal ECG
--- NOTE | 2018-11-25 11:50 | CP.PCM.PN ---
Subjective - Date & Time of Evaluation Date of Evaluation: 11/25/18 Time of Evaluation: 08:00 - Subjective Subjective: afeb still SOB with exertion Objective - Vital Signs/Intake and Output Vital Signs (last 24 hours): Temp Pulse Resp BP Pulse Ox 98.0 F 97 H 20 134/77 100 11/25/18 08:42 11/25/18 08:42 11/25/18 08:42 11/25/18 09:51 11/25/18 08:42 - Medications Medications: Current Medications Acetaminophen (Tylenol 325mg Tab) 650 mg PO Q6 PRN PRN Reason: Fever >100.4 F Allopurinol (Zyloprim) 100 mg PO HS [facility] Last Admin: 11/24/18 22:03 Dose: 100 mg Apixaban (Eliquis) 2.5 mg PO Q48H [facility] Last Admin: 11/23/18 22:20 Dose: 2.5 mg Benzonatate (Tessalon Perles) 100 mg PO BID PRN PRN Reason: Cough Last Admin: 11/24/18 10:04 Dose: 100 mg Calcitriol (Rocaltrol) 0.25 mcg PO HS [facility] Last Admin: 11/24/18 22:03 Dose: 0.25 mcg Calcium Acetate (Phoslo) 667 mg PO TID [facility] Last Admin: 11/25/18 09:10 Dose: 667 mg Ferrous Sulfate (Feosol) 325 mg PO HS [facility] Last Admin: 11/24/18 22:02 Dose: 325 mg Folic Acid (Folic Acid) 1 mg PO [facility] Last Admin: 11/24/18 22:02 Dose: 1 mg Furosemide (Lasix) 40 mg PO DAILY [facility] Last Admin: 11/25/18 09:51 Dose: 40 mg Vancomycin/Sodium Chloride (Vancomycin 1 Gm/Ns 200 Ml) 1 gm in 200 mls @ 133.333 mls/hr IVPB TTS [facility]; Protocol Ceftriaxone Sodium 2 gm/ (Sodium Chloride) 100 mls @ 100 mls/hr IVPB Q24H [facility]; Protocol Last Admin: 11/24/18 21:50 Dose: 100 mls/hr Rosuvastatin Calcium (Crestor) 5 mg PO HS [facility] Last Admin: 11/24/18 22:02 Dose: 5 mg Vitamin B Complex/Vit C/Folic Acid (Nephro-Miguel Ángel) 1 tab PO 0800 [facility] Last Admin: 11/25/18 08:55 Dose: 1 tab - Labs Labs: 11/24/18 08:10 11/23/18 12:16 PT 11.8 SECONDS (9.7-12.2) 11/23/18 12:16 INR 1.1 11/23/18 12:16 APTT 35 SECONDS (21-34) H 11/23/18 12:16 - Constitutional Appears: Non-toxic, Chronically Ill - Head Exam Head Exam: NORMOCEPHALIC - Eye Exam Eye Exam: absent: Scleral icterus - ENT Exam ENT Exam: Normal External Ear Exam - Neck Exam Neck Exam: absent: Lymphadenopathy - Respiratory Exam Respiratory Exam: Decreased Breath Sounds - Cardiovascular Exam Cardiovascular Exam: REGULAR RHYTHM - GI/Abdominal Exam GI & Abdominal Exam: Distended, Soft - Rectal Exam Rectal Exam: Deferred - Exam Exam: NORMAL INSPECTION - Extremities Exam Extremities Exam: absent: Pedal Edema - Back Exam Back Exam: absent: CVA tenderness (L), CVA tenderness (R) - Neurological Exam Neurological Exam: Alert, Awake Assessment and Plan (1) ESRD (end stage renal disease) Status: Acute (2) Pneumonia Status: Acute (3) Sepsis Status: Acute - Assessment and Plan (Free Text) Assessment: cont iv rx orders signed
--- NOTE | 2018-11-25 12:26 | CP.PCM.CON ---
History of Present Illness - History of Present Illness History of Present Illness: 83 year old male with a medical history of end stage renal disease presents to the ED for evaluation of cough, shortness of breath, chills, and low grade fevers for 3 days. The patient states he was started on zithromax for 2 days wit h no improvement. Was dizzy post dialysis 2/2 as outpatient, but no syncope. Recently PD failed and now dialyzed via permcath Patient was cultured up and started on IV antibiotics ID consult was requested - Medical History PMH: CAD, Cardia Arrhythmia (HX: [id number] DONE ~[id number]), CHF, COPD, HTN, Hypercholesterolemia, Peripheral Edema, End Stage Renal Disease, Chronic Kidney Disease Surgical History: CABG (QUAD-CORNARY BYPASS 2007); PD cath insertion and removal FH- no CKD (11/13/18) ENDOSCOPIC BRONCHIAL BX (06/12/13) INSERTION OF INFUSION DEV INTO SUP VENA CAVA, PERC APPROACH (11/13/18) IRRIGATION OF PERITON CAV USING DIALYSATE, PERC APPROACH (03/11/18) REMOVAL OF INFUSION DEVICE FROM PERITON CAV, OPEN APPROACH (11/13/18) Review of Systems - Constitutional Constitutional: Fatigue, Weakness - EENT Eyes: absent: As Per HPI, Blind Spots, Blurred Vision, Change in Vision, Decreased Night Vision, Diplopia, Discharge, Dry Eye, Exophthalmos, Floaters, Irritation, Itchy Eyes, Loss of Peripheral Vision, Pain, Photophobia, Requires Corrective Lenses, Sees Flashes, Spots in Vision, Tunnel Vision, Other Visual Disturbances, Loss of Vision, Other Ears: absent: As Per HPI, Decreased Hearing, Ear Discharge, Ear Pain, Tinnitus, Abnormal Hearing, Disequilibrium, Dizziness, Other Nose/Mouth/Throat: absent: As Per HPI, Epistaxis, Nasal Congestion, Nasal Discharge, Nasal Obstruction, Nasal Trauma, Nose Pain, Post Nasal Drip, Sinus Pain, Sinus Pressure, Bleeding Gums, Change in Voice, Dental Pain, Dry Mouth, Dysphagia, Halitosis, Hoarsness, Lip Swelling, Mouth Lesions, Mouth Pain, Odynophagia, Sore Throat, Throat Swelling, Tongue Swelling, Facial Pain, Neck Pain, Neck Mass, Other - Cardiovascular Cardiovascular: Dyspnea on Exertion - Respiratory Respiratory: Dyspnea on Exertion - Gastrointestinal Gastrointestinal: Constipation - Genitourinary Genitourinary: As Per HPI - Neurological Neurological: Disequilibrium, Weakness Past Patient History - Infectious Disease Hx of Infectious Diseases: None - Tetanus Immunizations Tetanus Immunization: Unknown - Past Medical History & Family History Past Medical History?: Yes Past Family History: Reviewed and not pertinent - Past Social History Smoking Status: Never Smoked Chewing Tobacco Use: No Cigar Use: No Alcohol: None Drugs: Denies Home Situation {Lives}: With Family Domestic Violence: Negative - CARDIAC Hx Cardia Arrhythmia: Yes (HX: [id number] DONE ~[id number]) Hx Congestive Heart Failure: Yes Hx Hypercholesterolemia: Yes Hx Hypertension: Yes Hx Peripheral Edema: Yes - PULMONARY Hx Respiratory Disorders: Yes Hx Chronic Obstructive Pulmonary Disease (COPD): Yes - NEUROLOGICAL Hx Neurological Disorder: No - HEENT Hx HEENT Problems: No - RENAL Hx Chronic Kidney Disease: Yes - ENDOCRINE/METABOLIC Hx Endocrine Disorders: No - HEMATOLOGICAL/ONCOLOGICAL Hx Blood Disorders: Yes Hx Blood Transfusions: Yes (12/2017) - INTEGUMENTARY Hx Dermatological Problems: No - MUSCULOSKELETAL/RHEUMATOLOGICAL Hx Musculoskeletal Disorders: No Hx Falls: No - GASTROINTESTINAL Hx Gastrointestinal Disorders: No - GENITOURINARY/GYNECOLOGICAL Hx Genitourinary Disorders: No - PSYCHIATRIC Hx Substance Use: No - SURGICAL HISTORY 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QUAD-CORNARY BYPASS 2007) - ANESTHESIA Hx Anesthesia: Yes Hx Anesthesia Reactions: No Hx Malignant Hyperthermia: No Meds Allergies/Adverse Reactions: Allergies Allergy/AdvReac Type Severity Reaction Status Date / Time Gadolinium-Containing Allergy Severe "HIVES" Verified 11/23/18 11:10 Contrast Medi Iodinated Contrast- Oral and Allergy Severe URTICARIA Verified 11/23/18 11:10 IV Dye Thiazides Allergy Severe "HIVES" Verified 11/23/18 11:10 - Medications Medications: Current Medications Acetaminophen (Tylenol 325mg Tab) 650 mg PO Q6 PRN PRN Reason: Fever >100.4 F Allopurinol (Zyloprim) 100 mg PO HS [facility] Last Admin: 11/24/18 22:03 Dose: 100 mg Apixaban (Eliquis) 2.5 mg PO Q48H [facility] Last Admin: 11/23/18 22:20 Dose: 2.5 mg Benzonatate (Tessalon Perles) 100 mg PO BID PRN PRN Reason: Cough Last Admin: 11/24/18 10:04 Dose: 100 mg Calcitriol (Rocaltrol) 0.25 mcg PO [facility] Last Admin: 11/24/18 22:03 Dose: 0.25 mcg Calcium Acetate (Phoslo) 667 mg PO TID [facility] Last Admin: 11/25/18 09:10 Dose: 667 mg Ferrous Sulfate (Feosol) 325 mg PO HS [facility] Last Admin: 11/24/18 22:02 Dose: 325 mg Folic Acid (Folic Acid) 1 mg PO [facility] Last Admin: 11/24/18 22:02 Dose: 1 mg Furosemide (Lasix) 40 mg PO DAILY [facility] Last Admin: 11/25/18 09:51 Dose: 40 mg Vancomycin/Sodium Chloride (Vancomycin 1 Gm/Ns 200 Ml) 1 gm in 200 mls @ 133.333 mls/hr IVPB TTS [facility]; Protocol Ceftriaxone Sodium 2 gm/ (Sodium Chloride) 100 mls @ 100 mls/hr IVPB Q24H [facility]; Protocol Last Admin: 11/24/18 21:50 Dose: 100 mls/hr Rosuvastatin Calcium (Crestor) 5 mg PO [facility] Last Admin: 11/24/18 22:02 Dose: 5 mg Vitamin B Complex/Vit C/Folic Acid (Nephro-Miguel Ángel) 1 tab PO 0800 [facility] Last Admin: 11/25/18 08:55 Dose: 1 tab Physical Exam - Constitutional Appears: No Acute Distress, Chronically Ill - Head Exam Head Exam: ATRAUMATIC, NORMAL INSPECTION - Eye Exam Eye Exam: EOMI, Normal appearance - Neck Exam Neck exam: Positive for: Normal Inspection. Negative for: Tenderness - Respiratory Exam Respiratory Exam: Clear to Auscultation Bilateral, NORMAL BREATHING PATTERN - Cardiovascular Exam Cardiovascular Exam: REGULAR RHYTHM, +S1 - GI/Abdominal Exam GI & Abdominal Exam: Distended, Soft. absent: Tenderness - Extremities Exam Extremities exam: Positive for: normal inspection. Negative for: tenderness - Neurological Exam Neurological exam: Alert, CN II-XII Intact - Skin Skin Exam: Dry, Warm Results - Vital Signs Recent Vital Signs: Last Vital Signs Temp 98.0 F 11/25/18 08:42 Pulse 97 H 11/25/18 08:42 Resp 20 11/25/18 08:42 BP 134/77 11/25/18 09:51 Pulse Ox 100 11/25/18 08:42 - Labs Result Diagrams: 11/24/18 08:10 11/23/18 12:16 Assessment & Plan (1) Hypertensive chronic kidney disease with stage 5 chronic kidney disease or end stage renal disease Status: Acute (2) Atrial flutter Status: Acute (3) CAD (coronary artery disease) Status: Acute (4) Near syncope Status: Acute (5) ESRD (end stage renal disease) Status: Acute (6) Atrial flutter Status: Acute (7) Chronic atrial flutter Status: Chronic - Assessment and Plan (Free Text) Plan: Decrease UF goal at dialysis dialysis today and MWF monitor BP closely
--- NOTE | 2018-11-25 20:53 | CP.PCM.PN ---
Subjective - Date & Time of Evaluation Date of Evaluation: 11/25/18 Time of Evaluation: 20:53 - Subjective Subjective: Patient with a productive cough and SOB.. Afebrile. No more diarrhea. Objective - Vital Signs/Intake and Output Vital Signs (last 24 hours): Temp Pulse Resp BP Pulse Ox 97.5 F L 104 H 18 151/63 H 100 11/25/18 18:20 11/25/18 18:20 11/25/18 18:20 11/25/18 18:20 11/25/18 18:20 - Medications Medications: Current Medications Acetaminophen (Tylenol 325mg Tab) 650 mg PO Q6 PRN PRN Reason: Fever >100.4 F Allopurinol (Zyloprim) 100 mg PO [facility] Last Admin: 11/24/18 22:03 Dose: 100 mg Apixaban (Eliquis) 2.5 mg PO Q48H [facility] Last Admin: 11/25/18 20:10 Dose: 2.5 mg Benzonatate (Tessalon Perles) 100 mg PO BID PRN PRN Reason: Cough Last Admin: 11/24/18 10:04 Dose: 100 mg Calcitriol (Rocaltrol) 0.25 mcg PO [facility] Last Admin: 11/24/18 22:03 Dose: 0.25 mcg Calcium Acetate (Phoslo) 667 mg PO TID [facility] Last Admin: 11/25/18 18:17 Dose: Not Given Ferrous Sulfate (Feosol) 325 mg PO [facility] Last Admin: 11/24/18 22:02 Dose: 325 mg Folic Acid (Folic Acid) 1 mg PO [facility] Last Admin: 11/24/18 22:02 Dose: 1 mg Vancomycin/Sodium Chloride (Vancomycin 1 Gm/Ns 200 Ml) 1 gm in 200 mls @ 133.333 mls/hr IVPB TTS [facility]; Protocol Ceftriaxone Sodium 2 gm/ (Sodium Chloride) 100 mls @ 100 mls/hr IVPB Q24H [facility]; Protocol Last Admin: 11/24/18 21:50 Dose: 100 mls/hr Rosuvastatin Calcium (Crestor) 5 mg PO [facility] Last Admin: 11/24/18 22:02 Dose: 5 mg Vitamin B Complex/Vit C/Folic Acid (Nephro-Miguel Ángel) 1 tab PO 0800 [facility] Last Admin: 11/25/18 08:55 Dose: 1 tab - Labs Labs: 11/24/18 08:10 11/23/18 12:16 PT 11.8 SECONDS (9.7-12.2) 11/23/18 12:16 INR 1.1 11/23/18 12:16 APTT 35 SECONDS (21-34) H 11/23/18 12:16 - Constitutional Appears: No Acute Distress, Chronically Ill - Head Exam Head Exam: NORMOCEPHALIC - Eye Exam Eye Exam: Normal appearance - ENT Exam ENT Exam: Normal Exam - Respiratory Exam Respiratory Exam: Rhonchi Additional comments: Rhonchi both lungs. - Cardiovascular Exam Cardiovascular Exam: REGULAR RHYTHM - GI/Abdominal Exam GI & Abdominal Exam: Soft, Normal Bowel Sounds - Rectal Exam Rectal Exam: Deferred - Extremities Exam Extremities Exam: Normal Inspection - Back Exam Back Exam: NORMAL INSPECTION - Neurological Exam Neurological Exam: Alert, Awake, Oriented x3 - Psychiatric Exam Psychiatric exam: Anxious - Skin Skin Exam: Dry, Intact, Normal Color, Warm Assessment and Plan (1) Pneumonia Assessment & Plan: Repeat CXR in AM. Status: Acute (2) ESRD (end stage renal disease) Status: Acute
[2018-11-25] MEDS: cefTRIAXone 2 GM in Sodium Chloride 0.9% 100 ML IVPB SCH (22:53)
--- NOTE | 2018-11-26 09:09 | CP.PCM.PN ---
Subjective - Date & Time of Evaluation Date of Evaluation: 11/26/18 Time of Evaluation: 09:08 - Subjective Subjective: on multiple antibiotics afebrile cultures neg so far denies any n/v/d/f/c/dizziness/headache Objective - Vital Signs/Intake and Output Vital Signs (last 24 hours): Temp Pulse Resp BP Pulse Ox 97.8 F 76 20 127/80 100 11/26/18 08:58 11/26/18 08:58 11/26/18 08:58 11/26/18 08:58 11/26/18 08:58 - Medications Medications: Current Medications Acetaminophen (Tylenol 325mg Tab) 650 mg PO Q6 PRN PRN Reason: Fever >100.4 F Allopurinol (Zyloprim) 100 mg PO [facility] Last Admin: 11/25/18 22:53 Dose: 100 mg Apixaban (Eliquis) 2.5 mg PO Q48H [facility] Last Admin: 11/25/18 20:10 Dose: 2.5 mg Benzonatate (Tessalon Perles) 100 mg PO BID PRN PRN Reason: Cough Last Admin: 11/24/18 10:04 Dose: 100 mg Calcitriol (Rocaltrol) 0.25 mcg PO [facility] Last Admin: 11/25/18 22:53 Dose: 0.25 mcg Calcium Acetate (Phoslo) 667 mg PO TID [facility] Last Admin: 11/25/18 18:17 Dose: Not Given Ferrous Sulfate (Feosol) 325 mg PO [facility] Last Admin: 11/25/18 22:52 Dose: 325 mg Folic Acid (Folic Acid) 1 mg PO [facility] Last Admin: 11/25/18 22:53 Dose: 1 mg Vancomycin/Sodium Chloride (Vancomycin 1 Gm/Ns 200 Ml) 1 gm in 200 mls @ 133.333 mls/hr IVPB TTS [facility]; Protocol Ceftriaxone Sodium 2 gm/ (Sodium Chloride) 100 mls @ 100 mls/hr IVPB Q24H [facility]; Protocol Last Admin: 11/25/18 22:53 Dose: 100 mls/hr Rosuvastatin Calcium (Crestor) 5 mg PO [facility] Last Admin: 11/25/18 22:52 Dose: 5 mg Vitamin B Complex/Vit C/Folic Acid (Nephro-Miguel Ángel) 1 tab PO 0800 [facility] Last Admin: 11/25/18 08:55 Dose: 1 tab - Labs Labs: 11/24/18 08:10 11/23/18 12:16 PT 11.8 SECONDS (9.7-12.2) 11/23/18 12:16 INR 1.1 11/23/18 12:16 APTT 35 SECONDS (21-34) H 11/23/18 12:16 - Constitutional Appears: Non-toxic, No Acute Distress - Head Exam Head Exam: NORMAL INSPECTION, NORMOCEPHALIC - Eye Exam Eye Exam: Normal appearance Pupil Exam: PERRL - ENT Exam ENT Exam: Mucous Membranes Moist, Normal Exam - Neck Exam Neck Exam: Normal Inspection - Respiratory Exam Respiratory Exam: Clear to Ausculation Bilateral, NORMAL BREATHING PATTERN - Cardiovascular Exam Cardiovascular Exam: REGULAR RHYTHM, RRR - GI/Abdominal Exam GI & Abdominal Exam: Distended, Soft - Extremities Exam Extremities Exam: Normal Inspection - Neurological Exam Neurological Exam: Alert, Awake, Oriented x3 - Psychiatric Exam Psychiatric exam: Normal Affect, Normal Mood - Skin Skin Exam: Dry, Intact Assessment and Plan (1) Atrial flutter Status: Acute (2) CAD (coronary artery disease) Status: Acute (3) ESRD (end stage renal disease) Status: Acute (4) Pneumonia Status: Acute - Assessment and Plan (Free Text) Assessment: maintain hd mwf dc binder antibiotics per ID
[2018-11-26] MEDS: Vancomycin 1 gm/NS 200 ml 1 GM/200 ML BAG IVPB SCH (09:48)
[2018-11-26] MEDS: Multivitamin Vitamin B Complex (Nephro-Vite) Tab PO SCH (11:24)
--- NOTE | 2018-11-26 15:42 | RAD ---
Date of service: 11/26/2018 HISTORY: F/U pneumonia COMPARISON: 11/23/2018 TECHNIQUE: Chest PA and lateral FINDINGS: LUNGS: Prior left basal effusion with inferred small compressive atelectasis has, more dense in appearance-increasing left basal atelectasis with or without infiltrate with a small increase in the size of left pleural effusion is inferred. The lateral mid lung zone thread-like coalescing opacities compatible with stranding and/or left pleural parenchymal reaction is similar. Vague increased rounded opacity in left lateral mid lung zone is noted probably relating to pleural based pathology and/or some fissural fluid. PLEURA: Interval increase left pleural effusion still small approximately 1/4 the height of left hemithorax. No pneumothorax seen. CARDIOVASCULAR: There is presence of aortic atherosclerotic calcification on x-ray. Cardiomegaly-similar interval increased pulmonary venous congestion suspect. Dialysis catheter place tips right atrium. OSSEOUS STRUCTURES: Midline sternotomy thoraco spondylosis. Bilateral shoulder arthrosis. VISUALIZED UPPER ABDOMEN: Surgical clips right upper abdomen-similar and fewer left abdomen correlate clinically-part cholecystectomy status inferred. OTHER FINDINGS: None. IMPRESSION: Interval increased left basal consolidation-increase compressive atelectasis with or without infiltrate inferred.. Interval small increase in the prior left pleural effusion- Interval increase conspicuity of inferred left pleural for parenchymal strandy axis and/or fibrosis with and likely pleural reaction thickening here as well - current mid lung zone. A rounded pneumonia here is another consideration. Follow-up recommended. Cardiomegaly with mild increased pulmonary venous congestion. Other findings as above.
[2018-11-26] MEDS: cefTRIAXone 2 GM in Sodium Chloride 0.9% 100 ML IVPB SCH (21:34)
--- NOTE | 2018-11-26 23:34 | CP.PCM.PN ---
Subjective - Date & Time of Evaluation Date of Evaluation: 11/26/18 Time of Evaluation: 19:45 - Subjective Subjective: Patient afebrile, with no diarrhea, but still with a productive cough. CXR reveals slightly increase of the left pleural effusion. Lungs auscultation discloses rhonchi bilaterally. On IV antibiotics. Objective - Vital Signs/Intake and Output Vital Signs (last 24 hours): Temp Pulse Resp BP Pulse Ox 97.9 F 88 20 123/79 100 11/26/18 15:50 11/26/18 15:50 11/26/18 15:50 11/26/18 15:50 11/26/18 15:50 - Medications Medications: Current Medications Acetaminophen (Tylenol 325mg Tab) 650 mg PO Q6 PRN PRN Reason: Fever >100.4 F Allopurinol (Zyloprim) 100 mg PO HS [facility] Last Admin: 11/26/18 21:35 Dose: 100 mg Apixaban (Eliquis) 2.5 mg PO Q48H [facility] Last Admin: 11/25/18 20:10 Dose: 2.5 mg Benzonatate (Tessalon Perles) 100 mg PO BID PRN PRN Reason: Cough Last Admin: 11/24/18 10:04 Dose: 100 mg Calcitriol (Rocaltrol) 0.25 mcg PO [facility] Last Admin: 11/26/18 21:35 Dose: 0.25 mcg Ferrous Sulfate (Feosol) 325 mg PO HS [facility] Last Admin: 11/26/18 21:35 Dose: 325 mg Folic Acid (Folic Acid) 1 mg PO [facility] Last Admin: 11/26/18 21:35 Dose: 1 mg Vancomycin/Sodium Chloride (Vancomycin 1 Gm/Ns 200 Ml) 1 gm in 200 mls @ 133.333 mls/hr IVPB TTS [facility]; Protocol Last Admin: 11/26/18 09:48 Dose: 133.333 mls/hr Ceftriaxone Sodium 2 gm/ (Sodium Chloride) 100 mls @ 100 mls/hr IVPB Q24H [facility]; Protocol Last Admin: 11/26/18 21:34 Dose: 100 mls/hr Rosuvastatin Calcium (Crestor) 5 mg PO HS [facility] Last Admin: 11/26/18 21:35 Dose: 5 mg Vitamin B Complex/Vit C/Folic Acid (Nephro-Miguel Ángel) 1 tab PO 0800 [facility] Last Admin: 11/26/18 11:24 Dose: 1 tab - Labs Labs: 11/24/18 08:10 11/23/18 12:16 PT 11.8 SECONDS (9.7-12.2) 11/23/18 12:16 INR 1.1 11/23/18 12:16 APTT 35 SECONDS (21-34) H 11/23/18 12:16 - Constitutional Appears: No Acute Distress, Chronically Ill - Head Exam Head Exam: NORMAL INSPECTION - Eye Exam Eye Exam: Normal appearance Pupil Exam: NORMAL ACCOMODATION - ENT Exam ENT Exam: Normal Exam - Neck Exam Neck Exam: Normal Inspection - Respiratory Exam Respiratory Exam: Rhonchi Additional comments: Rhonchi bilaterally. - Cardiovascular Exam Cardiovascular Exam: REGULAR RHYTHM, Murmur - GI/Abdominal Exam GI & Abdominal Exam: Soft, Normal Bowel Sounds - Rectal Exam Rectal Exam: Deferred - Extremities Exam Extremities Exam: Normal Inspection - Back Exam Back Exam: NORMAL INSPECTION - Neurological Exam Neurological Exam: Alert, Awake, Oriented x3 - Psychiatric Exam Psychiatric exam: Anxious - Skin Skin Exam: Dry, Intact, Warm Assessment and Plan (1) Pneumonia Assessment & Plan: To continue IV antibiotics as per Dr June. Status: Acute (2) ESRD (end stage renal disease) Assessment & Plan: HD in AM. Status: Acute
[2018-11-27] MEDS: Multivitamin Vitamin B Complex (Nephro-Vite) Tab PO SCH (11:00)
--- NOTE | 2018-11-27 14:32 | CP.PCM.PN ---
Subjective - Date & Time of Evaluation Date of Evaluation: 11/27/18 Time of Evaluation: 14:29 - Subjective Subjective: alert; seen on dialysis feels better; fair sappetite now afebrile now- all C+S negative tolerating mild UF 800ml BP stable Objective - Vital Signs/Intake and Output Vital Signs (last 24 hours): Temp Pulse Resp BP Pulse Ox 98.5 F 88 20 132/82 96 11/27/18 08:48 11/27/18 08:48 11/27/18 08:48 11/27/18 08:48 11/27/18 08:48 - Medications Medications: Current Medications Acetaminophen (Tylenol 325mg Tab) 650 mg PO Q6 PRN PRN Reason: Fever >100.4 F Allopurinol (Zyloprim) [address] [facility] Last Admin: 11/26/18 21:35 Dose: 100 mg Apixaban (Eliquis) 2.5 mg PO Q48H [facility] Last Admin: 11/25/18 20:10 Dose: 2.5 mg Benzonatate (Tessalon Perles) 100 mg PO BID PRN PRN Reason: Cough Last Admin: 11/24/18 10:04 Dose: 100 mg Calcitriol (Rocaltrol) 0.[address] [facility] Last Admin: 11/26/18 21:35 Dose: 0.25 mcg Ferrous Sulfate (Feosol) [address] [facility] Last Admin: 11/26/18 21:35 Dose: 325 mg Folic Acid (Folic Acid) [address] [facility] Last Admin: 11/26/18 21:35 Dose: 1 mg Vancomycin/Sodium Chloride (Vancomycin 1 Gm/Ns 200 Ml) 1 gm in 200 mls @ 133.333 mls/hr IVPB TTS [facility]; Protocol Last Admin: 11/26/18 09:48 Dose: 133.333 mls/hr Ceftriaxone Sodium 2 gm/ (Sodium Chloride) 100 mls @ 100 mls/hr IVPB Q24H [facility]; Protocol Last Admin: 11/26/18 21:34 Dose: 100 mls/hr Rosuvastatin Calcium (Crestor) [address] [facility] Last Admin: 11/26/18 21:35 Dose: 5 mg Vitamin B Complex/Vit C/Folic Acid (Nephro-Miguel Ángel) 1 tab PO 0800 [facility] Last Admin: 11/27/18 11:00 Dose: 1 tab - Labs Labs: 11/24/18 08:10 11/23/18 12:16 PT 11.8 SECONDS (9.7-12.2) 11/23/18 12:16 INR 1.1 11/23/18 12:16 APTT 35 SECONDS (21-34) H 11/23/18 12:16 - Constitutional Appears: No Acute Distress, Chronically Ill - Head Exam Head Exam: ATRAUMATIC, NORMAL INSPECTION - Eye Exam Eye Exam: EOMI, Normal appearance - Neck Exam Neck Exam: Normal Inspection. absent: Tenderness - Respiratory Exam Respiratory Exam: Clear to Ausculation Bilateral, NORMAL BREATHING PATTERN - Cardiovascular Exam Cardiovascular Exam: REGULAR RHYTHM, +S1 - GI/Abdominal Exam GI & Abdominal Exam: Soft. absent: Tenderness - Extremities Exam Extremities Exam: Normal Inspection. absent: Tenderness - Neurological Exam Neurological Exam: Awake, CN II-XII Intact - Skin Skin Exam: Dry, Warm Assessment and Plan (1) Hypertensive chronic kidney disease with stage 5 chronic kidney disease or end stage renal disease Status: Acute (2) Atrial flutter Status: Acute (3) CAD (coronary artery disease) Status: Acute (4) Near syncope Status: Acute (5) ESRD (end stage renal disease) Status: Acute (6) Atrial flutter Status: Acute (7) Chronic atrial flutter Status: Chronic - Assessment and Plan (Free Text) Plan: Same dialysis MWF mild UF goal IV ABs as per ID monitor cardiac status
--- NOTE | 2018-11-27 19:23 | CP.PCM.PN ---
Subjective - Date & Time of Evaluation Date of Evaluation: 11/27/18 Time of Evaluation: 19:20 - Subjective Subjective: Patient still has a productive cough, now with wheezing bilaterally. Afebrile. Will start Albuterol by inhalation. Objective - Vital Signs/Intake and Output Vital Signs (last 24 hours): Temp Pulse Resp BP Pulse Ox 97.9 F 69 20 126/75 98 11/27/18 17:00 11/27/18 17:00 11/27/18 17:00 11/27/18 17:00 11/27/18 17:00 - Medications Medications: Current Medications Acetaminophen (Tylenol 325mg Tab) 650 mg PO Q6 PRN PRN Reason: Fever >100.4 F Allopurinol (Zyloprim) 100 mg PO [facility] Last Admin: 11/26/18 21:35 Dose: 100 mg Apixaban (Eliquis) 2.5 mg PO Q48H [facility] Last Admin: 11/25/18 20:10 Dose: 2.5 mg Benzonatate (Tessalon Perles) 100 mg PO BID PRN PRN Reason: Cough Last Admin: 11/24/18 10:04 Dose: 100 mg Calcitriol (Rocaltrol) 0.25 mcg PO [facility] Last Admin: 11/26/18 21:35 Dose: 0.25 mcg Ferrous Sulfate (Feosol) 325 mg PO [facility] Last Admin: 11/26/18 21:35 Dose: 325 mg Folic Acid (Folic Acid) 1 mg PO [facility] Last Admin: 11/26/18 21:35 Dose: 1 mg Vancomycin/Sodium Chloride (Vancomycin 1 Gm/Ns 200 Ml) 1 gm in 200 mls @ 133.333 mls/hr IVPB TTS [facility]; Protocol Last Admin: 11/26/18 09:48 Dose: 133.333 mls/hr Ceftriaxone Sodium 2 gm/ (Sodium Chloride) 100 mls @ 100 mls/hr IVPB Q24H [facility]; Protocol Last Admin: 11/26/18 21:34 Dose: 100 mls/hr Rosuvastatin Calcium (Crestor) 5 mg PO [facility] Last Admin: 11/26/18 21:35 Dose: 5 mg Vitamin B Complex/Vit C/Folic Acid (Nephro-Miguel Ángel) 1 tab PO 0800 [facility] Last Admin: 11/27/18 11:00 Dose: 1 tab - Labs Labs: 11/24/18 08:10 11/23/18 12:16 PT 11.8 SECONDS (9.7-12.2) 11/23/18 12:16 INR 1.1 11/23/18 12:16 APTT 35 SECONDS (21-34) H 11/23/18 12:16 - Constitutional Appears: No Acute Distress, Chronically Ill - Head Exam Head Exam: NORMOCEPHALIC - Eye Exam Eye Exam: Normal appearance - ENT Exam ENT Exam: Normal Exam - Neck Exam Neck Exam: Normal Inspection - Respiratory Exam Respiratory Exam: Rhonchi, Wheezes Additional comments: Rhonchi and wheeze bilaterally. - GI/Abdominal Exam GI & Abdominal Exam: Soft, Normal Bowel Sounds - Rectal Exam Rectal Exam: Deferred - Exam Exam: NORMAL INSPECTION - Extremities Exam Extremities Exam: Normal Inspection - Back Exam Back Exam: NORMAL INSPECTION - Neurological Exam Neurological Exam: Alert, Awake, Oriented x3 - Psychiatric Exam Psychiatric exam: Anxious - Skin Skin Exam: Dry, Intact, Normal Color, Warm Assessment and Plan (1) Pneumonia Assessment & Plan: To continue IV antibiotics. Start Albuteral by nebulizers. Status: Acute (2) ESRD (end stage renal disease) Status: Acute
[2018-11-27] MEDS: Albuterol-Ipratrop 3 mg / 0.5 (3 ml) UD INH SCH (20:16)
[2018-11-27] MEDS: cefTRIAXone 2 GM in Sodium Chloride 0.9% 100 ML IVPB SCH (21:45)
[2018-11-28] MEDS: Albuterol-Ipratrop 3 mg / 0.5 (3 ml) UD INH SCH ×4 (01:25→20:04)
[2018-11-28] MEDS: Multivitamin Vitamin B Complex (Nephro-Vite) Tab PO SCH (08:08)
[2018-11-28] MEDS: Vancomycin 1 gm/NS 200 ml 1 GM/200 ML BAG IVPB SCH (10:41)
--- NOTE | 2018-11-28 10:57 | CP.PCM.PN ---
Subjective - Date & Time of Evaluation Date of Evaluation: 11/28/18 Time of Evaluation: 10:54 - Subjective Subjective: s/p dialysis 2/6- 800ml fluid removed still with wheezing- respiratory treatments started feels same, fair appetite still rather debilitated overall Objective - Vital Signs/Intake and Output Vital Signs (last 24 hours): Temp Pulse Resp BP Pulse Ox 97.9 F 89 20 123/73 98 11/28/18 08:31 11/28/18 08:31 11/28/18 08:31 11/28/18 08:31 11/28/18 08:31 - Medications Medications: Current Medications Acetaminophen (Tylenol 325mg Tab) 650 mg PO Q6 PRN PRN Reason: Fever >100.4 F Albuterol/Ipratropium (Duoneb 3 Mg/0.5 Mg (3 Ml) Ud) 3 ml INH RQ6 [facility] Last Admin: 11/28/18 09:07 Dose: 3 ml Allopurinol (Zyloprim) 100 mg PO [facility] Last Admin: 11/27/18 21:45 Dose: 100 mg Apixaban (Eliquis) 2.5 mg PO Q48H [facility] Last Admin: 11/27/18 20:05 Dose: 2.5 mg Benzonatate (Tessalon Perles) 100 mg PO BID PRN PRN Reason: Cough Last Admin: 11/27/18 21:48 Dose: 100 mg Calcitriol (Rocaltrol) 0.25 mcg PO [facility] Last Admin: 11/27/18 21:45 Dose: 0.25 mcg Ferrous Sulfate (Feosol) 325 mg PO [facility] Last Admin: 11/27/18 21:45 Dose: 325 mg Folic Acid (Folic Acid) 1 mg PO [facility] Last Admin: 11/27/18 21:45 Dose: 1 mg Vancomycin/Sodium Chloride (Vancomycin 1 Gm/Ns 200 Ml) 1 gm in 200 mls @ 133.333 mls/hr IVPB TTS [facility]; Protocol Last Admin: 11/28/18 10:41 Dose: 133.333 mls/hr Ceftriaxone Sodium 2 gm/ (Sodium Chloride) 100 mls @ 100 mls/hr IVPB Q24H [facility]; Protocol Last Admin: 11/27/18 21:45 Dose: 100 mls/hr Rosuvastatin Calcium (Crestor) 5 mg PO [facility] Last Admin: 11/27/18 21:45 Dose: 5 mg Vitamin B Complex/Vit C/Folic Acid (Nephro-Miguel Ángel) 1 tab PO 0800 [facility] Last Admin: 11/28/18 08:08 Dose: 1 tab - Labs Labs: 11/24/18 08:10 11/23/18 12:16 PT 11.8 SECONDS (9.7-12.2) 11/23/18 12:16 INR 1.1 11/23/18 12:16 APTT 35 SECONDS (21-34) H 11/23/18 12:16 - Constitutional Appears: Non-toxic, No Acute Distress, Chronically Ill - Head Exam Head Exam: ATRAUMATIC, NORMAL INSPECTION - Eye Exam Eye Exam: EOMI, Normal appearance - Neck Exam Neck Exam: Normal Inspection. absent: Tenderness - Respiratory Exam Respiratory Exam: Rhonchi, Wheezes - GI/Abdominal Exam GI & Abdominal Exam: Soft. absent: Tenderness - Extremities Exam Extremities Exam: Normal Inspection. absent: Tenderness - Neurological Exam Neurological Exam: Awake, CN II-XII Intact - Skin Skin Exam: Dry, Warm Assessment and Plan (1) Hypertensive chronic kidney disease with stage 5 chronic kidney disease or end stage renal disease Status: Acute (2) Atrial flutter Status: Acute (3) CAD (coronary artery disease) Status: Acute (4) Near syncope Status: Acute (5) ESRD (end stage renal disease) Status: Acute (6) Atrial flutter Status: Acute (7) Chronic atrial flutter Status: Chronic - Assessment and Plan (Free Text) Plan: increase UF goal dialysis MWF respiratory treatments per PMD monitor BP repeat labs
--- NOTE | 2018-11-28 16:25 | CP.PCM.PN ---
Subjective - Date & Time of Evaluation Date of Evaluation: 11/28/18 Time of Evaluation: 16:21 - Subjective Subjective: Patient is less SOB with less wheezing. Afebrile. Objective - Vital Signs/Intake and Output Vital Signs (last 24 hours): Temp Pulse Resp BP Pulse Ox 97.9 F 89 20 123/73 98 11/28/18 08:31 11/28/18 08:31 11/28/18 08:31 11/28/18 08:31 11/28/18 08:31 Intake and Output: 11/28/18 11/28/18 06:59 18:59 Intake Total 680 Balance 680 - Medications Medications: Current Medications Acetaminophen (Tylenol 325mg Tab) 650 mg PO Q6 PRN PRN Reason: Fever >100.4 F Albuterol/Ipratropium (Duoneb 3 Mg/0.5 Mg (3 Ml) Ud) 3 ml INH RQ6 [facility] Last Admin: 11/28/18 14:15 Dose: 3 ml Allopurinol (Zyloprim) 100 mg PO [facility] Last Admin: 11/27/18 21:45 Dose: 100 mg Apixaban (Eliquis) 2.5 mg PO Q48H [facility] Last Admin: 11/27/18 20:05 Dose: 2.5 mg Benzonatate (Tessalon Perles) 100 mg PO BID PRN PRN Reason: Cough Last Admin: 11/27/18 21:48 Dose: 100 mg Calcitriol (Rocaltrol) 0.25 mcg PO [facility] Last Admin: 11/27/18 21:45 Dose: 0.25 mcg Epoetin Danial (Procrit) 4,000 unit IV MWF [facility] Ferrous Sulfate (Feosol) 325 mg PO [facility] Last Admin: 11/27/18 21:45 Dose: 325 mg Folic Acid (Folic Acid) 1 mg PO [facility] Last Admin: 11/27/18 21:45 Dose: 1 mg Vancomycin/Sodium Chloride (Vancomycin 1 Gm/Ns 200 Ml) 1 gm in 200 mls @ 133.333 mls/hr IVPB TTS [facility]; Protocol Last Admin: 11/28/18 10:41 Dose: 133.333 mls/hr Ceftriaxone Sodium 2 gm/ (Sodium Chloride) 100 mls @ 100 mls/hr IVPB Q24H [facility]; Protocol Last Admin: 11/27/18 21:45 Dose: 100 mls/hr Rosuvastatin Calcium (Crestor) 5 mg PO [facility] Last Admin: 11/27/18 21:45 Dose: 5 mg Vitamin B Complex/Vit C/Folic Acid (Nephro-Miguel Ángel) 1 tab PO 0800 [facility] Last Admin: 11/28/18 08:08 Dose: 1 tab - Labs Labs: 11/24/18 08:10 11/23/18 12:16 PT 11.8 SECONDS (9.7-12.2) 11/23/18 12:16 INR 1.1 11/23/18 12:16 APTT 35 SECONDS (21-34) H 11/23/18 12:16 - Constitutional Appears: Chronically Ill - Head Exam Head Exam: NORMAL INSPECTION - Eye Exam Eye Exam: Normal appearance Pupil Exam: NORMAL ACCOMODATION - ENT Exam ENT Exam: Normal Exam - Neck Exam Neck Exam: Normal Inspection - Respiratory Exam Respiratory Exam: Rhonchi, Wheezes Additional comments: Rhonchi and wheezes bilaterally. - GI/Abdominal Exam GI & Abdominal Exam: Soft, Normal Bowel Sounds - Rectal Exam Rectal Exam: Deferred - Extremities Exam Extremities Exam: Normal Inspection - Back Exam Back Exam: NORMAL INSPECTION - Neurological Exam Neurological Exam: Alert, Awake, Oriented x3 - Psychiatric Exam Psychiatric exam: Anxious - Skin Skin Exam: Dry, Intact, Normal Color Assessment and Plan (1) Pneumonia Assessment & Plan: On IV antibiotics. Status: Acute (2) ESRD (end stage renal disease) Assessment & Plan: HD as per Nephrologists. Status: Acute
--- NOTE | 2018-11-28 18:56 | CP.PCM.PN ---
Subjective - Date & Time of Evaluation Date of Evaluation: 11/28/18 Time of Evaluation: 07:00 - Subjective Subjective: improving afeb less cough less congestion Objective - Vital Signs/Intake and Output Vital Signs (last 24 hours): Temp Pulse Resp BP Pulse Ox 98.1 F 82 20 119/68 100 11/28/18 15:49 11/28/18 15:49 11/28/18 15:49 11/28/18 15:49 11/28/18 15:49 Intake and Output: 11/28/18 11/28/18 06:59 18:59 Intake Total 680 Balance 680 - Medications Medications: Current Medications Acetaminophen (Tylenol 325mg Tab) 650 mg PO Q6 PRN PRN Reason: Fever >100.4 F Albuterol/Ipratropium (Duoneb 3 Mg/0.5 Mg (3 Ml) Ud) 3 ml INH RQ6 [facility] Last Admin: 11/28/18 14:15 Dose: 3 ml Allopurinol (Zyloprim) 100 mg PO [facility] Last Admin: 11/27/18 21:45 Dose: 100 mg Apixaban (Eliquis) 2.5 mg PO Q48H [facility] Last Admin: 11/27/18 20:05 Dose: 2.5 mg Benzonatate (Tessalon Perles) 100 mg PO BID PRN PRN Reason: Cough Last Admin: 11/27/18 21:48 Dose: 100 mg Calcitriol (Rocaltrol) 0.25 mcg PO [facility] Last Admin: 11/27/18 21:45 Dose: 0.25 mcg Epoetin Danial (Procrit) 4,000 unit IV MWF [facility] Ferrous Sulfate (Feosol) 325 mg PO [facility] Last Admin: 11/27/18 21:45 Dose: 325 mg Folic Acid (Folic Acid) 1 mg PO [facility] Last Admin: 11/27/18 21:45 Dose: 1 mg Vancomycin/Sodium Chloride (Vancomycin 1 Gm/Ns 200 Ml) 1 gm in 200 mls @ 133.333 mls/hr IVPB TTS [facility]; Protocol Last Admin: 11/28/18 10:41 Dose: 133.333 mls/hr Ceftriaxone Sodium 2 gm/ (Sodium Chloride) 100 mls @ 100 mls/hr IVPB Q24H [facility]; Protocol Last Admin: 11/27/18 21:45 Dose: 100 mls/hr Rosuvastatin Calcium (Crestor) 5 mg PO HS [facility] Last Admin: 11/27/18 21:45 Dose: 5 mg Vitamin B Complex/Vit C/Folic Acid (Nephro-Miguel Ángel) 1 tab PO 0800 [facility] Last Admin: 11/28/18 08:08 Dose: 1 tab - Labs Labs: 11/24/18 08:10 11/23/18 12:16 PT 11.8 SECONDS (9.7-12.2) 11/23/18 12:16 INR 1.1 11/23/18 12:16 APTT 35 SECONDS (21-34) H 11/23/18 12:16 - Constitutional Appears: Non-toxic, Chronically Ill - Head Exam Head Exam: NORMOCEPHALIC - Eye Exam Eye Exam: absent: Scleral icterus - ENT Exam ENT Exam: Mucous Membranes Dry - Neck Exam Neck Exam: absent: Lymphadenopathy - Respiratory Exam Respiratory Exam: Decreased Breath Sounds - Cardiovascular Exam Cardiovascular Exam: REGULAR RHYTHM - GI/Abdominal Exam GI & Abdominal Exam: Distended, Soft, Diminished Bowel Sounds - Rectal Exam Rectal Exam: Deferred - Exam Exam: NORMAL INSPECTION - Extremities Exam Extremities Exam: absent: Pedal Edema - Back Exam Back Exam: absent: CVA tenderness (L), CVA tenderness (R) - Neurological Exam Neurological Exam: Alert, Awake, CN II-XII Intact, Oriented x3 Assessment and Plan (1) ESRD (end stage renal disease) Status: Acute (2) Pneumonia Status: Acute (3) Sepsis Status: Acute - Assessment and Plan (Free Text) Assessment: cont rx severe exac COPD/bronchopneumonia
[2018-11-28] MEDS: cefTRIAXone 2 GM in Sodium Chloride 0.9% 100 ML IVPB SCH (23:25)
[2018-11-29] MEDS: Albuterol-Ipratrop 3 mg / 0.5 (3 ml) UD INH SCH ×4 (01:20→19:01)
[2018-11-29 07:51] LABS: HEMOGLOBIN 10.2 g/dL (12.0-18.0); MEAN CELL VOLUME 105.4 fL (80.0-94.0); MEAN CORPUSCULAR HEMOGLOBIN 34.5 pg (27.0-31.0); MEAN CORPUSCULAR HGB CONC 32.7 g/dL (33.0-37.0); MEAN PLATELET VOLUME 7.3 fL (7.2-11.7); RBC 2.96 Mil/uL (4.40-5.90); RED CELL DISTRIBUTION WIDTH 16.5 % (11.5-14.5); WHITE BLOOD COUNT 5.4 K/uL (4.8-10.8)
[2018-11-29 08:15] LABS: ALB/GLOB RATIO 0.8 (1.0-2.1); CALCIUM 7.9 mg/dl (8.6-10.4)
[2018-11-29] MEDS ORDERED: Epoetin Alfa 4000 UNIT/ML Inj IV SCH (10:00)
[2018-11-29] MEDS: Multivitamin Vitamin B Complex (Nephro-Vite) Tab PO SCH ×2 (10:01→10:04)
--- NOTE | 2018-11-29 12:55 | CP.PCM.PN ---
Subjective - Date & Time of Evaluation Date of Evaluation: 11/29/18 Time of Evaluation: 12:52 - Subjective Subjective: feels better not coughing or wheezing now BP stable K low- will use 4K dialysis bath TSat therapeutic Objective - Vital Signs/Intake and Output Vital Signs (last 24 hours): Temp Pulse Resp BP Pulse Ox 98.1 F 99 H 18 112/65 98 11/29/18 07:00 11/29/18 07:00 11/29/18 07:00 11/29/18 07:00 11/29/18 07:00 - Medications Medications: Current Medications Acetaminophen (Tylenol 325mg Tab) 650 mg PO Q6 PRN PRN Reason: Fever >100.4 F Albuterol/Ipratropium (Duoneb 3 Mg/0.5 Mg (3 Ml) Ud) 3 ml INH RQ6 [facility] Last Admin: 11/29/18 01:20 Dose: 3 ml Allopurinol (Zyloprim) 100 mg PO HS [facility] Last Admin: 11/28/18 21:45 Dose: 100 mg Apixaban (Eliquis) 2.5 mg PO Q48H [facility] Last Admin: 11/27/18 20:05 Dose: 2.5 mg Benzonatate (Tessalon Perles) 100 mg PO BID PRN PRN Reason: Cough Last Admin: 11/29/18 09:56 Dose: 100 mg Calcitriol (Rocaltrol) 0.25 mcg PO [facility] Last Admin: 11/28/18 21:45 Dose: 0.25 mcg Epoetin Danial (Procrit) 4,000 unit IV MWF [facility] Ferrous Sulfate (Feosol) 325 mg PO [facility] Last Admin: 11/28/18 21:45 Dose: 325 mg Folic Acid (Folic Acid) 1 mg PO [facility] Last Admin: 11/28/18 21:45 Dose: 1 mg Vancomycin/Sodium Chloride (Vancomycin 1 Gm/Ns 200 Ml) 1 gm in 200 mls @ 133.333 mls/hr IVPB TTS [facility]; Protocol Last Admin: 11/28/18 10:41 Dose: 133.333 mls/hr Ceftriaxone Sodium 2 gm/ (Sodium Chloride) 100 mls @ 100 mls/hr IVPB Q24H [facility]; Protocol Last Admin: 11/28/18 23:25 Dose: 100 mls/hr Rosuvastatin Calcium (Crestor) 5 mg PO HS [facility] Last Admin: 11/28/18 21:45 Dose: 5 mg Vitamin B Complex/Vit C/Folic Acid (Nephro-Miguel Ángel) 1 tab PO 0800 [facility] Last Admin: 11/29/18 10:04 Dose: 1 tab - Labs Labs: 11/29/18 07:41 11/29/18 07:41 PT 11.8 SECONDS (9.7-12.2) 11/23/18 12:16 INR 1.1 11/23/18 12:16 APTT 35 SECONDS (21-34) H 11/23/18 12:16 - Constitutional Appears: No Acute Distress, Chronically Ill - Head Exam Head Exam: ATRAUMATIC, NORMAL INSPECTION - Eye Exam Eye Exam: EOMI, Normal appearance - Neck Exam Neck Exam: Normal Inspection. absent: Tenderness - Respiratory Exam Respiratory Exam: Clear to Ausculation Bilateral, NORMAL BREATHING PATTERN - Cardiovascular Exam Cardiovascular Exam: REGULAR RHYTHM, +S1 - GI/Abdominal Exam GI & Abdominal Exam: Soft. absent: Tenderness - Extremities Exam Extremities Exam: Normal Inspection. absent: Tenderness - Neurological Exam Neurological Exam: Awake, CN II-XII Intact - Skin Skin Exam: Dry, Warm Assessment and Plan (1) Hypertensive chronic kidney disease with stage 5 chronic kidney disease or end stage renal disease Status: Acute (2) CAD (coronary artery disease) Status: Acute (3) Near syncope Status: Acute (4) ESRD (end stage renal disease) Status: Acute (5) Atrial flutter Status: Acute (6) Chronic atrial flutter Status: Chronic - Assessment and Plan (Free Text) Plan: dialysis now- adequate UF goal same meds change to 4K bath
[2018-11-29] MEDS ORDERED: EPOETIN ALFA 4,000 UNIT/ML ML Dialysis IV ONE (17:30)
[2018-11-29] MEDS ORDERED: Potassium Chloride 20 mEq ER Tab PO STA (20:04)
--- NOTE | 2018-11-29 20:08 | CP.PCM.PN ---
Subjective - Date & Time of Evaluation Date of Evaluation: 11/29/18 Time of Evaluation: 20:05 - Subjective Subjective: Patient less SOB but still with a productive and rhnchi bilaterally. Afebrile, on IV antibiotics. To repeat CXR in AM. Objective - Vital Signs/Intake and Output Vital Signs (last 24 hours): Temp Pulse Resp BP Pulse Ox 98.7 F 90 20 132/84 96 11/29/18 18:00 11/29/18 18:00 11/29/18 18:00 11/29/18 18:00 11/29/18 18:00 - Medications Medications: Current Medications Acetaminophen (Tylenol 325mg Tab) 650 mg PO Q6 PRN PRN Reason: Fever >100.4 F Albuterol/Ipratropium (Duoneb 3 Mg/0.5 Mg (3 Ml) Ud) 3 ml INH RQ6 [facility] Last Admin: 11/29/18 19:01 Dose: Not Given Allopurinol (Zyloprim) 100 mg PO [facility] Last Admin: 11/28/18 21:45 Dose: 100 mg Apixaban (Eliquis) 2.5 mg PO Q48H [facility] Last Admin: 11/27/18 20:05 Dose: 2.5 mg Benzonatate (Tessalon Perles) 100 mg PO BID PRN PRN Reason: Cough Last Admin: 11/29/18 09:56 Dose: 100 mg Calcitriol (Rocaltrol) 0.25 mcg PO [facility] Last Admin: 11/28/18 21:45 Dose: 0.25 mcg Ferrous Sulfate (Feosol) 325 mg PO [facility] Last Admin: 11/28/18 21:45 Dose: 325 mg Folic Acid (Folic Acid) 1 mg PO [facility] Last Admin: 11/28/18 21:45 Dose: 1 mg Vancomycin/Sodium Chloride (Vancomycin 1 Gm/Ns 200 Ml) 1 gm in 200 mls @ 133.333 mls/hr IVPB TTS [facility]; Protocol Last Admin: 11/28/18 10:41 Dose: 133.333 mls/hr Ceftriaxone Sodium 2 gm/ (Sodium Chloride) 100 mls @ 100 mls/hr IVPB Q24H [facility]; Protocol Last Admin: 11/28/18 23:25 Dose: 100 mls/hr Potassium Chloride (K-Dur 20 Meq Er Tab) 20 meq PO STAT [facility] Stop: 11/29/18 20:05 Rosuvastatin Calcium (Crestor) 5 mg PO HS [facility] Last Admin: 11/28/18 21:45 Dose: 5 mg Vitamin B Complex/Vit C/Folic Acid (Nephro-Miguel Ángel) 1 tab PO 0800 [facility] Last Admin: 11/29/18 10:04 Dose: 1 tab - Labs Labs: 11/29/18 07:41 11/29/18 07:41 PT 11.8 SECONDS (9.7-12.2) 11/23/18 12:16 INR 1.1 11/23/18 12:16 APTT 35 SECONDS (21-34) H 11/23/18 12:16 - Constitutional Appears: No Acute Distress, Chronically Ill - Head Exam Head Exam: NORMOCEPHALIC - Eye Exam Eye Exam: Normal appearance Pupil Exam: NORMAL ACCOMODATION - ENT Exam ENT Exam: Normal Exam - Neck Exam Neck Exam: Normal Inspection - Respiratory Exam Respiratory Exam: Rhonchi, Wheezes Additional comments: Rhonchi and wheezes heard at both bases. - Cardiovascular Exam Cardiovascular Exam: REGULAR RHYTHM - GI/Abdominal Exam GI & Abdominal Exam: Soft, Normal Bowel Sounds - Rectal Exam Rectal Exam: Deferred - Extremities Exam Extremities Exam: Normal Inspection - Back Exam Back Exam: NORMAL INSPECTION - Neurological Exam Neurological Exam: Alert, Awake, Oriented x3 - Psychiatric Exam Psychiatric exam: Anxious - Skin Skin Exam: Dry, Intact, Normal Color, Warm Assessment and Plan (1) Pneumonia Assessment & Plan: Repeat CXR. On IV antibiotics as per DR June. Status: Acute (2) ESRD (end stage renal disease) Assessment & Plan: K+: 3.5 today after HD. Will give a stat dose of K-Kur 20 mEQ PO. Status: Acute
[2018-11-29] MEDS: cefTRIAXone 2 GM in Sodium Chloride 0.9% 100 ML IVPB SCH (21:29)
[2018-11-30] MEDS: Albuterol-Ipratrop 3 mg / 0.5 (3 ml) UD INH SCH ×4 (02:29→19:05)
--- NOTE | 2018-11-30 09:14 | RAD ---
Date of service: 11/30/2018 HISTORY: F/U left pleural effusion COMPARISON: Portable chest 11/26/2018. TECHNIQUE: Chest PA and lateral FINDINGS: LUNGS: Right central venous dialysis catheter unchanged in position. Left basilar consolidation or pleural effusion diminishing with significant residual remaining. No right pleural effusion. No pneumothorax bilaterally. Linear atelectasis or fibrosis seen mid left lung zone laterally. PLEURA: As above. CARDIOVASCULAR: Calcific atherosclerotic changes are seen related to the thoracic aorta. Normal cardiac size. No pulmonary vascular congestion. OSSEOUS STRUCTURES: No significant abnormalities. VISUALIZED UPPER ABDOMEN: Normal. OTHER FINDINGS: None. IMPRESSION: Mild improvement in left basilar opacity likely a combination of infiltrate and left pleural effusion. Examination otherwise unchanged.
[2018-11-30] MEDS: Multivitamin Vitamin B Complex (Nephro-Vite) Tab PO SCH (09:49)
[2018-11-30] MEDS: Vancomycin 1 gm/NS 200 ml 1 GM/200 ML BAG IVPB SCH (09:55)
--- NOTE | 2018-11-30 10:48 | CP.PCM.PN ---
Subjective - Date & Time of Evaluation Date of Evaluation: 11/30/18 Time of Evaluation: 10:46 - Subjective Subjective: Notes reviewed Remains in bed Offers no complaints No overnightevents Appetite good No pain 10 point ros negative Objective - Vital Signs/Intake and Output Vital Signs (last 24 hours): Temp Pulse Resp BP Pulse Ox 98.4 F 116 H 20 125/66 100 11/30/18 08:43 11/30/18 08:43 11/30/18 08:43 11/30/18 08:43 11/30/18 08:43 Intake and Output: 11/30/18 11/30/18 06:59 18:59 Intake Total 120 Balance 120 - Medications Medications: Current Medications Acetaminophen (Tylenol 325mg Tab) 650 mg PO Q6 PRN PRN Reason: Fever >100.4 F Albuterol/Ipratropium (Duoneb 3 Mg/0.5 Mg (3 Ml) Ud) 3 ml INH RQ6 [facility] Last Admin: 11/30/18 07:44 Dose: 3 ml Allopurinol (Zyloprim) 100 mg PO HS [facility] Last Admin: 11/29/18 21:27 Dose: 100 mg Apixaban (Eliquis) 2.5 mg PO Q48H [facility] Last Admin: 11/29/18 21:27 Dose: 2.5 mg Benzonatate (Tessalon Perles) 100 mg PO BID PRN PRN Reason: Cough Last Admin: 11/29/18 21:28 Dose: 100 mg Calcitriol (Rocaltrol) 0.25 mcg PO HS [facility] Last Admin: 11/29/18 21:27 Dose: 0.25 mcg Ferrous Sulfate (Feosol) 325 mg PO HS [facility] Last Admin: 11/29/18 21:27 Dose: 325 mg Folic Acid (Folic Acid) 1 mg PO HS [facility] Last Admin: 11/29/18 21:28 Dose: 1 mg Vancomycin/Sodium Chloride (Vancomycin 1 Gm/Ns 200 Ml) 1 gm in 200 mls @ 133.333 mls/hr IVPB TTS [facility]; Protocol Last Admin: 11/30/18 09:55 Dose: 133.333 mls/hr Ceftriaxone Sodium 2 gm/ (Sodium Chloride) 100 mls @ 100 mls/hr IVPB Q24H [facility]; Protocol Last Admin: 11/29/18 21:29 Dose: 100 mls/hr Rosuvastatin Calcium (Crestor) 5 mg PO HS [facility] Last Admin: 11/29/18 21:27 Dose: 5 mg Vitamin B Complex/Vit C/Folic Acid (Nephro-Miguel Ángel) 1 tab PO 0800 [facility] Last Admin: 11/30/18 09:49 Dose: 1 tab - Labs Labs: 11/29/18 07:41 11/29/18 07:41 PT 11.8 SECONDS (9.7-12.2) 11/23/18 12:16 INR 1.1 11/23/18 12:16 APTT 35 SECONDS (21-34) H 11/23/18 12:16 - Constitutional Appears: Well, Non-toxic - ENT Exam ENT Exam: Mucous Membranes Moist, Normal Oropharynx - Neck Exam Neck Exam: Normal Inspection. absent: Thyromegaly - Respiratory Exam Respiratory Exam: Clear to Ausculation Bilateral. absent: Rales - Cardiovascular Exam Cardiovascular Exam: +S1, +S2. absent: Rubs - GI/Abdominal Exam GI & Abdominal Exam: Soft, Normal Bowel Sounds - Extremities Exam Extremities Exam: absent: Pedal Edema, Tenderness - Neurological Exam Neurological Exam: Alert, Awake, Oriented x3 Assessment and Plan (1) CAD (coronary artery disease) Status: Acute (2) ESRD (end stage renal disease) Status: Acute (3) Hypertensive chronic kidney disease with stage 5 chronic kidney disease or end stage renal disease Status: Acute (4) Near syncope Status: Acute (5) Hypokalemia Status: Acute - Assessment and Plan (Free Text) Assessment: Maintain dialysis schedule 3 k bath for hypokalemia Monitor bp Follow up with cardiology evaluation Next dialysis 12/02
[2018-11-30] MEDS: cefTRIAXone 2 GM in Sodium Chloride 0.9% 100 ML IVPB SCH (22:17)
[2018-12-01] MEDS: Albuterol-Ipratrop 3 mg / 0.5 (3 ml) UD INH SCH ×4 (01:21→19:57)
[2018-12-01] MEDS: Multivitamin Vitamin B Complex (Nephro-Vite) Tab PO SCH (07:46)
--- NOTE | 2018-12-01 14:30 | CP.PCM.PN ---
Subjective - Date & Time of Evaluation Date of Evaluation: 12/01/18 Time of Evaluation: 14:27 - Subjective Subjective: Patient with less cough and SOB. Appetite improving. Afebrile. CXR: slightly diminished left pleural effusion. On IV antibiotics. Objective - Vital Signs/Intake and Output Vital Signs (last 24 hours): Temp Pulse Resp BP Pulse Ox 98.0 F 87 20 124/71 94 L 12/01/18 08:36 12/01/18 08:36 12/01/18 08:36 12/01/18 08:36 12/01/18 08:36 Intake and Output: 12/01/18 12/01/18 06:59 18:59 Intake Total 570 250 Balance 570 250 - Medications Medications: Current Medications Acetaminophen (Tylenol 325mg Tab) 650 mg PO Q6 PRN PRN Reason: Fever >100.4 F Albuterol/Ipratropium (Duoneb 3 Mg/0.5 Mg (3 Ml) Ud) 3 ml INH RQ6 [facility] Last Admin: 12/01/18 13:37 Dose: 3 ml Allopurinol (Zyloprim) 100 mg PO [facility] Last Admin: 11/30/18 21:22 Dose: 100 mg Apixaban (Eliquis) 2.5 mg PO Q48H [facility] Last Admin: 11/29/18 21:27 Dose: 2.5 mg Benzonatate (Tessalon Perles) 100 mg PO BID PRN PRN Reason: Cough Last Admin: 11/29/18 21:28 Dose: 100 mg Calcitriol (Rocaltrol) 0.25 mcg PO [facility] Last Admin: 11/30/18 21:23 Dose: 0.25 mcg Ferrous Sulfate (Feosol) 325 mg PO [facility] Last Admin: 11/30/18 21:23 Dose: 325 mg Folic Acid (Folic Acid) 1 mg PO [facility] Last Admin: 11/30/18 21:22 Dose: 1 mg Ceftriaxone Sodium 2 gm/ (Sodium Chloride) 100 mls @ 100 mls/hr IVPB Q24H [facility]; Protocol Last Admin: 11/30/18 22:17 Dose: 100 mls/hr Rosuvastatin Calcium (Crestor) 5 mg PO [facility] Last Admin: 11/30/18 21:22 Dose: 5 mg Vitamin B Complex/Vit C/Folic Acid (Nephro-Miguel Ángel) 1 tab PO 0800 [facility] Last Admin: 12/01/18 07:46 Dose: 1 tab - Labs Labs: 11/29/18 07:41 11/29/18 07:41 PT 11.8 SECONDS (9.7-12.2) 11/23/18 12:16 INR 1.1 11/23/18 12:16 APTT 35 SECONDS (21-34) H 11/23/18 12:16 - Constitutional Appears: Non-toxic, Chronically Ill - Head Exam Head Exam: NORMAL INSPECTION - Eye Exam Eye Exam: Normal appearance Pupil Exam: NORMAL ACCOMODATION - ENT Exam ENT Exam: Normal Exam - Neck Exam Neck Exam: Normal Inspection - Respiratory Exam Additional comments: Rhonchi at the left base. - Cardiovascular Exam Cardiovascular Exam: REGULAR RHYTHM - GI/Abdominal Exam GI & Abdominal Exam: Soft, Normal Bowel Sounds - Rectal Exam Rectal Exam: Deferred - Exam Exam: NORMAL INSPECTION - Extremities Exam Extremities Exam: Normal Inspection - Back Exam Back Exam: NORMAL INSPECTION - Neurological Exam Neurological Exam: Alert, Awake, Oriented x3 - Psychiatric Exam Psychiatric exam: Anxious - Skin Skin Exam: Dry, Intact, Normal Color Assessment and Plan (1) Pneumonia Assessment & Plan: On IV antibiotics. Status: Acute (2) ESRD (end stage renal disease) Assessment & Plan: To continue HD as per Nephrologists. Status: Acute
[2018-12-01] MEDS: cefTRIAXone 2 GM in Sodium Chloride 0.9% 100 ML IVPB SCH (21:30)
[2018-12-02] MEDS: Albuterol-Ipratrop 3 mg / 0.5 (3 ml) UD INH SCH ×4 (01:30→19:31)
[2018-12-02] MEDS: Multivitamin Vitamin B Complex (Nephro-Vite) Tab PO SCH (08:07)
--- NOTE | 2018-12-02 11:55 | CP.PCM.PN ---
Subjective - Date & Time of Evaluation Date of Evaluation: 12/02/18 Time of Evaluation: 08:00 - Subjective Subjective: afebrile less cough and less sob no new cultures Objective - Vital Signs/Intake and Output Vital Signs (last 24 hours): Temp Pulse Resp BP Pulse Ox 96.8 F L 101 H 16 144/78 96 12/02/18 09:35 12/02/18 09:35 12/02/18 09:35 12/02/18 11:20 12/02/18 09:35 Intake and Output: 12/02/18 12/02/18 06:59 18:59 Intake Total 470 Balance 470 - Medications Medications: Current Medications Acetaminophen (Tylenol 325mg Tab) 650 mg PO Q6 PRN PRN Reason: Fever >100.4 F Albuterol/Ipratropium (Duoneb 3 Mg/0.5 Mg (3 Ml) Ud) 3 ml INH RQ6 [facility] Last Admin: 12/02/18 01:30 Dose: 3 ml Allopurinol (Zyloprim) 100 mg PO [facility] Last Admin: 12/01/18 21:30 Dose: 100 mg Apixaban (Eliquis) 2.5 mg PO Q48H [facility] Last Admin: 12/01/18 19:29 Dose: 2.5 mg Benzonatate (Tessalon Perles) 100 mg PO BID PRN PRN Reason: Cough Last Admin: 11/29/18 21:28 Dose: 100 mg Calcitriol (Rocaltrol) 0.25 mcg PO [facility] Last Admin: 12/01/18 21:30 Dose: 0.25 mcg Ferrous Sulfate (Feosol) 325 mg PO [facility] Last Admin: 12/01/18 21:30 Dose: 325 mg Folic Acid (Folic Acid) 1 mg PO [facility] Last Admin: 12/01/18 21:30 Dose: 1 mg Ceftriaxone Sodium 2 gm/ (Sodium Chloride) 100 mls @ 100 mls/hr IVPB Q24H [facility]; Protocol Last Admin: 12/01/18 21:30 Dose: 100 mls/hr Rosuvastatin Calcium (Crestor) 5 mg PO [facility] Last Admin: 12/01/18 21:30 Dose: 5 mg Vitamin B Complex/Vit C/Folic Acid (Nephro-Miguel Ángel) 1 tab PO 0800 [facility] Last Admin: 12/02/18 08:07 Dose: Not Given - Labs Labs: 11/29/18 07:41 11/29/18 07:41 PT 11.8 SECONDS (9.7-12.2) 11/23/18 12:16 INR 1.1 11/23/18 12:16 APTT 35 SECONDS (21-34) H 11/23/18 12:16 - Constitutional Appears: Non-toxic, Chronically Ill - Head Exam Head Exam: NORMOCEPHALIC - Eye Exam Eye Exam: absent: Scleral icterus - ENT Exam ENT Exam: Mucous Membranes Dry - Neck Exam Neck Exam: absent: Lymphadenopathy - Respiratory Exam Respiratory Exam: Decreased Breath Sounds - Cardiovascular Exam Cardiovascular Exam: REGULAR RHYTHM - GI/Abdominal Exam GI & Abdominal Exam: Distended, Soft - Rectal Exam Rectal Exam: Deferred - Exam Exam: NORMAL INSPECTION Assessment and Plan (1) ESRD (end stage renal disease) Status: Acute (2) Pneumonia Status: Acute (3) Sepsis Status: Acute - Assessment and Plan (Free Text) Assessment: IV rx renewed
--- NOTE | 2018-12-02 12:24 | CP.PCM.PN ---
Subjective - Date & Time of Evaluation Date of Evaluation: 12/02/18 Time of Evaluation: 12:22 - Subjective Subjective: seen at dialysis feels better HTN controlled no fevers less dyspnea to UF 1600ml Objective - Vital Signs/Intake and Output Vital Signs (last 24 hours): Temp Pulse Resp BP Pulse Ox 96.8 F L 101 H 16 144/78 96 12/02/18 09:35 12/02/18 09:35 12/02/18 09:35 12/02/18 11:20 12/02/18 09:35 Intake and Output: 12/02/18 12/02/18 06:59 18:59 Intake Total 470 Balance 470 - Medications Medications: Current Medications Acetaminophen (Tylenol 325mg Tab) 650 mg PO Q6 PRN PRN Reason: Fever >100.4 F Albuterol/Ipratropium (Duoneb 3 Mg/0.5 Mg (3 Ml) Ud) 3 ml INH RQ6 [facility] Last Admin: 12/02/18 01:30 Dose: 3 ml Allopurinol (Zyloprim) 100 mg PO [facility] Last Admin: 12/01/18 21:30 Dose: 100 mg Apixaban (Eliquis) 2.5 mg PO Q48H [facility] Last Admin: 12/01/18 19:29 Dose: 2.5 mg Benzonatate (Tessalon Perles) 100 mg PO BID PRN PRN Reason: Cough Last Admin: 11/29/18 21:28 Dose: 100 mg Calcitriol (Rocaltrol) 0.25 mcg PO [facility] Last Admin: 12/01/18 21:30 Dose: 0.25 mcg Ferrous Sulfate (Feosol) 325 mg PO [facility] Last Admin: 12/01/18 21:30 Dose: 325 mg Folic Acid (Folic Acid) 1 mg PO [facility] Last Admin: 12/01/18 21:30 Dose: 1 mg Ceftriaxone Sodium 2 gm/ (Sodium Chloride) 100 mls @ 100 mls/hr IVPB Q24H [facility]; Protocol Last Admin: 12/01/18 21:30 Dose: 100 mls/hr Rosuvastatin Calcium (Crestor) 5 mg PO [facility] Last Admin: 12/01/18 21:30 Dose: 5 mg Vitamin B Complex/Vit C/Folic Acid (Nephro-Miguel Ángel) 1 tab PO 0800 [facility] Last Admin: 12/02/18 08:07 Dose: Not Given - Labs Labs: 11/29/18 07:41 11/29/18 07:41 PT 11.8 SECONDS (9.7-12.2) 11/23/18 12:16 INR 1.1 11/23/18 12:16 APTT 35 SECONDS (21-34) H 11/23/18 12:16 - Constitutional Appears: No Acute Distress, Chronically Ill - Head Exam Head Exam: ATRAUMATIC, NORMAL INSPECTION - Eye Exam Eye Exam: EOMI, Normal appearance - Neck Exam Neck Exam: Normal Inspection. absent: Tenderness - Respiratory Exam Respiratory Exam: Clear to Ausculation Bilateral, NORMAL BREATHING PATTERN - Cardiovascular Exam Cardiovascular Exam: REGULAR RHYTHM, +S1 - GI/Abdominal Exam GI & Abdominal Exam: Soft. absent: Tenderness - Extremities Exam Extremities Exam: Normal Inspection. absent: Tenderness - Neurological Exam Neurological Exam: Alert, CN II-XII Intact - Skin Skin Exam: Dry, Warm Assessment and Plan (1) Hypertensive chronic kidney disease with stage 5 chronic kidney disease or end stage renal disease Status: Acute (2) CAD (coronary artery disease) Status: Acute (3) Near syncope Status: Acute (4) ESRD (end stage renal disease) Status: Acute (5) Chronic atrial flutter Status: Chronic - Assessment and Plan (Free Text) Plan: same dialysis MWF ask surgery to consider AV access now
[2018-12-02] MEDS: cefTRIAXone 2 GM in Sodium Chloride 0.9% 100 ML IVPB SCH (21:40)
--- NOTE | 2018-12-02 22:59 | CP.PCM.PN ---
Subjective - Date & Time of Evaluation Date of Evaluation: 12/02/18 Time of Evaluation: 19:30 - Subjective Subjective: Less cough, less SOB, less wheeze. Still on IV Rocephin as per Dr June.for a left pleural effusion, pneumonia. Afebrile. Probably for discharge home in AM. Objective - Vital Signs/Intake and Output Vital Signs (last 24 hours): Temp Pulse Resp BP Pulse Ox 98.5 F 91 H 20 125/74 99 12/02/18 16:00 12/02/18 16:00 12/02/18 16:00 12/02/18 16:00 12/02/18 16:00 Intake and Output: 12/02/18 12/03/18 18:59 06:59 Intake Total 200 Balance 200 - Medications Medications: Current Medications Acetaminophen (Tylenol 325mg Tab) 650 mg PO Q6 PRN PRN Reason: Fever >100.4 F Albuterol/Ipratropium (Duoneb 3 Mg/0.5 Mg (3 Ml) Ud) 3 ml INH RQ6 [facility] Last Admin: 12/02/18 19:31 Dose: 3 ml Allopurinol (Zyloprim) 100 mg PO HS [facility] Last Admin: 12/02/18 21:39 Dose: 100 mg Apixaban (Eliquis) 2.5 mg PO Q48H [facility] Last Admin: 12/01/18 19:29 Dose: 2.5 mg Benzonatate (Tessalon Perles) 100 mg PO BID PRN PRN Reason: Cough Last Admin: 11/29/18 21:28 Dose: 100 mg Calcitriol (Rocaltrol) 0.25 mcg PO [facility] Last Admin: 12/02/18 21:40 Dose: 0.25 mcg Cephalexin Monohydrate (Keflex) 500 mg PO Q12 [facility]; Protocol Last Admin: 12/02/18 21:39 Dose: 500 mg Ferrous Sulfate (Feosol) 325 mg PO [facility] Last Admin: 12/02/18 21:40 Dose: 325 mg Folic Acid (Folic Acid) 1 mg PO HS [facility] Last Admin: 12/02/18 21:39 Dose: 1 mg Ceftriaxone Sodium 2 gm/ (Sodium Chloride) 100 mls @ 100 mls/hr IVPB Q24H [facility]; Protocol Last Admin: 12/02/18 21:40 Dose: 100 mls/hr Rosuvastatin Calcium (Crestor) 5 mg PO HS [facility] Last Admin: 12/02/18 21:39 Dose: 5 mg Vitamin B Complex/Vit C/Folic Acid (Nephro-Miguel Ángel) 1 tab PO 0800 [facility] Last Admin: 12/02/18 08:07 Dose: Not Given - Labs Labs: 11/29/18 07:41 11/29/18 07:41 PT 11.8 SECONDS (9.7-12.2) 11/23/18 12:16 INR 1.1 11/23/18 12:16 APTT 35 SECONDS (21-34) H 11/23/18 12:16 - Constitutional Appears: No Acute Distress, Chronically Ill - Head Exam Head Exam: NORMAL INSPECTION - Eye Exam Eye Exam: Normal appearance Pupil Exam: NORMAL ACCOMODATION - ENT Exam ENT Exam: Normal Exam - Neck Exam Neck Exam: Normal Inspection - Respiratory Exam Respiratory Exam: Rhonchi Additional comments: Rhonchi left base. - Cardiovascular Exam Cardiovascular Exam: REGULAR RHYTHM - GI/Abdominal Exam GI & Abdominal Exam: Soft, Normal Bowel Sounds - Rectal Exam Rectal Exam: Deferred - Extremities Exam Extremities Exam: Normal Capillary Refill, Normal Inspection - Back Exam Back Exam: NORMAL INSPECTION - Neurological Exam Neurological Exam: Alert, Awake, Oriented x3 - Psychiatric Exam Psychiatric exam: Anxious - Skin Skin Exam: Dry, Intact, Normal Color, Warm Assessment and Plan (1) Pneumonia Assessment & Plan: On IV Rocephin. Will discuss with Dr June about switching to a PO antibiotic. Status: Acute (2) ESRD (end stage renal disease) Assessment & Plan: HD as per [employer] Truck [employer]. Status: Acute
[2018-12-03] MEDS: Albuterol-Ipratrop 3 mg / 0.5 (3 ml) UD INH SCH ×4 (01:00→19:50)
[2018-12-03] MEDS: Multivitamin Vitamin B Complex (Nephro-Vite) Tab PO SCH (09:21)
--- NOTE | 2018-12-03 17:20 | CP.PCM.CON ---
History of Present Illness - History of Present Illness History of Present Illness: Consult note for Dr. Aleman. HPI:83 yo male with HTN, ESRD, CAD s/p CABG, COPD and A flutter s/p cardioversion was admitted for ESRD and pneumonia. Vascular surgery was consulted for AV shunt placement. Patient receives HD through R chest permacath. Last HD session was yesterday. Patient denies fever, chills, chest pain, headache, nausea, vomiting, diarrhea, constipation, and lightheadedness. Reports chronic shortness of breath on exertion due to COPD. PMHX- HTN, ESRD, CAD, COPD, BPH, A flutter PSHx- CABG, R AV fistula, PD catheter placement, permacath x2 Allergies- contrast dye-rash, thiazides-rash social - no smoking, alcohol or drug use family- no family history of kidney disease Review of Systems: -Gen: No fever, No chills, No headache, No lethargy, No weakness. -HEENT: No dizziness, No change in vision, No change in hearing, No sore throat, No dysphagia, No nasal congestion, No mucous. -Cardio: No chest pain, No palpitations, No lower extremity edema, No orthopnea. -Resp: + shortness of breath on exertion, No hemoptysis, No wheezing, No pain on inspiration. -GI: No abdominal pain, No nausea/vomiting, No diarrhea/constipation, No hematochezia, No hematemesis. -: No dysuria, No urinary freq, No incontinence, No hematuria, No change in urinary stream. -MSK: No back pain, No muscle weakness, No radiating pain. -Skin: No itching, No rash, No lesions. -Neuro: No confusion, No numbness, No tingling, No focal weakness, No radicular pain, No syncope. -Psych: No anxiety, No depression, No H/I, No S/I, No hallucinations. Past Patient History - Infectious Disease Hx of Infectious Diseases: None - Tetanus Immunizations Tetanus Immunization: Unknown - Past Medical History & Family History Past Medical History?: Yes Past Family History: Reviewed and not pertinent - Past Social History Smoking Status: Never Smoked Chewing Tobacco Use: No Cigar Use: No Alcohol: None Drugs: Denies Home Situation {Lives}: With Family Domestic Violence: Negative - CARDIAC Hx Cardia Arrhythmia: Yes (HX: [id number] DONE ~[id number]) Hx Congestive Heart Failure: Yes Hx Hypercholesterolemia: Yes Hx Hypertension: Yes Hx Peripheral Edema: Yes - PULMONARY Hx Respiratory Disorders: Yes Hx Chronic Obstructive Pulmonary Disease (COPD): Yes - NEUROLOGICAL Hx Neurological Disorder: No - HEENT Hx HEENT Problems: No - RENAL Hx Chronic Kidney Disease: Yes - ENDOCRINE/METABOLIC Hx Endocrine Disorders: No - HEMATOLOGICAL/ONCOLOGICAL Hx Blood Disorders: Yes Hx Blood Transfusions: Yes (12/2017) - INTEGUMENTARY Hx Dermatological Problems: No - MUSCULOSKELETAL/RHEUMATOLOGICAL Hx Musculoskeletal Disorders: No Hx Falls: No - GASTROINTESTINAL Hx Gastrointestinal Disorders: No - GENITOURINARY/GYNECOLOGICAL Hx Genitourinary Disorders: No - PSYCHIATRIC Hx Substance Use: No - SURGICAL HISTORY 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[facility] BYPASS 2007) - ANESTHESIA Hx Anesthesia: Yes Hx Anesthesia Reactions: No Hx Malignant Hyperthermia: No Meds Allergies/Adverse Reactions: Allergies Allergy/AdvReac Type Severity Reaction Status Date / Time Gadolinium-Containing Allergy Severe "HIVES" Verified 11/23/18 11:10 Contrast Medi Iodinated Contrast- Oral and Allergy Severe URTICARIA Verified 11/23/18 11:10 IV Dye Thiazides Allergy Severe "HIVES" Verified 11/23/18 11:10 - Medications Medications: Current Medications Acetaminophen (Tylenol 325mg Tab) 650 mg PO Q6 PRN PRN Reason: Fever >100.4 F Albuterol/Ipratropium (Duoneb 3 Mg/0.5 Mg (3 Ml) Ud) 3 ml INH RQ6 [facility] Last Admin: 12/03/18 14:25 Dose: 3 ml Allopurinol (Zyloprim) 100 mg PO HS [facility] Last Admin: 12/02/18 21:39 Dose: 100 mg Apixaban (Eliquis) 2.5 mg PO Q48H [facility] Last Admin: 12/01/18 19:29 Dose: 2.5 mg Benzonatate (Tessalon Perles) 100 mg PO BID PRN PRN Reason: Cough Last Admin: 11/29/18 21:28 Dose: 100 mg Calcitriol (Rocaltrol) 0.25 mcg PO HS [facility] Last Admin: 12/02/18 21:40 Dose: 0.25 mcg Cephalexin Monohydrate (Keflex) 500 mg PO Q12 [facility]; Protocol Last Admin: 12/03/18 09:21 Dose: 500 mg Ferrous Sulfate (Feosol) 325 mg PO [facility] Last Admin: 12/02/18 21:40 Dose: 325 mg Folic Acid (Folic Acid) 1 mg PO HS [facility] Last Admin: 12/02/18 21:39 Dose: 1 mg Ceftriaxone Sodium 2 gm/ (Sodium Chloride) 100 mls @ 100 mls/hr IVPB Q24H [facility]; Protocol Last Admin: 12/02/18 21:40 Dose: 100 mls/hr Rosuvastatin Calcium (Crestor) 5 mg PO HS [facility] Last Admin: 12/02/18 21:39 Dose: 5 mg Vitamin B Complex/Vit C/Folic Acid (Nephro-Miguel Ángel) 1 tab PO 0800 [facility] Last Admin: 12/03/18 09:21 Dose: 1 tab Physical Exam - Constitutional Appears: Non-toxic, No Acute Distress - Head Exam Head Exam: ATRAUMATIC, NORMOCEPHALIC - Eye Exam Eye Exam: EOMI, PERRL - ENT Exam ENT Exam: Mucous Membranes Moist - Neck Exam Neck exam: Positive for: Full Rom, Normal Inspection - Respiratory Exam Respiratory Exam: Decreased Breath Sounds (bilateral upper lobes), NORMAL BREATHING PATTERN. absent: Accessory Muscle Use, Rales, Rhonchi, Wheezes, Respiratory Distress - Cardiovascular Exam Cardiovascular Exam: REGULAR RHYTHM, +S1, +S2 - GI/Abdominal Exam GI & Abdominal Exam: Normal Bowel Sounds, Soft. absent: Guarding, Rebound, Rigid, Tenderness - Extremities Exam Extremities exam: Positive for: full ROM, normal inspection, pedal pulses present. Negative for: tenderness - Neurological Exam Neurological exam: Alert, CN II-XII Intact, Oriented x3 - Skin Skin Exam: Dry, Normal Color, Warm Additional comments: Permacath noted to R chest Results - Vital Signs Recent Vital Signs: Last Vital Signs Temp 97.6 F 12/03/18 08:46 Pulse 107 H 12/03/18 08:46 Resp 18 12/03/18 08:46 BP 157/82 H 12/03/18 08:46 Pulse Ox 96 12/03/18 08:46 - Labs Result Diagrams: 11/29/18 07:41 11/29/18 07:41 Assessment & Plan - Assessment and Plan (Free Text) Assessment: 83 yo male with HTN, ESRD, CAD s/p CABG, COPD and A flutter s/p cardioversion was admitted for ESRD and pneumonia. Vascular surgery was consulted for AV shunt placement. Plan: -Plan for R AV shunt on 12/04 -F/u AM labs -Type and screen in AM -Hold dialysis until after surgery -NPO after midnight -Hold elvin Whaley d/w Dr. Ash Bradley, PGY-1
[2018-12-03] MEDS: cefTRIAXone 2 GM in Sodium Chloride 0.9% 100 ML IVPB SCH (21:58)
--- NOTE | 2018-12-03 22:38 | CP.PCM.PN ---
Subjective - Date & Time of Evaluation Date of Evaluation: 12/03/18 Time of Evaluation: 13:00 - Subjective Subjective: Patient less SOB, less cough, afebrile. For an AV shunt placement in AM by Dr Julien. Objective - Vital Signs/Intake and Output Vital Signs (last 24 hours): Temp Pulse Resp BP Pulse Ox 97.7 F 100 H 20 163/95 H 96 12/03/18 18:47 12/03/18 18:47 12/03/18 18:47 12/03/18 18:47 12/03/18 18:47 - Medications Medications: Current Medications Acetaminophen (Tylenol 325mg Tab) 650 mg PO Q6 PRN PRN Reason: Fever >100.4 F Albuterol/Ipratropium (Duoneb 3 Mg/0.5 Mg (3 Ml) Ud) 3 ml INH RQ6 [facility] Last Admin: 12/03/18 19:50 Dose: 3 ml Allopurinol (Zyloprim) 100 mg PO [facility] Last Admin: 12/03/18 22:00 Dose: 100 mg Apixaban (Eliquis) 2.5 mg PO Q48H [facility] Last Admin: 12/01/18 19:29 Dose: 2.5 mg Benzonatate (Tessalon Perles) 100 mg PO BID PRN PRN Reason: Cough Last Admin: 11/29/18 21:28 Dose: 100 mg Calcitriol (Rocaltrol) 0.25 mcg PO [facility] Last Admin: 12/03/18 21:58 Dose: 0.25 mcg Cephalexin Monohydrate (Keflex) 500 mg PO Q12 [facility]; Protocol Last Admin: 12/03/18 21:59 Dose: 500 mg Ferrous Sulfate (Feosol) 325 mg PO [facility] Last Admin: 12/03/18 21:58 Dose: 325 mg Folic Acid (Folic Acid) 1 mg PO [facility] Last Admin: 12/03/18 21:57 Dose: 1 mg Ceftriaxone Sodium 2 gm/ (Sodium Chloride) 100 mls @ 100 mls/hr IVPB Q24H [facility]; Protocol Last Admin: 12/03/18 21:58 Dose: 100 mls/hr Rosuvastatin Calcium (Crestor) 5 mg PO [facility] Last Admin: 12/03/18 21:57 Dose: 5 mg Vitamin B Complex/Vit C/Folic Acid (Nephro-Miguel Ángel) 1 tab PO 0800 [facility] Last Admin: 12/03/18 09:21 Dose: 1 tab - Labs Labs: 11/29/18 07:41 11/29/18 07:41 PT 11.8 SECONDS (9.7-12.2) 11/23/18 12:16 INR 1.1 11/23/18 12:16 APTT 35 SECONDS (21-34) H 11/23/18 12:16 - Constitutional Appears: Well, No Acute Distress - Head Exam Head Exam: NORMAL INSPECTION - Eye Exam Eye Exam: Normal appearance - ENT Exam ENT Exam: Normal Exam - Neck Exam Neck Exam: Normal Inspection - Respiratory Exam Respiratory Exam: Rhonchi Additional comments: Rhonchi at the left base. - Cardiovascular Exam Cardiovascular Exam: REGULAR RHYTHM - GI/Abdominal Exam GI & Abdominal Exam: Soft, Normal Bowel Sounds - Rectal Exam Rectal Exam: Deferred - Exam Exam: NORMAL INSPECTION - Extremities Exam Extremities Exam: Normal Inspection - Back Exam Back Exam: NORMAL INSPECTION - Neurological Exam Neurological Exam: Alert, Awake, Normal Gait, Oriented x3 - Psychiatric Exam Psychiatric exam: Anxious - Skin Skin Exam: Dry, Normal Color, Warm Assessment and Plan (1) Pneumonia Assessment & Plan: Better. Still on antibiotics. Status: Acute (2) ESRD (end stage renal disease) Assessment & Plan: For an AV fistula placement. Status: Chronic
[2018-12-04] MEDS: Albuterol-Ipratrop 3 mg / 0.5 (3 ml) UD INH SCH ×4 (01:15→19:50)
[2018-12-04 07:27] LABS: HEMOGLOBIN 9.4 g/dL (12.0-18.0); MEAN CORPUSCULAR HGB CONC 31.5 g/dL (33.0-37.0); MEAN PLATELET VOLUME 7.5 fL (7.2-11.7); RBC 2.85 Mil/uL (4.40-5.90); RED CELL DISTRIBUTION WIDTH 16.7 % (11.5-14.5); WHITE BLOOD COUNT 5.6 K/uL (4.8-10.8)
[2018-12-04] MEDS: Multivitamin Vitamin B Complex (Nephro-Vite) Tab PO SCH (08:05)
[2018-12-04 08:25] LABS: CALCIUM 8.5 mg/dl (8.6-10.4)
--- NOTE | 2018-12-04 14:00 | CP.PCM.PN ---
Subjective - Date & Time of Evaluation Date of Evaluation: 12/04/18 Time of Evaluation: 13:58 - Subjective Subjective: seen on HD no acute complaints 1.5 kg uf chronic dizziness and lightheadedness for AVF today no fever no chest pain no sob Objective - Vital Signs/Intake and Output Vital Signs (last 24 hours): Temp Pulse Resp BP Pulse Ox 97.7 F 89 16 142/74 100 12/04/18 12:10 12/04/18 12:10 12/04/18 12:10 12/04/18 12:10 12/04/18 12:10 - Medications Medications: Current Medications Acetaminophen (Tylenol 325mg Tab) 650 mg PO Q6 PRN PRN Reason: Fever >100.4 F Albuterol/Ipratropium (Duoneb 3 Mg/0.5 Mg (3 Ml) Ud) 3 ml INH RQ6 [facility] Last Admin: 12/04/18 13:08 Dose: Not Given Allopurinol (Zyloprim) 100 mg PO HS [facility] Last Admin: 12/03/18 22:00 Dose: 100 mg Apixaban (Eliquis) 2.5 mg PO Q48H [facility] Last Admin: 12/01/18 19:29 Dose: 2.5 mg Benzonatate (Tessalon Perles) 100 mg PO BID PRN PRN Reason: Cough Last Admin: 11/29/18 21:28 Dose: 100 mg Calcitriol (Rocaltrol) 0.25 mcg PO HS [facility] Last Admin: 12/03/18 21:58 Dose: 0.25 mcg Cephalexin Monohydrate (Keflex) 500 mg PO Q12 [facility]; Protocol Last Admin: 12/04/18 10:48 Dose: Not Given Ferrous Sulfate (Feosol) 325 mg PO [facility] Last Admin: 12/03/18 21:58 Dose: 325 mg Folic Acid (Folic Acid) 1 mg PO HS [facility] Last Admin: 12/03/18 21:57 Dose: 1 mg Ceftriaxone Sodium 2 gm/ (Sodium Chloride) 100 mls @ 100 mls/hr IVPB Q24H [facility]; Protocol Last Admin: 12/03/18 21:58 Dose: 100 mls/hr Rosuvastatin Calcium (Crestor) 5 mg PO [facility] Last Admin: 12/03/18 21:57 Dose: 5 mg Vitamin B Complex/Vit C/Folic Acid (Nephro-Miguel Ángel) 1 tab PO 0800 [facility] Last Admin: 12/04/18 08:05 Dose: Not Given - Labs Labs: 12/04/18 07:09 12/04/18 07:09 PT 11.8 SECONDS (9.7-12.2) 11/23/18 12:16 INR 1.1 11/23/18 12:16 APTT 35 SECONDS (21-34) H 11/23/18 12:16 - Constitutional Appears: Non-toxic, Chronically Ill - Head Exam Head Exam: ATRAUMATIC, NORMAL INSPECTION - Eye Exam Eye Exam: EOMI - ENT Exam ENT Exam: Mucous Membranes Moist - Neck Exam Neck Exam: Full ROM. absent: Lymphadenopathy - Respiratory Exam Respiratory Exam: NORMAL BREATHING PATTERN. absent: Accessory Muscle Use - Cardiovascular Exam Cardiovascular Exam: REGULAR RHYTHM. absent: Rubs - GI/Abdominal Exam GI & Abdominal Exam: Soft. absent: Tenderness - Extremities Exam Extremities Exam: absent: Pedal Edema - Neurological Exam Neurological Exam: Alert, Oriented x3 Assessment and Plan - Assessment and Plan (Free Text) Assessment: esrd, for RASHEL syncope work up ongoing tolerating HD
--- NOTE | 2018-12-04 14:17 | CP.PCM.PN ---
Subjective - Date & Time of Evaluation Date of Evaluation: 12/04/18 Time of Evaluation: 11:30 - Subjective Subjective: Vascular Surgery Dr. Aleman Pt S&E @dialysis. No acute events overnight. Pt has no complaints. OR rescheduled 2/2 receiving AM dialysis . Objective - Vital Signs/Intake and Output Vital Signs (last 24 hours): Temp Pulse Resp BP Pulse Ox 97.7 F 89 16 142/74 100 12/04/18 12:10 12/04/18 12:10 12/04/18 12:10 12/04/18 12:10 12/04/18 12:10 - Medications Medications: Current Medications Acetaminophen (Tylenol 325mg Tab) 650 mg PO Q6 PRN PRN Reason: Fever >100.4 F Albuterol/Ipratropium (Duoneb 3 Mg/0.5 Mg (3 Ml) Ud) 3 ml INH RQ6 [facility] Last Admin: 12/04/18 13:08 Dose: Not Given Allopurinol (Zyloprim) 100 mg PO [facility] Last Admin: 12/03/18 22:00 Dose: 100 mg Apixaban (Eliquis) 2.5 mg PO Q48H [facility] Last Admin: 12/01/18 19:29 Dose: 2.5 mg Benzonatate (Tessalon Perles) 100 mg PO BID PRN PRN Reason: Cough Last Admin: 11/29/18 21:28 Dose: 100 mg Calcitriol (Rocaltrol) 0.25 mcg PO [facility] Last Admin: 12/03/18 21:58 Dose: 0.25 mcg Cephalexin Monohydrate (Keflex) 500 mg PO Q12 [facility]; Protocol Last Admin: 12/04/18 10:48 Dose: Not Given Ferrous Sulfate (Feosol) 325 mg PO [facility] Last Admin: 12/03/18 21:58 Dose: 325 mg Folic Acid (Folic Acid) 1 mg PO [facility] Last Admin: 12/03/18 21:57 Dose: 1 mg Ceftriaxone Sodium 2 gm/ (Sodium Chloride) 100 mls @ 100 mls/hr IVPB Q24H [facility]; Protocol Last Admin: 12/03/18 21:58 Dose: 100 mls/hr Rosuvastatin Calcium (Crestor) 5 mg PO [facility] Last Admin: 12/03/18 21:57 Dose: 5 mg Vitamin B Complex/Vit C/Folic Acid (Nephro-Miguel Ángel) 1 tab PO 0800 [facility] Last Admin: 12/04/18 08:05 Dose: Not Given - Labs Labs: 12/04/18 07:09 12/04/18 07:09 PT 11.8 SECONDS (9.7-12.2) 11/23/18 12:16 INR 1.1 11/23/18 12:16 APTT 35 SECONDS (21-34) H 11/23/18 12:16 - Constitutional Appears: Non-toxic, No Acute Distress - Head Exam Head Exam: NORMAL INSPECTION - Eye Exam Eye Exam: Normal appearance - ENT Exam ENT Exam: Mucous Membranes Moist - Respiratory Exam Respiratory Exam: NORMAL BREATHING PATTERN. absent: Accessory Muscle Use, Respiratory Distress - Cardiovascular Exam Cardiovascular Exam: absent: Bradycardia, Tachycardia - GI/Abdominal Exam GI & Abdominal Exam: Soft. absent: Tenderness - Extremities Exam Extremities Exam: Normal Inspection - Neurological Exam Neurological Exam: Alert, Awake, Oriented x3 - Psychiatric Exam Psychiatric exam: Normal Affect, Normal Mood - Skin Skin Exam: Dry, Intact, Normal Color, Warm Assessment and Plan - Assessment and Plan (Free Text) Assessment: 83 y/o M w/ ESRD on HD via permacath, requiring AVF. Plan: - OR rescheduled for 12/05 due to pt undergoing HD this morning - NPO@[place] - consent in chart - cont medical management Pt discussed w/ Dr. Ash Driscoll DO PGY3
--- NOTE | 2018-12-04 20:44 | CP.PCM.PN ---
Subjective - Date & Time of Evaluation Date of Evaluation: 12/04/18 Time of Evaluation: 20:42 - Subjective Subjective: Patient has no complaint. For an AV fistula insertion in AM. Less cough. Afebrile. Objective - Vital Signs/Intake and Output Vital Signs (last 24 hours): Temp Pulse Resp BP Pulse Ox 97.8 F 96 H 20 128/77 100 12/04/18 15:52 12/04/18 18:48 12/04/18 15:52 12/04/18 18:48 12/04/18 15:52 - Medications Medications: Current Medications Acetaminophen (Tylenol 325mg Tab) 650 mg PO Q6 PRN PRN Reason: Fever >100.4 F Albuterol/Ipratropium (Duoneb 3 Mg/0.5 Mg (3 Ml) Ud) 3 ml INH RQ6 [facility] Last Admin: 12/04/18 19:50 Dose: 3 ml Allopurinol (Zyloprim) 100 mg PO [facility] Last Admin: 12/03/18 22:00 Dose: 100 mg Apixaban (Eliquis) 2.5 mg PO Q48H [facility] Last Admin: 12/01/18 19:29 Dose: 2.5 mg Benzonatate (Tessalon Perles) 100 mg PO BID PRN PRN Reason: Cough Last Admin: 11/29/18 21:28 Dose: 100 mg Calcitriol (Rocaltrol) 0.25 mcg PO [facility] Last Admin: 12/03/18 21:58 Dose: 0.25 mcg Cephalexin Monohydrate (Keflex) 500 mg PO Q12 [facility]; Protocol Last Admin: 12/04/18 10:48 Dose: Not Given Ferrous Sulfate (Feosol) 325 mg PO [facility] Last Admin: 12/03/18 21:58 Dose: 325 mg Folic Acid (Folic Acid) 1 mg PO [facility] Last Admin: 12/03/18 21:57 Dose: 1 mg Ceftriaxone Sodium 2 gm/ (Sodium Chloride) 100 mls @ 100 mls/hr IVPB Q24H [facility]; Protocol Last Admin: 12/03/18 21:58 Dose: 100 mls/hr Rosuvastatin Calcium (Crestor) 5 mg PO [facility] Last Admin: 12/03/18 21:57 Dose: 5 mg Vitamin B Complex/Vit C/Folic Acid (Nephro-Miguel Ángel) 1 tab PO 0800 [facility] Last Admin: 12/04/18 08:05 Dose: Not Given - Labs Labs: 12/04/18 07:09 12/04/18 07:09 PT 11.8 SECONDS (9.7-12.2) 11/23/18 12:16 INR 1.1 11/23/18 12:16 APTT 35 SECONDS (21-34) H 11/23/18 12:16 - Constitutional Appears: No Acute Distress, Chronically Ill - Head Exam Head Exam: NORMAL INSPECTION - Eye Exam Eye Exam: Normal appearance Pupil Exam: NORMAL ACCOMODATION - ENT Exam ENT Exam: Normal Exam - Neck Exam Neck Exam: Normal Inspection - Respiratory Exam Respiratory Exam: Rhonchi Additional comments: Rhonchi at the left base. - Cardiovascular Exam Cardiovascular Exam: REGULAR RHYTHM - GI/Abdominal Exam GI & Abdominal Exam: Soft, Normal Bowel Sounds - Rectal Exam Rectal Exam: Deferred - Exam Exam: NORMAL INSPECTION - Extremities Exam Extremities Exam: Normal Inspection - Back Exam Back Exam: NORMAL INSPECTION - Neurological Exam Neurological Exam: Alert, Awake, Normal Gait, Oriented x3 - Psychiatric Exam Psychiatric exam: Anxious - Skin Skin Exam: Dry, Intact, Normal Color Assessment and Plan (1) Pneumonia Assessment & Plan: On aantibiotics. Status: Acute (2) ESRD (end stage renal disease) Assessment & Plan: For an AV fistula insertion in AM. Status: Chronic
[2018-12-04] MEDS: cefTRIAXone 2 GM in Sodium Chloride 0.9% 100 ML IVPB SCH (21:32)
[2018-12-05] MEDS: Albuterol-Ipratrop 3 mg / 0.5 (3 ml) UD INH SCH ×4 (01:19→20:07)
[2018-12-05] MEDS: Multivitamin Vitamin B Complex (Nephro-Vite) Tab PO SCH (07:54)
[2018-12-05] MEDS ORDERED: Etomidate 20 mg/10ml Inj IV ONE (08:34)
[2018-12-05] MEDS ORDERED: ceFAZolin 1 gm in NS 0 GM/0 ML BAG IVPB ONE (08:35)
[2018-12-05] MEDS ORDERED: HEPARIN-NS 5,000 UNITS/500 ML 5,000 UNIT/500 ML BAG IV ONE (08:35)
[2018-12-05] MEDS ORDERED: Propofol 10 mg/ml Inj (20 ML) ONE (08:39)
[2018-12-05 08:53] LABS: CALCIUM 8.8 mg/dl (8.6-10.4)
[2018-12-05] MEDS ORDERED: ePHEDrine 50 mg/ml Inj ONE (09:15)
[2018-12-05] MEDS ORDERED: HYDROmorphone 0.5 mg/0.5 ml ISec IVP PRN (11:10)
[2018-12-05] MEDS ORDERED: Oxycodone/Acetaminophen 5/325 mg Tab PO PRN (11:14)
--- NOTE | 2018-12-05 11:17 | PCM.SURG1 ---
Surgeon's Initial Post Op Note - Surgeon's Notes Surgeon: Dr. Aleman Process Engineer: Dr. Driscoll PGY3 Type of Anesthesia: General LMA Pre-Operative Diagnosis: ESRD on HD Operative Findings: see dictation Post-Operative Diagnosis: same Operation Performed: Right AV fistula w/ bovine graft Specimen/Specimens Removed: none Estimated Blood Loss: EBL {In ML}: 50 Blood Products Given: N/A Drains Used: No Drains Post-Op Condition: Good Date of Surgery/Procedure: 12/05/18 Time of Surgery/Procedure: 11:16
--- NOTE | 2018-12-05 19:28 | CP.PCM.PN ---
Subjective - Date & Time of Evaluation Date of Evaluation: 12/05/18 Time of Evaluation: 08:00 - Subjective Subjective: for AV fistula in am PO Keflex d/c'd all blood cultures neg Objective - Vital Signs/Intake and Output Vital Signs (last 24 hours): Temp Pulse Resp BP Pulse Ox 98.1 F 108 H 20 121/70 97 12/05/18 15:00 12/05/18 15:00 12/05/18 15:00 12/05/18 15:00 12/05/18 15:00 Intake and Output: 12/05/18 12/06/18 18:59 06:59 Intake Total 850 Balance 850 - Medications Medications: Current Medications Acetaminophen (Tylenol 325mg Tab) 650 mg PO Q6 PRN PRN Reason: Fever >100.4 F Albuterol/Ipratropium (Duoneb 3 Mg/0.5 Mg (3 Ml) Ud) 3 ml INH RQ6 [facility] Last Admin: 12/05/18 07:57 Dose: 3 ml Allopurinol (Zyloprim) 100 mg PO [facility] Last Admin: 12/04/18 21:31 Dose: 100 mg Apixaban (Eliquis) 2.5 mg PO Q48H [facility] Last Admin: 12/01/18 19:29 Dose: 2.5 mg Benzonatate (Tessalon Perles) 100 mg PO BID PRN PRN Reason: Cough Last Admin: 11/29/18 21:28 Dose: 100 mg Calcitriol (Rocaltrol) 0.25 mcg PO [facility] Last Admin: 12/04/18 21:31 Dose: 0.25 mcg Ferrous Sulfate (Feosol) 325 mg PO [facility] Last Admin: 12/04/18 21:31 Dose: 325 mg Folic Acid (Folic Acid) 1 mg PO [facility] Last Admin: 12/04/18 21:31 Dose: 1 mg Ceftriaxone Sodium 2 gm/ (Sodium Chloride) 100 mls @ 100 mls/hr IVPB Q24H [facility]; Protocol Last Admin: 12/04/18 21:32 Dose: 100 mls/hr Oxycodone/Acetaminophen (Percocet 5/325 Mg Tab) 1 tab PO Q4H PRN PRN Reason: Pain, moderate (4-7) Stop: 12/08/18 11:15 Last Admin: 12/05/18 18:55 Dose: 1 tab Rosuvastatin Calcium (Crestor) 5 mg PO HS [facility] Last Admin: 12/04/18 21:33 Dose: 5 mg Vitamin B Complex/Vit C/Folic Acid (Nephro-Miguel Ángel) 1 tab PO 0800 [facility] Last Admin: 12/05/18 07:54 Dose: Not Given - Labs Labs: 12/04/18 07:09 12/05/18 08:34 PT 11.8 SECONDS (9.7-12.2) 11/23/18 12:16 INR 1.1 11/23/18 12:16 APTT 35 SECONDS (21-34) H 11/23/18 12:16 - Constitutional Appears: Non-toxic, Chronically Ill - Head Exam Head Exam: NORMOCEPHALIC - Eye Exam Eye Exam: absent: Scleral icterus - ENT Exam ENT Exam: Mucous Membranes Dry - Neck Exam Neck Exam: absent: Lymphadenopathy - Respiratory Exam Respiratory Exam: Decreased Breath Sounds - Cardiovascular Exam Cardiovascular Exam: REGULAR RHYTHM - GI/Abdominal Exam GI & Abdominal Exam: Distended - Rectal Exam Rectal Exam: Deferred - Exam Exam: NORMAL INSPECTION - Extremities Exam Extremities Exam: absent: Pedal Edema - Back Exam Back Exam: absent: CVA tenderness (L), CVA tenderness (R) - Neurological Exam Neurological Exam: Alert, Awake Assessment and Plan (1) ESRD (end stage renal disease) Status: Chronic (2) Pneumonia Status: Acute (3) Sepsis Status: Acute - Assessment and Plan (Free Text) Assessment: po keflex d/c on IV Rocephin consider periop Vanco
--- NOTE | 2018-12-05 22:13 | OP ---
PROCEDURE DATE: 12/05/2018 PREOPERATIVE DIAGNOSIS: Renal failure. POSTOPERATIVE DIAGNOSIS: Renal failure. PROCEDURE CARRIED OUT: Brachio-brachial arteriovenous shunt, bovine type, right upper arm. SURGEON: Reji Aleman Jr., MD TACKING MACHINE OPERATOR: Tiny Driscoll DO ANESTHESIOLOGIST: Farrah Navarro CRNA INDICATION: The patient is an 83-year-old man with renal failure, presently dialyzes with the use of a catheter, previously had peritoneal dialysis, previously also had a failed fistula in his right arm. DESCRIPTION OF PROCEDURE: The patient was given general anesthesia. The arm was prepped and draped with Betadine. The artery and vein identified. No veins were identified that were suitable for a fistula. Even the basilic vein was small, we then created a 6-mm upper arm loop graft using loupe magnification, heparin anticoagulation, vessel loop control. At the end of the procedure, there was diminution of the Doppler signal at the wrist. This improved when we placed a small hemoclip across this. After completing this and obtaining hemostasis and assuring that there was flow to the arm, we then closed the wound with Monocryl and Vicryl sutures, skin clips and nylon sutures. BLOOD LOSS: Less than 50 mL. OPERATION CARRIED OUT: Arteriovenous shunt, right upper arm, bovine type. Major concern is of steal syndrome in the hand due to the patient's small size of his vessels, both the artery and vein were quite small. Reji Aleman Jr., MD cc: Aaron Orellana MD
[2018-12-05] MEDS: cefTRIAXone 2 GM in Sodium Chloride 0.9% 100 ML IVPB SCH (22:37)
[2018-12-06] MEDS: Albuterol-Ipratrop 3 mg / 0.5 (3 ml) UD INH SCH ×4 (01:15→20:40)
--- NOTE | 2018-12-06 05:45 | CP.PCM.PN ---
Subjective - Date & Time of Evaluation Date of Evaluation: 12/05/18 Time of Evaluation: 19:00 - Subjective Subjective: Patient had AV fistula inserted in the right arm this AM. Confused after taking Percocet for pain. Afebrile. Objective - Vital Signs/Intake and Output Vital Signs (last 24 hours): Temp Pulse Resp BP Pulse Ox 98 F 107 H 20 134/54 L 97 12/05/18 23:30 12/05/18 23:30 12/05/18 23:30 12/05/18 23:30 12/05/18 23:30 Intake and Output: 12/05/18 12/06/18 18:59 06:59 Intake Total 850 250 Balance 850 250 - Medications Medications: Current Medications Acetaminophen (Tylenol 325mg Tab) 650 mg PO Q6 PRN PRN Reason: Pain, moderate (4-7) Last Admin: 12/05/18 22:42 Dose: 650 mg Albuterol/Ipratropium (Duoneb 3 Mg/0.5 Mg (3 Ml) Ud) 3 ml INH RQ6 [facility] Last Admin: 12/06/18 01:15 Dose: 3 ml Allopurinol (Zyloprim) 100 mg PO HS [facility] Last Admin: 12/05/18 22:37 Dose: 100 mg Apixaban (Eliquis) 2.5 mg PO Q48H [facility] Last Admin: 12/01/18 19:29 Dose: 2.5 mg Benzonatate (Tessalon Perles) 100 mg PO BID PRN PRN Reason: Cough Last Admin: 11/29/18 21:28 Dose: 100 mg Calcitriol (Rocaltrol) 0.25 mcg PO HS [facility] Last Admin: 12/05/18 22:36 Dose: 0.25 mcg Ferrous Sulfate (Feosol) 325 mg PO HS [facility] Last Admin: 12/05/18 22:36 Dose: 325 mg Folic Acid (Folic Acid) 1 mg PO HS [facility] Last Admin: 12/05/18 22:36 Dose: 1 mg Ceftriaxone Sodium 2 gm/ (Sodium Chloride) 100 mls @ 100 mls/hr IVPB Q24H [facility]; Protocol Last Admin: 12/05/18 22:37 Dose: 100 mls/hr Rosuvastatin Calcium (Crestor) 5 mg PO HS [facility] Last Admin: 12/05/18 22:36 Dose: 5 mg Vitamin B Complex/Vit C/Folic Acid (Nephro-Miguel Ángel) 1 tab PO 0800 [facility] Last Admin: 12/05/18 07:54 Dose: Not Given - Labs Labs: 12/04/18 07:09 12/05/18 08:34 PT 11.8 SECONDS (9.7-12.2) 11/23/18 12:16 INR 1.1 11/23/18 12:16 APTT 35 SECONDS (21-34) H 11/23/18 12:16 - Constitutional Appears: No Acute Distress, Chronically Ill - Head Exam Head Exam: NORMAL INSPECTION - Eye Exam Eye Exam: Normal appearance Pupil Exam: NORMAL ACCOMODATION - ENT Exam ENT Exam: Normal Exam - Neck Exam Neck Exam: Normal Inspection - Respiratory Exam Respiratory Exam: Rhonchi Additional comments: Rhonchi left base. - Cardiovascular Exam Cardiovascular Exam: REGULAR RHYTHM - GI/Abdominal Exam GI & Abdominal Exam: Soft, Normal Bowel Sounds - Rectal Exam Rectal Exam: Deferred - Extremities Exam Extremities Exam: Normal Inspection Additional comments: Right arm under bandage. - Back Exam Back Exam: NORMAL INSPECTION - Neurological Exam Neurological Exam: Alert, Awake Additional comments: Slightly confused. - Psychiatric Exam Psychiatric exam: Anxious Assessment and Plan (1) ESRD (end stage renal disease) Assessment & Plan: S/p AV fistula placement this AM. Status: Chronic (2) Pneumonia Assessment & Plan: On antibiotic. Status: Acute
[2018-12-06 06:50] LABS: CALCIUM 8.4 mg/dl (8.6-10.4)
[2018-12-06 07:19] LABS: BASO # 0.1 K/uL (0.0-0.2); BASO % 1.1 % (0.0-2.0); EOS # 0.4 K/uL (0.0-0.7); EOS % 5.6 % (0.0-4.0); HEMOGLOBIN 8.5 g/dL (12.0-18.0); LYMPH # 0.3 K/uL (1.0-4.3); LYMPH % 5.1 % (20.0-40.0); MEAN CELL VOLUME 106.5 fL (80.0-94.0); MEAN CORPUSCULAR HEMOGLOBIN 33.3 pg (27.0-31.0); MEAN CORPUSCULAR HGB CONC 31.3 g/dL (33.0-37.0); MEAN PLATELET VOLUME 7.5 fL (7.2-11.7); MONO # 0.7 K/uL (0.0-0.8); NEUT # 4.9 K/uL (1.8-7.0); NEUT % 77.2 % (50.0-75.0); PLATELET COUNT 188 K/uL (130-400); RBC 2.57 Mil/uL (4.40-5.90); RED CELL DISTRIBUTION WIDTH 17.2 % (11.5-14.5); WHITE BLOOD COUNT 6.3 K/uL (4.8-10.8)
--- NOTE | 2018-12-06 08:58 | CP.PCM.PN ---
Subjective - Date & Time of Evaluation Date of Evaluation: 12/06/18 Time of Evaluation: 06:30 - Subjective Subjective: Vascular Surgery Dr. Aleman Pt S&E @bedside. Pt underwent Right AV fistula w/ graft yesterday. Pt tolerated the procedure well w/ no complications. Overnight pt c/o paresthesia in R hand, fingers 1-3. pain well controlled w/ meds. denies F/C, N/V. Objective - Vital Signs/Intake and Output Vital Signs (last 24 hours): Temp Pulse Resp BP Pulse Ox 97.3 F L 101 H 20 138/70 97 12/06/18 07:00 12/06/18 07:00 12/06/18 07:00 12/06/18 07:00 12/06/18 07:00 Intake and Output: 12/06/18 12/06/18 06:59 18:59 Intake Total 250 Balance 250 - Medications Medications: Current Medications Acetaminophen (Tylenol 325mg Tab) 650 mg PO Q6 PRN PRN Reason: Pain, moderate (4-7) Last Admin: 12/05/18 22:42 Dose: 650 mg Albuterol/Ipratropium (Duoneb 3 Mg/0.5 Mg (3 Ml) Ud) 3 ml INH RQ6 [facility] Last Admin: 12/06/18 08:32 Dose: Not Given Allopurinol (Zyloprim) 100 mg PO HS [facility] Last Admin: 12/05/18 22:37 Dose: 100 mg Apixaban (Eliquis) 2.5 mg PO Q48H [facility] Last Admin: 12/01/18 19:29 Dose: 2.5 mg Benzonatate (Tessalon Perles) 100 mg PO BID PRN PRN Reason: Cough Last Admin: 11/29/18 21:28 Dose: 100 mg Calcitriol (Rocaltrol) 0.25 mcg PO HS [facility] Last Admin: 12/05/18 22:36 Dose: 0.25 mcg Ferrous Sulfate (Feosol) 325 mg PO HS [facility] Last Admin: 12/05/18 22:36 Dose: 325 mg Folic Acid (Folic Acid) 1 mg PO HS [facility] Last Admin: 12/05/18 22:36 Dose: 1 mg Ceftriaxone Sodium 2 gm/ (Sodium Chloride) 100 mls @ 100 mls/hr IVPB Q24H [facility]; Protocol Last Admin: 12/05/18 22:37 Dose: 100 mls/hr Rosuvastatin Calcium (Crestor) 5 mg PO HS [facility] Last Admin: 12/05/18 22:36 Dose: 5 mg Vitamin B Complex/Vit C/Folic Acid (Nephro-Miguel Ángel) 1 tab PO 0800 [facility] Last Admin: 12/05/18 07:54 Dose: Not Given - Labs Labs: 12/06/18 06:22 12/06/18 06:22 PT 11.8 SECONDS (9.7-12.2) 11/23/18 12:16 INR 1.1 11/23/18 12:16 APTT 35 SECONDS (21-34) H 11/23/18 12:16 - Constitutional Appears: Non-toxic, No Acute Distress - Head Exam Head Exam: NORMAL INSPECTION - Eye Exam Eye Exam: Normal appearance - ENT Exam ENT Exam: Mucous Membranes Moist - Respiratory Exam Respiratory Exam: NORMAL BREATHING PATTERN. absent: Accessory Muscle Use, Respiratory Distress - Cardiovascular Exam Cardiovascular Exam: REGULAR RHYTHM. absent: Bradycardia, Tachycardia - GI/Abdominal Exam GI & Abdominal Exam: Soft. absent: Tenderness - Extremities Exam Additional comments: palpable right radial and ulnar artery palpable thrill R AVF graft hand warm, good cap refill muscle strength 4/5 lab[employer] - Neurological Exam Neurological Exam: Alert, Awake, Oriented x3 - Psychiatric Exam Psychiatric exam: Normal Affect, Normal Mood - Skin Skin Exam: Dry, Intact, Normal Color, Warm Assessment and Plan - Assessment and Plan (Free Text) Assessment: 83 y/o M w/ ESRD on HD POD#1 s/p Right AVF w/ bovine graft Plan: - vascular checks Q4 - pain management - PT/OT for hand paresthesia/weakness - HD as scheduled via permacath - f/u Dr. Aleman in office in 7-14days - cleared to resume [facility] Pt myke w/ Dr. Ash Driscoll DO PGY3
[2018-12-06 09:44] LABS: BANDS 1 % (0-2); EOSINOPHIL 4 % (0-4); LYMPHOCYTE 4 % (20-40); MONOCYTE 7 % (0-10); NEUTROPHIL 84 % (50-75); PLATELET ESTIMATE NORMAL (NORMAL); TOTAL CELLS COUNTED 100
[2018-12-06 09:45] LABS: ANISOCYTOSIS SLIGHT; HYPOCHROMIC SLIGHT
[2018-12-06] MEDS: Multivitamin Vitamin B Complex (Nephro-Vite) Tab PO SCH (13:19)
--- NOTE | 2018-12-06 15:22 | CP.PCM.PN ---
Subjective - Date & Time of Evaluation Date of Evaluation: 12/06/18 Time of Evaluation: 15:20 - Subjective Subjective: pt seen and examined in dialysis , HD ongoing UF goal- 1000 cc s/p permcath and AV fistula yesterday complaints of some tingling in the fingers no weakness no SOB ROS- as per HPI, other than that 10 point ROS negative Objective - Vital Signs/Intake and Output Vital Signs (last 24 hours): Temp Pulse Resp BP Pulse Ox 97.7 F 106 H 18 133/75 97 12/06/18 14:00 12/06/18 14:00 12/06/18 14:00 12/06/18 14:30 12/06/18 14:00 Intake and Output: 12/06/18 12/06/18 06:59 18:59 Intake Total 250 Balance 250 - Medications Medications: Current Medications Acetaminophen (Tylenol 325mg Tab) 650 mg PO Q6 PRN PRN Reason: Pain, moderate (4-7) Last Admin: 12/05/18 22:42 Dose: 650 mg Albuterol/Ipratropium (Duoneb 3 Mg/0.5 Mg (3 Ml) Ud) 3 ml INH RQ6 [facility] Last Admin: 12/06/18 14:52 Dose: Not Given Allopurinol (Zyloprim) [address] [facility] Last Admin: 12/05/18 22:37 Dose: 100 mg Apixaban (Eliquis) 2.[address] [facility] Last Admin: 12/01/18 19:29 Dose: 2.5 mg Benzonatate (Tessalon Perles) 100 mg PO BID PRN PRN Reason: Cough Last Admin: 11/29/18 21:28 Dose: 100 mg Calcitriol (Rocaltrol) 0.[address] [facility] Last Admin: 12/05/18 22:36 Dose: 0.25 mcg Ferrous Sulfate (Feosol) [address] [facility] Last Admin: 12/05/18 22:36 Dose: 325 mg Folic Acid (Folic Acid) [address] [facility] Last Admin: 12/05/18 22:36 Dose: 1 mg Ceftriaxone Sodium 2 gm/ (Sodium Chloride) 100 mls @ 100 mls/hr IVPB Q24H [facility]; Protocol Last Admin: 12/05/18 22:37 Dose: 100 mls/hr Rosuvastatin Calcium (Crestor) [address] [facility] Last Admin: 12/05/18 22:36 Dose: 5 mg Vitamin B Complex/Vit C/Folic Acid (Nephro-Miguel Ángel) [address] [facility] Last Admin: 12/06/18 13:19 Dose: 1 tab - Labs Labs: 12/06/18 06:22 12/06/18 06:22 PT 11.8 SECONDS (9.7-12.2) 11/23/18 12:16 INR 1.1 11/23/18 12:16 APTT 35 SECONDS (21-34) H 11/23/18 12:16 - Constitutional Appears: Well, Non-toxic - Head Exam Head Exam: ATRAUMATIC, NORMAL INSPECTION, NORMOCEPHALIC - Eye Exam Eye Exam: EOMI Pupil Exam: PERRL - ENT Exam ENT Exam: Mucous Membranes Moist - Neck Exam Neck Exam: Full ROM, Normal Inspection. absent: Lymphadenopathy - Respiratory Exam Respiratory Exam: Clear to Ausculation Bilateral. absent: Rhonchi, Wheezes - Cardiovascular Exam Cardiovascular Exam: REGULAR RHYTHM, +S1, +S2 - GI/Abdominal Exam GI & Abdominal Exam: Soft. absent: Distended, Tenderness - Extremities Exam Extremities Exam: absent: Joint Swelling, Pedal Edema - Neurological Exam Neurological Exam: Alert, Awake, Oriented x3 - Psychiatric Exam Psychiatric exam: Normal Affect, Normal Mood - Skin Skin Exam: Normal Color, Warm Additional comments: RUE AV fistula , + bruit Assessment and Plan (1) Atrial flutter Status: Acute (2) CAD (coronary artery disease) Status: Acute (3) ESRD (end stage renal disease) Status: Chronic (4) Acute on chronic diastolic (congestive) heart failure Status: Acute - Assessment and Plan (Free Text) Plan: HD today , maintain MWF schedule BP reasonable surgical follow up monitor HB
[2018-12-06] MEDS: cefTRIAXone 2 GM in Sodium Chloride 0.9% 100 ML IVPB SCH (21:46)
[2018-12-07] MEDS: Albuterol-Ipratrop 3 mg / 0.5 (3 ml) UD INH SCH ×4 (01:56→19:47)
--- NOTE | 2018-12-07 08:37 | CP.PCM.PN ---
Subjective - Date & Time of Evaluation Date of Evaluation: 12/07/18 Time of Evaluation: 08:35 - Subjective Subjective: pt seen and examined resting in bed no distress ongoing tingling in right arm no SOB had HD yesterday no new labs today ROS- as per HPI, other than that 10 point ros negative Objective - Vital Signs/Intake and Output Vital Signs (last 24 hours): Temp Pulse Resp BP Pulse Ox 98.1 F 105 H 20 135/72 96 12/07/18 07:00 12/07/18 07:00 12/07/18 07:00 12/07/18 07:00 12/07/18 07:00 Intake and Output: 12/07/18 12/07/18 06:59 18:59 Intake Total 350 Balance 350 - Medications Medications: Current Medications Acetaminophen (Tylenol 325mg Tab) 650 mg PO Q6 PRN PRN Reason: Pain, moderate (4-7) Last Admin: 12/05/18 22:42 Dose: 650 mg Albuterol/Ipratropium (Duoneb 3 Mg/0.5 Mg (3 Ml) Ud) 3 ml INH RQ6 [facility] Last Admin: 12/07/18 01:56 Dose: 3 ml Allopurinol (Zyloprim) 100 mg PO HS [facility] Last Admin: 12/06/18 21:47 Dose: 100 mg Apixaban (Eliquis) 2.5 mg PO Q48H [facility] Last Admin: 12/01/18 19:29 Dose: 2.5 mg Benzonatate (Tessalon Perles) 100 mg PO BID PRN PRN Reason: Cough Last Admin: 12/06/18 21:46 Dose: 100 mg Calcitriol (Rocaltrol) 0.25 mcg PO HS [facility] Last Admin: 12/06/18 21:46 Dose: 0.25 mcg Ferrous Sulfate (Feosol) 325 mg PO HS [facility] Last Admin: 12/06/18 21:46 Dose: 325 mg Folic Acid (Folic Acid) 1 mg PO HS [facility] Last Admin: 12/06/18 21:46 Dose: 1 mg Ceftriaxone Sodium 2 gm/ (Sodium Chloride) 100 mls @ 100 mls/hr IVPB Q24H [facility]; Protocol Last Admin: 12/06/18 21:46 Dose: 100 mls/hr Rosuvastatin Calcium (Crestor) 5 mg PO [facility] Last Admin: 12/06/18 21:46 Dose: 5 mg Vitamin B Complex/Vit C/Folic Acid (Nephro-Miguel Ángel) 1 tab PO 0800 [facility] Last Admin: 12/06/18 13:19 Dose: 1 tab - Labs Labs: 12/06/18 06:22 12/06/18 06:22 PT 11.8 SECONDS (9.7-12.2) 11/23/18 12:16 INR 1.1 11/23/18 12:16 APTT 35 SECONDS (21-34) H 11/23/18 12:16 - Constitutional Appears: Well, Non-toxic - Head Exam Head Exam: ATRAUMATIC, NORMOCEPHALIC - Eye Exam Eye Exam: EOMI, PERRL - ENT Exam ENT Exam: Mucous Membranes Moist - Neck Exam Neck Exam: Full ROM - Respiratory Exam Respiratory Exam: Clear to Ausculation Bilateral. absent: Rhonchi, Wheezes - Cardiovascular Exam Cardiovascular Exam: REGULAR RHYTHM, +S1, +S2 - GI/Abdominal Exam GI & Abdominal Exam: Soft. absent: Distended, Tenderness - Extremities Exam Extremities Exam: Full ROM. absent: Pedal Edema - Neurological Exam Neurological Exam: Alert, Awake, Oriented x3 - Psychiatric Exam Psychiatric exam: Normal Affect, Normal Mood - Skin Skin Exam: Normal Color, Warm Assessment and Plan (1) Atrial flutter Status: Acute (2) CAD (coronary artery disease) Status: Acute (3) ESRD (end stage renal disease) Status: Chronic (4) Acute on chronic diastolic (congestive) heart failure Status: Acute - Assessment and Plan (Free Text) Plan: maintain HS, MWF, next HD sunday Bp stable monitor HB check CBC outpt HD placement at [facility]
[2018-12-07] MEDS: Multivitamin Vitamin B Complex (Nephro-Vite) Tab PO SCH (12:46)
[2018-12-07] MEDS: cefTRIAXone 2 GM in Sodium Chloride 0.9% 100 ML IVPB SCH (22:29)
[2018-12-08] MEDS: Multivitamin Vitamin B Complex (Nephro-Vite) Tab PO SCH ×2 (08:29→09:07)
[2018-12-08 08:44] LABS: HEMOGLOBIN 8.8 g/dL (12.0-18.0); MEAN CELL VOLUME 105.4 fL (80.0-94.0); MEAN CORPUSCULAR HEMOGLOBIN 33.5 pg (27.0-31.0); MEAN CORPUSCULAR HGB CONC 31.8 g/dL (33.0-37.0); MEAN PLATELET VOLUME 8.3 fL (7.2-11.7); RBC 2.62 Mil/uL (4.40-5.90); RED CELL DISTRIBUTION WIDTH 16.7 % (11.5-14.5); WHITE BLOOD COUNT 5.5 K/uL (4.8-10.8)
[2018-12-08] MEDS: Albuterol-Ipratrop 3 mg / 0.5 (3 ml) UD INH SCH ×3 (08:50→19:36)
[2018-12-08] MEDS: cefTRIAXone 2 GM in Sodium Chloride 0.9% 100 ML IVPB SCH (22:37)
[2018-12-09] MEDS: Albuterol-Ipratrop 3 mg / 0.5 (3 ml) UD INH SCH ×2 (08:02→14:02)
[2018-12-09] MEDS: Multivitamin Vitamin B Complex (Nephro-Vite) Tab PO SCH (09:30)
--- NOTE | 2018-12-09 10:26 | CP.PCM.PN ---
Subjective - Date & Time of Evaluation Date of Evaluation: 12/09/18 Time of Evaluation: 10:23 - Subjective Subjective: pt seen and examined comfortable no overnight events no SOB still with tingling in access arm afebrile ROS- as per HPI, other than that 10 point ROS negative Objective - Vital Signs/Intake and Output Vital Signs (last 24 hours): Temp Pulse Resp BP Pulse Ox 97.5 F L 96 H 20 131/78 98 12/09/18 07:30 12/09/18 07:30 12/09/18 07:30 12/09/18 07:30 12/09/18 07:30 - Medications Medications: Current Medications Acetaminophen (Tylenol 325mg Tab) 650 mg PO Q6 PRN PRN Reason: Pain, moderate (4-7) Last Admin: 12/08/18 20:18 Dose: 650 mg Albuterol/Ipratropium (Duoneb 3 Mg/0.5 Mg (3 Ml) Ud) 3 ml INH RQ6 [facility] Last Admin: 12/08/18 19:36 Dose: 3 ml Allopurinol (Zyloprim) 100 mg PO HS [facility] Last Admin: 12/08/18 22:36 Dose: 100 mg Apixaban (Eliquis) 2.5 mg PO Q48H [facility] Last Admin: 12/07/18 18:31 Dose: 2.5 mg Benzonatate (Tessalon Perles) 100 mg PO BID PRN PRN Reason: Cough Last Admin: 12/06/18 21:46 Dose: 100 mg Calcitriol (Rocaltrol) 0.25 mcg PO HS [facility] Last Admin: 12/08/18 22:36 Dose: 0.25 mcg Diphenhydramine HCl (Benadryl) 25 mg PO QID PRN PRN Reason: Itching / Pruritus Last Admin: 12/08/18 20:18 Dose: 25 mg Ferrous Sulfate (Feosol) 325 mg PO HS [facility] Last Admin: 12/08/18 22:36 Dose: 325 mg Folic Acid (Folic Acid) 1 mg PO HS [facility] Last Admin: 12/08/18 22:36 Dose: 1 mg Ceftriaxone Sodium 2 gm/ (Sodium Chloride) 100 mls @ 100 mls/hr IVPB Q24H [facility]; Protocol Last Admin: 12/08/18 22:37 Dose: 100 mls/hr Rosuvastatin Calcium (Crestor) 5 mg PO HS [facility] Last Admin: 12/08/18 22:36 Dose: 5 mg Vitamin B Complex/Vit C/Folic Acid (Nephro-Miguel Ángel) 1 tab PO 0800 [facility] Last Admin: 12/09/18 09:30 Dose: 1 tab - Labs Labs: 12/08/18 08:36 12/06/18 06:22 PT 11.8 SECONDS (9.7-12.2) 11/23/18 12:16 INR 1.1 11/23/18 12:16 APTT 35 SECONDS (21-34) H 11/23/18 12:16 - Constitutional Appears: Well, Non-toxic, Chronically Ill - Head Exam Head Exam: ATRAUMATIC, NORMOCEPHALIC - Eye Exam Eye Exam: EOMI, PERRL - ENT Exam ENT Exam: Mucous Membranes Moist - Neck Exam Neck Exam: Full ROM - Respiratory Exam Respiratory Exam: Clear to Ausculation Bilateral. absent: Rhonchi, Wheezes - Cardiovascular Exam Cardiovascular Exam: REGULAR RHYTHM, +S1, +S2 - GI/Abdominal Exam GI & Abdominal Exam: Soft. absent: Distended, Tenderness - Extremities Exam Extremities Exam: Full ROM. absent: Pedal Edema Additional comments: right arm AV fistula- + bruit - Neurological Exam Neurological Exam: Alert, Awake, Oriented x3 - Psychiatric Exam Psychiatric exam: Normal Affect, Normal Mood - Skin Skin Exam: Normal Color, Warm Assessment and Plan (1) Atrial flutter Status: Acute (2) CAD (coronary artery disease) Status: Acute (3) ESRD (end stage renal disease) Status: Chronic (4) Acute on chronic diastolic (congestive) heart failure Status: Acute - Assessment and Plan (Free Text) Plan: HD today , maintain MWF schedule Bp controlled vascular surgery follow up for tingling to go to [facility] for outpt HD
[2018-12-09 17:29] VITALS: BP 140/79; PULSE 96; RESP 20; TEMP 97.3; O2SAT 100
--- NOTE | 2018-12-12 11:37 | CP.PCM.DIS ---
Provider - Provider Date of Admission: 11/23/18 14:58 Attending physician: Tk Park MD Primary care physician: Tk Park M.D. Consults: 11/23/18 19:31 Physician Consult Routine Comment: Consulting Provider: Aaron Orellana Consulting Physician: Aaron Orellana Reason for Consult: ESRD on HD 11/23/18 19:32 Physician Consult Routine Comment: Consulting Provider: Alex June Consulting Physician: Alex June Reason for Consult: Cough, fever with elevated serum lactic acid. 12/03/18 17:25 Vascular Surgery Routine Comment: Consulting Provider: Reji Aleman Jr. Physician Instructions: Reason For Exam: AV graft 12/03/18 18:43 Cardiology Consult Routine Comment: Consulting Provider: Leon De Leon Consulting Physician: Leon De Leon Reason for Consult: pre-op evaluation Time Spent in preparation of Discharge (in minutes): 45 Diagnosis - Discharge Diagnosis (1) ESRD (end stage renal disease) Status: Chronic (2) Pneumonia Status: Acute (3) COPD exacerbation Status: Acute (4) COPD exacerbation Status: Acute Hospital Course - Lab Results Lab Results: Micro Results 11/23/18 12:16 Blood Blood Culture - Final NO GROWTH AFTER 5 DAYS 11/23/18 12:16 Blood Gram Stain - Final TEST NOT PERFORMED 11/23/18 12:16 Blood Blood Culture - Final NO GROWTH AFTER 5 DAYS 11/23/18 12:16 Blood Gram Stain - Final TEST NOT PERFORMED 11/25/18 20:18 Stool Stool Culture - Final NO SALMONELLA, SHIGELLA OR CAMPYLOBACTER ISOLATED. 11/23/18 22:29 Sputum Gram Stain - Final 11/23/18 22:29 Sputum Sputum Culture - Final NORMAL ORAL DOMINIK 11/23/18 12:50 Urine,Clean Catch Urine Culture - Final No Growth (<1,000 CFU/ML) Most Recent Lab Values WBC 5.5 K/uL (4.8-10.8) 12/08/18 08:36 RBC 2.62 Mil/uL (4.40-5.90) L 12/08/18 08:36 Hgb 8.8 g/dL (12.0-18.0) L 12/08/18 08:36 Hct 27.6 % (35.0-51.0) L 12/08/18 08:36 MCV 105.4 fL (80.0-94.0) H 12/08/18 08:36 MCH 33.5 pg (27.0-31.0) H 12/08/18 08:36 MCHC 31.8 g/dL (33.0-37.0) L 12/08/18 08:36 RDW 16.7 % (11.5-14.5) H 12/08/18 08:36 Plt Count 169 K/uL (130-400) 12/08/18 08:36 MPV 8.3 fL (7.2-11.7) 12/08/18 08:36 Neut % (Auto) 77.2 % (50.0-75.0) H 12/06/18 06:22 Lymph % (Auto) 5.1 % (20.0-40.0) L 12/06/18 06:22 Grand % (Auto) 11.0 % (0.0-10.0) H 12/06/18 06:22 Eos % (Auto) 5.6 % (0.0-4.0) H 12/06/18 06:22 Baso % (Auto) 1.1 % (0.0-2.0) 12/06/18 06:22 Neut # (Auto) 4.9 K/uL (1.8-7.0) 12/06/18 06:22 Lymph # (Auto) 0.3 K/uL (1.0-4.3) L 12/06/18 06:22 Grand # (Auto) 0.7 K/uL (0.0-0.8) 12/06/18 06:22 Eos # (Auto) 0.4 K/uL (0.0-0.7) 12/06/18 06:22 Baso # (Auto) 0.1 K/uL (0.0-0.2) 12/06/18 06:22 Neutrophils % (Manual) 84 % (50-75) H 12/06/18 06:22 Band Neutrophils % 1 % (0-2) 12/06/18 06:22 Lymphocytes % (Manual) 4 % (20-40) L 12/06/18 06:22 Monocytes % (Manual) 7 % (0-10) 12/06/18 06:22 Eosinophils % (Manual) 4 % (0-4) 02/15/19 06:22 Platelet Estimate Normal (NORMAL) 12/06/18 06:22 Large Platelets Present 11/24/18 08:10 Polychromasia Slight 11/24/18 08:10 Hypochromasia (manual) Slight 12/06/18 06:22 Poikilocytosis (manual Slight 11/24/18 08:10 Anisocytosis (manual) Slight 12/06/18 06:22 Macrocytosis (manual) Moderate 11/24/18 08:10 Tear Drop Cells Slight 11/24/18 08:10 Ovalocytes Slight 11/24/18 08:10 PT 11.8 SECONDS (9.7-12.2) 11/23/18 12:16 INR 1.1 11/23/18 12:16 APTT 35 SECONDS (21-34) H 11/23/18 12:16 pO2 16 mm/Hg (30-55) L 11/23/18 14:00 VBG pH 7.38 (7.32-7.43) 11/23/18 14:00 VBG pCO2 52 mmHg (40-60) 11/23/18 14:00 VBG HCO3 26.3 mmol/L 11/23/18 14:00 VBG Total CO2 32.4 mmol/L (22-28) H 11/23/18 14:00 VBG O2 Sat (Calc) 32.5 % (40-65) L 11/23/18 14:00 VBG Base Excess 4.4 mmol/L (0.0-2.0) H 11/23/18 14:00 VBG Potassium 3.9 mmol/L (3.6-5.2) 11/23/18 14:00 Sodium 141.0 mmol/l (132-148) 11/23/18 14:00 Chloride 108.0 mmol/L (98-107) H 11/23/18 14:00 Glucose 86 mg/dl (75-110) 11/23/18 14:00 Lactate 0.9 mmol/L (0.7-2.1) 11/23/18 14:00 Sodium 136 mmol/L (132-148) 12/06/18 06:22 Potassium 4.9 mmol/L (3.6-5.2) 12/06/18 06:22 Chloride 102 mmol/L (98-107) 12/06/18 06:22 Carbon Dioxide 25 mmol/L (22-30) 12/06/18 06:22 Anion Gap 13 (10-20) 12/06/18 06:22 BUN 25 mg/dL (9-20) H 12/06/18 06:22 Creatinine 6.4 mg/dL (0.8-1.5) H 12/06/18 06:22 Est GFR ( Amer) 10 12/06/18 06:22 Est GFR (Non-Af Amer) 8 12/06/18 06:22 Random Glucose 77 mg/dL (75-110) 12/06/18 06:22 Calcium 8.4 mg/dl (8.6-10.4) L 12/06/18 06:22 Phosphorus 5.7 mg/dL (2.5-4.5) H 12/06/18 06:22 Magnesium 1.6 mg/dL (1.6-2.3) 12/06/18 06:22 % Saturation 34 (20-55) 11/28/18 14:20 Ferritin 836.0 ng/mL 11/28/18 14:20 Total Bilirubin 0.4 mg/dL (0.2-1.3) 11/29/18 07:41 AST 48 U/L (17-59) 11/29/18 07:41 ALT 23 U/L (21-72) 11/29/18 07:41 Alkaline Phosphatase 142 U/L (38-126) H D 11/29/18 07:41 Total Protein 6.5 g/dL (6.3-8.3) 11/29/18 07:41 Albumin 3.0 g/dL (3.5-5.0) L 11/29/18 07:41 Globulin 3.5 gm/dL (2.2-3.9) 11/29/18 07:41 Albumin/Globulin Ratio 0.8 (1.0-2.1) L 11/29/18 07:41 Venous Blood Potassium 3.9 mmol/L (3.6-5.2) 11/23/18 14:00 Urine Color Yellow (YELLOW) 11/23/18 12:50 Urine Clarity Clear (Clear) 11/23/18 12:50 Urine pH 7.0 (5.0-8.0) 11/23/18 12:50 Ur Specific [place] 1.009 (1.003-1.030) 11/23/18 12:50 Urine Protein 2+ mg/dL (NEGATIVE) H 11/23/18 12:50 Urine Glucose (UA) 1+ mg/dL (Normal) H 11/23/18 12:50 Urine Ketones Negative mg/dL (NEGATIVE) 11/23/18 12:50 Urine Blood 1+ (NEGATIVE) H 11/23/18 12:50 Urine Nitrate Negative (NEGATIVE) 11/23/18 12:50 Urine Bilirubin Negative (NEGATIVE) 11/23/18 12:50 Urine Urobilinogen Normal mg/dL (0.2-1.0) 11/23/18 12:50 Ur Leukocyte Esterase Neg Cade/uL (Negative) 11/23/18 12:50 Urine WBC (Auto) 6 /hpf (0-5) H 11/23/18 12:50 Urine RBC (Auto) 3 /hpf (0-3) 11/23/18 12:50 Urine Bacteria Rare (<OCC) 11/23/18 12:50 Hyaline Casts 0-2 /lpf (0-2) 11/23/18 12:50 Stool Leukocytes, Qual Negative (NEGATIVE) 11/30/18 06:22 Influenza Typ A,B (EIA) Negative for flu a/b (NEGATIVE) 11/23/18 12:16 Blood Type B POSITIVE 12/04/18 07:09 Antibody Screen Negative 12/04/18 07:09 - Hospital Course Hospital Course: 83 years old [place] male was brought to the ED at [facility] complaining of a low grade fever, a diarrhea, a productive cough and shortness of breath for the past few days. He was recently discharged from a week before for abdominal pain, and his peritoneal dialysis was replaced with hemodialysis. He is known to have a hypertension, an ESRD on hemodialysis, a COPD, a s/p atrial flutter in 2012, and a s/p CABG x 4 in 2007. In the ED, his CXR revealed a left pleural effusion. WBC: 7.900 with 86.7 % PMN and 3 bands. Serum lactic acid was slightly elevated at 2.7. The patient was hospitalized with the diagnosis of LLL pneumonia, ESRD on HD. He was started on Vancomycin and IV Zosyn. The patient was evaluated by Dr Orellana(Nephrology) who ordered HD, and DR June ( Infectious disease0 who ordered Vancomycin IV and Rocephin IV. Blood cultures were done. The patient was monitored on telemetry floor. The diarrhea subsided gradually, but on 11/26/2018 a repeated CXR revealed increased left pleural effusion, and the patient developed diffuse wheezing bilaterally. He was started on Duoneb by nebulizer for a COPD exacerbation. The patient was continued on Vancomycin and IV Rocephin. On 11/29/2018 IV Vancomycin was discontinued because all blood cultures showed no bacterial growth. The patient received only IV Rocephin. The cough and wheezing improved markedly. On 12/05/2018, the patient underwent an insertion of AV fistula on the right arm by Dr Patric Osman. The patient did well and was discharged home on 12/09/2018 after a hemodialysis session. He will take no more antibiotic, and will have outpatient HD as per Nephrologists. He will continue same home medications and will see me in a week. Discharge Exam - Head Exam Head Exam: ATRAUMATIC, NORMOCEPHALIC - Eye Exam Eye Exam: Normal appearance Pupil Exam: NORMAL ACCOMODATION - ENT Exam ENT Exam: Normal Exam - Neck Exam Neck exam: Normal Inspection - Respiratory Exam Additional comments: Few rhonchi of the left base. - Cardiovascular Exam Cardiovascular Exam: REGULAR RHYTHM - GI/Abdominal Exam GI & Abdominal Exam: Mass, Normal Bowel Sounds - Rectal Exam Rectal Exam: Deferred - Exam Exam: NORMAL INSPECTION - Extremities Exam Extremities exam: normal inspection - Back Exam Back exam: NORMAL INSPECTION - Neurological Exam Neurological exam: Alert, Normal Gait, Oriented x3 - Psychiatric Exam Psychiatric exam: Anxious - Skin Skin Exam: Dry, Intact, Normal Color, Warm Discharge Plan - Follow Up Plan Condition: STABLE Disposition: HOME/ ROUTINE Instructions: Dialysis Diet , Heart Failure, Adult (DC), Pneumonia, Adult (DC), Sepsis, Adult (DC), Coronary Heart Disease (DC), End Stage Kidney Disease (DC) Additional Instructions: Follow up in the office in one week. Referrals: Tk Park MD [Staff Provider] - Clinical Quality Measures - CQM - Heart Failure Will be discharged to: Home Follow Up Date (must be within 7 days from discharge): 12/16/18 Follow Up Time: 14:00 - Date & Time of Discharge Summary Date of Discharge Summary: 12/12/18 Time of Discharge Summary: 11:59
== END 2018-12-09 18:28 | disposition home or self-care (01) | DRG 981 ==
LOC: C.ER 11:01 → C.9E 14:58 → C.6T 16:06 → C.9E 16:14 → C.6T 17:05
PROVIDERS: ADMIT Internal Medicine Cardiovascular Disease; ATTEND Internal Medicine Cardiovascular Disease
PROC: 5A1D70Z Performance of Urinary Filtration, Intermittent, Less than 6 Hours Per Day (ICD-10-PCS; principal; 2018-11-25)
PROC: 03170ZD Bypass Right Brachial Artery to Upper Arm Vein, Open Approach (ICD-10-PCS; 2018-12-05)
DX: J18.9 Pneumonia, unspecified organism (principal); N18.6 End stage renal disease; A41.9 Sepsis, unspecified organism; I50.33 Acute on chronic diastolic (congestive) heart failure; I13.2 Hypertensive heart and chronic kidney disease with heart failure and with stage 5 chronic kidney disease, or end stage renal disease; J44.0 Chronic obstructive pulmonary disease with (acute) lower respiratory infection; I48.92 Unspecified atrial flutter; J44.1 Chronic obstructive pulmonary disease with (acute) exacerbation; Z95.1 Presence of aortocoronary bypass graft; R55 Syncope and collapse; I25.10 Atherosclerotic heart disease of native coronary artery without angina pectoris; E87.6 Hypokalemia

== ENCOUNTER 2018-12-12 12:15 | Emergency (ER) | payer MEDICARE ==
[2018-12-12 12:22] VITALS: BMI 18.2
[2018-12-12 12:26] VITALS: RESP 18
--- NOTE | 2018-12-12 15:40 | C.PDOC ---
History Of Present Illness 83 year old male presents to the ED for evaluation of right arm edema and swelling. Patient is a dialysis patient (//Sun) and had a new AV fistula installed last week with Dr. Aleman. Patient has had some lateral arm paresthesis, which has since resolve. He completed full dialysis today. Otherwise, he denies fever, chills. Time Seen by Provider: 12/12/18 13:25 Chief Complaint (Nursing): Upper Extremity Problem/Injury History Per: Patient History/Exam Limitations: no limitations Onset/Duration Of Symptoms: Hrs Current Symptoms Are (Timing): Still Present Past Medical History Reviewed: Historical Data, Nursing Documentation, Vital Signs Vital Signs: Last Vital Signs Temp 97.9 F 12/12/18 12:22 Pulse 102 H 12/12/18 12:22 Resp 18 12/12/18 12:22 BP 131/74 12/12/18 12:22 Pulse Ox 96 12/12/18 12:22 - Medical History PMH: CAD, Cardia Arrhythmia (HX: [id number] DONE ~[id number]), CHF, COPD, HTN, Hypercholesterolemia, Peripheral Edema, End Stage Renal Disease, Chronic Kidney Disease Surgical History: CABG (QUAD-CORNARY BYPASS 2007) - [facility] Procedures (11/23/18) BYPASS RIGHT BRACHIAL ARTERY TO UP ARM VEIN, OPEN APPROACH (11/23/18) ENDOSCOPIC BRONCHIAL BX (06/12/13) INSERTION OF INFUSION DEV INTO SUP VENA CAVA, PERC APPROACH (11/13/18) IRRIGATION OF PERITON CAV USING DIALYSATE, PERC APPROACH (03/11/18) REMOVAL OF INFUSION DEVICE FROM PERITON CAV, OPEN APPROACH (11/13/18) Family History: States: Unknown Family Hx - Social History Hx Tobacco Use: No Hx Alcohol Use: No Hx Substance Use: No - Immunization History Hx Tetanus Toxoid Vaccination: Yes Hx Influenza Vaccination: Yes Hx Pneumococcal Vaccination: Yes Review Of Systems Skin: Positive for: Other (right arm edema and swelling ) Physical Exam - Physical Exam Appears: Non-toxic, No Acute Distress, Other (elderly male, no apparent distress ) Skin: Normal Color, Warm, Dry Head: Atraumatic, Normacephalic Eye(s): bilateral: Normal Inspection Oral Mucosa: Moist Neck: Supple Chest: Symmetrical, No Deformity, No Tenderness Cardiovascular: Rhythm Regular, No Murmur Respiratory: Normal Breath Sounds, No Rales, No Rhonchi, No Wheezing Extremity: Normal ROM, Capillary Refill (less than 2 seconds ), Other (4cm surgical scar to the upper right medial arm with chucho and sutures in place. right medial elbow area with sugical scars, chucho and sutures intact. dependent ecchymosis in the medial right distal arm. nontender edema from right mid-upper arm to the right hand ) Neurological/Psych: Oriented x3, Normal Speech, Normal Cognition ED Course And Treatment O2 Sat by Pulse Oximetry: 96 (on RA) Pulse Ox Interpretation: Normal Progress Note: Venous Duplex scan of right upper extremity ordered and reviewed. Disposition Doctor Will See Patient In The: Office Counseled Patient/Family Regarding: Studies Performed, Diagnosis - Disposition Referrals: Reji Aleman Jr., MD [Staff Provider] - Disposition: HOME/ ROUTINE Disposition Time: 16:20 Condition: GOOD Additional Instructions: continue follow-up with Dr. Aleman Keep R arm elevated as able Instructions: Dependent Edema (DC), Postoperative Pain (DC) Forms: [employer] (Swiss) - Clinical Impression Clinical Impression: Edema of upper extremity - Scribe Statement The provider has reviewed the documentation as recorded by the Scribe (Bessy Claudio) Provider Attestation: All medical record entries made by the Scribe were at my direction and personally dictated by me. I have reviewed the chart and agree that the record accurately reflects my personal performance of the history, physical exam, medical decision making, and the department course for this patient. I have also personally directed, reviewed, and agree with the discharge instructions and disposition.
[2018-12-12 15:45] VITALS: BP 130/74; PULSE 94; TEMP 98.4
[2018-12-12 15:52] VITALS: O2SAT 96
--- NOTE | 2018-12-12 16:18 | C.PDOC ---
Time Seen by Provider: 12/12/18 13:25 Chief Complaint (Nursing): Upper Extremity Problem/Injury Past Medical History Vital Signs: Last Vital Signs Temp 97.9 F 12/12/18 12:22 Pulse 102 H 12/12/18 12:22 Resp 18 12/12/18 12:22 BP 131/74 12/12/18 12:22 Pulse Ox 96 12/12/18 12:22 - Medical History PMH: CAD, Cardia Arrhythmia (HX: [id number] DONE ~2635-4566), CHF, COPD, HTN, Hypercholesterolemia, Peripheral Edema, End Stage Renal Disease, Chronic Kidney Disease Surgical History: CABG (QUAD-CORNARY BYPASS 2007) - [facility] Procedures (11/23/18) BYPASS RIGHT BRACHIAL ARTERY TO UP ARM VEIN, OPEN APPROACH (11/23/18) ENDOSCOPIC BRONCHIAL BX (06/12/13) INSERTION OF INFUSION DEV INTO SUP VENA CAVA, PERC APPROACH (11/13/18) IRRIGATION OF PERITON CAV USING DIALYSATE, PERC APPROACH (03/11/18) REMOVAL OF INFUSION DEVICE FROM PERITON CAV, OPEN APPROACH (11/13/18) Family History: States: Unknown Family Hx - Social History Hx Tobacco Use: No Hx Alcohol Use: No Hx Substance Use: No - Immunization History Hx Tetanus Toxoid Vaccination: Yes Hx Influenza Vaccination: Yes Hx Pneumococcal Vaccination: Yes Physical Exam - Physical Exam Appears: Other (HD catheter in R upper chest) ED Course And Treatment O2 Sat by Pulse Oximetry: 96 - CT Scan/US R upper extremity US Other Rad Studies (CT/US): Interpreted By Me (NO DVT), Radiology Report Reviewed Reevaluation Time: 16:20 Reassessment Condition: Unchanged - Physician Consult Information Outcome Of Conversation: d/w Dr. Aleman and examined @ bedside 1330 and 1615, US neg for DVT. ok to d/c home w opt f/u Medical Decision Making Medical Decision Making: post op edema and dependent ecchymosis of R arm due to new AVF intalled last week no DVT on R arm US ok for opt f/u no abx indicated. Disposition Doctor Will See Patient In The: Office Counseled Patient/Family Regarding: Studies Performed, Diagnosis - Disposition Disposition: HOME/ ROUTINE Disposition Time: 16:21 Condition: GOOD - Clinical Impression Clinical Impression: Edema of upper extremity
--- NOTE | 2018-12-13 10:03 | VASCLAB ---
Date of service: 12/12/2018 PROCEDURE: Right Upper Extremity Venous Duplex Exam HISTORY: new AV fistula, ? DVT PRIORS: None. TECHNIQUE: Right upper extremity, internal jugular, subclavian, axillary, brachial, ulnar, radial, basilic and upper cephalic veins were evaluated. Flow was assessed with color Doppler, compressibility, assessment of phasic flow and augmentation response. Report prepared by Alex Moore, BRIDGETT, RVT FINDINGS: RIGHT: 1. Internal Jugular: 1.1. Compressibility - Fully compressible: Thrombus - None : Flow - Phasic: Augmentation -Normal: Reflux - None. 2. Subclavian: 2.1. Compressibility - Fully compressible: Thrombus - None : Flow - Phasic: Augmentation -Normal: Reflux - None. 3. Axillary: 3.1. Compressibility - Fully compressible: Thrombus - None : Flow - Phasic: Augmentation -Normal: Reflux - None. 4. Brachial: 4.1. Compressibility - Fully compressible: Thrombus - None: Flow - Phasic: Augmentation -Normal: Reflux - None. 5. Ulnar: 5.1. Compressibility - Fully compressible: Thrombus - None: Flow - Phasic: Augmentation -Normal: Reflux - None. 6. Radial: 6.1. Compressibility - Fully compressible: Thrombus - None: Flow - Phasic: Augmentation - Normal: Reflux - None. 7. Cephalic: 7.1. Compressibility - Fully compressible: Thrombus - None: Flow - Phasic: Augmentation -Normal: Reflux - None. 8. Basilic: 8.1. Compressibility - Fully compressible: Thrombus - None: Flow - Phasic: Augmentation -Normal: Reflux - None. OTHER FINDINGS: Right: A functional right brachial-cephalic AV fistula noted. IMPRESSION: Right: No evidence of vein thrombosis of the right upper extremity with excellent venous flow. Normal valve function noted of the right side. Normal venous flow noted in the left internal jugular and left subclavian veins.
== END 2018-12-12 16:38 | disposition home or self-care (01) ==
LOC: C.ER 12:15
DX: R60.9 Edema, unspecified (principal)

== ENCOUNTER 2019-03-11 19:42 | Emergency (ER) | payer MEDICARE ==
[2019-03-11 19:43] VITALS: BMI 18.2
[2019-03-11 19:52] VITALS: TEMP 97.5
--- NOTE | 2019-03-11 20:02 | C.PDOC ---
History Of Present Illness Patient s/p dialysis graft declotting presents after noticed he swallowed his denture complaining of pain. Denies other physical complaints. Chief Complaint (Nursing): Foreign Body History Per: Patient History/Exam Limitations: no limitations Onset/Duration Of Symptoms: Hrs Current Symptoms Are (Timing): Still Present Suicide/Self Injury Attempted (Context): None Severity: Moderate Pain Scale Rating Of: 4 Involuntary Hold By: None Recent travel outside of the [place]: No Past Medical History Reviewed: Historical Data, Nursing Documentation, Vital Signs Vital Signs: Last Vital Signs Temp 97.5 F L 03/11/19 19:49 Pulse 104 H 03/11/19 19:49 Resp 25 H 03/11/19 19:49 BP 197/93 H 03/11/19 19:49 Pulse Ox 99 03/11/19 19:49 Primary Care Provider: Tk Park - Medical History PMH: CAD, Cardia Arrhythmia (HX: [id number] DONE ~4414-8007), CHF, COPD, HTN, Hypercholesterolemia, Peripheral Edema, End Stage Renal Disease, Chronic Kidney Disease Surgical History: CABG (QUAD-CORNARY BYPASS 2007) - [facility] Procedures (11/23/18) BYPASS RIGHT BRACHIAL ARTERY TO UP ARM VEIN, OPEN APPROACH (11/23/18) ENDOSCOPIC BRONCHIAL BX (06/12/13) INSERTION OF INFUSION DEV INTO SUP VENA CAVA, PERC APPROACH (11/13/18) IRRIGATION OF PERITON CAV USING DIALYSATE, PERC APPROACH (03/11/18) REMOVAL OF INFUSION DEVICE FROM PERITON CAV, OPEN APPROACH (11/13/18) Family History: States: Unknown Family Hx - Social History Hx Tobacco Use: No Hx Alcohol Use: No Hx Substance Use: No - Immunization History Hx Tetanus Toxoid Vaccination: Yes Hx Influenza Vaccination: Yes Hx Pneumococcal Vaccination: Yes Review Of Systems Constitutional: Negative for: Fever, Chills Cardiovascular: Negative for: Chest Pain, Palpitations Respiratory: Negative for: Cough, Shortness of Breath Gastrointestinal: Negative for: Nausea, Vomiting Neurological: Negative for: Weakness, Numbness Physical Exam - Physical Exam Appears: Non-toxic Skin: Warm, Dry Head: Normacephalic Oral Mucosa: Moist Throat: Other (Visualized upper denture in oropharynx) Neck: Trachea Midline, Supple Chest: Symmetrical, No Tenderness Cardiovascular: Rhythm Regular Respiratory: No Rales, No Rhonchi, No Wheezing Gastrointestinal/Abdominal: Soft, No Tenderness Neurological/Psych: Oriented x3 ED Course And Treatment O2 Sat by Pulse Oximetry: 99 (Room air) Pulse Ox Interpretation: Normal Progress Note: Using direct laryngoscopy we were able to remove the denture with minimal amount bleeding, denture was slightly stuck on the palatoglossal arch on the left and on the palatopharyngeal arch on the right. Post removal, no active bleeding seen. Disposition Counseled Patient/Family Regarding: Studies Performed, Diagnosis, Need For Followup - Disposition Referrals: Tk Park MD [Staff Provider] - Rajendra Spicer MD [Staff Provider] - Disposition: HOME/ ROUTINE Disposition Time: 20:02 Condition: FAIR Instructions: Removal of Foreign Body, Swallowed, Adult Forms: [facility] (Brazilian) - Clinical Impression Clinical Impression: Foreign body in throat - Scribe Statement The provider has reviewed the documentation as recorded by the Scribe Alex Finch All medical record entries made by the Scribe were at my direction and person ally dictated by me. I have reviewed the chart and agree that the record accurately reflects my personal performance of the history, physical exam, medical decision making, and the department course for this patient. I have also personally directed, reviewed, and agree with the discharge instructions and disposition.
[2019-03-11 20:47] VITALS: BP 177/107; PULSE 94; RESP 20; O2SAT 100
== END 2019-03-11 20:45 | disposition home or self-care (01) ==
LOC: C.ER 19:42
DX: T17.298A Other foreign object in pharynx causing other injury, initial encounter (principal); X58.XXXA Exposure to other specified factors, initial encounter

== ENCOUNTER 2019-03-13 17:13 | Emergency (ER) | payer MEDICARE ==
[2019-03-13 17:13] VITALS: BMI 18.2
[2019-03-13 17:23] VITALS: RESP 17
--- NOTE | 2019-03-13 17:53 | C.PDOC ---
History Of Present Illness PGY-[address] Lara 83 year old male coming to ED for coughing blood this morning, last visit to ER on 03/11, pt swallowed denture and was stuck on right and left palatoglossal arch, removed in the ED with minimal bleeding. Patient states he cough up large clot this morning, complains of throat pain, able to eat oatmeal at home. Denies fever, chills, difficulty breathing, difficulty swallowing. <Madi Connolly - Last Filed: 03/13/19 19:49> <Prince Lara - Last Filed: 03/13/19 19:12> History Per: Patient, Family History/Exam Limitations: no limitations Onset/Duration Of Symptoms: Days Current Symptoms Are (Timing): Still Present Severity: Moderate Reports Recently: Seen In ED Additional History Per: Family ( at bedside ) <Madi Connolly - Last Filed: 03/13/19 19:49> Time Seen by Provider: 03/13/19 17:48 Chief Complaint (Nursing): ENT Problem Past Medical History Vital Signs: Last Vital Signs Temp 98.2 F 03/13/19 17:17 Pulse 93 H 03/13/19 17:17 Resp 17 03/13/19 17:17 BP 158/74 H 03/13/19 17:17 Pulse Ox 98 03/13/19 17:17 Primary Care Provider: Tk Park - Medical History PMH: CAD, Cardia Arrhythmia (HX: [id number] DONE ~[id number]), CHF, COPD, HTN, Hypercholesterolemia, Peripheral Edema, End Stage Renal Disease, Chronic Kidney Disease Surgical History: CABG (QUAD-CORNARY BYPASS 2007) - [facility] Procedures (11/23/18) BYPASS RIGHT BRACHIAL ARTERY TO UP ARM VEIN, OPEN APPROACH (11/23/18) ENDOSCOPIC BRONCHIAL BX (06/12/13) INSERTION OF INFUSION DEV INTO SUP VENA CAVA, PERC APPROACH (11/13/18) IRRIGATION OF PERITON CAV USING DIALYSATE, PERC APPROACH (03/11/18) REMOVAL OF INFUSION DEVICE FROM PERITON CAV, OPEN APPROACH (11/13/18) Family History: States: Unknown Family Hx - Social History Hx Tobacco Use: No Hx Alcohol Use: No Hx Substance Use: No - Immunization History Hx Tetanus Toxoid Vaccination: Yes Hx Influenza Vaccination: Yes Hx Pneumococcal Vaccination: Yes <Prince Lara - Last Filed: 03/13/19 19:12> Vital Signs: Last Vital Signs Temp 98.2 F 03/13/19 17:17 Pulse 93 H 03/13/19 17:17 Resp 17 03/13/19 17:17 BP 158/74 H 03/13/19 17:17 Pulse Ox 98 03/13/19 19:12 - [facility] Procedures (11/23/18) BYPASS RIGHT BRACHIAL ARTERY TO UP ARM VEIN, OPEN APPROACH (11/23/18) ENDOSCOPIC BRONCHIAL BX (06/12/13) INSERTION OF INFUSION DEV INTO SUP VENA CAVA, PERC APPROACH (11/13/18) IRRIGATION OF PERITON CAV USING DIALYSATE, PERC APPROACH (03/11/18) REMOVAL OF INFUSION DEVICE FROM PERITON CAV, OPEN APPROACH (11/13/18) <Madi Connolly - Last Filed: 03/13/19 19:49> Review Of Systems Constitutional: Negative for: Fever, Chills, Weakness, Malaise ENT: Positive for: Throat Pain. Negative for: Mouth Pain, Mouth Swelling, Throat Swelling Cardiovascular: Negative for: Chest Pain Respiratory: Positive for: Cough, Hemoptysis. Negative for: Shortness of Breath Gastrointestinal: Negative for: Nausea, Vomiting Neurological: Negative for: Weakness, Numbness Psych: Negative for: Anxiety, Depression <Madi Connolly - Last Filed: 03/13/19 19:49> Physical Exam - Physical Exam Appears: Non-toxic, No Acute Distress Skin: Normal Color Head: Atraumatic, Normacephalic Eye(s): bilateral: Normal Inspection Oral Mucosa: Moist Tongue: Normal Appearing Throat: Other (palate hematoma, mild edema, clots located on right and left p alatopharyngeal arch, no active bleeding) Neck: Normal, Normal ROM Cardiovascular: Rhythm Regular Respiratory: Normal Breath Sounds <Madi Connolly - Last Filed: 03/13/19 19:49> ED Course And Treatment ECG: Interpreted By Me, Viewed By Me ECG Rhythm: Sinus Rhythm Rate From EC O2 Sat by Pulse Oximetry: 98 (on RA) <Prince Lara - Last Filed: 03/13/19 19:12> Medical Decision Making Medical Decision Makin83 year old male presenting with coughing clots s/p removal of dentures lodge on right and left palatopharyngeal arch, mild edema and discoloration/hematoma on pharynx, normal airway, speaking and eating without problems. -cold liquids such as ice pops, avoid warm/hot liquids or hard/thick foods - d/c eliquis now, follow with Dr Park PMD in one to two days - Follow up with ENT Dr Spicer - If symptoms worsen or recur, patient to return to ER Patient and at bedside in understanding of plan Plan d/w Dr Marco Connolly, PGY-1 <Madi Connolly - Last Filed: 03/13/19 19:49> Disposition <Prince Lara - Last Filed: 03/13/19 19:12> - Disposition Disposition Time: 19:31 <Madi Connolly - Last Filed: 03/13/19 19:49> - Disposition Referrals: Rajendra Spicer MD [Staff Provider] - Tk Park MD [Staff Provider] - Disposition: HOME/ ROUTINE Condition: STABLE Additional Instructions: CLAUDIA JUNE, thank you for letting us take care of you today. Your provider was Prince Lara MD and you were treated for BLEEDING FROM THROAT. The emergency medical care you received today was directed at your acute symptoms. It may take several days for your symptoms to resolve. Return to the Emergency Department if your symptoms worsen, do not improve, or if you have any other problems. Avoid any warm/hot foods and liquids, avoid thick or hard foods. You can eat ice pops or drink cold liquids. Please stop Eliquis until you see Dr Park at his office. Please crush any medications. Please follow up with PMD Dr Park and ENT doctor Dannielle in the next 1-2 days. Thank you for allowing the [facility] team to be part of your care today. Instructions: Diet After Mouth or Throat Surgery Forms: [facility] (Welsh) - Clinical Impression Clinical Impression: S/P tonsillectomy
[2019-03-13 19:56] VITALS: BP 132/76; PULSE 82; TEMP 98.1; O2SAT 100
== END 2019-03-13 19:56 | disposition home or self-care (01) ==
LOC: C.ER 17:13
DX: Z98.890 Other specified postprocedural states (principal); I13.2 Hypertensive heart and chronic kidney disease with heart failure and with stage 5 chronic kidney disease, or end stage renal disease; I50.9 Heart failure, unspecified; N18.6 End stage renal disease; Z95.1 Presence of aortocoronary bypass graft